=== PATIENT | female | born 1940 | race Caucasian/White ===

== ENCOUNTER 2017-01-25 19:40 | Observation (INO) | payer MEDICARE ==
--- NOTE | 2017-01-25 21:22 | ER Document Report ---
ED General - General Chief Complaint: Flank Pain Stated Complaint: RIGHT FLANK PAIN Time Seen by Provider: 01/25/17 20:36 Notes: Patient is a 76-year-old female that comes emergency department with chief complaint feeling weak, of pains in her lower back on both sides, intermittent painful urination since yesterday, and daughter state they measured her temperature at 101.3 before arrival. Daughters state she has been intermittently confused this afternoon and evening. Patient did not take any medications for fever, not family febrile after arrival to the emergency department. PMH COPD, hypothyroidism, hypertension, arthritis. She has had a kidney stone in the past. She lives at home. TRAVEL OUTSIDE OF THE [place] IN LAST 30 DAYS: No - Related Data Allergies/Adverse Reactions: Beef Containing Products Allergy (Verified 10/20/14 17:15) cephalexin monohydrate [From Keflex] Allergy (Verified 10/20/14 17:15) latex [Latex] Allergy (Verified 10/20/14 17:15) Penicillins Allergy (Verified 10/20/14 17:15) Xpvgcjj-Zcm-Tse Reductase Inhibitor Adverse Reaction (Intermediate, Verified 01/27 17:15) Unknown reaction Past Medical History - General Information source: Patient - Social History Smoking Status: Former Smoker Frequency of alcohol use: None Drug Abuse: None Lives with: Family Family History: Reviewed & Not Pertinent - Past Medical History Cardiac Medical History: Reports: Hx Congestive Heart Failure, Hx Heart Attack, Hx Hypercholesterolemia, Hx Hypertension Pulmonary Medical History: Reports: Hx Asthma, Hx Bronchitis, Hx COPD, Hx Pneumonia Denies: Hx Tuberculosis Neurological Medical History: Denies: Hx Seizures Renal/ Medical History: Denies: Hx End Stage Renal Disease, Hx Kidney Stones, Hx Peritoneal Dialysis GI Medical History: Reports: Hx Ulcer. Denies: Hx Cirrhosis, Hx Gastroesophageal Reflux Disease Musculoskeltal Medical History: Reports Hx Arthritis, Denies Hx Multiple Sclerosis Psychiatric Medical History: Denies: Hx Bipolar Disorder, Hx Depression, Hx Schizophrenia Past Surgical History: Reports: Hx Cardiac Catheterization - x2, Hx Hysterectomy - total - Immunizations Hx Diphtheria, Pertussis, Tetanus Vaccination: Yes Hx Pneumococcal Vaccination: 09/15/03 Review of Systems - Review of Systems Constitutional: See HPI EENT: No symptoms reported Cardiovascular: No symptoms reported Respiratory: No symptoms reported Gastrointestinal: See HPI Genitourinary: See HPI Female Genitourinary: No symptoms reported Musculoskeletal: No symptoms reported Skin: No symptoms reported Hematologic/Lymphatic: No symptoms reported Neurological/Psychological: See HPI Physical Exam - Vital signs Vitals: Temp Pulse Resp BP Pulse Ox 98.5 F 92 16 150/82 H 93 01/25/17 19:52 01/25/17 19:52 01/25/17 19:52 01/25/17 19:52 01/25/17 19:52 Interpretation: Normal - General General appearance: Appears well In distress: None - Patient does not appear to be in distress - HEENT Head: Normocephalic, Atraumatic Eyes: Normal Conjunctiva: Normal Extraocular movements intact: Yes Eyelashes: Normal Pupils: PERRL Sinus: Normal Nasal: Normal Mouth/Lips: Normal Mucous membranes: Normal Pharynx: Normal Neck: Normal - Respiratory Respiratory status: No respiratory distress Chest status: Nontender Breath sounds: Normal. No: Decreased air movement, Wheezing Chest palpation: Normal - Cardiovascular Rhythm: Regular Heart sounds: Normal auscultation Murmur: No - Abdominal Inspection: Normal Distension: No distension Bowel sounds: Normal Tenderness: Nontender Organomegaly: No organomegaly - Back Back: Normal, Tender - Mild generalized tenderness in the paralumbar musculature areas bilaterally, no midline tenderness noted, no overt CVA tenderness noted, no saddle anesthesia, patient was all extremities without difficulty. No: CVA tenderness - Extremities General upper extremity: Normal inspection, Nontender, Normal color, Normal ROM , Normal temperature General lower extremity: Normal inspection, Nontender, Normal color, Normal ROM , Normal temperature, Normal weight bearing. No: Jacek's sign - Neurological Neuro grossly intact: Yes Cognition: Normal Orientation: AAOx4 [place] Coma Scale Eye Opening: Spontaneous [place] Coma Scale Verbal: Oriented [place] Coma Scale Motor: Obeys Commands [place] Coma Scale Total: 15 Speech: Normal Motor strength normal: LUE, RUE, LLE, RLE Sensory: Normal - Psychological Associated symptoms: Normal affect, Normal mood - Skin Skin Temperature: Warm Skin Moisture: Dry Skin Color: Normal Course - Re-evaluation Re-evalutation: Patient is nontoxic-appearing, conversational, oriented, has normal neurological exam. No CVA tenderness on exam, patient denies that she was having pain worse on one side and states it was generally in her lower back. Patient denies any nausea or vomiting, clinical picture is not consistent with kidney stone. Urine obtained, shows white blood cells, nitrates, 3+ bacteria, culture place, starting Levaquin although labs are still pending. Patient has cephalosporin allergy. CBC shows leukocytosis with elevation of neutrophils but no bandemia, chemistry shows acute renal insufficiency with creatinine of 2.84, lower GFR than previous, previous creatinine 1.5-1.7. Potassium low at 2.7, could be secondary to Lasix use with no potassium supplement, magnesium checked and normal. Discussed with Dr. Vazquez, recommends admission to the hospital. Dr. Vazquez evaluated patient at bedside, recommends ultrasound to rule out any obstruction because of history of kidney stones along with urinary tract infection, reported fever, and renal insufficiency. Ultrasound is unremarkable. Patient still complaining of feeling poorly, antibiotics have been given, potassium infusing, vital signs still stable. Discussed with Dr. Hickey for admission to the hospital. - Vital Signs Vital signs: Temp Pulse Resp BP Pulse Ox 98.5 F 92 16 150/82 H 93 01/26/17 03:02 01/25/17 19:52 01/25/17 19:52 01/25/17 19:52 01/25/17 19:52 - Laboratory Result Diagrams: 01/25/17 22:30 01/25/17 22:30 Laboratory results interpreted by me: 01/25/17 01/25/17 01/25/17 20:36 22:30 22:30 WBC 12.8 H Hgb 11.2 L Hct 34.1 L RDW 16.3 H Seg Neutrophils % 85.0 H Lymphocytes % 8.0 L Absolute Neutrophils 10.9 H Sodium 136.0 L Potassium 2.7 L* BUN 32 H Creatinine 2.84 H Est GFR ( Amer) 20 L Est GFR (Non-Af Amer) 16 L Glucose 113 H Direct Bilirubin 0.5 H Albumin 3.4 L Urine Protein 100 H Urine Blood MODERATE H Urine Nitrite POSITIVE H Urine Urobilinogen 2.0 H Ur Leukocyte Esterase MODERATE H Discharge - Discharge Clinical Impression: Renal insufficiency, Hypokalemia Fever Qualifiers: Fever type: unspecified Qualified Code(s): R50.9 - Fever, unspecified Urinary tract infection Qualifiers: Urinary tract infection type: site unspecified Hematuria presence: without hematuria Qualified Code(s): N39.0 - Urinary tract infection, site not specified Condition: Stable Disposition: ADMITTED OBSERVATION Admitting Provider: Hospitalist Unit Admitted: Telemetry Referrals: DAVID GRAHAM [Primary Care Provider] - Follow up as needed
[2017-01-25 22:15] LABS: APPEARANCE,URINE SLIGHTLY-CLOUDY; BILIRUBIN,URINE NEGATIVE (NEGATIVE); GLUCOSE, URINE NEGATIVE (NEGATIVE); KETONES,URINE NEGATIVE (NEGATIVE); LEUKOCYTE ESTERASE,URINE MODERATE (NEGATIVE); NITRITE,URINE POSITIVE (NEGATIVE); PROTEIN,URINE 100 mg/dL (NEGATIVE)
[2017-01-25] MEDS ORDERED: LEVOFLOXACIN 750 MG/D5W RTU 150 ML IV ONE (22:38)
[2017-01-25 23:06] LABS: ABSOLUTE BASOPHILS # (AUTO) 0.1 10^3/uL (0.0-0.2); ABSOLUTE MONOCYTES (AUTO) 0.8 10^3/uL (0.1-1.4); ABSOLUTE NEUT (AUTO) 10.9 10^3/uL (1.7-8.2); BASOPHILS % (AUTO) 0.5 % (0-2); EOSINOPHILS % (AUTO) 0.2 % (0-6); HEMATOCRIT 34.1 % (36.0-47.0); HEMOGLOBIN 11.2 g/dL (12.0-15.5); HGB HCT DIFFERENCE -0.5; MEAN CORPUSCULAR HEMOGLOBIN 27.4 pg (27.0-33.4); MEAN CORPUSCULAR HGB CONC 32.9 g/dL (32.0-36.0); MEAN CORPUSCULAR VOLUME 83 fl (80-97); MONOCYTES % (AUTO) 6.3 % (3-13); RED BLOOD COUNT 4.08 10^6/uL (3.72-5.28); RED CELL DISTRIBUTION WIDTH 16.3 % (11.5-14.0); WHITE BLOOD COUNT 12.8 10^3/uL (4.0-10.5)
[2017-01-25 23:15] LABS: ALANINE AMINOTRANSFERASE 27 U/L (9-52); ALBUMIN 3.4 g/dL (3.5-5.0); ALKALINE PHOSPHATASE 108 U/L (38-126); ANION GAP 14 (5-19); ASPARTATE AMINO TRANSFERASE 20 U/L (14-36); BILIRUBIN,DIRECT 0.5 mg/dL (0.0-0.4); BILIRUBIN,TOTAL 0.9 mg/dL (0.2-1.3); BLOOD UREA NITROGEN 32 mg/dL (7-20); CALCIUM 8.8 mg/dL (8.4-10.2); CARBON DIOXIDE 22 mmol/L (22-30); CHLORIDE 100 mmol/L (98-107); CREATININE RESULT 2.84 mg/dL (0.52-1.25); GLUCOSE 113 mg/dL (75-110); TOTAL PROTEIN 6.9 g/dL (6.3-8.2)
[2017-01-25 23:17] LABS: CREATINE KINASE MB 2.49 ng/mL (<4.55)
[2017-01-25 23:18] LABS: POTASSIUM 2.7 mmol/L (3.6-5.0)
[2017-01-25 23:22] LABS: TROPONIN I 0.034 ng/mL
[2017-01-25] MEDS ORDERED: NORMAL SALINE 1000 ML 500 ML IV ONE (23:23)
[2017-01-26] MEDS ORDERED: POTASSIUM CHLORIDE 10 MEQ TABLET.SA PO ONE ×2 (00:18→06:23)
[2017-01-26] MEDS: POTASSI CL 20 MEQ/50 ML RIDER 50 ML IV SCH ×2 (00:44→05:01)
[2017-01-26] MEDS ORDERED: OXYCODONE-ACETAMINOPHEN 5-325 MG TABLET PO ONE (02:40)
[2017-01-26] MEDS ORDERED: NORMAL SALINE 1000 ML 1,000 ML IV ONE (02:59)
[2017-01-26 03:23] LABS: ABSOLUTE BASOPHILS # (AUTO) 0.1 10^3/uL (0.0-0.2); ABSOLUTE LYMPHOCYTES (AUTO) 1.2 10^3/uL (0.5-4.7); ABSOLUTE NEUT (AUTO) 10.2 10^3/uL (1.7-8.2); BASOPHILS % (AUTO) 0.6 % (0-2); EOSINOPHILS % (AUTO) 0.4 % (0-6); HEMATOCRIT 33.8 % (36.0-47.0); HGB HCT DIFFERENCE -0.8; LYMPHOCYTES % (AUTO) 9.9 % (13-45); MEAN CORPUSCULAR HEMOGLOBIN 27.3 pg (27.0-33.4); MEAN CORPUSCULAR HGB CONC 32.4 g/dL (32.0-36.0); MEAN CORPUSCULAR VOLUME 84 fl (80-97); MONOCYTES % (AUTO) 7.9 % (3-13); RED BLOOD COUNT 4.01 10^6/uL (3.72-5.28); RED CELL DISTRIBUTION WIDTH 16.4 % (11.5-14.0); SEGMENTED NEUTROPHILS % (AUTO) 81.2 % (42-78); WHITE BLOOD COUNT 12.6 10^3/uL (4.0-10.5)
[2017-01-26 03:37] LABS: ANION GAP 11 (5-19); BLOOD UREA NITROGEN 33 mg/dL (7-20); CALCIUM 8.7 mg/dL (8.4-10.2); CARBON DIOXIDE 22 mmol/L (22-30); CHLORIDE 104 mmol/L (98-107); CREATININE RESULT 2.68 mg/dL (0.52-1.25); GLUCOSE 133 mg/dL (75-110); POTASSIUM 3.3 mmol/L (3.6-5.0)
[2017-01-26] MEDS ORDERED: MAG HYDROX/AL HYDROX/SIMETH SUSP 30 ML UDCUP PO PRN (04:08)
[2017-01-26] MEDS ORDERED: ONDANSETRON HCL INJ/PF 4 MG/2 ML SDV IV PRN (04:08)
[2017-01-26] MEDS ORDERED: ACETAMINOPHEN 325 MG TABLET PO PRN (04:08)
[2017-01-26] MEDS: HEPARIN SOD (PORCINE) 5,000 UNIT/ML 1 ML SYRINGE SUBCUT SCH ×3 (05:37→20:46)
[2017-01-26] MEDS ORDERED: ALBUTEROL SULFATE HFA (90 MCG/PUFF) 8 GM MDI (1 MDI/ER DISP) IH PRN (08:05)
[2017-01-26] MEDS ORDERED: DIAZEPAM 5 MG TABLET PO PRN (08:05)
[2017-01-26] MEDS ORDERED: ALBUTEROL SULFATE HFA (90 MCG/PUFF) 200 PUFF/8.5 GM MDI IH PRN (08:16)
[2017-01-26] MEDS: NORMAL SALINE 1000 ML 1,000 ML IV SCH ×2 (09:06→18:42)
[2017-01-26] MEDS: DULOXETINE HCL 30 MG CAPSULE.DR PO SCH (09:45)
[2017-01-26] MEDS: OXYCODONE-ACETAMINOPHEN 5-325 MG TABLET PO PRN ×2 (09:46→20:47)
[2017-01-26] MEDS: DOCUSATE SODIUM 100 MG CAPSULE PO SCH ×2 (09:47→17:27)
[2017-01-26] MEDS: TOPIRAMATE 100 MG TABLET PO SCH ×2 (09:47→20:44)
[2017-01-26] MEDS: ISOSORBIDE MONONITRATE 60 MG TAB.ER.24H PO SCH (09:47)
[2017-01-26] MEDS: FLUTICASONE NASAL SPRAY 50 MCG/SPRY 120 SPRAY/16 GM NASL SCH ×2 (09:47→20:44)
[2017-01-26] MEDS: BUDESONIDE/FORMOTEROL 80-4.5 MCG 60 PUFF/6.9 GM MDI IH SCH ×2 (09:48→17:27)
[2017-01-26] MEDS: ASPIRIN 325 MG TABLET PO SCH (09:48)
[2017-01-26] MEDS: MONTELUKAST SODIUM 10 MG TABLET PO SCH (09:49)
[2017-01-26] MEDS: LEVOTHYROXINE SODIUM 0.088 MG TABLET PO SCH (09:49)
[2017-01-26] MEDS ORDERED: TOPIRAMATE 100 MG TABLET PO SCH (10:00)
[2017-01-26] MEDS ORDERED: (PENDING PHARMACY ID) (Methadone Hcl [Methadone Hcl] 5 MG) PO SCH (10:00)
--- NOTE | 2017-01-26 11:41 | EKG REPORT ---
SEVERITY:- ABNORMAL ECG - SINUS RHYTHM WITH FREQUENT APCs NONSPECIFIC INTRAVENTRICULAR CONDUCTION DELAY BORDERLINE INFERIOR Q WAVES MINIMAL ST DEPRESSION, ANTEROLATERAL LEADS : Confirmed by: Nicho Bacon 26-Jan-2017 11:40:52
--- NOTE | 2017-01-26 13:15 | PDOC PROGRESS REPORT ---
Subjective Progress Note for:: 01/26/17 Subjective:: Patient is seen on morning rounds. She is resting in bed. She denies any shortness of breath, cough or dyspnea. She denies any chest pain or dizziness. She denies any nausea, vomiting or diarrhea. Her flank pain is now resolved. She denies any fevers or chills. Rest of review of systems are negative. Physical Exam Vital Signs: Temp Pulse Resp BP Pulse Ox 98.1 F 67 17 123/47 L 97 01/26/17 11:24 01/26/17 11:24 01/26/17 11:24 01/26/17 11:24 01/26/17 11:24 Intake & Output 01/25/17 01/26/17 01/27/17 06:59 06:59 06:59 Weight 106.8 kg General appearance: PRESENT: no acute distress, well-developed, well-nourished Head exam: PRESENT: atraumatic, normocephalic Eye exam: PRESENT: conjunctiva pink, EOMI, PERRLA. ABSENT: scleral icterus Ear exam: PRESENT: normal external ear exam Mouth exam: PRESENT: moist, tongue midline Neck exam: ABSENT: carotid bruit, JVD, lymphadenopathy, thyromegaly Respiratory exam: PRESENT: clear to auscultation toni. ABSENT: rales, rhonchi, wheezes Cardiovascular exam: PRESENT: RRR. ABSENT: diastolic murmur, rubs, systolic murmur Pulses: PRESENT: normal dorsalis pedis pul Vascular exam: PRESENT: normal capillary refill GI/Abdominal exam: PRESENT: normal bowel sounds, soft. ABSENT: distended, guarding, mass, organolmegaly, rebound, tenderness Rectal exam: PRESENT: deferred Extremities exam: PRESENT: full ROM. ABSENT: calf tenderness, clubbing, pedal edema Neurological exam: PRESENT: alert, awake, oriented to person, oriented to place , oriented to time, oriented to situation, CN II-XII grossly intact. ABSENT: motor sensory deficit Psychiatric exam: PRESENT: appropriate affect, normal mood. ABSENT: homicidal ideation, suicidal ideation Skin exam: PRESENT: dry, intact, warm. ABSENT: cyanosis, rash Results Impressions: Chest X-Ray 01/25/17 20:43 IMPRESSION: NO ACUTE RADIOGRAPHIC FINDING IN THE CHEST. Renal Ultrasound 01/26/17 00:39 IMPRESSION: No hydronephrosis. No renal calcifications identified by ultrasound. Assessment & Plan - Diagnosis (1) Altered mental status Qualifiers: Altered mental status type: disorientation Qualified Code(s): R41.0 - Disorientation, unspecified Is this a current diagnosis for this admission?: YesPlan: Now resolved, secondary to fever and UTI. (2) Urinary tract infection Qualifiers: Urinary tract infection type: site unspecified Hematuria presence: without hematuria Qualified Code(s): N39.0 - Urinary tract infection, site not specified Is this a current diagnosis for this admission?: YesPlan: Continue broad spectrum antibiotics cultures pending (3) Fever Qualifiers: Fever type: unspecified Qualified Code(s): R50.9 - Fever, unspecified Is this a current diagnosis for this admission?: YesPlan: Resolved with antibiotic use (4) Hypokalemia Is this a current diagnosis for this admission?: YesPlan: Repleted will continue to monitor (5) Renal insufficiency Is this a current diagnosis for this admission?: YesPlan: Secondary to intravascular volume depletion from infection. Will gently hydrate and monitor - Time Time Spent with patient: 25-34 minutes Critical Time spent with patient: 15-24 minutes Medications reviewed and adjusted accordingly: Yes Anticipated discharge: Home Within: within 24 hours
[2017-01-26] MEDS: METHADONE HCL 10 MG TABLET PO SCH ×2 (14:23→20:45)
[2017-01-27] MEDS: OXYCODONE-ACETAMINOPHEN 5-325 MG TABLET PO PRN (00:45)
[2017-01-27 05:41] LABS: ANION GAP 12 (5-19); BLOOD UREA NITROGEN 29 mg/dL (7-20); CALCIUM 8.3 mg/dL (8.4-10.2); CARBON DIOXIDE 17 mmol/L (22-30); CHLORIDE 109 mmol/L (98-107); CREATININE RESULT 2.41 mg/dL (0.52-1.25); GLUCOSE 80 mg/dL (75-110); MAGNESIUM 1.9 mg/dL (1.6-2.3); POTASSIUM 3.3 mmol/L (3.6-5.0); SODIUM 137.9 mmol/L (137-145)
[2017-01-27] MEDS: HEPARIN SOD (PORCINE) 5,000 UNIT/ML 1 ML SYRINGE SUBCUT SCH (05:48)
[2017-01-27] MEDS: METHADONE HCL 10 MG TABLET PO SCH (05:49)
--- NOTE | 2017-01-27 07:18 | PDOC H&P ---
History of Present Illness Admission Date/PCP: 01/26/17 04:08 DAVID GRAHAM Patient complains of: Right-sided flank pain History of Present Illness: LOCO MARCUS is a 76 year old female admitted to the emergency room after 24 hours of feeling weak and right-sided flank pain with fever of 101.3. She denies chest pain nausea vomiting or diaphoresis. She admits a remote history of nephrolithiasis. In the emergency room she's found to have leukocytosis, hypokalemia and renal ultrasound negative for hydronephrosis she is referred to the hospitalist for admission Past Medical History Cardiac Medical History: Reports: Congestive Heart Failure, Myocardial Infarction, Hyperlipidema, Hypertension Pulmonary Medical History: Reports: Asthma, Bronchitis, Chronic Obstructive Pulmonary Disease (COPD), Pneumonia Denies: Tuberculosis Neurological Medical History: Denies: Seizures Renal/ Medical History: Denies: End Stage Renal Disease GI Medical History: Denies: Cirrhosis, Gastroesophageal Reflux Disease Musculoskeltal Medical History: Reports: Arthritis Psychiatric Medical History: Denies: Bipolar Disorder, Depression Hematology: Reports: Anemia, Bleeding Tendencies - daily asprin Past Surgical History Past Surgical History: Reports: Cardiac Catheterization - x2, Hysterectomy Social History Lives with: Family Smoking Status: Former Smoker Number of Years Smokin Frequency of Alcohol Use: None Hx Recreational Drug Use: No Hx Prescription Drug Abuse: No - Advance Directive Resuscitation Status: Full Code Family History Family History: Reviewed & Not Pertinent, Hypertension Parental Family History Reviewed: Yes Children Family History Reviewed: Yes Sibling(s) Family History Reviewed.: Yes Medication/Allergy Home Medications: Aspirin [Aspirin 325 mg Tablet] 325 mg PO DAILY 08/09/13 Duloxetine HCl [Cymbalta 30 mg Capsule.dr] 60 mg PO DAILY 08/09/13 Levothyroxine Sodium [Synthroid 0.088 mg Tablet] 0.088 mg PO DAILY 08/09/13 Topiramate [Topamax 100 mg Tablet] 100 mg PO BID 08/09/13 Albuterol Sulfate [Ventolin Hfa] 2 puff IH Q4 PRN 10/20/14 Budesonide/Formoterol Fumarate [Symbicort HFA 80-4.5 mcg Inhaler 6.9 gm] 1 puff IH BID 10/20/14 Fluticasone Propionate [Flonase Nasal [place] 50 Mcg/[place] 16 gm] 2 spray NAREB DAILY 10/20/14 Furosemide [Lasix 20 mg Tablet] 20 mg PO QAM 10/20/14 Methadone HCl 5 mg PO TID 10/20/14 Montelukast Sodium 10 mg PO DAILY 10/20/14 Allergies/Adverse Reactions: cephalexin monohydrate [From Keflex] Allergy (Unknown, Verified 01/26/17 04:59) Beef Containing Products Allergy (Verified 01/26/17 04:59) latex [Latex] Allergy (Verified 01/26/17 04:59) Penicillins Allergy (Verified 01/26/17 04:59) Gvcyoig-Rre-Hrj Reductase Inhibitor Adverse Reaction (Intermediate, Verified 04:59) Unknown reaction Review of Systems Constitutional: ABSENT: chills, fever(s), headache(s), weight gain, weight loss Eyes: ABSENT: visual disturbances Ears: ABSENT: hearing changes Cardiovascular: ABSENT: chest pain, dyspnea on exertion, edema, orthropnea, palpitations Respiratory: ABSENT: cough, hemoptysis Gastrointestinal: ABSENT: abdominal pain, constipation, diarrhea, hematemesis, hematochezia, nausea, vomiting Genitourinary: ABSENT: dysuria, hematuria Musculoskeletal: ABSENT: joint swelling Integumentary: ABSENT: rash, wounds Neurological: ABSENT: abnormal gait, abnormal speech, confusion, dizziness, focal weakness, syncope Psychiatric: ABSENT: anxiety, depression, homidical ideation, suicidal ideation Endocrine: ABSENT: cold intolerance, heat intolerance, polydipsia, polyuria Hematologic/Lymphatic: ABSENT: easy bleeding, easy bruising Physical Exam Vital Signs: Temp Pulse Resp BP Pulse Ox 98.0 F 63 16 120/53 L 97 01/26/17 23:55 01/27/17 02:00 01/26/17 23:55 01/26/17 23:55 01/26/17 23:55 Intake & Output 01/25/17 01/26/17 01/27/17 11:59 11:59 11:59 Intake Total 1470 Balance 1470 Weight 106.8 kg 110.8 kg General appearance: PRESENT: no acute distress, cooperative, well-developed, well-nourished Head exam: PRESENT: atraumatic, normocephalic Eye exam: PRESENT: conjunctiva pink, EOMI, PERRLA. ABSENT: scleral icterus Ear exam: PRESENT: normal external ear exam Mouth exam: PRESENT: moist, tongue midline Neck exam: ABSENT: carotid bruit, JVD, lymphadenopathy, thyromegaly Respiratory exam: PRESENT: clear to auscultation toni. ABSENT: rales, rhonchi, wheezes Cardiovascular exam: PRESENT: RRR. ABSENT: diastolic murmur, rubs, systolic murmur Pulses: PRESENT: normal dorsalis pedis pul Vascular exam: PRESENT: normal capillary refill GI/Abdominal exam: PRESENT: normal bowel sounds, soft. ABSENT: distended, guarding, mass, organolmegaly, rebound, tenderness Rectal exam: PRESENT: deferred Gentrourinary exam: PRESENT: other - Right-sided flank pain to percussion Extremities exam: PRESENT: full ROM. ABSENT: calf tenderness, clubbing, pedal edema Neurological exam: PRESENT: alert, awake, oriented to person, oriented to place , oriented to time, oriented to situation, CN II-XII grossly intact. ABSENT: motor sensory deficit Psychiatric exam: PRESENT: appropriate affect, normal mood. ABSENT: homicidal ideation, suicidal ideation Skin exam: PRESENT: dry, intact, warm. ABSENT: cyanosis, rash Results Laboratory Results: 01/27/17 04:09 01/27/17 04:09 Sodium 137.9 Potassium 3.3 L Chloride 109 H Carbon Dioxide 17 L Anion Gap 12 BUN 29 H Creatinine 2.41 H Est GFR ( Amer) 24 L Est GFR (Non-Af Amer) 19 L Glucose 80 Calcium 8.3 L Magnesium 1.9 Impressions: Chest X-Ray 01/25/17 20:43 IMPRESSION: NO ACUTE RADIOGRAPHIC FINDING IN THE CHEST. Renal Ultrasound 01/26/17 00:39 IMPRESSION: No hydronephrosis. No renal calcifications identified by ultrasound. Assessment & Plan - Diagnosis (1) Pyelonephritis Is this a current diagnosis for this admission?: YesPlan: IV fluid challenge, empiric antibiotics blood and urine culture follow-up labs (2) Acute on chronic renal failure Is this a current diagnosis for this admission?: YesPlan: IV fluid challenge. Avoiding nephrotoxic meds and doses reevaluate chemistry (3) Hypokalemia Is this a current diagnosis for this admission?: YesPlan: Evaluate magnesium repletion of potassium and reevaluation
[2017-01-27] MEDS ORDERED: POTASSIUM CHLORIDE 10 MEQ TABLET.SA PO ONE (09:15)
[2017-01-27] MEDS: LEVOTHYROXINE SODIUM 0.088 MG TABLET PO SCH (09:54)
[2017-01-27] MEDS: ISOSORBIDE MONONITRATE 60 MG TAB.ER.24H PO SCH (09:55)
[2017-01-27] MEDS: TOPIRAMATE 100 MG TABLET PO SCH (09:55)
[2017-01-27] MEDS: MONTELUKAST SODIUM 10 MG TABLET PO SCH (09:55)
[2017-01-27] MEDS: DOCUSATE SODIUM 100 MG CAPSULE PO SCH (09:55)
[2017-01-27] MEDS: BUDESONIDE/FORMOTEROL 80-4.5 MCG 60 PUFF/6.9 GM MDI IH SCH (09:56)
[2017-01-27] MEDS: FLUTICASONE NASAL SPRAY 50 MCG/SPRY 120 SPRAY/16 GM NASL SCH (09:56)
[2017-01-27] MEDS: ASPIRIN 325 MG TABLET PO SCH (09:56)
[2017-01-27] MEDS: DULOXETINE HCL 30 MG CAPSULE.DR PO SCH (09:56)
[2017-01-27] MEDS ORDERED: LEVOFLOXACIN 500 MG TABLET PO ONE (10:00)
--- NOTE | 2017-01-27 10:27 | Physician Advisory Note ---
Physician Advisor ProgressNote .: [facility] I have reviewed the medical record for this patient. Physician Advisor Statement: Possible documentation opportunities if attending agrees: 1. "UTI w/ suspected Acute Rt-sided pyelonephritis" [H&P states Rt flank pain , dx pyelo] - "with possible sepsis on arrival [F, AMS, HR, WBC], ruled out" 2. "Acute Kidney Injury/ARF on chronic kidney dz stage 3-4, baseline Cr 1.5-1.7 " [baseline GFR high 20s-low 30s] 3. "Medical necessity" - see below in bold under "Status". 4. "chronic ___ CHF" - diastolic? [2014 ECHO = EF >65%, no valvular dz, LA borderline dilated, no mention of diastolic fn] 5. "Acute metabolic acidosis, suspect due to " 6. "mild acute hyponatremia, suspect due to " As always, if concerned about any unstable VS or abnormal labs, please comment on them - what bad things they might indicate, why they concern you - & note what doing about them. Please also document each day the potential clinical problems you are concerned could occur if pt not kept in hospital for tx at this time. (These points are bertrand - if present in each note, attending's status decision should be sufficiently supported.) Discussion: 76yo female w/ chronic co-morbidities including HTN, HLD, OH, "CHF", COPD, asthma, hypothyroidism, GI ulcer, prior Cr 1.5-1.7 baseline - presented 5/13 PM to ED w/Rt flank pain, weakness, low back pain bilat, intermittent dysuria, fever of 101.3 shortly prior to arrival, intermittent confusion that PM (+) HR 92, RR16, BP 150/82, WBC 12.8, Hgb 11.2, U/A (+), Na 136, K 2.7, bicarb 22, BUN 32, Cr 2.84, glc 113 (no DM). ED gave Levaquin, 500ml IVF, KCl. Attending ordered NS x2L at 150, I/OLs, falls, wts, q4h VS, O2 2L, Levaquin, KCl , f/u labs. After 1MN of care, pt still w/leukocytosis almost unchanged, continued MALENA. After 2MN of care, pt still w/MALENA significantly beyond baseline @2.41, has developed new acute metabolic acidosis, still hypokalemic. Status: A pt w/nonspecific/symptom dx.s of UTI, AMS, fever, "renal insufficiency" [a term which means nothing to reviewers] is only appropriate for Outpt Obs status to start. However, this [employer] pt, w/evidence of acute pyelo that can continue to worsen her MALENA if not responsive to abx tx, with MALENA/ARF that has not resolved even after 2 nights of tx, with underlying chronic CHF that can be exacerbated acutely by tx for the MALENA - this pt, with more specific, accurate documentation of dx.s such as above & here, shows need for continued tx & monitoring in inpatient hospital setting that is medically reasonable & necessary to protect pt's health, safety, & medical condition. Appropriate for Inpt status with more explicit documentation of severity of pt's condition as above. Thanks for your help with documentation accuracy/specificity improvement! Idania Horan MD [facility], [facility] Physician Advisor, Fellow of [facility]
[2017-01-27 12:26] VITALS: BP 106/45
--- NOTE | 2017-01-27 15:10 | PDOC DISCHARGE SUMMARY ---
General - Admit/Disc Date/PCP Admission Date/Primary Care Provider: 01/26/17 04:08 DAVID GRAHAM Discharge Date: 01/27/17 - Discharge Diagnosis (1) Altered mental status Is this a current diagnosis for this admission?: YesSummary: Resolved secondary to UTI. (2) Urinary tract infection Is this a current diagnosis for this admission?: YesSummary: Continue Levaquin 500 mg daily for next 7 days (3) Fever Is this a current diagnosis for this admission?: YesSummary: Resolved (4) Hypokalemia Is this a current diagnosis for this admission?: YesSummary: Repleted. Will add potassium 20 mg once daily with her Lasix that she takes. (5) Renal insufficiency Is this a current diagnosis for this admission?: YesSummary: Creatinine resolved to baseline with IV hydration - Additional Information Resuscitation Status: Full Code Discharge Diet: Regular Discharge Activity: Activity As Tolerated, Balance Activity w/Rest Home Medications: Aspirin [Aspirin 325 mg Tablet] 325 mg PO DAILY 08/09/13 Duloxetine HCl [Cymbalta 30 mg Capsule.dr] 60 mg PO DAILY 08/09/13 Levothyroxine Sodium [Synthroid 0.088 mg Tablet] 0.088 mg PO DAILY 08/09/13 Topiramate [Topamax 100 mg Tablet] 100 mg PO BID 08/09/13 Albuterol Sulfate [Ventolin Hfa] 2 puff IH Q4 PRN 10/20/14 Budesonide/Formoterol Fumarate [Symbicort HFA 80-4.5 mcg Inhaler 6.9 gm] 1 puff IH BID 10/20/14 Fluticasone Propionate [Flonase Nasal [place] 50 Mcg/[place] 16 gm] 2 spray NAREB DAILY 10/20/14 Furosemide [Lasix 20 mg Tablet] 20 mg PO QAM 10/20/14 Methadone HCl 5 mg PO TID 10/20/14 Montelukast Sodium 10 mg PO DAILY 10/20/14 Acetaminophen [Tylenol 325 mg Tablet] 325 mg PO Q4HP PRN tablet 01/27/17 Levofloxacin [Levaquin 500 mg Tablet] 500 mg PO DAILY #7 tablet 01/27/17 Potassium Chloride 20 meq PO DAILY #30 tab.er.prt 01/27/17 Walker [Folding Walker] 1 each MC ASDIR PRN #1 each 01/27/17 History of Present Illness Patient complains of: Altered mental status and fever History of Present Illness: LOCO MARCUS is a 76 year old female admitted to the emergency room after 24 hours of feeling weak and right-sided flank pain with fever of 101.3. She denies chest pain nausea vomiting or diaphoresis. She admits a remote history of nephrolithiasis. In the emergency room she's found to have leukocytosis, hypokalemia and renal ultrasound negative for hydronephrosis she is referred to the hospitalist for admission Hospital Course Hospital Course: LOCO MARCUS is a 76 year old female admitted to the emergency room after 24 hours of feeling weak and right-sided flank pain with fever of 101.3. She denies chest pain nausea vomiting or diaphoresis. She admits a remote history of nephrolithiasis. In the emergency room she's found to have leukocytosis, hypokalemia and renal ultrasound negative for hydronephrosis she is referred to the hospitalist for admission. She was admitted to telemetry. She was started on IV broad-spectrum antibiotics after blood cultures 2 were obtained and urine culture sent. She is given IV hydration for acute kidney injury, secondary to volume depletion from infection. Following day she improvement of her BUN/creatinine to baseline. Her fevers have resolved. Her confusion has resolved as well. Was seen for a physical therapy for complaints of weakness. They feel she can do outpatient therapy. She was given a prescription for Rollator with seat. She is on a 3 discharged home today with her daughter. Physical Exam Vital Signs: Temp Pulse Resp BP Pulse Ox 98.2 F 68 17 106/45 L 97 01/27/17 13:43 01/27/17 13:43 01/27/17 13:43 01/27/17 13:43 01/27/17 13:43 Intake & Output 01/26/17 01/27/17 01/28/17 06:59 06:59 06:59 Intake Total 1470 Balance 1470 Weight 106.8 kg 110.8 kg General appearance: PRESENT: no acute distress, obese, well-developed, well- nourished Head exam: PRESENT: atraumatic, normocephalic Eye exam: PRESENT: conjunctiva pink, EOMI, PERRLA. ABSENT: scleral icterus Ear exam: PRESENT: normal external ear exam Mouth exam: PRESENT: moist, tongue midline Neck exam: ABSENT: carotid bruit, JVD, lymphadenopathy, thyromegaly Respiratory exam: PRESENT: clear to auscultation toni. ABSENT: rales, rhonchi, wheezes Cardiovascular exam: PRESENT: RRR. ABSENT: diastolic murmur, rubs, systolic murmur Pulses: PRESENT: normal dorsalis pedis pul Vascular exam: PRESENT: normal capillary refill GI/Abdominal exam: PRESENT: normal bowel sounds, soft. ABSENT: distended, guarding, mass, organolmegaly, rebound, tenderness Rectal exam: PRESENT: deferred Extremities exam: PRESENT: full ROM. ABSENT: calf tenderness, clubbing, pedal edema Neurological exam: PRESENT: alert, awake, oriented to person, oriented to place , oriented to time, oriented to situation, CN II-XII grossly intact. ABSENT: motor sensory deficit Psychiatric exam: PRESENT: appropriate affect, normal mood. ABSENT: homicidal ideation, suicidal ideation Skin exam: PRESENT: dry, intact, warm. ABSENT: cyanosis, rash Results Laboratory Results: 01/27/17 04:09 01/27/17 04:09 Sodium 137.9 Potassium 3.3 L Chloride 109 H Carbon Dioxide 17 L Anion Gap 12 BUN 29 H Creatinine 2.41 H Est GFR ( Amer) 24 L Est GFR (Non-Af Amer) 19 L Glucose 80 Calcium 8.3 L Magnesium 1.9 Impressions: Chest X-Ray 01/25/17 20:43 IMPRESSION: NO ACUTE RADIOGRAPHIC FINDING IN THE CHEST. Renal Ultrasound 01/26/17 00:39 IMPRESSION: No hydronephrosis. No renal calcifications identified by ultrasound. Qualifiers PATEINT BEING DISCHARGED WITH ANY OF THE FOLLOWING DIAGNOSIS?: No Plan Discharge Plan: Home with daughters Time Spent: Less than 30 Minutes
[2017-01-27] MEDS ORDERED: LEVOFLOXACIN 750 MG/D5W RTU 750 MG/150 ML RTUPB IV SCH (22:00)
[2017-01-28] MEDS ORDERED: LEVOFLOXACIN 250 MG TABLET PO SCH (10:00)
== END 2017-01-27 14:30 | disposition home or self-care (01) ==
LOC: ER 19:40 → UNDOADMOB 01-26 03:17 → EH 01-26 03:17 → 4N 01-26 04:30 → EH 01-26 04:30
PROVIDERS: ADMIT Internal Medicine; ATTEND Internal Medicine
DX: N39.0 Urinary tract infection, site not specified (principal); R41.0 Disorientation, unspecified; R50.9 Fever, unspecified; E87.6 Hypokalemia; N17.9 Acute kidney failure, unspecified; I13.0 Hypertensive heart and chronic kidney disease with heart failure and stage 1 through stage 4 chronic kidney disease, or unspecified chronic kidney disease; N18.9 Chronic kidney disease, unspecified; I50.9 Heart failure, unspecified; R53.1 Weakness; J44.9 Chronic obstructive pulmonary disease, unspecified; I25.2 Old myocardial infarction; Z79.899 Other long term (current) drug therapy; Z79.82 Long term (current) use of aspirin; Z79.51 Long term (current) use of inhaled steroids; Z87.442 Personal history of urinary calculi; Z90.710 Acquired absence of both cervix and uterus; Z87.891 Personal history of nicotine dependence; Z88.1 Allergy status to other antibiotic agents
CPT/HCPCS: 93005; 36415 ×3; 87040 ×2; 87086; 82553; 82550; 83735 ×2; 85025 ×2; 87088; 80048 ×2; 80053; 81001; 84484; 87186; 71010; 76770; 93010; 97163; G0378 ×2; A9270 ×22; J1644 ×2; J3490; J3480; J7030; J1956; G8978; G8979; 96365; 96366; 96367; 99285

== ENCOUNTER → 2017-05-20 | Outpatient (CLI) | payer MEDICARE ==
[2017-05-20 14:48] LABS: ABSOLUTE BASOPHILS # (AUTO) 0.1 10^3/uL (0.0-0.2); ABSOLUTE EOSINOPHILS # (AUTO) 0.4 10^3/uL (0.0-0.6); ABSOLUTE LYMPHOCYTES (AUTO) 1.5 10^3/uL (0.5-4.7); ABSOLUTE MONOCYTES (AUTO) 0.4 10^3/uL (0.1-1.4); ABSOLUTE NEUT (AUTO) 5.3 10^3/uL (1.7-8.2); BASOPHILS % (AUTO) 1.3 % (0-2); EOSINOPHILS % (AUTO) 5.1 % (0-6); HEMATOCRIT 36.9 % (36.0-47.0); HEMOGLOBIN 11.9 g/dL (12.0-15.5); HGB HCT DIFFERENCE -1.2; MEAN CORPUSCULAR HEMOGLOBIN 27.8 pg (27.0-33.4); MEAN CORPUSCULAR HGB CONC 32.2 g/dL (32.0-36.0); MEAN CORPUSCULAR VOLUME 87 fl (80-97); MONOCYTES % (AUTO) 5.2 % (3-13); RED BLOOD COUNT 4.26 10^6/uL (3.72-5.28); RED CELL DISTRIBUTION WIDTH 16.7 % (11.5-14.0); SEGMENTED NEUTROPHILS % (AUTO) 69.4 % (42-78); WHITE BLOOD COUNT 7.7 10^3/uL (4.0-10.5)
[2017-05-20 14:51] LABS: APPEARANCE,URINE CLEAR; BILIRUBIN,URINE NEGATIVE (NEGATIVE); GLUCOSE, URINE NEGATIVE (NEGATIVE); KETONES,URINE NEGATIVE (NEGATIVE); LEUKOCYTE ESTERASE,URINE TRACE (NEGATIVE); NITRITE,URINE NEGATIVE (NEGATIVE); PROTEIN,URINE NEGATIVE (NEGATIVE); URINE SPECIFIC GRAVITY 1.008; UROBILINOGEN,URINE NEGATIVE mg/dL (<2.0)
[2017-05-20 15:08] LABS: ALBUMIN 4.1 g/dL (3.5-5.0); ANION GAP 17 (5-19); BLOOD UREA NITROGEN 14 mg/dL (7-20); CALCIUM 9.8 mg/dL (8.4-10.2); CARBON DIOXIDE 15 mmol/L (22-30); CHLORIDE 110 mmol/L (98-107); CREATININE RESULT 1.82 mg/dL (0.52-1.25); GLUCOSE 109 mg/dL (75-110); PHOSPHORUS 3.8 mg/dL (2.5-4.5); POTASSIUM 4.2 mmol/L (3.6-5.0); SODIUM 142.2 mmol/L (137-145)
[2017-05-22 07:57] LABS: VITAMIN D 25-HYDROXY 13.6 ng/mL (30.0-100.0)
[2017-05-22 11:40] LABS: CREATININE URINE 45.8 mg/dL (Not Estab.); MICROALBUMIN URINE 17.2 ug/mL (Not Estab.)
== END ==
LOC: OD 13:00
PROVIDERS: ATTEND Internal Medicine Nephrology
DX: N17.9 Acute kidney failure, unspecified (principal); N18.3 Chronic kidney disease, stage 3 (moderate); N11.9 Chronic tubulo-interstitial nephritis, unspecified; N39.0 Urinary tract infection, site not specified
CPT/HCPCS: 36415; 80048; 81001; 82040; 82043; 82306; 82570; 83970; 84100; 85025; 87086; 87088; 87186

== ENCOUNTER → 2017-07-31 | Outpatient (CLI) | payer MEDICARE ==
--- NOTE | 2017-08-01 09:36 | EKG REPORT ---
SEVERITY:- ABNORMAL ECG - SINUS RHYTHM ATRIAL PREMATURE COMPLEX PROBABLE INFERIOR INFARCT, OLD CONSIDER POSTERIOR WALL INVOLVEMENT : Confirmed by: Nicho Bacon 01-Aug-2017 09:34:38
== END ==
LOC: OD 14:15
PROVIDERS: ATTEND Student in an Organized Health Care Education/Training Program
DX: Z79.891 Long term (current) use of opiate analgesic (principal)
CPT/HCPCS: 93005; 36415; 93010; G0480; 80358

== ENCOUNTER → 2017-08-18 | Outpatient (CLI) | payer MEDICARE ==
[2017-08-18 13:57] LABS: ABSOLUTE BASOPHILS # (AUTO) 0.1 10^3/uL (0.0-0.2); ABSOLUTE EOSINOPHILS # (AUTO) 0.3 10^3/uL (0.0-0.6); ABSOLUTE LYMPHOCYTES (AUTO) 2.1 10^3/uL (0.5-4.7); ABSOLUTE MONOCYTES (AUTO) 0.5 10^3/uL (0.1-1.4); ABSOLUTE NEUT (AUTO) 6.9 10^3/uL (1.7-8.2); BASOPHILS % (AUTO) 0.9 % (0-2); EOSINOPHILS % (AUTO) 2.6 % (0-6); HEMATOCRIT 35.2 % (36.0-47.0); HEMOGLOBIN 11.7 g/dL (12.0-15.5); HGB HCT DIFFERENCE -0.1; LYMPHOCYTES % (AUTO) 21.2 % (13-45); MEAN CORPUSCULAR HEMOGLOBIN 27.1 pg (27.0-33.4); MEAN CORPUSCULAR HGB CONC 33.1 g/dL (32.0-36.0); MEAN CORPUSCULAR VOLUME 82 fl (80-97); MONOCYTES % (AUTO) 5.3 % (3-13); RED CELL DISTRIBUTION WIDTH 16.5 % (11.5-14.0); WHITE BLOOD COUNT 9.8 10^3/uL (4.0-10.5)
[2017-08-18 14:15] LABS: ANION GAP 14 (5-19); BLOOD UREA NITROGEN 25 mg/dL (7-20); CARBON DIOXIDE 23 mmol/L (22-30); CHLORIDE 104 mmol/L (98-107); CREATININE RESULT 1.81 mg/dL (0.52-1.25); GLUCOSE 103 mg/dL (75-110); POTASSIUM 4.5 mmol/L (3.6-5.0); SODIUM 141.3 mmol/L (137-145)
[2017-08-19 09:40] LABS: MICROALBUMIN URINE 52.2 ug/mL (Not Estab.)
== END ==
LOC: OD 12:37
PROVIDERS: ATTEND Internal Medicine Nephrology
DX: N18.4 Chronic kidney disease, stage 4 (severe) (principal); R80.9 Proteinuria, unspecified; E55.9 Vitamin D deficiency, unspecified
CPT/HCPCS: 36415; 80048; 82043; 82306; 82570; 85025

== ENCOUNTER → 2017-12-17 | Outpatient (CLI) | payer MEDICARE ==
[2017-12-17 14:49] LABS: ABSOLUTE BASOPHILS # (AUTO) 0.1 10^3/uL (0.0-0.2); ABSOLUTE EOSINOPHILS # (AUTO) 1.1 10^3/uL (0.0-0.6); ABSOLUTE LYMPHOCYTES (AUTO) 1.9 10^3/uL (0.5-4.7); ABSOLUTE MONOCYTES (AUTO) 0.5 10^3/uL (0.1-1.4); ABSOLUTE NEUT (AUTO) 4.6 10^3/uL (1.7-8.2); BASOPHILS % (AUTO) 1.2 % (0-2); EOSINOPHILS % (AUTO) 13.7 % (0-6); HEMATOCRIT 35.6 % (36.0-47.0); HEMOGLOBIN 11.2 g/dL (12.0-15.5); LYMPHOCYTES % (AUTO) 22.8 % (13-45); MEAN CORPUSCULAR HEMOGLOBIN 25.9 pg (27.0-33.4); MEAN CORPUSCULAR HGB CONC 31.6 g/dL (32.0-36.0); MEAN CORPUSCULAR VOLUME 82 fl (80-97); MONOCYTES % (AUTO) 6.5 % (3-13); PLATELET COUNT 285 10^3/uL (150-450); RED BLOOD COUNT 4.34 10^6/uL (3.72-5.28); RED CELL DISTRIBUTION WIDTH 17.2 % (11.5-14.0); SEGMENTED NEUTROPHILS % (AUTO) 55.8 % (42-78); TOTAL CELLS COUNTED % (AUTO) 100 %; WHITE BLOOD COUNT 8.2 10^3/uL (4.0-10.5)
[2017-12-17 15:07] LABS: ANION GAP 13 (5-19); BLOOD UREA NITROGEN 26 mg/dL (7-20); CARBON DIOXIDE 22 mmol/L (22-30); CHLORIDE 107 mmol/L (98-107); GLUCOSE 77 mg/dL (75-110); POTASSIUM 3.6 mmol/L (3.6-5.0); SODIUM 141.9 mmol/L (137-145)
[2017-12-18 11:40] LABS: CREATININE URINE 54.9 mg/dL (Not Estab.); MICROALBUMIN URINE 4.8 ug/mL (Not Estab.)
== END ==
LOC: OD 13:59
PROVIDERS: ATTEND Internal Medicine Nephrology
DX: N18.4 Chronic kidney disease, stage 4 (severe) (principal); R80.9 Proteinuria, unspecified; D63.1 Anemia in chronic kidney disease; E55.9 Vitamin D deficiency, unspecified
CPT/HCPCS: 36415; 80048; 82043; 82306; 82570; 85025

== ENCOUNTER → 2018-02-19 | Outpatient (CLI) | payer MEDICARE ==
--- NOTE | 2018-02-19 14:59 | RADIOLOGY REPORT (SQ) ---
EXAM DESCRIPTION: ANKLE LEFT COMPLETE COMPLETED DATE/TIME: 02/19/2018 2:46 pm REASON FOR STUDY: PAIN IN LEFT ANKLE AND JOINTS OF LEFT FOOT M25.572 PAIN IN LEFT ANKLE AND JOINTS OF LEFT FOOT COMPARISON: None. NUMBER OF VIEWS: Three views. TECHNIQUE: AP, lateral, and oblique radiographic images acquired of the left ankle. LIMITATIONS: None. FINDINGS: MINERALIZATION: Normal. BONES: No acute fracture or dislocation. No worrisome bone lesions. JOINTS: No effusions. SOFT TISSUES: No soft tissue swelling. No foreign body. OTHER: No other significant finding. IMPRESSION: NEGATIVE STUDY OF THE LEFT ANKLE. NO RADIOGRAPHIC EVIDENCE OF ACUTE INJURY. TECHNICAL DOCUMENTATION: JOB ID: [id number] [employer]- All Rights Reserved Reading location - IP/workstation name: [email or web address]
== END ==
LOC: OD 14:31
PROVIDERS: ATTEND Physician Assistant
DX: M25.572 Pain in left ankle and joints of left foot (principal)

== ENCOUNTER → 2018-04-03 | Outpatient (CLI) | payer MEDICARE ==
--- NOTE | 2018-04-03 22:12 | EKG REPORT ---
SEVERITY:- ABNORMAL ECG - SINUS RHYTHM PROBABLE INFERIOR INFARCT, OLD CONSIDER POSTERIOR WALL INVOLVEMENT BORDERLINE PROLONGED QT INTERVAL : Confirmed by: Nicho Bacon 03-Apr-2018 22:11:16
== END ==
LOC: OD 13:33
PROVIDERS: ATTEND Physician Assistant Medical
DX: Z79.891 Long term (current) use of opiate analgesic (principal)
CPT/HCPCS: 93005; 36415; 93010; G0480; 80358

== ENCOUNTER → 2018-04-20 | Outpatient (CLI) | payer MEDICARE ==
[2018-04-20 17:45] LABS: ABSOLUTE BASOPHILS # (AUTO) 0.1 10^3/uL (0.0-0.2); ABSOLUTE EOSINOPHILS # (AUTO) 0.7 10^3/uL (0.0-0.6); ABSOLUTE LYMPHOCYTES (AUTO) 1.7 10^3/uL (0.5-4.7); ABSOLUTE MONOCYTES (AUTO) 0.4 10^3/uL (0.1-1.4); BASOPHILS % (AUTO) 1.4 % (0-2); EOSINOPHILS % (AUTO) 11.5 % (0-6); HEMATOCRIT 36.1 % (36.0-47.0); HEMOGLOBIN 11.7 g/dL (12.0-15.5); MEAN CORPUSCULAR HEMOGLOBIN 26.8 pg (27.0-33.4); MEAN CORPUSCULAR HGB CONC 32.5 g/dL (32.0-36.0); MEAN CORPUSCULAR VOLUME 83 fl (80-97); MONOCYTES % (AUTO) 6.7 % (3-13); PLATELET COUNT 268 10^3/uL (150-450); RED BLOOD COUNT 4.37 10^6/uL (3.72-5.28); RED CELL DISTRIBUTION WIDTH 17.2 % (11.5-14.0); SEGMENTED NEUTROPHILS % (AUTO) 51.4 % (42-78); TOTAL CELLS COUNTED % (AUTO) 100 %; WHITE BLOOD COUNT 5.8 10^3/uL (4.0-10.5)
[2018-04-20 18:11] LABS: ANION GAP 16 (5-19); BLOOD UREA NITROGEN 21 mg/dL (7-20); CALCIUM 9.1 mg/dL (8.4-10.2); CARBON DIOXIDE 21 mmol/L (22-30); CHLORIDE 108 mmol/L (98-107); GLUCOSE 101 mg/dL (75-110); PHOSPHORUS 3.9 mg/dL (2.5-4.5); POTASSIUM 3.9 mmol/L (3.6-5.0); SODIUM 144.5 mmol/L (137-145)
== END ==
LOC: OD 16:44
PROVIDERS: ATTEND Internal Medicine Nephrology
DX: N18.4 Chronic kidney disease, stage 4 (severe) (principal); E55.9 Vitamin D deficiency, unspecified; D63.1 Anemia in chronic kidney disease
CPT/HCPCS: 36415; 80048; 82040; 82306; 83970; 84100; 85025

== ENCOUNTER → 2018-07-02 | Outpatient (CLI) | payer MEDICARE ==
[2018-07-02 15:04] LABS: ANION GAP 16 (5-19); BLOOD UREA NITROGEN 23 mg/dL (7-20); CALCIUM 9.6 mg/dL (8.4-10.2); CARBON DIOXIDE 19 mmol/L (22-30); CHLORIDE 105 mmol/L (98-107); GLUCOSE 139 mg/dL (75-110); POTASSIUM 3.8 mmol/L (3.6-5.0); SODIUM 139.5 mmol/L (137-145)
== END ==
LOC: OD 13:42
PROVIDERS: ATTEND Internal Medicine Nephrology
DX: N18.4 Chronic kidney disease, stage 4 (severe) (principal); R60.0 Localized edema
CPT/HCPCS: 36415; 80048

== ENCOUNTER → 2019-01-05 | Outpatient (CLI) | payer MEDICARE ==
[2019-01-05 11:44] LABS: ABSOLUTE BASOPHILS # (AUTO) 0.1 10^3/uL (0.0-0.2); ABSOLUTE EOSINOPHILS # (AUTO) 0.3 10^3/uL (0.0-0.6); ABSOLUTE LYMPHOCYTES (AUTO) 1.9 10^3/uL (0.5-4.7); ABSOLUTE MONOCYTES (AUTO) 0.5 10^3/uL (0.1-1.4); ABSOLUTE NEUT (AUTO) 5.7 10^3/uL (1.7-8.2); EOSINOPHILS % (AUTO) 3.7 % (0-6); HEMATOCRIT 39.3 % (36.0-47.0); HEMOGLOBIN 12.8 g/dL (12.0-15.5); LYMPHOCYTES % (AUTO) 22.4 % (13-45); MEAN CORPUSCULAR HEMOGLOBIN 26.9 pg (27.0-33.4); MEAN CORPUSCULAR HGB CONC 32.6 g/dL (32.0-36.0); MEAN CORPUSCULAR VOLUME 83 fl (80-97); MONOCYTES % (AUTO) 5.8 % (3-13); PLATELET COUNT 298 10^3/uL (150-450); RED BLOOD COUNT 4.76 10^6/uL (3.72-5.28); RED CELL DISTRIBUTION WIDTH 16.7 % (11.5-14.0); SEGMENTED NEUTROPHILS % (AUTO) 67.1 % (42-78); TOTAL CELLS COUNTED % (AUTO) 100 %; WHITE BLOOD COUNT 8.4 10^3/uL (4.0-10.5)
[2019-01-05 12:13] LABS: ANION GAP 12 (5-19); BLOOD UREA NITROGEN 31 mg/dL (7-20); CALCIUM 9.5 mg/dL (8.4-10.2); CARBON DIOXIDE 22 mmol/L (22-30); CHLORIDE 108 mmol/L (98-107); GLUCOSE 105 mg/dL (75-110); PHOSPHORUS 4.1 mg/dL (2.5-4.5); POTASSIUM 4.1 mmol/L (3.6-5.0); SODIUM 141.6 mmol/L (137-145)
== END ==
LOC: OD 10:32
PROVIDERS: ATTEND Internal Medicine Nephrology
DX: N18.4 Chronic kidney disease, stage 4 (severe) (principal); N18.9 Chronic kidney disease, unspecified; N25.81 Secondary hyperparathyroidism of renal origin; E55.9 Vitamin D deficiency, unspecified
CPT/HCPCS: 36415; 80048; 82040; 82306; 84100; 85025

== ENCOUNTER → 2019-02-03 | Outpatient (CLI) | payer MEDICARE ==
--- NOTE | 2019-02-03 23:40 | EKG REPORT ---
SEVERITY:- BORDERLINE ECG - SINUS RHYTHM ATRIAL PREMATURE COMPLEX BORDERLINE T ABNORMALITIES, ANT-LAT LEADS : Confirmed by: Nicho Bacon 03-Feb-2019 23:39:34
== END ==
LOC: OD 13:43
PROVIDERS: ATTEND Physician Assistant
DX: Z79.891 Long term (current) use of opiate analgesic (principal)
CPT/HCPCS: 93005; 93010

== ENCOUNTER → 2019-05-10 | Outpatient (CLI) | payer MEDICARE ==
[2019-05-10 13:04] LABS: APPEARANCE,URINE SLIGHTLY-CLOUDY; BILIRUBIN,URINE NEGATIVE (NEGATIVE); COLOR,URINE YELLOW; GLUCOSE, URINE NEGATIVE (NEGATIVE); KETONES,URINE NEGATIVE (NEGATIVE); LEUKOCYTE ESTERASE,URINE MODERATE (NEGATIVE); NITRITE,URINE NEGATIVE (NEGATIVE); PROTEIN,URINE NEGATIVE (NEGATIVE); URINE SPECIFIC GRAVITY 1.012; UROBILINOGEN,URINE NEGATIVE mg/dL (<2.0)
[2019-05-10 13:19] LABS: ANION GAP 10 (5-19); BLOOD UREA NITROGEN 25 mg/dL (7-20); CALCIUM 9.5 mg/dL (8.4-10.2); CARBON DIOXIDE 26 mmol/L (22-30); CHLORIDE 104 mmol/L (98-107); GLUCOSE 104 mg/dL (75-110); POTASSIUM 4.4 mmol/L (3.6-5.0)
[2019-05-11 13:37] LABS: CREATININE URINE 92.1 mg/dL (Not Estab.); MICROALBUMIN URINE 37.7 ug/mL (Not Estab.)
== END ==
LOC: OD 11:22
PROVIDERS: ATTEND Internal Medicine Nephrology
DX: N39.0 Urinary tract infection, site not specified (principal); I12.9 Hypertensive chronic kidney disease with stage 1 through stage 4 chronic kidney disease, or unspecified chronic kidney disease; N18.4 Chronic kidney disease, stage 4 (severe); N25.81 Secondary hyperparathyroidism of renal origin
CPT/HCPCS: 36415; 80048; 81001; 82043; 82570; 87086; 87088; 87186

== ENCOUNTER → 2019-07-13 | Outpatient (CLI) | payer MEDICARE ==
[2019-07-13 12:22] LABS: ABSOLUTE BASOPHILS # (AUTO) 0.1 10^3/uL (0.0-0.2); ABSOLUTE EOSINOPHILS # (AUTO) 0.3 10^3/uL (0.0-0.6); ABSOLUTE LYMPHOCYTES (AUTO) 1.5 10^3/uL (0.5-4.7); ABSOLUTE MONOCYTES (AUTO) 0.7 10^3/uL (0.1-1.4); ABSOLUTE NEUT (AUTO) 7.8 10^3/uL (1.7-8.2); BASOPHILS % (AUTO) 0.9 % (0-2); EOSINOPHILS % (AUTO) 3.2 % (0-6); HEMATOCRIT 36.5 % (36.0-47.0); HEMOGLOBIN 11.6 g/dL (12.0-15.5); LYMPHOCYTES % (AUTO) 14.4 % (13-45); MEAN CORPUSCULAR HEMOGLOBIN 25.6 pg (27.0-33.4); MEAN CORPUSCULAR HGB CONC 31.8 g/dL (32.0-36.0); MEAN CORPUSCULAR VOLUME 81 fl (80-97); MONOCYTES % (AUTO) 6.9 % (3-13); PLATELET COUNT 251 10^3/uL (150-450); RED BLOOD COUNT 4.52 10^6/uL (3.72-5.28); RED CELL DISTRIBUTION WIDTH 16.4 % (11.5-14.0); SEGMENTED NEUTROPHILS % (AUTO) 74.6 % (42-78); TOTAL CELLS COUNTED % (AUTO) 100 %; WHITE BLOOD COUNT 10.4 10^3/uL (4.0-10.5)
[2019-07-13 12:44] LABS: ALBUMIN 3.8 g/dL (3.5-5.0); ALKALINE PHOSPHATASE 82 U/L (38-126); ANION GAP 11 (5-19); ASPARTATE AMINO TRANSFERASE 19 U/L (14-36); BILIRUBIN,DIRECT 0.2 mg/dL (0.0-0.4); BILIRUBIN,TOTAL 0.4 mg/dL (0.2-1.3); BLOOD UREA NITROGEN 25 mg/dL (7-20); C-REACTIVE PROTEIN 21.4 mg/L (<10.0); CALCIUM 8.9 mg/dL (8.4-10.2); CARBON DIOXIDE 24 mmol/L (22-30); CHLORIDE 106 mmol/L (98-107); GLUCOSE 105 mg/dL (75-110); POTASSIUM 4.2 mmol/L (3.6-5.0); TOTAL PROTEIN 7.4 g/dL (6.3-8.2)
[2019-07-13 13:02] LABS: ERYTHROCYTE SEDIMENTATION RATE 68 mm/hr (0-30)
--- NOTE | 2019-07-13 13:11 | RADIOLOGY REPORT (SQ) ---
EXAM DESCRIPTION: FOOT RIGHT COMPLETE COMPLETED DATE/TIME: 07/13/2019 11:15 am REASON FOR STUDY: (L97.512)NON-PRS CHRONIC ULCER OTH PRT RIGHT FOOT W FAT LAYER EXPOSED L97.512 NON -PRS CHRONIC ULCER OTH PRT RIGHT FOOT W FAT LAYER COMPARISON: None. NUMBER OF VIEWS: Three views. TECHNIQUE: AP, lateral and oblique radiographic images acquired of the right foot. LIMITATIONS: None. FINDINGS: MINERALIZATION: Normal. BONES: Chronic deformity of the great toe that overlaps the 2nd toe. No bone destruction is seen to suggest osteomyelitis. JOINTS: Subluxation of the 2nd metatarsal phalangeal joint. SOFT TISSUES: No soft tissue swelling. No foreign body. OTHER: No other significant finding. IMPRESSION: Chronic changes with no evidence of osteomyelitis. TECHNICAL DOCUMENTATION: JOB ID: [id number] [employer]- All Rights Reserved Reading location - IP/workstation name: [email or web address]
--- NOTE | 2019-07-14 13:01 | XCELERA REPORT ---
[address] [address] Lower Extremity Arterial Evaluation Name: LOCO MARCUS Age: 79 yrs Gender: Female : 1940 Patient Status: Outpatient Patient Location: Study Date: 07/13/2019 11:24 AM Procedure: A color flow and duplex scan of the lower extremity arteries was performed bilaterally with velocity and waveform anaylsis. Ankle brachial indicies performed. 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 Biphasic with normal velocity in the Posterior and Anterior tibial arteries. Ankle Brachial index 0.94. Left Side Arterial Evaluation Normal velocity and triphasic waveforms noted from the Common Femoral artery to the Posterior tibial artery . Biphasic with normal velocity in the Anterior tibial arteries. Ankle Brachial index 0.94. Interpretation Summary Mild hemodynamically significant lesions in the bilateral lower extremities, on duplex imaging, at rest. Duplex evaluation shows very slight compromise at the Infrageniculate level. This may not have much clinical consequence. RIYA's are in normal range, suggesting no significant obstructive arterial disease. : BASSAM FRANK > Iván Shipley
== END ==
LOC: SP 10:47
PROVIDERS: ATTEND Nurse Practitioner Family
DX: L97.512 Non-pressure chronic ulcer of other part of right foot with fat layer exposed (principal); S93.331D Other subluxation of right foot, subsequent encounter; X58.XXXD Exposure to other specified factors, subsequent encounter
CPT/HCPCS: 36415; 80053; 85025; 85652; 86140; 93922; 93925

== ENCOUNTER → 2019-08-26 | Outpatient (CLI) | payer MEDICARE ==
[2019-08-26 14:18] LABS: ABSOLUTE BASOPHILS # (AUTO) 0.1 10^3/uL (0.0-0.2); ABSOLUTE EOSINOPHILS # (AUTO) 0.4 10^3/uL (0.0-0.6); ABSOLUTE LYMPHOCYTES (AUTO) 1.9 10^3/uL (0.5-4.7); ABSOLUTE MONOCYTES (AUTO) 0.5 10^3/uL (0.1-1.4); ABSOLUTE NEUT (AUTO) 5.5 10^3/uL (1.7-8.2); BASOPHILS % (AUTO) 1.1 % (0-2); HEMATOCRIT 36.6 % (36.0-47.0); LYMPHOCYTES % (AUTO) 22.2 % (13-45); MEAN CORPUSCULAR HEMOGLOBIN 26.6 pg (27.0-33.4); MEAN CORPUSCULAR HGB CONC 32.9 g/dL (32.0-36.0); MEAN CORPUSCULAR VOLUME 81 fl (80-97); MONOCYTES % (AUTO) 6.1 % (3-13); PLATELET COUNT 257 10^3/uL (150-450); RED BLOOD COUNT 4.52 10^6/uL (3.72-5.28); RED CELL DISTRIBUTION WIDTH 16.8 % (11.5-14.0); SEGMENTED NEUTROPHILS % (AUTO) 65.6 % (42-78); TOTAL CELLS COUNTED % (AUTO) 100 %; WHITE BLOOD COUNT 8.4 10^3/uL (4.0-10.5)
[2019-08-26 14:33] LABS: APPEARANCE,URINE CLOUDY; BILIRUBIN,URINE NEGATIVE (NEGATIVE); COLOR,URINE YELLOW; GLUCOSE, URINE NEGATIVE (NEGATIVE); KETONES,URINE NEGATIVE (NEGATIVE); LEUKOCYTE ESTERASE,URINE LARGE (NEGATIVE); NITRITE,URINE POSITIVE (NEGATIVE); PROTEIN,URINE 100 mg/dL (NEGATIVE); URINE SPECIFIC GRAVITY 1.014; UROBILINOGEN,URINE NEGATIVE mg/dL (<2.0)
[2019-08-26 14:38] LABS: ALBUMIN 3.8 g/dL (3.5-5.0); ANION GAP 13 (5-19); BLOOD UREA NITROGEN 23 mg/dL (7-20); CALCIUM 9.5 mg/dL (8.4-10.2); CARBON DIOXIDE 24 mmol/L (22-30); CHLORIDE 103 mmol/L (98-107); GLUCOSE 133 mg/dL (75-110); PHOSPHORUS 4.1 mg/dL (2.5-4.5); POTASSIUM 4.1 mmol/L (3.6-5.0)
[2019-08-27 12:36] LABS: CREATININE URINE 105.9 mg/dL (Not Estab.); MICROALBUMIN URINE 179.8 ug/mL (Not Estab.)
== END ==
LOC: OD 13:43
PROVIDERS: ATTEND Internal Medicine Nephrology
DX: N39.0 Urinary tract infection, site not specified (principal); N18.4 Chronic kidney disease, stage 4 (severe); I12.9 Hypertensive chronic kidney disease with stage 1 through stage 4 chronic kidney disease, or unspecified chronic kidney disease; N25.81 Secondary hyperparathyroidism of renal origin
CPT/HCPCS: 36415; 80069; 81001; 82043; 82306; 82570; 83970; 85025; 87086; 87088; 87186

== ENCOUNTER → 2019-10-05 | Outpatient (CLI) | payer MEDICARE ==
--- NOTE | 2019-10-05 14:14 | RADIOLOGY REPORT (SQ) ---
EXAM DESCRIPTION: CT CHEST WITHOUT COMPLETED DATE/TIME: 10/05/2019 10:17 am REASON FOR STUDY: J45.909 UNSPECIFIED ASTHMA, UNCOMPLICATED J45.909 UNSPECIFIED ASTHMA, UNCOMPLICAT ED R06.09 OTHER FORMS OF DYSPNEA COMPARISON: 10/20/2014. TECHNIQUE: CT scan performed of the chest without intravenous contrast. Images reviewed with lung, soft tissue and bone windows. Reconstructed coronal and sagittal MPR images reviewed. All images st ored on PACS. All CT scanners at this facility use dose modulation, iterative reconstruction, and/or weight based d osing when appropriate to reduce radiation dose to as low as reasonably achievable (ALARA). [facility]: Dose Right [facility]: CareDose [facility]: Dose Right [facility]: Teradose 4D [facility]: [place] [employer] RADIATION DOSE: CT Rad equipment meets quality standard of care and radiation dose reduction techniq ues were employed. CTDIvol: 12.0 mGy. DLP: 478 mGy-cm. mGy. LIMITATIONS: No technical limitations. FINDINGS: LUNGS AND PLEURA: Mild chronic scarring particularly in the lung apices. No masses, infil trates, or pneumothorax. No pleural effusions or pleural calcifications. HILAR AND MEDIASTINAL STRUCTURES: No identified masses or abnormal nodes. No obvious aneurysm. HEART AND VASCULAR STRUCTURES: No aneurysm. No pericardial effusion. UPPER ABDOMEN: No significant findings. Limited exam. THYROID AND OTHER SOFT TISSUES: No masses. No adenopathy. BONES: No significant finding. HARDWARE: None in the chest. OTHER: No other significant findings. IMPRESSION: MILD CHRONIC SCARRING. NO ACUTE FINDING ON NON-CONTRASTED CHEST CT. TECHNICAL DOCUMENTATION: JOB ID: [id number] Quality ID # [id number]: Final reports with documentation of one or more dose reduction techniques (e.g., Au tomated exposure control, adjustment of the mA and/or kV according to patient size, use of iterative reconstruction technique) 2010 [employer]- All Rights Reserved Reading location - IP/workstation name: [email or web address]
== END ==
LOC: RAD 09:51
PROVIDERS: ATTEND Internal Medicine Critical Care Medicine
DX: J45.909 Unspecified asthma, uncomplicated (principal); R06.09 Other forms of dyspnea; Z87.891 Personal history of nicotine dependence
CPT/HCPCS: 71250

== ENCOUNTER → 2019-10-15 | Outpatient (CLI) | payer MEDICARE ==
--- NOTE | 2019-10-18 16:19 | Pulmonary Function Test ---
Pulmonary Function Test Date of Procedure:: 10/15/19 INDICATION:: Dyspnea Referring Provider: Dr. Allred Bee Worker: Karina Martinez, BLUE LINE TRIMMER, BOLT MAN - Report Spirometry: Spirometry: pre-FVC: 3.50 L 125% pre-FEV:1 2.08 L 108% pre-FEV1/FVC %: 59 predicted: 80 [id number]%: 0.80 L 55% Lung Volume: Total lung capacity: 6.39 L 117% Vital capacity: 3.57 L 128% Inspiratory capacity: 2.09 L FRC N2: 4.30 L 116% ERV: 0.48 L RV: 2.82 L 122% RV/TLC %:: 44 predicted 43 Diffusion Capactity: DLCO: 16.1 68% DLCO/VA: 3.29 96% Impression: Moderate obstructive ventilatory defect. No restrictive ventilatory defect. Mild hyperinflation and air trapping. Mild decrease in diffusion capacity.
== END ==
LOC: RT 13:20
PROVIDERS: ATTEND Internal Medicine Critical Care Medicine
DX: J45.909 Unspecified asthma, uncomplicated (principal); R06.09 Other forms of dyspnea; Z87.891 Personal history of nicotine dependence; K21.9 Gastro-esophageal reflux disease without esophagitis
CPT/HCPCS: 94010; 94727; 94729

== ENCOUNTER → 2019-12-14 | Outpatient (CLI) | payer MEDICARE ==
[2019-12-14 13:54] LABS: APPEARANCE,URINE CLEAR; BILIRUBIN,URINE NEGATIVE (NEGATIVE); COLOR,URINE STRAW; GLUCOSE, URINE NEGATIVE (NEGATIVE); KETONES,URINE NEGATIVE (NEGATIVE); PROTEIN,URINE NEGATIVE (NEGATIVE); URINE SPECIFIC GRAVITY 1.006; UROBILINOGEN,URINE NEGATIVE mg/dL (<2.0)
[2019-12-14 14:10] LABS: ANION GAP 12 (5-19); BLOOD UREA NITROGEN 30 mg/dL (7-20); CALCIUM 9.1 mg/dL (8.4-10.2); CARBON DIOXIDE 21 mmol/L (22-30); CHLORIDE 104 mmol/L (98-107); GLUCOSE 102 mg/dL (75-110); POTASSIUM 3.8 mmol/L (3.6-5.0)
[2019-12-15 07:37] LABS: CREATININE URINE 45.5 mg/dL (Not Estab.)
[2019-12-15 07:56] LABS: MICROALBUMIN URINE <3.0 ug/mL (Not Estab.)
== END ==
LOC: OD 13:15
PROVIDERS: ATTEND Internal Medicine Nephrology
DX: I12.9 Hypertensive chronic kidney disease with stage 1 through stage 4 chronic kidney disease, or unspecified chronic kidney disease (principal); N18.4 Chronic kidney disease, stage 4 (severe); N25.81 Secondary hyperparathyroidism of renal origin; N39.0 Urinary tract infection, site not specified
CPT/HCPCS: 36415; 80048; 81001; 82043; 82570; 83970

== ENCOUNTER 2020-05-04 13:38 | Emergency (ER) | payer MEDICARE ==
[2020-05-04] MEDS ORDERED: RINGERS SOLUTION,LACTATED 1,000 ML IV ONE (15:06)
[2020-05-04] MEDS ORDERED: MORPHINE SULFATE 10 MG/ML INJ IV ONE ×3 (15:08→20:07)
--- NOTE | 2020-05-04 15:12 | ER Document Report ---
ED Medical Screen (RME) - General Chief Complaint: Abdominal Pain Stated Complaint: ABDOMINAL PAIN Time Seen by Provider: 05/04/20 15:00 Primary Care Provider: HAZEL RAE MD [Primary Care Provider] - Follow up as needed Mode of Arrival: Wheelchair Information source: Patient Notes: HPI;-year-old female past medical history significant for stage IV kidney fail ure, hypertension, hyperlipidemia, pancreatitis presents emergency room via EMS with worsening sharp abdominal pain that started this morning around 1030 states it radiates to her back. Complains of nausea but no vomiting. States she hurts all over. She was given a total of 8 mg of Zofran and 100 mcg of fentanyl by EMS prior to arrival. Needs to complain of pain. PE: Alert and oriented x3. Moderate distress noted. Lungs: Clear to auscultation without rales, rhonchi, wheezes. Heart: Regular rate rhythm without murmurs, rubs, gallops. No CVA tenderness noted bilaterally. Unable to do full abdominal exam in triage. I have greeted and performed a rapid initial assessment of this patient. A comprehensive ED assessment and evaluation of the patient, analysis of test results and completion of the medical decision making process will be conducted by additional ED providers. I have specifically instructed the patient or family members with the patient to immediately return to any nursing staff should anything change in the patient's condition or with their chief complaint. TRAVEL OUTSIDE OF THE [place] IN LAST 30 DAYS: No - Related Data Allergies/Adverse Reactions: cephalexin monohydrate [From Keflex] Allergy (Unknown, Verified 01/26/17 04:59) Beef Containing Products Allergy (Verified 01/26/17 04:59) latex [Latex] Allergy (Verified 01/26/17 04:59) Penicillins Allergy (Verified 01/26/17 04:59) Rkohhix-Iit-Dks Reductase Inhibitor Adverse Reaction (Intermediate, Verified 01/26/17 04:59) Unknown reaction Past Medical History - Past Medical History Cardiac Medical History: Reports: Hx Congestive Heart Failure, Hx Heart Attack, Hx Hypercholesterolemia, Hx Hypertension Pulmonary Medical History: Reports: Hx Asthma, Hx Bronchitis, Hx COPD, Hx Pneumonia Denies: Hx Tuberculosis Neurological Medical History: Denies: Hx Seizures, Hx Parkinson's Disease Renal/ Medical History: Denies: Hx End Stage Renal Disease, Hx Kidney Stones, Hx Peritoneal Dialysis GI Medical History: Reports: Hx Ulcer. Denies: Hx Cirrhosis, Hx Gastroesophageal Reflux Disease Musculoskeltal Medical History: Reports Hx Arthritis, Denies Hx Multiple Sclerosis Psychiatric Medical History: Denies: Hx Bipolar Disorder, Hx Depression, Hx Schizophrenia Past Surgical History: Reports: Hx Cardiac Catheterization - x2, Hx Hysterectomy - Immunizations Hx Diphtheria, Pertussis, Tetanus Vaccination: Yes Physical Exam - Vital signs Vitals: Temp Pulse Resp BP Pulse Ox 97.6 F 78 20 150/71 H 95 05/04/20 13:47 05/04/20 13:47 05/04/20 13:47 05/04/20 13:47 05/04/20 13:47 Course - Vital Signs Vital signs: Temp Pulse Resp BP Pulse Ox 97.6 F 78 20 150/71 H 95 05/04/20 13:47 05/04/20 13:47 05/04/20 13:47 05/04/20 13:47 05/04/20 13:47 Doctor's Discharge - Discharge Referrals: HAZEL RAE MD [Primary Care Provider] - Follow up as needed
[2020-05-04 15:47] LABS: ABSOLUTE BASOPHILS # (AUTO) 0.1 10^3/uL (0.0-0.2); ABSOLUTE EOSINOPHILS # (AUTO) 0.2 10^3/uL (0.0-0.6); ABSOLUTE LYMPHOCYTES (AUTO) 0.8 10^3/uL (0.5-4.7); ABSOLUTE MONOCYTES (AUTO) 0.4 10^3/uL (0.1-1.4); ABSOLUTE NEUT (AUTO) 7.2 10^3/uL (1.7-8.2); BASOPHILS % (AUTO) 1.1 % (0-2); EOSINOPHILS % (AUTO) 2.6 % (0-6); HEMATOCRIT 36.3 % (36.0-47.0); HEMOGLOBIN 11.7 g/dL (12.0-15.5); LYMPHOCYTES % (AUTO) 9.5 % (13-45); MEAN CORPUSCULAR HEMOGLOBIN 26.9 pg (27.0-33.4); MEAN CORPUSCULAR HGB CONC 32.2 g/dL (32.0-36.0); MEAN CORPUSCULAR VOLUME 84 fl (80-97); MONOCYTES % (AUTO) 4.3 % (3-13); PLATELET COUNT 276 10^3/uL (150-450); RED BLOOD COUNT 4.35 10^6/uL (3.72-5.28); RED CELL DISTRIBUTION WIDTH 16.1 % (11.5-14.0); SEGMENTED NEUTROPHILS % (AUTO) 82.5 % (42-78); TOTAL CELLS COUNTED % (AUTO) 100 %; WHITE BLOOD COUNT 8.7 10^3/uL (4.0-10.5)
[2020-05-04 16:17] LABS: ALBUMIN 3.9 g/dL (3.5-5.0); ALKALINE PHOSPHATASE 225 U/L (38-126); AMYLASE 52 U/L (30-110); ANION GAP 9 (5-19); ASPARTATE AMINO TRANSFERASE 330 U/L (14-36); BILIRUBIN,DIRECT 0.8 mg/dL (0.0-0.4); BILIRUBIN,TOTAL 1.1 mg/dL (0.2-1.3); BLOOD UREA NITROGEN 23 mg/dL (7-20); CALCIUM 9.2 mg/dL (8.4-10.2); CARBON DIOXIDE 25 mmol/L (22-30); CHLORIDE 104 mmol/L (98-107); GLUCOSE 196 mg/dL (75-110); POTASSIUM 4.5 mmol/L (3.6-5.0); TOTAL PROTEIN 7.8 g/dL (6.3-8.2)
--- NOTE | 2020-05-04 18:30 | RADIOLOGY REPORT (SQ) ---
EXAM DESCRIPTION: U/S ABDOMEN COMPLETE W/DOPPLER IMAGES COMPLETED DATE/TIME: 05/04/2020 5:05 pm REASON FOR STUDY: abdominal pain COMPARISON: CT chest, 10/05/2019. CT abdomen and pelvis, 06/27/2015. TECHNIQUE: Dynamic and static grayscale images acquired of the abdomen and recorded on PACS. Additio nal selected color Doppler and spectral images recorded. Note: Study does not meet criteria for complete doppler/duplex scan LIMITATIONS: Limited evaluation due to patient body habitus and bowel gas. FINDINGS: PANCREAS: The head and body of the pancreas have normal contour and appearance. No pancre atic ductal dilation. Tail of the pancreas is poorly visualized due to overlying bowel gas. LIVER: The liver has normal size and contour. There is diffuse increased echogenicity throughout. N o focal hepatic mass. LIVER VASCULATURE: Normal directional flow of the main portal vein and hepatic veins. GALLBLADDER: Surgically absent. ULTRASOUND-DETECTED SPRAGUE'S SIGN: Negative. INTRAHEPATIC DUCTS AND COMMON DUCT: There is mild intrahepatic biliary ductal dilation and dilation o f the extrahepatic biliary ducts measuring up to 16 mm diameter. No definite choledocholithiasis. INFERIOR VENA CAVA: Normal flow. AORTA: No aneurysm. RIGHT KIDNEY: Normal size. Normal echogenicity. No solid or suspicious masses. No hydronephros is. No calcifications. LEFT KIDNEY: Poorly visualized. There may be left renal cortical atrophy. No solid or suspicious m asses. No definite hydronephrosis. No calcifications. SPLEEN: Poor acoustic window. PERITONEAL AND PLEURAL SPACES: No ascites or effusions. OTHER: No other significant finding. IMPRESSION: 1. Limited evaluation due to patient body habitus and bowel gas. In particular, the left kidney and spleen are poorly evaluated. 2. There is intrahepatic and extrahepatic biliary ductal dilation. When compared with previous CT of the abdomen and pelvis this may be new and may represent biliary obstruction. No definite choledoch olithiasis. Clinical correlation and correlation with patient laboratory values is recommended. Con annealer further evaluation with contrast-enhanced CT or MRCP as clinically indicated. 3. Moderate hepatic steatosis. 4. Status post cholecystectomy. TECHNICAL DOCUMENTATION: JOB ID: [id number] 2010 [employer]- All Rights Reserved Reading location - IP/workstation name: [email or web address]
[2020-05-04] MEDS ORDERED: ONDANSETRON HCL INJ/PF 4 MG/2 ML SDV IV ONE (20:07)
--- NOTE | 2020-05-04 20:07 | ER Document Report ---
ED General - General Mode of Arrival: Wheelchair TRAVEL OUTSIDE OF THE [place] IN LAST 30 DAYS: No <MEÑO CARTER - Last Filed: 05/05/20 00:04> <KELLI PITT - Last Filed: 05/05/20 22:46> <LUEMILY Donna - Last Filed: 05/06/20 08:04> - General Chief Complaint: Abdominal Pain Stated Complaint: ABDOMINAL PAIN Time Seen by Provider: 05/04/20 15:00 Primary Care Provider: HAZEL RAE MD [Primary Care Provider] - Follow up as needed - [facility] Notes: Patient is an 80-year-old female who presents to the emergency department for evaluation of abdominal pain. She states she was in bed. She had already had breakfast, blueberry Cheerios. Approximately 930 this morning, 45 minutes after eating breakfast, she had a sudden onset of sharp epigastric pain with radiation around into her back. She states it felt almost like indigestion at first, but then became more sharp and stabbing. It feels similar to when she had gallbladder issues and pancreatitis in the past. She has severe nausea but no emesis. She had normal bowel movements. Normal urination. Patient had acute cholecystitis with gallstone pancreatitis several years ago, is status post cholecystectomy. (MEÑO CARTER) - Related Data Allergies/Adverse Reactions: cephalexin monohydrate [From Keflex] Allergy (Unknown, Verified 01/26/17 04:59) Beef Containing Products Allergy (Verified 01/26/17 04:59) latex [Latex] Allergy (Verified 01/26/17 04:59) Penicillins Allergy (Verified 01/26/17 04:59) Dwpajsu-Evj-Ntg Reductase Inhibitor Adverse Reaction (Intermediate, Verified 01/26/17 04:59) Unknown reaction Past Medical History - General Information source: Patient - Social History Smoking Status: Former Smoker Family History: Reviewed & Not Pertinent, Hypertension Patient has homicidal ideation: No - Past Medical History Cardiac Medical History: Reports: Hx Congestive Heart Failure, Hx Coronary Artery Disease, Hx Heart Attack, Hx Hypercholesterolemia, Hx Hypertension Pulmonary Medical History: Reports: Hx Asthma, Hx Bronchitis, Hx COPD, Hx Pneumonia Denies: Hx Tuberculosis Neurological Medical History: Denies: Hx Seizures, Hx Parkinson's Disease Renal/ Medical History: Denies: Hx End Stage Renal Disease, Hx Kidney Stones, Hx Peritoneal Dialysis GI Medical History: Reports: Hx Ulcer. Denies: Hx Cirrhosis, Hx Gastroesophageal Reflux Disease Musculoskeletal Medical History: Reports Hx Arthritis, Denies Hx Multiple Sclerosis Psychiatric Medical History: Denies: Hx Bipolar Disorder, Hx Depression, Hx Schizophrenia Past Surgical History: Reports: Hx Cardiac Catheterization - x2, Hx Hysterectomy - Immunizations Hx Diphtheria, Pertussis, Tetanus Vaccination: Yes Hx Pneumococcal Vaccination: 09/15/03 <MEÑO CARTER - Last Filed: 05/05/20 00:04> Review of Systems - Review of Systems Constitutional: No symptoms reported EENT: No symptoms reported Cardiovascular: No symptoms reported Respiratory: No symptoms reported Gastrointestinal: See HPI Genitourinary: No symptoms reported Musculoskeletal: No symptoms reported Skin: No symptoms reported Neurological/Psychological: No symptoms reported <MEÑO CARTER - Last Filed: 05/05/20 00:04> Physical Exam <MEÑO CARTER - Last Filed: 05/05/20 00:04> - Vital signs Vitals: Temp Pulse Resp BP Pulse Ox 97.6 F 78 20 150/71 H 95 05/04/20 13:47 05/04/20 13:47 05/04/20 13:47 05/04/20 13:47 05/04/20 13:47 - Notes Notes: Vital signs reviewed, please refer to chart. Head is normocephalic, atraumatic. Pupils equal round, reactive to light. Neck is supple without meningismus. Heart is regular rate and rhythm. Lungs are clear to auscultation bilaterally. Abdomen is soft, moderate epigastric tenderness with some voluntary guarding, no rebound, normoactive bowel sounds throughout. Extremities without cyanosis, clubbing. Posterior calves are nontender. Peripheral pulses are equal. Skin is warm and dry. Patient is awake, alert, neurological exam is nonfocal. (MEÑO CARTER) Course - Laboratory Result Diagrams: 05/04/20 15:21 05/04/20 15:21 - Diagnostic Test Radiology reviewed: Reports reviewed <MEÑO CARTER - Last Filed: 05/05/20 00:04> - Laboratory Result Diagrams: 05/05/20 11:00 05/05/20 11:00 <KELLI PITT - Last Filed: 05/05/20 22:46> - Laboratory Result Diagrams: 05/05/20 11:00 05/05/20 11:00 - Transfer of Care Care transferred to following provider: case signed out to Dr. Pitt <EMILY LU - Last Filed: 05/06/20 08:04> - Re-evaluation Re-evalutation: 05/04/20 20:05 Patient presents to the emergency department for evaluation. She laboratory investigations and imaging as ordered through triage. Still awaiting urinalysis. LFTs and alk phos are all elevated. Patient is status post cholecystectomy. She is intrahepatic and extrahepatic biliary ductal dilation on ultrasound, concerning for choledocholithiasis/retained stone. I spoke with Dr. Vega, our on-call surgeon. He recommends transfer, as we do not have gastroenterology available for possible ERCP. I will give patient more pain medicine, she is kept n.p.o. Discussed transfer with patient and daughter, we will continue to monitor. 05/04/20 22:00 At 2142, I spoke with Dr. Grimes, on-call pulp house supervisor for [facility]. He agrees that patient needs evaluated for biliary obstruction, agrees with transfer. He states patient should be accepted to the medicine service, with arrangement for a GI consult and ERCP. He asked that patient be monitored for fever or sudden blood pressure drop. Patient was notified of this plan. She is amenable. Awaiting phone call from internal medicine for accepting physician. 05/05/20 00:04 I still had not heard from anyone advised in regards to this patient. I spoke with Vianney at the transfer center, who was able to look up this patient's chart. It turns out that the patient has now in fact been accepted by Dr. Grimes, awaiting a bed. Patient is currently stable. (MEÑO CARTER) 05/05/20 20:55 Patient has been accepted at [facility] by Dr. Coyne, hospitalist. 05/05/20 22:47 Transfer Evaluation Prior to Transport. Patient is being transferred to [facility], evaluation at the time of transfer, patient is hemodynamically stable. Transport team successfully moved the patient onto the stretcher without incident. Patient stable for transport. (KELLI PITT) - Vital Signs Vital signs: Temp Pulse Resp BP Pulse Ox 98.4 F 62 18 108/49 L 95 05/05/20 21:01 05/05/20 08:20 05/05/20 22:31 05/05/20 22:31 05/05/20 22:31 - Laboratory Laboratory results interpreted by me: 05/04/20 05/04/20 05/04/20 15:21 15:21 22:01 Hgb 11.7 L Hct MCH 26.9 L RDW 16.1 H Lymph % (Auto) 9.5 L Seg Neutrophils % 82.5 H Chloride BUN 23 H Creatinine 1.72 H Est GFR ( Amer) 34 L Est GFR (MDRD) Non-Af 28 L Glucose 196 H Total Bilirubin Direct Bilirubin 0.8 H AST 330 H ALT 324 H Alkaline Phosphatase 225 H Lipase Urine Protein 100 H Urine Blood SMALL H Urine Urobilinogen 4.0 H Ur Leukocyte Esterase MODERATE H 05/05/20 05/05/20 11:00 11:00 Hgb 10.9 L Hct 33.7 L MCH RDW 16.4 H Lymph % (Auto) 11.5 L Seg Neutrophils % Chloride 108 H BUN 21 H Creatinine 1.61 H Est GFR ( Amer) 37 L Est GFR (MDRD) Non-Af 31 L Glucose 121 H Total Bilirubin 3.0 H Direct Bilirubin 2.3 H AST 584 H ALT 597 H Alkaline Phosphatase 203 H Lipase 361.8 H Urine Protein Urine Blood Urine Urobilinogen Ur Leukocyte Esterase - Diagnostic Test Radiology results interpreted by me: 05/04/20 20:06 Abdomen Ultrasound 05/04/20 17:21 IMPRESSION: 1. Limited evaluation due to patient body habitus and bowel gas. In particular, the left kidney and spleen are poorly evaluated. 2. There is intrahepatic and extrahepatic biliary ductal dilation. When compared with previous CT of the abdomen and pelvis this may be new and may represent biliary obstruction. No definite choledocholithiasis. Clinical correlation and correlation with patient laboratory values is recommended. Consider further evaluation with contrast-enhanced CT or MRCP as clinically indicated. 3. Moderate hepatic steatosis. 4. Status post cholecystectomy. (MEÑO CARTER) Discharge - Discharge Admitting Provider: Dr. Grimes <MEÑO CARTER - Last Filed: 05/05/20 00:04> <KELLI PITT - Last Filed: 05/05/20 22:46> <EMILY LU - Last Filed: 05/06/20 08:04> - Discharge Clinical Impression: Biliary obstruction, Elevated liver function tests, UTI (urinary tract infection), COPD (chronic obstructive pulmonary disease) Condition: Stable Disposition: OTHER Referrals: HAZEL RAE MD [Primary Care Provider] - Follow up as needed
[2020-05-04 22:23] LABS: APPEARANCE,URINE SLIGHTLY-CLOUDY; BILIRUBIN,URINE NEGATIVE (NEGATIVE); COLOR,URINE AMBER; GLUCOSE, URINE NEGATIVE (NEGATIVE); KETONES,URINE NEGATIVE (NEGATIVE); LEUKOCYTE ESTERASE,URINE MODERATE (NEGATIVE); NITRITE,URINE NEGATIVE (NEGATIVE); PROTEIN,URINE 100 mg/dL (NEGATIVE)
[2020-05-05] MEDS ORDERED: MORPHINE SULFATE 10 MG/ML INJ IV ONE ×3 (00:12→01:15)
[2020-05-05] MEDS ORDERED: DULOXETINE HCL 30 MG CAPSULE.DR PO ONE (00:16)
[2020-05-05] MEDS ORDERED: ALBUTEROL SULFATE HFA (90 MCG/PUFF) 8 GM MDI (1 MDI/ER DISP) IH PRN (00:22)
[2020-05-05] MEDS: MORPHINE SULFATE 10 MG/ML INJ IV PRN ×5 (03:31→18:30)
[2020-05-05] MEDS ORDERED: LEVOTHYROXINE SODIUM 0.088 MG TABLET PO SCH (06:00)
--- NOTE | 2020-05-05 09:04 | RADIOLOGY REPORT (SQ) ---
EXAM DESCRIPTION: CHEST SINGLE VIEW IMAGES COMPLETED DATE/TIME: 05/05/2020 8:52 am REASON FOR STUDY: copd COMPARISON: 10/21/2014 EXAM PARAMETERS: NUMBER OF VIEWS: One view. TECHNIQUE: Single frontal radiographic view of the chest acquired. RADIATION DOSE: NA LIMITATIONS: None. FINDINGS: LUNGS AND PLEURA: Mild hyperinflation. Linear lingular opacities. No additional dense co nsolidation. No pleural effusion or pneumothorax. Mild biapical scarring. Opacities, masses or pne umothorax. No pleural effusion. MEDIASTINUM AND HILAR STRUCTURES: No masses. Contour normal. HEART AND VASCULAR STRUCTURES: Normal heart size. Aortic atherosclerosis. BONES: No acute findings. HARDWARE: None in the chest. OTHER: No other significant finding. IMPRESSION: Minimal linear lingular opacities likely atelectasis or scarring. No other evidence of acute intrathoracic process. TECHNICAL DOCUMENTATION: JOB ID: [id number] 2010 [employer]- All Rights Reserved Reading location - IP/workstation name: [email or web address]
[2020-05-05] MEDS ORDERED: FUROSEMIDE 40 MG TABLET PO SCH (10:00)
[2020-05-05] MEDS ORDERED: POTASSIUM CHLORIDE 10 MEQ TABLET.ER PO SCH (10:00)
[2020-05-05] MEDS ORDERED: TOPIRAMATE 100 MG TABLET PO SCH (10:00)
[2020-05-05] MEDS ORDERED: TOLTERODINE TARTRATE 1 MG TABLET PO SCH (10:00)
[2020-05-05] MEDS ORDERED: LOSARTAN POTASSIUM 25 MG TABLET PO SCH (10:00)
--- NOTE | 2020-05-05 10:11 | EKG REPORT ---
SEVERITY:- BORDERLINE ECG - SINUS RHYTHM BORDERLINE T ABNORMALITIES, ANT-LAT LEADS : Confirmed by: Nicho Bacon 05-May-2020 10:10:11
[2020-05-05] MEDS ORDERED: DEXTROSE 5%-1/2 NORMAL SALINE 500 ML IV ONE (10:35)
[2020-05-05 11:24] LABS: ABSOLUTE BASOPHILS # (AUTO) 0.1 10^3/uL (0.0-0.2); ABSOLUTE EOSINOPHILS # (AUTO) 0.2 10^3/uL (0.0-0.6); ABSOLUTE MONOCYTES (AUTO) 0.8 10^3/uL (0.1-1.4); ABSOLUTE NEUT (AUTO) 6.6 10^3/uL (1.7-8.2); BASOPHILS % (AUTO) 0.8 % (0-2); EOSINOPHILS % (AUTO) 2.1 % (0-6); HEMATOCRIT 33.7 % (36.0-47.0); HEMOGLOBIN 10.9 g/dL (12.0-15.5); LYMPHOCYTES % (AUTO) 11.5 % (13-45); MEAN CORPUSCULAR HGB CONC 32.3 g/dL (32.0-36.0); MEAN CORPUSCULAR VOLUME 84 fl (80-97); PLATELET COUNT 245 10^3/uL (150-450); RED BLOOD COUNT 4.03 10^6/uL (3.72-5.28); RED CELL DISTRIBUTION WIDTH 16.4 % (11.5-14.0); SEGMENTED NEUTROPHILS % (AUTO) 76.6 % (42-78); TOTAL CELLS COUNTED % (AUTO) 100 %; WHITE BLOOD COUNT 8.7 10^3/uL (4.0-10.5)
[2020-05-05 11:44] LABS: ALBUMIN 3.5 g/dL (3.5-5.0); ALKALINE PHOSPHATASE 203 U/L (38-126); ANION GAP 7 (5-19); ASPARTATE AMINO TRANSFERASE 584 U/L (14-36); BILIRUBIN,DIRECT 2.3 mg/dL (0.0-0.4); BLOOD UREA NITROGEN 21 mg/dL (7-20); CALCIUM 9.1 mg/dL (8.4-10.2); CARBON DIOXIDE 24 mmol/L (22-30); CHLORIDE 108 mmol/L (98-107); GLUCOSE 121 mg/dL (75-110); POTASSIUM 4.2 mmol/L (3.6-5.0)
[2020-05-05] MEDS ORDERED: NORMAL SALINE 250 ML IV PRN (14:51)
[2020-05-05] MEDS ORDERED: ONDANSETRON HCL INJ/PF 4 MG/2 ML SDV IV ONE (16:04)
--- NOTE | 2020-05-05 18:43 | ER Document Report ---
Entered by CHRISTOPHER GONZALEZ SCRIBE 05/05/20 0830 Acting as scribe for:EMILY LU MD Doctor's Note Notes: 05/05/20 08:28 This 80 year old female patient presents to the emergency department with RUQ abdominal pain. She had a CT scan which did not show any stones or explanation for her abdominal pain. Abdominal exam is negative for rebounding but positive for guarding, RUQ ttp. s/p cholycystectomy. Still NPO. Will start fluids. 05/05/20 08:[address] Santiago does ERCPs on friday. Spoke to Dr. Santiago who agrees to do ERCP today, says to admit to hospitalist. Patient informed she can have this done here and not have to be transferred. She now refused to have it done here, demanding transfer, stating "Dr. Santiago is incompetent." 05/05/20 18:39 Patient still pending transfer to [facility] to receive her environment [facility] in [facility] all his close to receiving. Over time today patient's condition has and her laboratory values are showing increase in liver function tests patient also has noted block have discussed with [facility] and spoke to the GI specialist who did patient's is a candidate for them to excepting received this patient in transfer and they are waiting at this we are waiting at this time for the house was to call back to receive a report so that patient can be officially accepted by the service. Patient is hemodynamically stable and getting pain medications every 2 hours. Other interesting note is patient has a troponin of 0.34 and indeterminate number and a repeat study has been done. Patient is EKG does not show any acute process of note today patient did cooperate his medication. With an MR she had more pain than she could tolerate here for and she requested study to be aborted. I personally performed the services described in the documentation, reviewed and edited the documentation which was dictated to the scribe in my presence, and it accurately records my words and actions.
[2020-05-05] MEDS ORDERED: DOXYCYCLINE HYCLATE INJ 100 MG VIAL IV ONE (19:03)
[2020-05-05] MEDS ORDERED: RINGERS SOLUTION,LACTATED 1,000 ML IV ONE (19:11)
[2020-05-05] MEDS ORDERED: LORAZEPAM INJ 2 MG/1 ML VIAL IV ONE (19:12)
[2020-05-05] MEDS ORDERED: MONTELUKAST SODIUM 10 MG TABLET PO SCH (22:00)
[2020-05-05 22:40] VITALS: BP 108/49
== END 2020-05-05 22:25 | disposition other institution (70) ==
LOC: ER 13:38
DX: K83.1 Obstruction of bile duct (principal); R79.89 Other specified abnormal findings of blood chemistry; N39.0 Urinary tract infection, site not specified; J44.9 Chronic obstructive pulmonary disease, unspecified; R10.9 Unspecified abdominal pain; R10.13 Epigastric pain; M54.9 Dorsalgia, unspecified; R11.0 Nausea; Z88.8 Allergy status to other drugs, medicaments and biological substances; Z88.0 Allergy status to penicillin; Z87.891 Personal history of nicotine dependence; I50.9 Heart failure, unspecified; I25.10 Atherosclerotic heart disease of native coronary artery without angina pectoris; I25.2 Old myocardial infarction; I11.0 Hypertensive heart disease with heart failure
CPT/HCPCS: 93005; 96376; 99285; 96361; 96375; 96365; 96366; 36415; 82150; 83605; 83690; 85025; 80053; 81001; 84484; 71045; 76700; 93976; 93010; J3490; A9270 ×7; J2270 ×2; J2060; J2405 ×2; J7070; J7050; J7120 ×2

== ENCOUNTER → 2020-05-29 | Outpatient (CLI) | payer MEDICARE ==
[2020-05-29 12:45] LABS: APPEARANCE,URINE SLIGHTLY-CLOUDY; BILIRUBIN,URINE NEGATIVE (NEGATIVE); COLOR,URINE YELLOW; GLUCOSE, URINE NEGATIVE (NEGATIVE); KETONES,URINE NEGATIVE (NEGATIVE); LEUKOCYTE ESTERASE,URINE MODERATE (NEGATIVE); NITRITE,URINE NEGATIVE (NEGATIVE); PROTEIN,URINE NEGATIVE (NEGATIVE); URINE SPECIFIC GRAVITY 1.009; UROBILINOGEN,URINE NEGATIVE mg/dL (<2.0)
[2020-05-29 12:48] LABS: ABSOLUTE BASOPHILS # (AUTO) 0.1 10^3/uL (0.0-0.2); ABSOLUTE EOSINOPHILS # (AUTO) 0.5 10^3/uL (0.0-0.6); ABSOLUTE MONOCYTES (AUTO) 0.5 10^3/uL (0.1-1.4); ABSOLUTE NEUT (AUTO) 5.3 10^3/uL (1.7-8.2); HEMOGLOBIN 11.3 g/dL (12.0-15.5); LYMPHOCYTES % (AUTO) 23.5 % (13-45); MEAN CORPUSCULAR HEMOGLOBIN 26.9 pg (27.0-33.4); MEAN CORPUSCULAR HGB CONC 32.4 g/dL (32.0-36.0); MEAN CORPUSCULAR VOLUME 83 fl (80-97); MONOCYTES % (AUTO) 6.5 % (3-13); PLATELET COUNT 263 10^3/uL (150-450); RED BLOOD COUNT 4.21 10^6/uL (3.72-5.28); RED CELL DISTRIBUTION WIDTH 16.3 % (11.5-14.0); TOTAL CELLS COUNTED % (AUTO) 100 %; WHITE BLOOD COUNT 8.5 10^3/uL (4.0-10.5)
[2020-05-29 13:01] LABS: ALBUMIN 3.7 g/dL (3.5-5.0); ANION GAP 10 (5-19); BLOOD UREA NITROGEN 30 mg/dL (7-20); CARBON DIOXIDE 21 mmol/L (22-30); CHLORIDE 107 mmol/L (98-107); GLUCOSE 110 mg/dL (75-110); PHOSPHORUS 4.1 mg/dL (2.5-4.5); POTASSIUM 4.3 mmol/L (3.6-5.0)
[2020-05-30 11:38] LABS: CREATININE URINE 58.9 mg/dL (Not Estab.); MICROALBUMIN URINE 14.4 ug/mL (Not Estab.)
== END ==
LOC: OD 12:01
PROVIDERS: ATTEND Internal Medicine Nephrology
DX: I12.9 Hypertensive chronic kidney disease with stage 1 through stage 4 chronic kidney disease, or unspecified chronic kidney disease (principal); N18.4 Chronic kidney disease, stage 4 (severe); N39.0 Urinary tract infection, site not specified
CPT/HCPCS: 36415; 80069; 81001; 82043; 82306; 82570; 83970; 85025

== ENCOUNTER 2020-09-11 20:53 | Inpatient (IN) | payer MEDICARE ==
--- NOTE | 2020-09-11 21:43 | ER Document Report ---
ED General - General Chief Complaint: Fever Stated Complaint: SEPSIS Time Seen by Provider: 09/11/20 21:25 Primary Care Provider: HAZEL RAE MD [Primary Care Provider] - Follow up as needed Mode of Arrival: Medic Information source: Patient Notes: Patient presents to the ER for evaluation of coarse cough with chest congestion, shortness of breath, fever, body aches, chills times several days. The daughter reportedly called 911 today to have her mother transported to the ER for further evaluation. She does have COPD. She does have a history of pneumonia. She has had no known COVID-19 exposures. She states she has not been outside of the house recently. She denies nausea or vomiting. She denies diarrhea. She denies abdominal pain. She denies dysuria. Nursing notes reviewed and past medical, social, and family histories reviewed and validated. TRAVEL OUTSIDE OF THE [place] IN LAST 30 DAYS: No - Related Data Allergies/Adverse Reactions: cephalexin monohydrate [From Keflex] Allergy (Unknown, Verified 01/26/17 04:59) Beef Containing Products Allergy (Verified 01/26/17 04:59) latex [Latex] Allergy (Verified 01/26/17 04:59) Penicillins Allergy (Verified 01/26/17 04:59) Rpnhwrs-Vic-Jgp Reductase Inhibitor Adverse Reaction (Intermediate, Verified 01/26/17 04:59) Unknown reaction Home Medications: see bag on counter will document later Past Medical History - General Information source: Patient - Social History Smoking Status: Former Smoker Chew tobacco use (# tins/day): No Frequency of alcohol use: None Drug Abuse: None Lives with: Family Family History: Hypertension Patient has suicidal ideation: No Patient has homicidal ideation: No - Past Medical History Cardiac Medical History: Reports: Hx Congestive Heart Failure, Hx Coronary Artery Disease, Hx Heart Attack, Hx Hypercholesterolemia, Hx Hypertension Pulmonary Medical History: Reports: Hx Asthma, Hx Bronchitis, Hx COPD, Hx Pneumonia Denies: Hx Tuberculosis EENT Medical History: Reports: None Neurological Medical History: Reports: None. Denies: Hx Seizures, Hx Parkinson's Disease Endocrine Medical History: Reports: None Renal/ Medical History: Reports: None. Denies: Hx End Stage Renal Disease, Hx Kidney Stones, Hx Peritoneal Dialysis Malignancy Medical History: Reports: None GI Medical History: Reports: Hx Ulcer. Denies: Hx Cirrhosis, Hx Gastroesophageal Reflux Disease Musculoskeletal Medical History: Reports Hx Arthritis, Denies Hx Multiple Sclerosis Skin Medical History: Reports None Psychiatric Medical History: Denies: Hx Bipolar Disorder, Hx Depression, Hx Schizophrenia Traumatic Medical History: Reports: None Infectious Medical History: Reports: None Past Surgical History: Reports: Hx Cardiac Catheterization - x2, Hx Hysterectomy, Hx Tonsillectomy - Immunizations Immunizations up to date: Yes Hx Diphtheria, Pertussis, Tetanus Vaccination: Yes Hx Pneumococcal Vaccination: 09/15/03 Review of Systems - Review of Systems Notes: Constitutional: Positive for fever. HENT: Negative for sore throat. Eyes: Negative for visual changes. Cardiovascular: Negative for chest pain. Respiratory: Positive for coarse cough. Positive for shortness of breath. Gastrointestinal: Negative for abdominal pain, vomiting or diarrhea. Genitourinary: Negative for dysuria. Musculoskeletal: Negative for back pain. Skin: Negative for rash. Neurological: Negative for headaches, weakness or numbness. 10 point ROS negative except as marked above and in HPI. Physical Exam - Vital signs Vitals: Resp Pulse Ox 20 96 09/11/20 21:09 09/11/20 21:09 - Notes Notes: CONSTITUTIONAL: Patient is morbidly obese. She is in no acute distress. SKIN: Warm, dry, and intact without rash EYES: Extraocular movements are grossly intact, clear conjunctiva HENT: Normocephalic, atraumatic, moist mucus membranes NECK: No obvious swelling, normal range of motion PULMONARY: Normal chest rise and fall. Breath sounds are coarse bilaterally. No respiratory distress or stridor. CARDIOVASCULAR: Regular rate. No murmurs, rubs, gallops. Distal extremities are warm and well perfused. ABDOMINAL: Soft, nontender NEUROLOGIC: Normal speech, moves all extremities. MUSCULOSKELETAL: No gross deformities, atraumatic PSYCHIATRIC: Normal mood and affect Course - Re-evaluation Re-evalutation: 09/11/20 22:34 Pt has a lactic of 2.3 but has a hx of CHF and stage 4 renal failure. She is a poor candidate for aggressive fluid resuscitation. - Vital Signs Vital signs: Temp Pulse Resp BP Pulse Ox 103.3 F H 95 22 H 115/77 92 09/12/20 00:34 09/11/20 22:35 09/12/20 02:01 09/12/20 02:01 09/12/20 02:01 - Laboratory Results Result Diagrams: 09/11/20 21:27 09/11/20 21:27 Laboratory Results Interpreted: 09/11/20 09/11/20 09/11/20 21:27 21:27 21:27 Hgb 11.2 L Hct 34.1 L MCH 26.6 L RDW 17.4 H Seg Neuts % (Manual) 91 H Lymphocytes % (Manual) 4 L Abs Lymphs (Manual) 0.3 L Carbonic Acid ABG pCO2 ABG HCO3 ABG Total CO2 Sodium 134.4 L Creatinine 1.87 H Est GFR ( Amer) 31 L Est GFR (MDRD) Non-Af 26 L Glucose 164 H Lactic Acid 2.3 H C-Reactive Protein 40.3 H NT-Pro-B Natriuret Pep Albumin 3.3 L Urine Protein Urine Glucose (UA) Urine Blood Ur Leukocyte Esterase 09/11/20 09/11/20 09/12/20 21:27 22:29 04:05 Hgb Hct MCH RDW Seg Neuts % (Manual) Lymphocytes % (Manual) Abs Lymphs (Manual) Carbonic Acid 0.95 L ABG pCO2 31.6 L ABG HCO3 19.8 L ABG Total CO2 20.7 L Sodium Creatinine Est GFR ( Amer) Est GFR (MDRD) Non-Af Glucose Lactic Acid C-Reactive Protein NT-Pro-B Natriuret Pep 765 H Albumin Urine Protein 30 H Urine Glucose (UA) 50 H Urine Blood SMALL H Ur Leukocyte Esterase LARGE H Critical Laboratory Results Reviewed: Yes Attending or Supervising Physician who Reviewed Labs: MARIO RUSSELL - Radiology Results Critical Radiology Results Reviewed: No Critical Results - Consults Hospitalist consult Time consulted: 05:15 Reason for consultation: 09/12/20 05:24 This case was discussed with Dr. Brenner who agrees to evaluate the patient in the emergency room for admission. Discharge - Discharge Clinical Impression: Acute UTI, COPD exacerbation Fever Qualifiers: Fever type: unspecified Qualified Code(s): R50.9 - Fever, unspecified Condition: Stable Disposition: ADMITTED INPATIENT Admitting Provider: Elidia (Hospitalist) Unit Admitted: Medical Floor
[2020-09-11] MEDS ORDERED: NORMAL SALINE 500 ML IV ONE (22:05)
[2020-09-11 22:25] LABS: HEMATOCRIT 34.1 % (36.0-47.0); HEMOGLOBIN 11.2 g/dL (12.0-15.5); MEAN CORPUSCULAR HEMOGLOBIN 26.6 pg (27.0-33.4); MEAN CORPUSCULAR HGB CONC 32.7 g/dL (32.0-36.0); MEAN CORPUSCULAR VOLUME 81 fl (80-97); PLATELET COUNT 207 10^3/uL (150-450); RED CELL DISTRIBUTION WIDTH 17.4 % (11.5-14.0); WHITE BLOOD COUNT 8.4 10^3/uL (4.0-10.5)
--- NOTE | 2020-09-11 22:32 | RADIOLOGY REPORT (SQ) ---
AP Portable chest: 09/11/2020 9:30 PM [employer]ENE[employer] MEASURER History: 80-year old patient with cough. Comparison: Chest radiograph performed 01/25/2017 Findings: The cardiomediastinal silhouette is normal in size. No pneumothorax is seen. There is some minimal atelectasis seen at the left lung base.. No discrete pleural effusion is apparent. Atherosclerotic calcifications are seen at the aortic arch. Impression: No acute airspace opacities are seen.
[2020-09-11 22:35] LABS: ALBUMIN 3.3 g/dL (3.5-5.0); ALKALINE PHOSPHATASE 77 U/L (38-126); ANION GAP 8 (5-19); ASPARTATE AMINO TRANSFERASE 17 U/L (14-36); BILIRUBIN,DIRECT 0.1 mg/dL (0.0-0.4); BILIRUBIN,TOTAL 0.5 mg/dL (0.2-1.3); BLOOD UREA NITROGEN 18 mg/dL (7-20); C-REACTIVE PROTEIN 40.3 mg/L (<10.0); CALCIUM 8.7 mg/dL (8.4-10.2); CARBON DIOXIDE 22 mmol/L (22-30); CHLORIDE 104 mmol/L (98-107); GLUCOSE 164 mg/dL (75-110); POTASSIUM 3.8 mmol/L (3.6-5.0); TOTAL PROTEIN 6.8 g/dL (6.3-8.2)
[2020-09-11 22:46] LABS: ABSOLUTE LYMPHOCYTES# (MANUAL) 0.3 10^3/uL (0.5-4.7); ABSOLUTE MONOCYTES # (MANUAL) 0.3 10^3/uL (0.1-1.4); ANISOCYTOSIS 1+; BASOPHILS % (MANUAL) 0 % (0-2); EOSINOPHILS % (MANUAL) 1 % (0-6); LYMPHOCYTES % (MANUAL) 4 % (13-45); MONOCYTES % (MANUAL) 4 % (3-13); PLATELET COMMENT ADEQUATE; SEGMENTED NEUTROPHILS % (MAN) 91 % (42-78); TOTAL CELLS COUNTED 100
[2020-09-11 23:04] LABS: APPEARANCE,URINE CLOUDY; BILIRUBIN,URINE NEGATIVE (NEGATIVE); COLOR,URINE YELLOW; GLUCOSE, URINE 50 mg/dL (NEGATIVE); KETONES,URINE NEGATIVE (NEGATIVE); LEUKOCYTE ESTERASE,URINE LARGE (NEGATIVE); NITRITE,URINE NEGATIVE (NEGATIVE); PROTEIN,URINE 30 mg/dL (NEGATIVE); URINE SPECIFIC GRAVITY 1.014; UROBILINOGEN,URINE NEGATIVE mg/dL (<2.0)
[2020-09-11 23:20] LABS: A TYPE INFLUENZA AG NEGATIVE (NEGATIVE); B INFLUENZA AG NEGATIVE (NEGATIVE)
[2020-09-12] MEDS ORDERED: IBUPROFEN 600 MG TABLET PO ONE (00:39)
--- NOTE | 2020-09-12 01:09 | RADIOLOGY REPORT (SQ) ---
CT chest without contrast on 09/12/2020 at 12:13 AM CLINICAL INDICATION: Shortness of breath TECHNIQUE: Multiple axial images are obtained throughout the chest without the administration of contrast. This exam was performed according to our departmental dose-optimization program, which includes automated exposure control, adjustment of the mA and/or kV according to patient size and/or use of iterative reconstruction technique. Total DLP is 700.82 mGy*cm. COMPARISON: 10/05/2019 FINDINGS: There is minimal biapical scarring. There is linear atelectasis and/or scarring in the left lower lobe. The lungs are otherwise clear. Coronary artery calcifications and other vascular calcifications are noted. Limited visualized upper abdomen is unremarkable. There is no pleural or pericardial effusion. There is no thoracic adenopathy. Degenerative changes are noted in the spine. No acute bony abnormality is noted. IMPRESSION: No acute abnormality.
[2020-09-12 02:02] LABS: TROPONIN I 0.012 ng/mL
[2020-09-12] MEDS ORDERED: LEVOFLOXACIN 750 MG/D5W RTU 750 MG/150 ML RTUPB IV ONE (03:36)
[2020-09-12 04:52] LABS: ARTERIAL BLOOD BASE EXCESS -3.9 mmol/L; ARTERIAL BLOOD H2CO3 0.95 mmol/L (1.05-1.35); ARTERIAL BLOOD HCO3 19.8 mmol/L (20-24); ARTERIAL BLOOD O2 SATURATION 96.4 % (94-98); ARTERIAL BLOOD PCO2 31.6 mmHg (35-45); ARTERIAL BLOOD PH 7.41 (7.35-7.45); ARTERIAL BLOOD PO2 82.4 mmHg (80-100); ARTERIAL BLOOD TOTAL CO2 20.7 mmol/L (21-25)
[2020-09-12 04:56] LABS: ARTERIAL BLOOD FIO2 21%
[2020-09-12] MEDS ORDERED: ONDANSETRON HCL INJ/PF 4 MG/2 ML SDV IV PRN (05:28)
[2020-09-12] MEDS ORDERED: MAG HYDROX/AL HYDROX/SIMETH SUSP 30 ML UDCUP PO PRN (05:28)
[2020-09-12] MEDS ORDERED: PROMETHAZINE HCL 25 MG TABLET PO PRN (05:28)
[2020-09-12] MEDS ORDERED: GUAIFENESIN SYRP 200 MG/10 ML UDC PO ONE (05:33)
[2020-09-12] MEDS: HEPARIN SOD (PORCINE) 5,000 UNIT/ML 1 ML VIAL SUBCUT SCH ×3 (05:57→22:52)
--- NOTE | 2020-09-12 06:30 | PDOC H&P ---
History of Present Illness Admission Date/PCP: 09/12/20 05:28 HAZEL RAE MD History of Present Illness: LOCO MARCUS is a 80 year old female past medical history of nonoxygen depend ent COPD, CKD, asthma, peripheral neuropathy, CAD status post PCI to stent placement, chronic cough, presenting to ED complaining of fever, chills, chest ingestion, body aches, worsening productive cough, and generalized weakness. Patient is stating that she has history of nonoxygen dependent COPD and asthma and she has chronic cough but recently her cough has become productive with oatmeal colored phlegm, and coughing to the point that she is having sore back and abdomen, patient is also having subjective fever however denies any chest pain, nausea, vomiting, diarrhea, constipation or any urinary symptoms. She denies any recent travel, any exposure to anybody with COVID-19 infection or si milar symptoms, or any recent hospitalization. In ED she was noted to be tachypneic, hypoxic, febrile, with UA positive for large leukocyte esterase, however chest x-ray, chest CT read as normal. Rapid influenza negative RSV and COVID-19 pending at the time of dictation. Past Medical History Cardiac Medical History: Reports: Congestive Heart Failure, Coronary Artery Disease, Myocardial Infarction, Hyperlipidema, Hypertension Pulmonary Medical History: Reports: Asthma, Bronchitis, Chronic Obstructive Pulmonary Disease (COPD), Pneumonia Denies: Tuberculosis EENT Medical History: Reports: None Neurological Medical History: Reports: None Denies: Seizures Endocrine Medical History: Reports: None Renal/ Medical History: Reports: None Denies: End Stage Renal Disease Malignancy Medical History: Reports: None GI Medical History: Denies: Cirrhosis, Gastroesophageal Reflux Disease Musculoskeltal Medical History: Reports: Arthritis Skin Medical History: Reports: None Psychiatric Medical History: Denies: Bipolar Disorder, Depression Traumatic Medical History: Reports: None Hematology: Reports: Anemia, Bleeding Tendencies - daily asprin Infectious Medical History: Reports: None Past Surgical History Past Surgical History: Reports: Cardiac Catheterization - x2, Hysterectomy, Ton sillectomy Social History Lives with: Family Smoking Status: Former Smoker Frequency of Alcohol Use: None Hx Recreational Drug Use: No Hx Prescription Drug Abuse: No Family History Family History: Hypertension Parental Family History Reviewed: Yes Children Family History Reviewed: Yes Sibling(s) Family History Reviewed.: Yes Medication/Allergy Home Medications: Aspirin [Aspirin 325 mg Tablet] 325 mg PO DAILY 08/09/13 Duloxetine HCl [Cymbalta 30 mg Capsule.dr] 60 mg PO DAILY 08/09/13 Levothyroxine Sodium [Synthroid 0.088 mg Tablet] 0.088 mg PO DAILY 08/09/13 Topiramate [Topamax 100 mg Tablet] 100 mg PO BID 08/09/13 Albuterol Sulfate [Ventolin Hfa] 2 puff IH Q4 PRN 10/20/14 Budesonide/Formoterol Fumarate [Symbicort HFA 80-4.5 mcg Inhaler 6.9 gm] 1 puff IH BID 10/20/14 Fluticasone Propionate [Flonase Nasal [place] 50 Mcg/[place] 16 gm] 2 spray NAREB DAILY 10/20/14 Furosemide [Lasix 20 mg Tablet] 20 mg PO QAM 10/20/14 Methadone HCl 5 mg PO TID 10/20/14 Montelukast Sodium 10 mg PO DAILY 10/20/14 Acetaminophen [Tylenol 325 mg Tablet] 325 mg PO Q4HP PRN tablet 01/27/17 Levofloxacin [Levaquin 500 mg Tablet] 500 mg PO DAILY #7 tablet 01/27/17 Potassium Chloride 20 meq PO DAILY #30 tab.er.prt 01/27/17 Walker [Folding Walker] 1 each MC ASDIR PRN #1 each 01/27/17 Allergies/Adverse Reactions: cephalexin monohydrate [From Keflex] Allergy (Unknown, Verified 01/26/17 04:59) Beef Containing Products Allergy (Verified 01/26/17 04:59) latex [Latex] Allergy (Verified 01/26/17 04:59) Penicillins Allergy (Verified 01/26/17 04:59) [id number] Reductase Inhibitor Adverse Reaction (Intermediate, Verified 01/26/17 04:59) Unknown reaction Review of Systems Review of Systems: as per hpi Physical Exam Vital Signs: Temp Pulse Resp BP Pulse Ox 103.3 F H 95 22 H 115/77 92 09/12/20 00:34 09/11/20 22:35 09/12/20 02:01 09/12/20 02:01 09/12/20 02:01 Intake & Output 09/10/20 09/11/20 09/12/20 06:59 06:59 06:59 Intake Total 650 Balance 650 Weight 99.79 kg General appearance: PRESENT: mild distress, obese, other - Appears very uncomfortable and weak Head exam: PRESENT: atraumatic, normocephalic Neck exam: ABSENT: carotid bruit, JVD, lymphadenopathy, thyromegaly Respiratory exam: PRESENT: clear to auscultation toni, tachypnea. ABSENT: rales, rhonchi, wheezes Cardiovascular exam: PRESENT: RRR. ABSENT: diastolic murmur, rubs, systolic murmur GI/Abdominal exam: PRESENT: normal bowel sounds, soft. ABSENT: distended, guarding, mass, organolmegaly, rebound, tenderness Extremities exam: PRESENT: full ROM. ABSENT: calf tenderness, clubbing, pedal edema Neurological exam: PRESENT: alert, awake, oriented to person, oriented to place, oriented to time, oriented to situation, CN II-XII grossly intact. ABSENT: motor sensory deficit Results Laboratory Results: 09/11/20 21:27 09/11/20 21:27 09/11/20 09/11/20 09/11/20 21:27 21:27 21:27 WBC 8.4 RBC 4.20 Hgb 11.2 L Hct 34.1 L MCV 81 MCH 26.6 L MCHC 32.7 RDW 17.4 H Plt Count 207 Seg Neutrophils % Not Reportable Carbonic Acid HCO3/H2CO3 Ratio ABG pH ABG pCO2 ABG pO2 ABG HCO3 ABG O2 Saturation ABG Base Excess FiO2 Sodium 134.4 L Potassium 3.8 Chloride 104 Carbon Dioxide 22 Anion Gap 8 BUN 18 Creatinine 1.87 H Est GFR ( Amer) 31 L Glucose 164 H Lactic Acid 2.3 H Calcium 8.7 Ferritin 30.10 Total Bilirubin 0.5 AST 17 Alkaline Phosphatase 77 C-Reactive Protein 40.3 H Total Protein 6.8 Albumin 3.3 L Urine Color Urine Appearance Urine pH Ur Specific [place] Urine Protein Urine Glucose (UA) Urine Ketones Urine Blood Urine Nitrite Ur Leukocyte Esterase Urine WBC (Auto) Urine RBC (Auto) 09/11/20 09/12/20 22:29 04:05 WBC RBC Hgb Hct MCV MCH MCHC RDW Plt Count Seg Neutrophils % Carbonic Acid 0.95 L HCO3/H2CO3 Ratio 20:1 ABG pH 7.41 ABG pCO2 31.6 L ABG pO2 82.4 ABG HCO3 19.8 L ABG O2 Saturation 96.4 ABG Base Excess -3.9 FiO2 21% Sodium Potassium Chloride Carbon Dioxide Anion Gap BUN Creatinine Est GFR ( Amer) Glucose Lactic Acid Calcium Ferritin Total Bilirubin AST Alkaline Phosphatase C-Reactive Protein Total Protein Albumin Urine Color YELLOW Urine Appearance CLOUDY Urine pH 5.0 Ur Specific [place] 1.014 Urine Protein 30 H Urine Glucose (UA) 50 H Urine Ketones NEGATIVE Urine Blood SMALL H Urine Nitrite NEGATIVE Ur Leukocyte Esterase LARGE H Urine WBC (Auto) >182 Urine RBC (Auto) 1 09/11/20 21:27 Troponin I 0.012 NT-Pro-B Natriuret Pep 765 H Impressions: Chest CT 09/11/20 23:45 IMPRESSION: No acute abnormality. Assessment and Plan - Diagnosis (1) Acute respiratory failure with hypoxia Is this a current diagnosis for this admission?: Yes Plan: Likely due to acute COPD and asthma exacerbation complicated by acute bronchitis. CT chest and chest x-ray negative for any acute abnormalities. Not a candidate for CTA as patient has history of CKD. Denies any recent travel, hospitalization or any exposure to COVID-19. Admit to floor, broad-spectrum empiric IV antibiotics, steroids, LAMA, LABA, ICS, DuoNebs, as needed BiPAP, supplemental oxygen, flutter valve, incentive spirometry. Blood culture and sputum culture. (2) Bronchitis Is this a current diagnosis for this admission?: Yes Plan: Plan as per #1. (3) Morbid obesity Is this a current diagnosis for this admission?: Yes Plan: BMI 34.7. Diet and lifestyle modification recommended. Will obtain TSH. (4) Peripheral neuropathy Is this a current diagnosis for this admission?: Yes Plan: Denies any history of diabetes, any history of CVA or chemotherapy however has h istory of severe bilateral upper and lower extremity neuropathy. Resume home meds. (5) CKD (chronic kidney disease) Qualifiers: Chronic kidney disease stage: stage 3 (moderate) Is this a current diagnosis for this admission?: Yes Plan: Nonoliguric. Electrolytes WNL. Cautious fluid resuscitation guided by volume status. Monitor volume status and electrolytes. Avoid nephrotoxic meds. (6) COPD (chronic obstructive pulmonary disease) Qualifiers: COPD type: chronic bronchitis Chronic bronchitis type: mucopurulent Qualified Code(s): J41.1 - Mucopurulent chronic bronchitis Is this a current diagnosis for this admission?: Yes Plan: Plan as per #1. (7) UTI (urinary tract infection) Qualifiers: Urinary tract infection type: acute cystitis Is this a current diagnosis for this admission?: Yes Plan: Likely due to gram-negative rods including E. coli. Broad-spectrum empiric IV antibiotics. Urine culture. Follow-up culture. Switch to p.o. antibiotics once appropriate. - Time Time Spent with patient: 35 or more minutes Anticipated Discharge Disposition: Home with Home Health Anticipated Discharge Timeframe: within 48 hours
[2020-09-12] MEDS: ACETAMINOPHEN 325 MG TABLET PO PRN (08:33)
--- NOTE | 2020-09-12 09:03 | EKG REPORT ---
SEVERITY:- OTHERWISE NORMAL ECG - SINUS RHYTHM ATRIAL PREMATURE COMPLEX : Confirmed by: Sven Buck MD 12-Sep-2020 09:02:37
[2020-09-12] MEDS: FAMOTIDINE 20 MG TABLET PO SCH ×2 (11:56→22:52)
[2020-09-12] MEDS: GUAIFENESIN 600 MG TABLET.SA PO SCH ×2 (11:56→22:52)
[2020-09-12] MEDS: DOCUSATE SODIUM 100 MG/10 ML UDC PO SCH (11:57)
[2020-09-12 12:12] LABS: ANION GAP 8 (5-19); BLOOD UREA NITROGEN 22 mg/dL (7-20); CALCIUM 8.3 mg/dL (8.4-10.2); CARBON DIOXIDE 20 mmol/L (22-30); CHLORIDE 105 mmol/L (98-107); GLUCOSE 133 mg/dL (75-110); POTASSIUM 3.9 mmol/L (3.6-5.0)
[2020-09-12] MEDS: FLUTICASONE/UMECLIDIN/VILANTER 100-62.5-25 MCG/DOSE IH SCH (14:39)
[2020-09-12] MEDS: GUAIFENESIN SYRP 200 MG/10 ML UDC PO SCH ×2 (14:39→22:55)
[2020-09-12] MEDS: IPRATROPIUM/ALBUTEROL 0.5-2.5 MG/3 ML AMPUL NEB PRN (17:02)
[2020-09-12] MEDS ORDERED: ALBUTEROL SULFATE HFA (90 MCG/PUFF) 8 GM MDI (1 MDI/ER DISP) IH PRN (17:36)
[2020-09-12] MEDS: DULOXETINE HCL 30 MG CAPSULE.DR PO SCH (17:58)
[2020-09-12] MEDS: MONTELUKAST SODIUM 10 MG TABLET PO SCH (17:58)
[2020-09-12] MEDS: CETIRIZINE 10 MG TABLET PO SCH (17:58)
[2020-09-12] MEDS: CHOLECALCIFEROL (D3) 1,000 UNIT (25 MCG) TABLET PO SCH (17:58)
[2020-09-12] MEDS: ASPIRIN 325 MG TABLET, ENT COATED PO SCH (17:58)
[2020-09-12] MEDS ORDERED: TOLTERODINE TARTRATE 4 MG PO SCH (18:00)
[2020-09-12] MEDS ORDERED: METHADONE HCL 5 MG PO SCH (18:00)
--- NOTE | 2020-09-12 19:29 | RADIOLOGY REPORT (SQ) ---
EXAM DESCRIPTION: CHEST SINGLE VIEW IMAGES COMPLETED DATE/TIME: 09/12/2020 6:31 pm REASON FOR STUDY: dyspnea, cough COMPARISON: 09/11/2020 EXAM PARAMETERS: NUMBER OF VIEWS: One view. TECHNIQUE: Single frontal radiographic view of the chest acquired. RADIATION DOSE: NA LIMITATIONS: None. FINDINGS: LUNGS AND PLEURA: Stable pulmonary exam demonstrating left mid lung atelectasis versus sca r. No focal consolidation, large pleural effusion, or pneumothorax demonstrated. MEDIASTINUM AND HILAR STRUCTURES: No masses. Contour normal. HEART AND VASCULAR STRUCTURES: Heart normal in size. Normal vasculature. BONES: No acute findings. HARDWARE: None in the chest. OTHER: No other significant finding. IMPRESSION: No evidence of acute cardiopulmonary abnormality. TECHNICAL DOCUMENTATION: JOB ID: [id number] 2010 [employer]- All Rights Reserved Reading location - IP/workstation name: [email or web address]
--- NOTE | 2020-09-12 19:53 | Progress Note ---
Provider Note Provider Note: LOCO MARCUS is a 80 year old female past medical history of nonoxygen dependent COPD, CKD, asthma, peripheral neuropathy, CAD status post PCI to stent placement, chronic cough who was admitted early this morning by the cathode washer for Acute respiratory failure with hypoxia, bronchitis with underlying COPD, and UTI. Overnight events, vital signs, laboratory evaluation, imaging, H&P, and orders reviewed. Agree with plan of care as established by the previous provider. Patient was briefly seen on evening rounds with her daughter present. She is found resting in bed, comfortably, on supplemental oxygen via nasal cannula. She reports pleuritic chest back pain with deep inspiration and cough. Otherwise, she states that she is feeling slightly improved. The patient's home medications have been reconciled and resumed with the exception of her losartan, furosemide, potassium, and doxycycline. The patient's daughter is highly anxious regarding a possible pneumonia; states that she has had rapidly developing pneumonia in the past and requests chest x- ray. Repeat chest x-ray this evening is unremarkable. However, her blood cultures are growing gram-positive cocci in 1 bottle each set. She does have a history of Klebsiella urinary tract infections but no prior history of bacteremia or MRSA. We will continue IV Levaquin for now as she has multiple antibiotic allergies. She may require infectious disease consultation pending results. Repeat blood cultures in the morning. We will also provide as needed Tylenol, IV Toradol, and oxycodone for breakthrough pain.
[2020-09-12] MEDS: KETOROLAC TROMETHAMINE INJ/PF 30 MG/1 ML SDV IV PRN (19:59)
[2020-09-12] MEDS: LEVOFLOXACIN 500 MG/D5W RTU 500 MG/100 ML RTUPB IV SCH (22:51)
[2020-09-12] MEDS: TOPIRAMATE 100 MG TABLET PO SCH (22:52)
[2020-09-12] MEDS: METHADONE HCL 10 MG TABLET PO SCH (23:03)
[2020-09-13 05:17] LABS: HEMATOCRIT 33.9 % (36.0-47.0); HEMOGLOBIN 11.2 g/dL (12.0-15.5); MEAN CORPUSCULAR HEMOGLOBIN 26.6 pg (27.0-33.4); MEAN CORPUSCULAR HGB CONC 33.1 g/dL (32.0-36.0); MEAN CORPUSCULAR VOLUME 80 fl (80-97); PLATELET COUNT 131 10^3/uL (150-450); RED BLOOD COUNT 4.22 10^6/uL (3.72-5.28); RED CELL DISTRIBUTION WIDTH 17.4 % (11.5-14.0); WHITE BLOOD COUNT 8.8 10^3/uL (4.0-10.5)
[2020-09-13 05:39] LABS: ANION GAP 10 (5-19); BLOOD UREA NITROGEN 25 mg/dL (7-20); CALCIUM 8.3 mg/dL (8.4-10.2); CARBON DIOXIDE 20 mmol/L (22-30); CHLORIDE 103 mmol/L (98-107); GLUCOSE 103 mg/dL (75-110); POTASSIUM 3.8 mmol/L (3.6-5.0)
[2020-09-13] MEDS: GUAIFENESIN SYRP 200 MG/10 ML UDC PO SCH ×3 (06:17→21:48)
[2020-09-13] MEDS: HEPARIN SOD (PORCINE) 5,000 UNIT/ML 1 ML VIAL SUBCUT SCH ×3 (06:17→21:48)
[2020-09-13] MEDS: METHADONE HCL 10 MG TABLET PO SCH ×4 (06:22→23:14)
[2020-09-13] MEDS: LEVOTHYROXINE SODIUM 0.088 MG TABLET PO SCH (06:22)
[2020-09-13] MEDS ORDERED: NORMAL SALINE 1000 ML 1,000 ML IV ONE (09:03)
[2020-09-13] MEDS: DOCUSATE SODIUM 100 MG/10 ML UDC PO SCH (09:57)
[2020-09-13] MEDS: FAMOTIDINE 20 MG TABLET PO SCH ×2 (09:57→21:48)
[2020-09-13] MEDS: OXYBUTYNIN CHLORIDE 5 MG TABLET PO SCH ×2 (09:57→17:40)
[2020-09-13] MEDS: GUAIFENESIN 600 MG TABLET.SA PO SCH ×2 (09:57→21:48)
[2020-09-13] MEDS: FLUTICASONE/UMECLIDIN/VILANTER 100-62.5-25 MCG/DOSE IH SCH (09:59)
[2020-09-13] MEDS: OXYCODONE HCL IR 5 MG TABLET PO PRN (10:00)
[2020-09-13] MEDS: IPRATROPIUM/ALBUTEROL 0.5-2.5 MG/3 ML AMPUL NEB PRN ×2 (10:54→21:15)
[2020-09-13] MEDS: KETOROLAC TROMETHAMINE INJ/PF 30 MG/1 ML SDV IV PRN ×2 (14:16→21:47)
[2020-09-13] MEDS: NORMAL SALINE 1000 ML 1,000 ML IV PRN (15:41)
[2020-09-13] MEDS: TOPIRAMATE 100 MG TABLET PO SCH (17:39)
[2020-09-13] MEDS: ASPIRIN 325 MG TABLET, ENT COATED PO SCH (17:39)
[2020-09-13] MEDS: CHOLECALCIFEROL (D3) 1,000 UNIT (25 MCG) TABLET PO SCH (17:40)
[2020-09-13] MEDS: DULOXETINE HCL 30 MG CAPSULE.DR PO SCH (17:40)
[2020-09-13] MEDS: MONTELUKAST SODIUM 10 MG TABLET PO SCH (17:41)
[2020-09-13] MEDS: CETIRIZINE 10 MG TABLET PO SCH (17:41)
--- NOTE | 2020-09-13 18:50 | PDOC PROGRESS REPORT ---
Subjective Date:: 09/13/20 Subjective:: LOCO MARCUS is a 80 year old female past medical history of nonoxygen dependent COPD, CKD, asthma, peripheral neuropathy, CAD status post PCI to stent placement, chronic cough who was admitted 09/12/20 with Acute respiratory failure with hypoxia, bronchitis with underlying COPD, and UTI. Patient and daughter were seen on evening rounds. Patient was found sitting up in bed, comfortably, on room air while eating her dinner. She reports that she is feeling much better today. She does continue to have back pain; somewhat improved with Tylenol, Toradol, and breakthrough Percocet. She states that her cough has decreased significantly. No longer having sputum production. She does state that her dyspnea while at rest has resolved, although, does continue to feel slightly short of breath when ambulating to the restroom. Overall feeling much better. She denies fever, chills, chest pain, palpitations, orthopnea, abdominal pain, nausea, vomiting, diarrhea, and dysuria. T-max 103.3/24 hours. She has no other questions or concerns this time. No concerns per nursing. Reason For Visit: ACUTE RESPIRATORY FAILURE,POSITIVE BLOOD CULTURES Physical Exam Vital Signs: Temp Pulse Resp BP Pulse Ox 98.2 F 74 17 114/52 L 93 09/13/20 15:34 09/13/20 15:34 09/13/20 15:34 09/13/20 15:34 09/13/20 15:34 Intake & Output 09/12/20 09/13/20 09/14/20 06:59 06:59 06:59 Intake Total 620 152 9346 Output Total 0 Balance 619 745 4868 Weight 99.79 kg 99.7 kg General appearance: PRESENT: no acute distress, cooperative, obese, well- developed, well-nourished Head exam: PRESENT: atraumatic, normocephalic Eye exam: PRESENT: conjunctiva pink, EOMI, PERRLA. ABSENT: scleral icterus Mouth exam: PRESENT: moist, tongue midline Respiratory exam: PRESENT: clear to auscultation toni, symmetrical, unlabored, other - Room air. ABSENT: rales, rhonchi, wheezes Cardiovascular exam: PRESENT: RRR. ABSENT: diastolic murmur, rubs, systolic murmur Pulses: PRESENT: normal dorsalis pedis pul Vascular exam: PRESENT: normal capillary refill GI/Abdominal exam: PRESENT: normal bowel sounds, soft. ABSENT: distended, guarding, mass, organolmegaly, rebound, tenderness Rectal exam: PRESENT: deferred Extremities exam: PRESENT: full ROM. ABSENT: calf tenderness, clubbing, pedal edema Neurological exam: PRESENT: alert, awake, oriented to person, oriented to place, oriented to time, oriented to situation, CN II-XII grossly intact. ABSENT: motor sensory deficit Psychiatric exam: PRESENT: appropriate affect, normal mood. ABSENT: homicidal i deation, suicidal ideation Skin exam: PRESENT: dry, intact, warm. ABSENT: cyanosis, rash Results Laboratory Results: 09/13/20 04:29 09/13/20 04:29 09/13/20 09/13/20 04:29 04:29 WBC 8.8 RBC 4.22 Hgb 11.2 L Hct 33.9 L MCV 80 MCH 26.6 L MCHC 33.1 RDW 17.4 H Plt Count 131 L Sodium 133.1 L Potassium 3.8 Chloride 103 Carbon Dioxide 20 L Anion Gap 10 BUN 25 H Creatinine 2.13 H Est GFR ( Amer) 27 L Glucose 103 Calcium 8.3 L Magnesium 1.7 09/11/20 23:33 Blood Blood Culture (PCR) - Final 09/11/20 21:27 Troponin I 0.012 NT-Pro-B Natriuret Pep 765 H Impressions: Chest CT 09/11/20 23:45 IMPRESSION: No acute abnormality. Chest X-Ray 09/12/20 00:00 IMPRESSION: No evidence of acute cardiopulmonary abnormality. Assessment and Plan - Diagnosis (1) Acute respiratory failure with hypoxia Is this a current diagnosis for this admission?: Yes Plan: Improved; now maintaining oxygen saturations while on room air at rest. Decrea sed dyspnea and cough today. Likely due to acute COPD and asthma exacerbation complicated by acute b ronchitis. CT chest and chest x-ray negative for any acute abnormalities. Not a candidate for CTA as patient has history of CKD. Denies any recent travel, hospitalization or any exposure to COVID-19. Cultures show gram-positive cocci (1 bottle each set) Sputum cultures not yet obtained. Admit to floor Continue supplemental oxygen as needed to maintain oxygen saturations greater than 89%. Continue IV Levaquin. Have resumed home dose Trelegy. IV steroids have been discontinued. Continues to do well. Consider oral prednisone if she develops adventitious lung sounds or worsening dyspnea/hypox ia. Continue scheduled and as needed nebulizer treatments. Encourage pulmonary toilet with flutter valve, incentive spirometry. Blood culture and sputum culture. (2) Bronchitis Is this a current diagnosis for this admission?: Yes Plan: Plan as per #1. (3) UTI (urinary tract infection) Qualifiers: Urinary tract infection type: acute cystitis Is this a current diagnosis for this admission?: Yes Plan: Urinalysis suggest UTI. Urine culture growing gram-negative rods. Continue IV Levaquin; antibiotics are somewhat limited due to her multiple allergies. Switch to p.o. antibiotics once appropriate. (4) COPD exacerbation Is this a current diagnosis for this admission?: Yes Plan: Plan as per #1. (5) CKD (chronic kidney disease) Qualifiers: Chronic kidney disease stage: stage 3 (moderate) Is this a current diagnosis for this admission?: Yes Plan: At baseline renal function. Nonoliguric. Electrolytes WNL. Cautious fluid resuscitation guided by volume status. Monitor volume status and electrolytes. Avoid nephrotoxic meds. (6) Peripheral neuropathy Is this a current diagnosis for this admission?: Yes Plan: Denies any history of diabetes, any history of CVA or chemotherapy however has h istory of severe bilateral upper and lower extremity neuropathy. Continue home meds. (7) Morbid obesity Is this a current diagnosis for this admission?: Yes Plan: BMI 34.7. Diet and lifestyle modification recommended. Will obtain TSH. (8) Bacteremia Is this a current diagnosis for this admission?: Yes Plan: Blood cultures (1 bottle each set) growing gram-positive cocci. Repeat cultures pending. Sputum cultures not yet obtained. Urine culture with gram-negative rods. No clear source for bacteremia; perhaps contaminant versus pulmonary in origin as patient presented with bronchitis and possible developing pneumonia. Continue on IV Levaquin. - Time Time Spent with patient: 35 or more minutes Medications reviewed and adjusted accordingly: Yes Anticipated Discharge Disposition: Home with Home Health Anticipated Discharge Timeframe: TBD
[2020-09-13] MEDS: LEVOFLOXACIN 500 MG/D5W RTU 500 MG/100 ML RTUPB IV SCH (21:48)
[2020-09-14 05:26] LABS: HEMATOCRIT 32.3 % (36.0-47.0); HEMOGLOBIN 10.5 g/dL (12.0-15.5); MEAN CORPUSCULAR HEMOGLOBIN 25.8 pg (27.0-33.4); MEAN CORPUSCULAR HGB CONC 32.4 g/dL (32.0-36.0); MEAN CORPUSCULAR VOLUME 80 fl (80-97); PLATELET COUNT 124 10^3/uL (150-450); RED BLOOD COUNT 4.06 10^6/uL (3.72-5.28); RED CELL DISTRIBUTION WIDTH 17.4 % (11.5-14.0); WHITE BLOOD COUNT 6.2 10^3/uL (4.0-10.5)
[2020-09-14 05:46] LABS: ANION GAP 8 (5-19); BLOOD UREA NITROGEN 25 mg/dL (7-20); CALCIUM 7.9 mg/dL (8.4-10.2); CARBON DIOXIDE 21 mmol/L (22-30); CHLORIDE 103 mmol/L (98-107); GLUCOSE 82 mg/dL (75-110); POTASSIUM 3.7 mmol/L (3.6-5.0)
[2020-09-14] MEDS: METHADONE HCL 10 MG TABLET PO SCH ×3 (05:56→17:34)
[2020-09-14] MEDS: LEVOTHYROXINE SODIUM 0.088 MG TABLET PO SCH (05:57)
[2020-09-14] MEDS: GUAIFENESIN SYRP 200 MG/10 ML UDC PO SCH ×3 (06:01→22:00)
[2020-09-14] MEDS: HEPARIN SOD (PORCINE) 5,000 UNIT/ML 1 ML VIAL SUBCUT SCH ×2 (06:01→13:37)
[2020-09-14] MEDS ORDERED: VANCOMYCIN HCL 0 MG in DEXTROSE 5%-WATER 250 ML IV NR (08:45)
[2020-09-14] MEDS: OXYCODONE HCL IR 5 MG TABLET PO PRN (09:49)
[2020-09-14] MEDS: OXYBUTYNIN CHLORIDE 5 MG TABLET PO SCH ×2 (09:50→17:35)
[2020-09-14] MEDS: DOCUSATE SODIUM 100 MG CAPSULE PO SCH (09:50)
[2020-09-14] MEDS: GUAIFENESIN 600 MG TABLET.SA PO SCH (09:50)
[2020-09-14] MEDS: NORMAL SALINE 1000 ML 1,000 ML IV PRN (09:51)
[2020-09-14] MEDS: FLUTICASONE/UMECLIDIN/VILANTER 100-62.5-25 MCG/DOSE IH SCH (09:56)
[2020-09-14] MEDS ORDERED: VANCOMYCIN HCL 1,500 MG in DEXTROSE 5%-WATER 250 ML IV SCH (11:00)
[2020-09-14] MEDS: KETOROLAC TROMETHAMINE INJ/PF 30 MG/1 ML SDV IV PRN (14:04)
--- NOTE | 2020-09-14 17:21 | PDOC PROGRESS REPORT ---
Subjective Date:: 09/14/20 Subjective:: LOCO MARCUS is a 80 year old female past medical history of nonoxygen dependent COPD, CKD, asthma, peripheral neuropathy, CAD status post PCI to stent placement, chronic cough who was admitted 09/12/20 with Acute respiratory failure with hypoxia, bronchitis with underlying COPD, and UTI. Patient was seen on morning rounds with daughter present. Patient was found sitting up in bed, comfortably, on room air while eating her lunch. She reports that she is feeling much better today. She does continue to have back pain; somewhat improved with Tylenol, Toradol, and breakthrough Percocet. She states that her cough has resolved. Continues to feel slightly short of breath when ambulating to the restroom. She denies fever, chills, chest pain, palpitations, orthopnea, abdominal pain, nausea, vomiting, diarrhea, and dysuria. T-max 99.1/24hrs, 103.3/48 hours. She has no other questions or concerns this time. No concerns per nursing. Reason For Visit: ACUTE RESPIRATORY FAILURE,POSITIVE BLOOD CULTURES Physical Exam Vital Signs: Temp Pulse Resp BP Pulse Ox 98.4 F 68 18 100/54 L 97 09/14/20 15:33 09/14/20 15:33 09/14/20 15:33 09/14/20 15:33 09/14/20 15:33 Intake & Output 09/13/20 09/14/20 09/15/20 06:59 06:59 06:59 Intake Total 840 3370 676 Output Total 0 Balance 840 3370 676 Weight 99.7 kg 99.9 kg General appearance: PRESENT: no acute distress, cooperative, well-developed, well-nourished Head exam: PRESENT: atraumatic, normocephalic Eye exam: PRESENT: conjunctiva pink, EOMI, PERRLA. ABSENT: scleral icterus Mouth exam: PRESENT: moist, tongue midline Respiratory exam: PRESENT: chest wall tenderness - pleuritic chest pain w/ movement and inspiration, clear to auscultation toni, symmetrical, unlabored, other - room air. ABSENT: rales, rhonchi, wheezes Cardiovascular exam: PRESENT: RRR. ABSENT: diastolic murmur, rubs, systolic murmur Vascular exam: PRESENT: normal capillary refill Extremities exam: PRESENT: full ROM. ABSENT: calf tenderness, clubbing, pedal edema Musculoskeletal exam: PRESENT: ambulatory Neurological exam: PRESENT: alert, awake, oriented to person, oriented to place, oriented to time, oriented to situation, CN II-XII grossly intact. ABSENT: motor sensory deficit Psychiatric exam: PRESENT: appropriate affect, normal mood. ABSENT: homicidal ideation, suicidal ideation Skin exam: PRESENT: dry, intact, warm. ABSENT: cyanosis, rash Results Laboratory Results: 09/14/20 04:23 09/14/20 04:23 09/14/20 09/14/20 04:23 04:23 WBC 6.2 RBC 4.06 Hgb 10.5 L Hct 32.3 L MCV 80 MCH 25.8 L MCHC 32.4 RDW 17.4 H Plt Count 124 L Sodium 132.1 L Potassium 3.7 Chloride 103 Carbon Dioxide 21 L Anion Gap 8 BUN 25 H Creatinine 2.07 H Est GFR ( Amer) 28 L Glucose 82 Calcium 7.9 L 09/11/20 21:27 Blood Blood Culture - Final Staphylococcus Haemolyticus 09/11/20 23:33 Blood Blood Culture (PCR) - Final 09/11/20 23:33 Blood Blood Culture - Final Staphylococcus Haemolyticus 09/13/20 05:21 Blood Blood Culture (PCR) - Final 09/11/20 22:29 Clean Catch Midstream Urine Culture - Final Klebsiella Pneumoniae 09/11/20 21:27 Troponin I 0.012 NT-Pro-B Natriuret Pep 765 H Impressions: Chest CT 09/11/20 23:45 IMPRESSION: No acute abnormality. Chest X-Ray 09/12/20 00:00 IMPRESSION: No evidence of acute cardiopulmonary abnormality. Assessment and Plan - Diagnosis (1) Bacteremia Is this a current diagnosis for this admission?: Yes Plan: Blood cultures (1 bottle each set) grew staph hemolyticus with multiple resistances. Repeat cultures (1 bottle) growing gram-positive cocci Sputum cultures pending. Throat culture pending. Urine culture with Klebsiella. No clear source for bacteremia; perhaps contaminant versus pulmonary in origin as patient presented with bronchitis and possible developing pneumonia. Have transition to oral Levaquin to complete treatment course for UTI. The staph hemolyticus, however, is resistant to Levaquin. Due to the patient's history of anaphylactic reaction to cephalosporins and hives with penicillins, she is placed on IV vancomycin. Discussed with discharge planning; presuming her blood cultures remain clear through the weekend, patient will be eligible for PICC line placement and discharged to home on IV antibiotics Friday to complete her course. 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 Would prefer once daily dosing, therefore have asked discharge planning to bishop out daptomycin. If this is cost prohibitive, she certainly would be capable of 3 times daily dosing with vancomycin. (2) Acute respiratory failure with hypoxia Is this a current diagnosis for this admission?: Yes Plan: Resolved. Now maintaining oxygen saturations while on room air. Likely due to acute COPD and asthma exacerbation complicated by acute bronchitis. CT chest and chest x-ray negative for any acute abnormalities. Not a candidate for CTA as patient has history of CKD. Denies any recent travel, hospitalization or any exposure to COVID-19. Blood Cultures show staph hemolyticus Sputum cultures pending. Admit to floor Continue supplemental oxygen as needed to maintain oxygen saturations greater than 89%. Continue Levaquin; transition to renally dosed oral. Continue home dose Trelegy. IV steroids have been discontinued. Continues to do well. Consider oral prednisone if she develops adventitious lung sounds or worsening dyspnea/hypoxia. Continue as needed nebulizer treatments. Encourage pulmonary toilet with flutter valve, incentive spirometry. (3) Bronchitis Is this a current diagnosis for this admission?: Yes Plan: Plan as per #1. (4) UTI (urinary tract infection) Qualifiers: Urinary tract infection type: acute cystitis Is this a current diagnosis for this admission?: Yes Plan: Urinalysis suggest UTI. Urine culture grew Klebsiella. Continue renally dosed Levaquin (5) COPD exacerbation Is this a current diagnosis for this admission?: Yes Plan: Improved. Plan as per #1. (6) CKD (chronic kidney disease) Qualifiers: Chronic kidney disease stage: stage 3 (moderate) Is this a current diagnosis for this admission?: Yes Plan: At baseline renal function. Nonoliguric. Electrolytes WNL. Cautious fluid resuscitation guided by volume status. Monitor volume status and electrolytes. Avoid nephrotoxic meds. Renally dose where appropriate. (7) Peripheral neuropathy Is this a current diagnosis for this admission?: Yes Plan: Denies any history of diabetes, any history of CVA or chemotherapy however has history of severe bilateral upper and lower extremity neuropathy. Continue home meds. (8) Morbid obesity Is this a current diagnosis for this admission?: Yes Plan: BMI 34.7. Diet and lifestyle modification recommended. - Time Time Spent with patient: 35 or more minutes Medications reviewed and adjusted accordingly: Yes Anticipated Discharge Disposition: Home with Home Health Anticipated Discharge Timeframe: 09/18/19
[2020-09-14] MEDS: MONTELUKAST SODIUM 10 MG TABLET PO SCH (17:34)
[2020-09-14] MEDS: CHOLECALCIFEROL (D3) 1,000 UNIT (25 MCG) TABLET PO SCH (17:34)
[2020-09-14] MEDS: DULOXETINE HCL 30 MG CAPSULE.DR PO SCH (17:34)
[2020-09-14] MEDS: ASPIRIN 325 MG TABLET, ENT COATED PO SCH (17:34)
[2020-09-14] MEDS: CETIRIZINE 10 MG TABLET PO SCH (17:35)
[2020-09-14] MEDS: TOPIRAMATE 100 MG TABLET PO SCH (17:35)
[2020-09-14] MEDS: ALBUTEROL SULFATE HFA (90 MCG/PUFF) 8 GM MDI IH PRN (17:39)
[2020-09-14] MEDS ORDERED: LEVOFLOXACIN 500 MG/D5W RTU 500 MG/100 ML RTUPB IV SCH (22:00)
[2020-09-15] MEDS: GUAIFENESIN SYRP 200 MG/10 ML UDC PO SCH ×4 (00:16→21:11)
[2020-09-15] MEDS: HEPARIN SOD (PORCINE) 5,000 UNIT/ML 1 ML VIAL SUBCUT SCH ×4 (00:16→21:07)
[2020-09-15] MEDS: GUAIFENESIN 600 MG TABLET.SA PO SCH ×3 (00:18→21:11)
[2020-09-15] MEDS: OXYCODONE HCL IR 5 MG TABLET PO PRN ×2 (00:18→21:17)
[2020-09-15] MEDS: METHADONE HCL 10 MG TABLET PO SCH ×5 (00:19→23:20)
[2020-09-15] MEDS: FAMOTIDINE 20 MG TABLET PO SCH ×2 (00:20→21:11)
[2020-09-15] MEDS: ALBUTEROL SULFATE HFA (90 MCG/PUFF) 8 GM MDI IH PRN (00:40)
[2020-09-15 05:25] LABS: HEMATOCRIT 29.7 % (36.0-47.0); HEMOGLOBIN 9.7 g/dL (12.0-15.5); MEAN CORPUSCULAR HEMOGLOBIN 25.7 pg (27.0-33.4); MEAN CORPUSCULAR HGB CONC 32.7 g/dL (32.0-36.0); MEAN CORPUSCULAR VOLUME 79 fl (80-97); PLATELET COUNT 117 10^3/uL (150-450); RED BLOOD COUNT 3.78 10^6/uL (3.72-5.28); RED CELL DISTRIBUTION WIDTH 17.5 % (11.5-14.0); WHITE BLOOD COUNT 7.4 10^3/uL (4.0-10.5)
[2020-09-15 05:44] LABS: ANION GAP 8 (5-19); BLOOD UREA NITROGEN 23 mg/dL (7-20); CALCIUM 8.5 mg/dL (8.4-10.2); CARBON DIOXIDE 22 mmol/L (22-30); CHLORIDE 103 mmol/L (98-107); GLUCOSE 91 mg/dL (75-110); POTASSIUM 3.7 mmol/L (3.6-5.0)
[2020-09-15] MEDS: LEVOTHYROXINE SODIUM 0.088 MG TABLET PO SCH (06:12)
[2020-09-15] MEDS: DOCUSATE SODIUM 100 MG CAPSULE PO SCH (09:14)
[2020-09-15] MEDS: OXYBUTYNIN CHLORIDE 5 MG TABLET PO SCH ×2 (09:15→17:57)
[2020-09-15] MEDS: FLUTICASONE/UMECLIDIN/VILANTER 100-62.5-25 MCG/DOSE IH SCH (09:16)
[2020-09-15] MEDS: VANCOMYCIN HCL 1,000 MG in DEXTROSE 5%-WATER 250 ML IV SCH (11:13)
[2020-09-15] MEDS: NORMAL SALINE 1000 ML 1,000 ML IV PRN (11:18)
--- NOTE | 2020-09-15 17:13 | PDOC PROGRESS REPORT ---
Subjective Date:: 09/15/20 Subjective:: LOCO MARCUS is a 80 year old female past medical history of nonoxygen dependent COPD, CKD, asthma, peripheral neuropathy, CAD status post PCI to stent placement, chronic cough who was admitted 09/12/20 with Acute respiratory failure with hypoxia, bronchitis with underlying COPD, and UTI. Patient was seen on morning rounds. Patient was found sitting to th recliner, comfortably, on room air. She reports that she is feeling much better today. Continued back pain; worsens with deep breath, movements, and cough. States that pain starts in mid thoracic region and wraps around, bilaterally, to anterior chest beneath her breasts. She denies fever, chills, palpitations, orthopnea, abdominal pain, nausea, vomiting, diarrhea, and dysuria. Afebrie >48 hrs She has no other questions or concerns this time. No concerns per nursing. Reason For Visit: ACUTE RESPIRATORY FAILURE,POSITIVE BLOOD CULTURES Physical Exam Vital Signs: Temp Pulse Resp BP Pulse Ox 98.5 F 65 18 124/54 L 96 09/15/20 15:31 09/15/20 15:31 09/15/20 15:31 09/15/20 15:31 09/15/20 15:31 Intake & Output 09/14/20 09/15/20 09/16/20 06:59 06:59 06:59 Intake Total 3370 1912 750 Balance 3370 1912 750 Weight 99.9 kg 99.9 kg General appearance: PRESENT: no acute distress, cooperative, obese, well- developed, well-nourished Head exam: PRESENT: atraumatic, normocephalic Eye exam: PRESENT: conjunctiva pink, EOMI, PERRLA. ABSENT: scleral icterus Mouth exam: PRESENT: moist, tongue midline Neck exam: ABSENT: carotid bruit, JVD, lymphadenopathy, thyromegaly Respiratory exam: PRESENT: chest wall tenderness, clear to auscultation toni, symmetrical, unlabored, other - room air. ABSENT: rales, rhonchi, wheezes Cardiovascular exam: PRESENT: RRR. ABSENT: diastolic murmur, rubs, systolic murmur Pulses: PRESENT: normal dorsalis pedis pul Vascular exam: PRESENT: normal capillary refill Extremities exam: PRESENT: full ROM. ABSENT: calf tenderness, clubbing, pedal edema Musculoskeletal exam: PRESENT: ambulatory Neurological exam: PRESENT: alert, awake, oriented to person, oriented to place, oriented to time, oriented to situation, CN II-XII grossly intact. ABSENT: motor sensory deficit Psychiatric exam: PRESENT: appropriate affect, normal mood. ABSENT: homicidal ideation, suicidal ideation Skin exam: PRESENT: dry, intact, warm. ABSENT: cyanosis, rash Results Laboratory Results: 09/15/20 04:22 09/15/20 04:22 09/15/20 09/15/20 04:22 04:22 WBC 7.4 RBC 3.78 Hgb 9.7 L Hct 29.7 L MCV 79 L MCH 25.7 L MCHC 32.7 RDW 17.5 H Plt Count 117 L Sodium 132.9 L Potassium 3.7 Chloride 103 Carbon Dioxide 22 Anion Gap 8 BUN 23 H Creatinine 1.87 H Est GFR ( Amer) 31 L Glucose 91 Calcium 8.5 09/14/20 09:56 Throat Throat Culture - Final Yeast, Not Kim Albicans Normal Sue 09/13/20 19:20 Sputum Gram Stain - Final 09/13/20 19:20 Sputum Sputum Culture - Final Yeast, Not Kim Albicans Normal Sue 09/13/20 04:29 Blood Blood Culture (PCR) - Final 09/13/20 05:21 Blood Blood Culture (PCR) - Final 09/11/20 21:27 Troponin I 0.012 NT-Pro-B Natriuret Pep 765 H Impressions: Chest CT 09/11/20 23:45 IMPRESSION: No acute abnormality. Chest X-Ray 09/12/20 00:00 IMPRESSION: No evidence of acute cardiopulmonary abnormality. Assessment and Plan - Diagnosis (1) Bacteremia Is this a current diagnosis for this admission?: Yes Plan: Blood cultures (1 bottle each set) grew staph hemolyticus with multiple resistances. Repeat cultures (1 bottle) growing gram-positive cocci Sputum cultures pending. Throat culture pending. Urine culture with Klebsiella. No clear source for bacteremia; perhaps contaminant versus pulmonary in origin as patient presented with bronchitis and possible developing pneumonia. MRI Thoracic spine due to pain and unidentified bacterial source. Have transition to oral Levaquin to complete treatment course for UTI. The staph hemolyticus, however, is resistant to Levaquin. Due to the patient's history of anaphylactic reaction to cephalosporins and hives with penicillins, she is placed on IV vancomycin. Discussed with discharge planning; presuming her blood cultures remain clear through the weekend, patient will be eligible for PICC line placement and discharged to home on IV antibiotics Friday to complete her course. 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 Would prefer once daily dosing, therefore have asked discharge planning to bishop out daptomycin. If this is cost prohibitive, she certainly would be capable of 3 times daily dosing with vancomycin. (2) Acute respiratory failure with hypoxia Is this a current diagnosis for this admission?: Yes Plan: Resolved. Now maintaining oxygen saturations while on room air. Likely due to acute COPD and asthma exacerbation complicated by acute bronchitis. CT chest and chest x-ray negative for any acute abnormalities. Not a candidate for CTA as patient has history of CKD. Denies any recent travel, hospitalization or any exposure to COVID-19. Blood Cultures show staph hemolyticus Sputum cultures show kim Admit to floor Continue supplemental oxygen as needed to maintain oxygen saturations greater than 89%. Continue Levaquin; transitioned to renally dosed oral. Continue home dose Trelegy. IV steroids have been discontinued. Continues to do well. Consider oral prednisone if she develops adventitious lung sounds or worsening dyspnea/hypoxia. Continue as needed nebulizer treatments. Encourage pulmonary toilet with flutter valve, incentive spirometry. (3) UTI (urinary tract infection) Qualifiers: Urinary tract infection type: acute cystitis Is this a current diagnosis for this admission?: Yes Plan: Urinalysis suggest UTI. Urine culture grew Klebsiella. Continue renally dosed Levaquin (4) Bronchitis Is this a current diagnosis for this admission?: Yes Plan: Resolved. As above. (5) COPD exacerbation Is this a current diagnosis for this admission?: Yes Plan: Resolved. As above. (6) CKD (chronic kidney disease) Qualifiers: Chronic kidney disease stage: stage 3 (moderate) Is this a current diagnosis for this admission?: Yes Plan: At baseline renal function. Nonoliguric. Electrolytes WNL. Monitor volume status and electrolytes. Avoid nephrotoxic meds. Renally dose where appropriate. (7) Peripheral neuropathy Is this a current diagnosis for this admission?: Yes Plan: Denies any history of diabetes, any history of CVA or chemotherapy however has history of severe bilateral upper and lower extremity neuropathy. Continue home meds. (8) Morbid obesity Is this a current diagnosis for this admission?: Yes Plan: BMI 34.7. Diet and lifestyle modification recommended. - Time Time Spent with patient: 25-34 minutes Medications reviewed and adjusted accordingly: Yes Anticipated Discharge Disposition: Home with Home Health Anticipated Discharge Timeframe: TBD
[2020-09-15] MEDS: DULOXETINE HCL 30 MG CAPSULE.DR PO SCH (17:57)
[2020-09-15] MEDS: CHOLECALCIFEROL (D3) 1,000 UNIT (25 MCG) TABLET PO SCH (17:58)
[2020-09-15] MEDS: TOPIRAMATE 100 MG TABLET PO SCH (17:58)
[2020-09-15] MEDS: ASPIRIN 325 MG TABLET, ENT COATED PO SCH (17:58)
[2020-09-15] MEDS: MONTELUKAST SODIUM 10 MG TABLET PO SCH (17:58)
[2020-09-15] MEDS: CETIRIZINE 10 MG TABLET PO SCH (17:59)
[2020-09-15] MEDS: LEVOFLOXACIN 750 MG TABLET PO SCH (21:12)
--- NOTE | 2020-09-15 22:22 | CDI QUERY ---
CDI Query CDI Review: Documentation in the Medical Record indicates this patient has: Height: 5 ft 7 in Weight: 99.9 kg (219.78 lbs) Calculated BMI: 34.4 kg/m2 The following is also documented in the Medical Record: Morbid obesity Is this a current diagnosis for this admission?: Yes Plan: BMI 34.7. Diet and lifestyle modification recommended. Will obtain TSH. Based on your medical judgement, can you further clarify in the Progress Notes the diagnosis associated with these findings: Overweight Obesity Morbid Obesity Other condition (please specify) None of the above / Not applicable Please note: Obesity is defined as: Class 1: BMI of 30 to < 35 Class 2: BMI of 35 to < 40 Class 3: BMI of > 40 (this is also defined as Morbid Obesity) Overweight: BMI 25 to < 30 Normal weight: BMI 18.5 to < 25 The condition of Morbid Obesity is a significant contributing factor to the health and recovery of a patient. Thank you for your consideration. TIFFANIE Haile RN Clinical Inventory Manager Physician Advisor
--- NOTE | 2020-09-15 22:41 | CDI QUERY ---
CDI Query CDI Review: We are seeking further clarification of documentation to reflect the severity of illness of your patient. Per H&P: Acute respiratory failure with hypoxia Is this a current diagnosis for this admission?: Yes Plan: Likely due to acute COPD and asthma exacerbation complicated by acute bronchiti s. CT chest and chest x-ray negative for any acute abnormalities. Not a candidate for CTA as patient has history of CKD. Denies any recent travel, hospitalization or any exposure to COVID-19. Admit to floor, broad-spectrum empiric IV antibiotics, steroids, LAMA, LABA, ICS, DuoNebs, as needed BiPAP, supplemental oxygen, flutter valve, incentive spirometry. Blood culture and sputum culture. Based on your medical judgment, can you further clarify the severity of this patients asthma in the Progress Notes and carry through the Discharge Summary: Mild intermittent Mild persistent Moderate persistent Severe persistent Unable to determine Other Thank you for your consideration. TIFFANIE Haile RN Clinical Traffic Technician Physician Advisor
[2020-09-16] MEDS: KETOROLAC TROMETHAMINE INJ/PF 30 MG/1 ML SDV IV PRN (02:43)
[2020-09-16] MEDS: HEPARIN SOD (PORCINE) 5,000 UNIT/ML 1 ML VIAL SUBCUT SCH ×3 (05:23→22:33)
[2020-09-16] MEDS: GUAIFENESIN SYRP 200 MG/10 ML UDC PO SCH ×3 (05:23→22:33)
[2020-09-16] MEDS: METHADONE HCL 10 MG TABLET PO SCH ×4 (05:36→23:23)
[2020-09-16] MEDS: LEVOTHYROXINE SODIUM 0.088 MG TABLET PO SCH (05:37)
[2020-09-16 06:10] LABS: HEMOGLOBIN 9.8 g/dL (12.0-15.5); MEAN CORPUSCULAR HEMOGLOBIN 26.4 pg (27.0-33.4); MEAN CORPUSCULAR HGB CONC 33.7 g/dL (32.0-36.0); MEAN CORPUSCULAR VOLUME 78 fl (80-97); PLATELET COUNT 127 10^3/uL (150-450); RED BLOOD COUNT 3.71 10^6/uL (3.72-5.28); RED CELL DISTRIBUTION WIDTH 17.3 % (11.5-14.0); WHITE BLOOD COUNT 8.1 10^3/uL (4.0-10.5)
[2020-09-16 06:30] LABS: ANION GAP 11 (5-19); BLOOD UREA NITROGEN 21 mg/dL (7-20); CALCIUM 8.6 mg/dL (8.4-10.2); CARBON DIOXIDE 19 mmol/L (22-30); CHLORIDE 104 mmol/L (98-107); GLUCOSE 77 mg/dL (75-110); POTASSIUM 3.9 mmol/L (3.6-5.0)
[2020-09-16] MEDS: GUAIFENESIN 600 MG TABLET.SA PO SCH ×2 (09:57→22:33)
[2020-09-16] MEDS: DOCUSATE SODIUM 100 MG CAPSULE PO SCH (09:57)
[2020-09-16] MEDS: OXYBUTYNIN CHLORIDE 5 MG TABLET PO SCH ×2 (09:58→18:09)
[2020-09-16] MEDS: FLUTICASONE/UMECLIDIN/VILANTER 100-62.5-25 MCG/DOSE IH SCH (09:59)
[2020-09-16] MEDS: VANCOMYCIN HCL 1,000 MG in DEXTROSE 5%-WATER 250 ML IV SCH (11:13)
[2020-09-16] MEDS ORDERED: HYDROMORPHONE HCL 2 MG TABLET PO PRN (14:48)
--- NOTE | 2020-09-16 15:14 | PDOC PROGRESS REPORT ---
Subjective Date:: 09/16/20 Subjective:: LOCO MARCUS is a 80 year old female past medical history of nonoxygen dependent COPD, CKD, asthma, peripheral neuropathy, CAD status post PCI to stent placement, chronic cough who was admitted 09/12/20 with Acute respiratory failure with hypoxia, bronchitis with underlying COPD, and UTI. Patient was seen on morning rounds. Patient was found resting in bed, comfortably, on room air. She reports that she is feeling well today; though very tired. Continued back pain; worsens with deep breath, movements, and cough. Does not feel her medication regimen is effective; though has not used all that is available to her. She denies fever, chills, palpitations, orthopnea, abdominal pain, nausea, vomiting, diarrhea, and dysuria. Afebrie >72 hrs She has no other questions or concerns this time. No concerns per nursing. Reason For Visit: ACUTE RESPIRATORY FAILURE,POSITIVE BLOOD CULTURES Physical Exam Vital Signs: Temp Pulse Resp BP Pulse Ox 97.9 F 57 L 18 113/41 L 99 09/16/20 08:15 09/16/20 08:15 09/16/20 08:15 09/16/20 08:15 09/16/20 08:15 Intake & Output 09/15/20 09/16/20 09/17/20 06:59 06:59 06:59 Intake Total 1911 2194 250 Balance 19114 250 Weight 99.9 kg 99.9 kg General appearance: PRESENT: no acute distress, cooperative, obese, well- developed, well-nourished Head exam: PRESENT: atraumatic, normocephalic Eye exam: PRESENT: conjunctiva pink, EOMI, PERRLA. ABSENT: scleral icterus Mouth exam: PRESENT: moist, tongue midline Respiratory exam: PRESENT: clear to auscultation toni, symmetrical, unlabored, other - room air. ABSENT: rales, rhonchi, wheezes Cardiovascular exam: PRESENT: RRR. ABSENT: diastolic murmur, rubs, systolic murmur Vascular exam: PRESENT: normal capillary refill Extremities exam: PRESENT: full ROM. ABSENT: calf tenderness, clubbing, pedal edema Neurological exam: PRESENT: alert, awake, oriented to person, oriented to place, oriented to time, oriented to situation, CN II-XII grossly intact. ABSENT: motor sensory deficit Psychiatric exam: PRESENT: appropriate affect, normal mood. ABSENT: homicidal ideation, suicidal ideation Skin exam: PRESENT: dry, intact, warm. ABSENT: cyanosis, rash Results Laboratory Results: 09/16/20 05:10 09/16/20 05:10 09/16/20 09/16/20 05:10 05:10 WBC 8.1 RBC 3.71 L Hgb 9.8 L Hct 29.0 L MCV 78 L MCH 26.4 L MCHC 33.7 RDW 17.3 H Plt Count 127 L Sodium 133.7 L Potassium 3.9 Chloride 104 Carbon Dioxide 19 L Anion Gap 11 BUN 21 H Creatinine 1.96 H Est GFR ( Amer) 30 L Glucose 77 Calcium 8.6 09/15/20 09:14 Blood Blood Culture (PCR) - Final 09/13/20 05:21 Blood Blood Culture (PCR) - Final 09/13/20 04:29 Blood Blood Culture (PCR) - Final 09/14/20 09:56 Throat Throat Culture - Final Yeast, Not Kim Albicans Normal Seu 09/13/20 19:20 Sputum Gram Stain - Final 09/13/20 19:20 Sputum Sputum Culture - Final Yeast, Not Kim Albicans Normal Sue 09/11/20 21:27 Troponin I 0.012 NT-Pro-B Natriuret Pep 765 H Impressions: Chest CT 09/11/20 23:45 IMPRESSION: No acute abnormality. Chest X-Ray 09/12/20 00:00 IMPRESSION: No evidence of acute cardiopulmonary abnormality. Assessment and Plan - Diagnosis (1) Bacteremia Is this a current diagnosis for this admission?: Yes Plan: Blood cultures (1 bottle each set) grew staph hemolyticus with multiple resistances. Repeat cultures (09/13/20; 1 bottle each set) growing gram-positive cocci Repeat cultures (09/15/20; 1 bottle) growing gram-positive cocci Sputum cultures grew kim Throat culture grew kim. Urine culture with Klebsiella. No clear source for bacteremia; perhaps contaminant versus pulmonary in origin as patient presented with bronchitis and possible developing pneumonia. MRI Thoracic spine due to pain and unidentified bacterial source. Echo pending Have transition to oral Levaquin to complete treatment course for UTI. The staph hemolyticus, however, is resistant to Levaquin. Due to the patient's history of anaphylactic reaction to cephalosporins and hives with penicillins, she is placed on IV vancomycin. Will consult ID related to persistent bacteremia. (2) Acute respiratory failure with hypoxia Is this a current diagnosis for this admission?: Yes Plan: Resolved. Now maintaining oxygen saturations while on room air. Likely due to acute COPD and asthma exacerbation complicated by acute bronchitis. CT chest and chest x-ray negative for any acute abnormalities. Not a candidate for CTA as patient has history of CKD. Denies any recent travel, hospitalization or any exposure to COVID-19. Blood Cultures show staph hemolyticus Sputum cultures show kim Admit to floor Continue supplemental oxygen as needed to maintain oxygen saturations greater than 89%. Continue Levaquin; transitioned to renally dosed oral. Continue home dose Trelegy. IV steroids have been discontinued. Continues to do well. Consider oral prednisone if she develops adventitious lung sounds or worsening dyspnea/hypoxia. Continue as needed nebulizer treatments. Encourage pulmonary toilet with flutter valve, incentive spirometry. (3) UTI (urinary tract infection) Qualifiers: Urinary tract infection type: acute cystitis Is this a current diagnosis for this admission?: Yes Plan: Urinalysis suggest UTI. Urine culture grew Klebsiella. Continue renally dosed Levaquin; one dose remaining (EOT 09/17/19). (4) Bronchitis Is this a current diagnosis for this admission?: Yes Plan: Resolved. As above. (5) COPD exacerbation Is this a current diagnosis for this admission?: Yes Plan: Resolved. As above. (6) CKD (chronic kidney disease) Qualifiers: Chronic kidney disease stage: stage 3 (moderate) Is this a current diagnosis for this admission?: Yes Plan: At baseline renal function. Nonoliguric. Electrolytes WNL. Monitor volume status and electrolytes. Avoid nephrotoxic meds. Renally dose where appropriate. (7) Peripheral neuropathy Is this a current diagnosis for this admission?: Yes Plan: Denies any history of diabetes, any history of CVA or chemotherapy however has history of severe bilateral upper and lower extremity neuropathy. Continue home meds. (8) Morbid obesity Is this a current diagnosis for this admission?: Yes Plan: BMI 34.7. Diet and lifestyle modification recommended. - Time Time Spent with patient: 35 or more minutes Medications reviewed and adjusted accordingly: Yes Anticipated Discharge Disposition: Home with Home Health Anticipated Discharge Timeframe: TBD
--- NOTE | 2020-09-16 17:08 | RADIOLOGY REPORT (SQ) ---
EXAM DESCRIPTION: MRI THORACIC SPINE WITHOUT IMAGES COMPLETED DATE/TIME: 09/16/2020 4:50 pm REASON FOR STUDY: diffuse chest wall pain w/ bacteremia N39.0 URINARY TRACT INFECTION, SITE NOT SPE CIFIED R78.81 BACTEREMIA COMPARISON: None. TECHNIQUE: Sagittal and Axial imaging includes T1, T2, STIR and gradient echo sequences. LIMITATIONS: Limited by motion and positioning difficulties. FINDINGS: LOCALIZER: No worrisome findings. ALIGNMENT: Normal. VERTEBRAE: Intact. BONE MARROW: Generally normal marrow signal. There does appear to be some endplate edema inferiorly at approximately T7. No associated fracture. Disc here at the T7-T8 level looks unremarkable allowi ng for mild degenerative changes. HARDWARE: None in the spine. CORD: Normal in size and signal intensity. SOFT TISSUES: Limited assessment due to motion. No paraspinal mass or fluid collections are grossly suggested. THORACIC DISCS T1-T12: Variable signal and height loss without large bulges or hernias. Small bulges and hernias scattered throughout, most conspicuous at T12-L1. No high-grade central stenosis detect ed. LOWER CERVICAL: Poorly assessed. Spondylosis. UPPER LUMBAR: Poorly assessed. Spondylosis and L3-4 disc disease with probable prominent Schmorl's n ode in the L3 inferior endplate. OTHER: No other significant finding. IMPRESSION: 1. Thoracic spondylosis without suggestion of osteomyelitis or discitis. No evidence of high-grade c entral stenosis. 2. Spondylosis is also suggested in the lumbar spine, incompletely assessed. TECHNICAL DOCUMENTATION: JOB ID: [id number] 2010 [employer]- All Rights Reserved Reading location - IP/workstation name: [email or web address]
[2020-09-16] MEDS: DULOXETINE HCL 30 MG CAPSULE.DR PO SCH (18:04)
[2020-09-16] MEDS: MONTELUKAST SODIUM 10 MG TABLET PO SCH (18:04)
[2020-09-16] MEDS: CETIRIZINE 10 MG TABLET PO SCH (18:04)
[2020-09-16] MEDS: CHOLECALCIFEROL (D3) 1,000 UNIT (25 MCG) TABLET PO SCH (18:04)
[2020-09-16] MEDS: ASPIRIN 325 MG TABLET, ENT COATED PO SCH (18:04)
[2020-09-16] MEDS: TOPIRAMATE 100 MG TABLET PO SCH (18:05)
[2020-09-16] MEDS: FAMOTIDINE 20 MG TABLET PO SCH (22:33)
[2020-09-17] MEDS: HEPARIN SOD (PORCINE) 5,000 UNIT/ML 1 ML VIAL SUBCUT SCH ×3 (05:08→21:05)
[2020-09-17] MEDS: METHADONE HCL 10 MG TABLET PO SCH ×3 (05:10→18:25)
[2020-09-17] MEDS: LEVOTHYROXINE SODIUM 0.088 MG TABLET PO SCH (05:10)
[2020-09-17] MEDS: GUAIFENESIN SYRP 200 MG/10 ML UDC PO SCH ×3 (05:11→21:18)
[2020-09-17] MEDS: DOCUSATE SODIUM 100 MG CAPSULE PO SCH (11:57)
[2020-09-17] MEDS: GUAIFENESIN 600 MG TABLET.SA PO SCH ×2 (11:57→21:11)
[2020-09-17] MEDS: VANCOMYCIN HCL 1,000 MG in DEXTROSE 5%-WATER 250 ML IV SCH (11:59)
[2020-09-17] MEDS: OXYBUTYNIN CHLORIDE 5 MG TABLET PO SCH ×2 (16:58→16:59)
[2020-09-17] MEDS: FLUTICASONE/UMECLIDIN/VILANTER 100-62.5-25 MCG/DOSE IH SCH (16:59)
[2020-09-17] MEDS: CHOLECALCIFEROL (D3) 1,000 UNIT (25 MCG) TABLET PO SCH (18:24)
[2020-09-17] MEDS: DULOXETINE HCL 30 MG CAPSULE.DR PO SCH (18:24)
[2020-09-17] MEDS: MONTELUKAST SODIUM 10 MG TABLET PO SCH (18:24)
[2020-09-17] MEDS: ASPIRIN 325 MG TABLET, ENT COATED PO SCH (18:24)
[2020-09-17] MEDS: CETIRIZINE 10 MG TABLET PO SCH (18:24)
[2020-09-17] MEDS: TOPIRAMATE 100 MG TABLET PO SCH (18:29)
--- NOTE | 2020-09-17 19:18 | PDOC PROGRESS REPORT ---
Subjective Date:: 09/17/20 Subjective:: LOCO MARCUS is a 80 year old female past medical history of nonoxygen dependent COPD, CKD, asthma, peripheral neuropathy, CAD status post PCI to stent placement, chronic cough who was admitted 09/12/20 with Acute respiratory failure with hypoxia, bronchitis with underlying COPD, and UTI. Patient was seen on morning rounds. Patient was found sitting up to the recliner, comfortably, on room air. She reports that she is feeling well today. Continued back pain; worsens with deep breath, movements, and cough. She denies fever, chills, palpitations, orthopnea, abdominal pain, nausea, vomiting, diarrhea, and dysuria. Afebrie >72 hrs She has no other questions or concerns this time. No concerns per nursing. Reason For Visit: ACUTE RESPIRATORY FAILURE,POSITIVE BLOOD CULTURES Physical Exam Vital Signs: Temp Pulse Resp BP Pulse Ox 98.1 F 61 18 133/47 H 92 09/17/20 17:56 09/17/20 17:56 09/17/20 17:56 09/17/20 17:56 09/17/20 17:56 Intake & Output 09/16/20 09/17/20 09/18/20 06:59 06:59 06:59 Intake Total 2194 1750 748 Balance 2194 1750 748 Weight 99.9 kg 100 kg General appearance: PRESENT: no acute distress, cooperative, obese, well- developed, well-nourished Head exam: PRESENT: atraumatic, normocephalic Eye exam: PRESENT: conjunctiva pink, EOMI, PERRLA. ABSENT: scleral icterus Mouth exam: PRESENT: moist, tongue midline Respiratory exam: PRESENT: clear to auscultation toni, symmetrical, unlabored, other - room air. ABSENT: rales, rhonchi, wheezes Cardiovascular exam: PRESENT: RRR, +S1, +S2. ABSENT: diastolic murmur, rubs, systolic murmur Vascular exam: PRESENT: normal capillary refill Extremities exam: PRESENT: full ROM. ABSENT: calf tenderness, clubbing, pedal edema Musculoskeletal exam: PRESENT: ambulatory Neurological exam: PRESENT: alert, awake, oriented to person, oriented to place, oriented to time, oriented to situation, CN II-XII grossly intact. ABSENT: motor sensory deficit Psychiatric exam: PRESENT: appropriate affect, normal mood. ABSENT: homicidal ideation, suicidal ideation Skin exam: PRESENT: dry, intact, warm. ABSENT: cyanosis, rash Results Laboratory Results: 09/16/20 05:10 09/17/20 10:55 09/17/20 10:55 Creatinine 1.91 H Est GFR ( Amer) 31 L 09/15/20 09:14 Blood Blood Culture (PCR) - Final 09/11/20 21:27 Blood Blood Culture - Final Staphylococcus Simulans 09/11/20 23:33 Blood Blood Culture (PCR) - Final 09/11/20 23:33 Blood Blood Culture - Final Staphylococcus Simulans 09/13/20 05:21 Blood Blood Culture (PCR) - Final 09/13/20 05:21 Blood Blood Culture - Final Staphylococcus Simulans 09/13/20 04:29 Blood Blood Culture (PCR) - Final 09/13/20 04:29 Blood Blood Culture - Final Staphylococcus Simulans 09/11/20 21:27 Troponin I 0.012 NT-Pro-B Natriuret Pep 765 H Impressions: Chest CT 09/11/20 23:45 IMPRESSION: No acute abnormality. Chest X-Ray 09/12/20 00:00 IMPRESSION: No evidence of acute cardiopulmonary abnormality. Thoracic Spine MRI 09/16/20 00:00 IMPRESSION: 1. Thoracic spondylosis without suggestion of osteomyelitis or discitis. No mireille dence of high-grade central stenosis. 2. Spondylosis is also suggested in the lumbar spine, incompletely assessed. Assessment and Plan - Diagnosis (1) Bacteremia Is this a current diagnosis for this admission?: Yes Plan: Received call from [employer]; corrections have been made to blood cultures as follows: Blood cultures (09/11/20; 1 bottle each set) grew staph simulans Repeat cultures (09/13/20; 1 bottle each set) w/ staph simulans Repeat cultures (09/15/20; 1 bottle) growing gram-positive cocci Sputum cultures grew kim Throat culture grew kim. Urine culture with Klebsiella. No clear source for bacteremia; patient denies prosthetic devices, stents, pace maker, etc. MRI Thoracic spine is unremarkable except for spondylosis and degnerative changes. No suggestion of osteomyelitis or discitis. Due to the patient's history of anaphylactic reaction to cephalosporins and hives with penicillins, she is placed on IV vancomycin. Have consulted ID related to persistent bacteremia. (2) Acute respiratory failure with hypoxia Is this a current diagnosis for this admission?: Yes Plan: Resolved. Now maintaining oxygen saturations while on room air. Likely due to acute COPD and asthma exacerbation complicated by acute bronchitis. CT chest and chest x-ray negative for any acute abnormalities. Not a candidate for CTA as patient has history of CKD. Denies any recent travel, hospitalization or any exposure to COVID-19. Blood Cultures show staph hemolyticus Sputum cultures show kim Admit to floor Continue supplemental oxygen as needed to maintain oxygen saturations greater than 89%. Continue Levaquin; transitioned to renally dosed oral. Continue home dose Trelegy. IV steroids have been discontinued. Continues to do well. Consider oral prednisone if she develops adventitious lung sounds or worsening dyspnea/hypoxia. Continue as needed nebulizer treatments. Encourage pulmonary toilet with flutter valve, incentive spirometry. (3) UTI (urinary tract infection) Qualifiers: Urinary tract infection type: acute cystitis Is this a current diagnosis for this admission?: Yes Plan: Urinalysis suggest UTI. Urine culture grew Klebsiella. Continue renally dosed Levaquin; one dose remaining (EOT 09/17/19). (4) Bronchitis Is this a current diagnosis for this admission?: Yes Plan: Resolved. As above. (5) COPD exacerbation Is this a current diagnosis for this admission?: Yes Plan: Resolved. As above. (6) CKD (chronic kidney disease) Qualifiers: Chronic kidney disease stage: stage 3 (moderate) Is this a current diagnosis for this admission?: Yes Plan: At baseline renal function. Nonoliguric. Electrolytes WNL. Monitor volume status and electrolytes. Avoid nephrotoxic meds. Renally dose where appropriate. (7) Peripheral neuropathy Is this a current diagnosis for this admission?: Yes Plan: Denies any history of diabetes, any history of CVA or chemotherapy however has history of severe bilateral upper and lower extremity neuropathy. Continue home meds. (8) Morbid obesity Is this a current diagnosis for this admission?: Yes Plan: BMI 34.7. Diet and lifestyle modification recommended. - Time Time Spent with patient: 25-34 minutes Medications reviewed and adjusted accordingly: Yes Anticipated Discharge Disposition: Home with Home Health Anticipated Discharge Timeframe: TBD
[2020-09-17] MEDS: LEVOFLOXACIN 750 MG TABLET PO SCH (21:11)
[2020-09-17] MEDS: FAMOTIDINE 20 MG TABLET PO SCH (21:11)
[2020-09-18] MEDS: METHADONE HCL 10 MG TABLET PO SCH ×5 (00:46→23:44)
[2020-09-18] MEDS: HEPARIN SOD (PORCINE) 5,000 UNIT/ML 1 ML VIAL SUBCUT SCH ×3 (06:16→22:34)
[2020-09-18] MEDS: GUAIFENESIN SYRP 200 MG/10 ML UDC PO SCH ×3 (06:16→22:37)
[2020-09-18] MEDS: LEVOTHYROXINE SODIUM 0.088 MG TABLET PO SCH (06:17)
[2020-09-18] MEDS: OXYBUTYNIN CHLORIDE 5 MG TABLET PO SCH ×2 (10:39→18:53)
[2020-09-18] MEDS: DOCUSATE SODIUM 100 MG CAPSULE PO SCH (10:39)
[2020-09-18] MEDS: FLUTICASONE/UMECLIDIN/VILANTER 100-62.5-25 MCG/DOSE IH SCH (10:42)
--- NOTE | 2020-09-18 12:01 | ST Inp Modified Barium Swallow ---
Medical Diagnosis - Medical Diagnoses Medical Diagnosis Description & ICD-10 Code(s): Chronic cough, Respiratory failure - ICD-10 Tx Diagnosis Coding (1) Chronic cough ICD-10 Code(s): R05 - COUGH ST In[place] [facility] [place] General Date: 09/18/20 Date of Onset: 07/16/20 - Subjective Current Nutritional Means: NPO Current PO Diet: N/A (NPO) Current Symptoms: Coughing, other - c/o globus sensation Pain: 0/5 - Objective Assessment: Upright - Food Trials Food Trials Used: Thin liquids, [place] thick liquids, Pureed, Regular The Patient: Was Able to Self Feed - Assessment Labial Function: Within Normal Limits Lingual Function: Within Normal Limits Mandibular Function: Within Normal Limits - Pharyngeal Stage Initiation of Pharyngeal Stage: Normal Pahryngeal Stage Comments: The pt had typical function given her age. She was observed as having deep, flash penetration of sequential sips of thin liquid via cup and straw along with single sips of nectar liquid. This penetration was completed ejected. No aspiration observed. - Esophageal Stage Cricophageal Function: Impaired Esophageal Stasis/Dysmotility: Yes - very mild Esophageal Stage Comments: Per RA the pt was observed as having a tight UES that will likely require dialation via GI. - Impression/Summary Laryngeal Penetration: Yes, Flash, Deep, during swallow Tracheal Aspiration: no Productive Cough: No Patient Presents With: Normal swallow at eval Risk of Aspiration: Mild - 2/2 tight UES Risk of Nutritional Compromise: Mild - Recommendations Solid Diet Recommendations: Regular Liquid Diet Recommendations: Thin Regular Diet: Yes Strict Aspitarion Precautions: Yes Dysphagia Therapy with [employer] COURTESY CLERK: No Recommended Techniques: Fully Upright During Meal, Med Crushed in Applesauce, Dry Swallow After Bite, Small Bites and Sips, Alternate Bites/Sips - Pt may require halved or crushed meds in puree if reports of difficulty fully clearing. Supervision: Independent - Time Total Time: 30 Total Timed Minutes: 30
[2020-09-18] MEDS: VANCOMYCIN HCL 1,000 MG in DEXTROSE 5%-WATER 250 ML IV SCH (12:51)
[2020-09-18] MEDS: GUAIFENESIN 600 MG TABLET.SA PO SCH ×2 (13:04→22:37)
--- NOTE | 2020-09-18 13:53 | XCELERA REPORT ---
[address] [address] Transthoracic Echocardiogram Report Name: LOCO MARCUS Age: 80 yrs Gender: Female : 1940 Patient Status: Inpatient Patient Location: [address] [place], [place] [address] Study Date: 09/18/2020 10:16 AM History: Bacteremia Height: 67 in Weight: 220 lb BSA: 2.1 m2 Procedure: A complete two-dimensional transthoracic echocardiogram was performed (2D, M-mode, spectral and color flow Doppler). The study was technically difficult with many images being suboptimal in quality. Reason For Study: bacteremia Previous Evaluation: A previous study was performed on 10/21/2014 LVEF was normal. History: 10/21/2014. Ordering Physician: STANFORD ROLAND Performed By: Veronika Trinh Interpretation Summary Extremely poor visualization of cahmbers and valves. Unbale to exclude vegetation on valves given poor study quality. If clinically indicated WILL can be considered. Due to the poor quality of the echocardiogram, an assessment of left ventricular ejection fraction cannot be made. Best estimate is 50-55%. The right ventricle is normal in size and function. No by Doppler There is a trace amount of tricuspid regurgitation There is no pericardial effusion. Extremely poor visualization of cahmbers and valves. Unbale to exclude vegetation on valves given poor study quality. If clinically indicated WILL can be considered. MMode/2D Measurements & Calculations LVLd ap4: 8.3 cm SV(MOD-sp4): 37.0 ml EDV(MOD-sp4): 120.0 ml LVLs ap4: 7.3 cm ESV(MOD-sp4): 83.0 ml EF(MOD-sp4): 30.8 % Doppler Measurements & Calculations MV E max kyree: MV P1/2t max kyree: Ao V2 max: LV V1 max P.6 cm/sec 101.8 cm/sec 183.2 cm/sec 7.9 mmHg MV A max kyree: MV P1/2t: 93.2 msec Ao max PG: LV V1 max: 95.3 cm/sec MVA(P1/2t): 2.4 cm2 13.4 mmHg 140.4 cm/sec MV E/A: 0.73 MV dec slope: 319.8 cm/sec2 MV dec time: 0.33 sec MV P1/2t-pr_phl: 93.2 msec Left Ventricle The left ventricle is normal in size. Due to the poor quality of the echocardiogram, an assessment of left ventricular ejection fraction cannot be made. Best estimate is 50-55%. Doppler measurements suggest impaired left ventricular relaxation, which is associated with grade I/IV or mild diastolic dysfunction. Regional wall motion abnormalities cannot be excluded due to limited visualization. Right Ventricle The right ventricle is normal in size and function. Aortic Valve The aortic valve is not well visualized secondary to technical limitations. No by Doppler. No aortic regurgitation is present. Tricuspid Valve The tricuspid valve is not well visualized secondary to technical limitations. There is a trace amount of tricuspid regurgitation. Effusions There is no pericardial effusion. : STANFORD ROLAND Anil
[2020-09-18] MEDS: IPRATROPIUM/ALBUTEROL 0.5-2.5 MG/3 ML AMPUL NEB SCH ×2 (14:10→20:02)
--- NOTE | 2020-09-18 15:09 | RADIOLOGY REPORT (SQ) ---
EXAM DESCRIPTION: COOKIE SWALLOW IMAGES COMPLETED DATE/TIME: 09/18/2020 11:46 am REASON FOR STUDY: dysphagia N39.0 URINARY TRACT INFECTION, SITE NOT SPECIFIED R78.81 BACTEREMIA Pneumonia, coughing with oral intake COMPARISON: None. TECHNIQUE: Videofluoroscopic swallowing examination was performed in conjunction with speech patholo gy. Videofluoroscopic imaging was obtained and reviewed and these are the findings: RADIATION DOSE: 1.2 minutes of fluoroscopy was used. 2 images saved to PACS. LIMITATIONS: None FINDINGS: The patient was brought into the fluoro room and placed upright on a modified barium swall ow chair. The patient was then given multiple consistencies mixed with barium to swallow under live fluoroscopic video guidance. According to the Speech Pathologist there was laryngeal penetration wit h thin liquids. No aspiration seen. 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 Note is made of he was multiple large submandibular calci fications. IMPRESSION: LARYNGEAL PENETRATION WITHOUT ASPIRATION. PLEASE SEE SPEECH PATHOLOGIST REPORT FOR OTHER FINDINGS AND RECOMMENDATIONS. COMMENT: Quality ID [id number]: Final reports for procedures using fluoroscopy that document radiation exp osure indices, or exposure time and number of fluorographic images (if radiation exposure indices are not available) TECHNICAL DOCUMENTATION: JOB ID: [id number] 2010 [employer]- All Rights Reserved Reading location - IP/workstation name: [email or web address] [id number]
[2020-09-18] MEDS ORDERED: MAGNESIUM HYDROXIDE SUSP 30 ML UDCUP PO PRN (15:49)
[2020-09-18] MEDS ORDERED: BISACODYL 5 MG TABEC PO PRN (15:49)
--- NOTE | 2020-09-18 16:12 | PDOC PROGRESS REPORT ---
Subjective Date:: 09/18/20 Subjective:: LOCO MARCUS is a 80 year old female past medical history of nonoxygen dependent COPD, CKD, asthma, peripheral neuropathy, CAD status post PCI to stent placement, chronic cough, presenting to ED complaining of fever, chills, chest ingestion, body aches, worsening productive cough, and generalized weakness. Patient is stating that she has history of nonoxygen dependent COPD and asthma and she has chronic cough but recently her cough has become productive with oatmeal colored phlegm, and coughing to the point that she is having sore back and abdomen, patient is also having subjective fever however denies any chest pain, nausea, vomiting, diarrhea, constipation or any urinary symptoms. She denies any recent travel, any exposure to anybody with COVID-19 infection or similar symptoms, or any recent hospitalization. In ED she was noted to be tachypneic, hypoxic, febrile, with UA positive for large leukocyte esterase, however chest x-ray, chest CT read as normal. Rapid influenza negative RSV and COVID-19 pending at the time of dictation. 09/18/2020. No acute events overnight. Patient is still complaining of persistent cough and back pain, denies any fever, chills, nausea, complaining of constipation, p.o. tolerant. Patient still having persistent bacteremia, pe nding ID recommendation. Reason For Visit: ACUTE RESPIRATORY FAILURE,POSITIVE BLOOD CULTURES Physical Exam Vital Signs: Temp Pulse Resp BP Pulse Ox 98.2 F 68 16 105/54 L 95 09/18/20 11:49 09/18/20 14:11 09/18/20 14:11 09/18/20 11:49 09/18/20 14:11 Intake & Output 09/17/20 09/18/20 09/19/20 06:59 06:59 06:59 Intake Total 1750 1848 360 Balance 1750 1848 360 Weight 100 kg 100 kg General appearance: PRESENT: mild distress, morbidly obese Head exam: PRESENT: atraumatic, normocephalic Neck exam: ABSENT: carotid bruit, JVD, lymphadenopathy, thyromegaly Respiratory exam: PRESENT: decreased breath sounds, wheezes. ABSENT: rales, rhonchi Cardiovascular exam: PRESENT: RRR. ABSENT: diastolic murmur, rubs, systolic murmur GI/Abdominal exam: PRESENT: normal bowel sounds, soft. ABSENT: distended, guarding, mass, organolmegaly, rebound, tenderness Neurological exam: PRESENT: alert, awake, oriented to person, oriented to place, oriented to time, oriented to situation, CN II-XII grossly intact. ABSENT: motor sensory deficit Results Laboratory Results: 09/16/20 05:10 09/17/20 10:55 09/15/20 09:14 Blood Blood Culture (PCR) - Final 09/11/20 21:27 Blood Blood Culture - Final Staphylococcus Simulans 09/11/20 23:33 Blood Blood Culture (PCR) - Final 09/11/20 23:33 Blood Blood Culture - Final Staphylococcus Simulans 09/13/20 05:21 Blood Blood Culture (PCR) - Final 09/13/20 05:21 Blood Blood Culture - Final Staphylococcus Simulans 09/13/20 04:29 Blood Blood Culture (PCR) - Final 09/13/20 04:29 Blood Blood Culture - Final Staphylococcus Simulans 09/11/20 21:27 Troponin I 0.012 NT-Pro-B Natriuret Pep 765 H Impressions: Chest CT 09/11/20 23:45 IMPRESSION: No acute abnormality. Chest X-Ray 09/12/20 00:00 IMPRESSION: No evidence of acute cardiopulmonary abnormality. Thoracic Spine MRI 09/16/20 00:00 IMPRESSION: 1. Thoracic spondylosis without suggestion of osteomyelitis or discitis. No evidence of high-grade central stenosis. 2. Spondylosis is also suggested in the lumbar spine, incompletely assessed. Modified Barium Swallow 09/18/20 08:35 IMPRESSION: LARYNGEAL PENETRATION WITHOUT ASPIRATION. PLEASE SEE SPEECH PATHOLOGIST REPORT FOR OTHER FINDINGS AND RECOMMENDATIONS. Assessment and Plan - Diagnosis (1) Acute respiratory failure with hypoxia Is this a current diagnosis for this admission?: Yes Plan: Noted to be wheezing on physical examination. SPO2 WNL on 3 L nasal cannula. Likely due to acute COPD and asthma exacerbation complicated by acute bronchitis. CT chest and chest x-ray negative for any acute abnormalities. Not a candidate for CTA as patient has history of CKD. Denies any recent travel, hospitalization or any exposure to COVID-19. Blood Cultures show staph hemolyticus Sputum cultures show kim Continue supplemental oxygen as needed to maintain oxygen saturations greater than 89%. Continue Levaquin; transitioned to renally dosed oral. Continue home dose Trelegy. Received a full dose of IV steroids. We will start on oral prednisone. Continue as needed nebulizer treatments. Encourage pulmonary toilet with flutter valve, incentive spirometry. (2) Bronchitis Is this a current diagnosis for this admission?: Yes Plan: Resolved. As above. (3) Morbid obesity Is this a current diagnosis for this admission?: Yes Plan: BMI 34.7. Diet and lifestyle modification recommended. (4) Peripheral neuropathy Is this a current diagnosis for this admission?: Yes Plan: Denies any history of diabetes, any history of CVA or chemotherapy however has history of severe bilateral upper and lower extremity neuropathy. Continue home meds. (5) CKD (chronic kidney disease) Qualifiers: Chronic kidney disease stage: stage 3 (moderate) Is this a current diagnosis for this admission?: Yes Plan: At baseline renal function. Nonoliguric. Electrolytes WNL. Monitor volume status and electrolytes. Avoid nephrotoxic meds. Renally dose where appropriate. (6) COPD (chronic obstructive pulmonary disease) Qualifiers: COPD type: chronic bronchitis Chronic bronchitis type: mucopurulent Qualified Code(s): J41.1 - Mucopurulent chronic bronchitis Is this a current diagnosis for this admission?: Yes Plan: Plan as per #1. (7) UTI (urinary tract infection) Qualifiers: Urinary tract infection type: acute cystitis Is this a current diagnosis for this admission?: Yes Plan: Urinalysis suggest UTI. Urine culture grew Klebsiella. Continue renally dosed Levaquin; one dose remaining (EOT 09/17/19). (8) Bacteremia Is this a current diagnosis for this admission?: Yes Plan: Received call from [employer]; corrections have been made to blood cultures as follows: Blood cultures (09/11/20; 1 bottle each set) grew staph simulans Repeat cultures (09/13/20; 1 bottle each set) w/ staph simulans Repeat cultures (09/15/20; 1 bottle) growing gram-positive cocci Sputum cultures grew kim Throat culture grew kim. Urine culture with Klebsiella. No clear source for bacteremia; patient denies prosthetic devices, stents, pace maker, etc. MRI Thoracic spine is unremarkable except for spondylosis and degnerative pat nges. No suggestion of osteomyelitis or discitis. Due to the patient's history of anaphylactic reaction to cephalosporins and hives with penicillins, she is placed on IV vancomycin. Have consulted ID related to persistent bacteremia. (9) COPD exacerbation Is this a current diagnosis for this admission?: Yes Plan: As per #1. (10) Constipation Qualifiers: Constipation type: drug induced constipation Qualified Code(s): K59.03 - Drug induced constipation Is this a current diagnosis for this admission?: Yes Plan: Most likely to chronic opiate intake. Bowel regimen is started. - Time Time Spent with patient: 35 or more minutes Anticipated Discharge Disposition: Home with Home Health Anticipated Discharge Timeframe: within 72 hours
[2020-09-18] MEDS: DULOXETINE HCL 30 MG CAPSULE.DR PO SCH (18:51)
[2020-09-18] MEDS: ASPIRIN 325 MG TABLET, ENT COATED PO SCH (18:51)
[2020-09-18] MEDS: CHOLECALCIFEROL (D3) 1,000 UNIT (25 MCG) TABLET PO SCH (18:52)
[2020-09-18] MEDS: TOPIRAMATE 100 MG TABLET PO SCH (18:53)
[2020-09-18] MEDS: CETIRIZINE 10 MG TABLET PO SCH (18:57)
[2020-09-18] MEDS: MONTELUKAST SODIUM 10 MG TABLET PO SCH (18:57)
[2020-09-18] MEDS: PREDNISONE 20 MG TABLET PO SCH (18:57)
--- NOTE | 2020-09-18 21:24 | Progress Note ---
Provider Note Provider Note: [facility] teleconsultation service. Patient not examined. Chart reviewed. 80-year-old female with a history of COPD, morbid obesity, CKD who was admitted 09/12 with shortness of breath felt to have a COPD exacerbation. CT chest without pneumonia and she was placed on levofloxacin, steroids and supportive care. She was also labeled as having a UTI as her urinalysis demonstrated pyuria and she grew greater than 100,000 CFU's of Klebsiella. It is unclear whether or not she was symptomatic, but regardless she received levofloxacin as demonstrated below for this as well. ID has been consulted because she has demonstrated Staphylococcus simulans in multiple blood cultures. Per review of the record it does not appear that the patient has any indwelling devices. Her antibiotic history is detailed below but she was placed on vancomycin despite this organism being oxacillin sensitive because she has anaphylactic reaction to Keflex and hives with penicillin. Levofloxacin 09/12- 09/17 Vancomycin 09/14- 103.3 on 09/12 but afebrile since. No leukocytosis. Creatinine 1.91 (baseline) , LFTs within normal limits. Blood cultures: 09/15: One bottle GPC in clusters 09/13: S.simulans - oxacillin S, levofloxacin S, vancomycin NAM 1 09/11: S.simulans - same as above She continues to complain of mid back pain that wraps around to her front per review of the record. She had an MRI performed of her thoracic spine without contrast which revealed some endplate edema at T7 but without disc findings and was read as negative for osteomyelitis or discitis. A TTE was performed but was essentially nondiagnostic given poor study quality due to morbid obesity. Assessment/Recommendations: Persistent Staphylococcus stimulans bacteremia in a patient with mid-thoracic back pain concerning for discitis and osteomyelitis despite MRI findings which were done without contrast. There does not appear to be a history of an indwelling device or foreign body. 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 Source is not clear but this organism colonizes human skin and was almost certainly introduced this way. Unlike other coagulase-negative staphylococci, S. simulans together with S. lugdunensis are more virulent and tend to cause infections that resemble those caused by S. aureus. The source is almost certainly not pulmonary and would discontinue levofloxacin if not done so already as she has completed a course for her questionable UTI. Would please ensure that repeat blood cultures have been drawn as the last positives are from 09/15. Would repeat MRI with contrast of C and T-spine. I am not concerned about her penicillin and cephalosporin allergy and vancomycin is perfectly reasonable here given heteroresistance seen in coagulase-negative staphylococci to beta lactams in vivo. Would ensure van comycin troughs 15-20.
[2020-09-18] MEDS: FAMOTIDINE 20 MG TABLET PO SCH (22:37)
[2020-09-19] MEDS: IPRATROPIUM/ALBUTEROL 0.5-2.5 MG/3 ML AMPUL NEB SCH ×4 (01:37→19:50)
[2020-09-19] MEDS: HEPARIN SOD (PORCINE) 5,000 UNIT/ML 1 ML VIAL SUBCUT SCH ×3 (06:05→21:13)
[2020-09-19] MEDS: GUAIFENESIN SYRP 200 MG/10 ML UDC PO SCH ×3 (06:06→21:20)
[2020-09-19] MEDS: LEVOTHYROXINE SODIUM 0.088 MG TABLET PO SCH (06:26)
[2020-09-19] MEDS: METHADONE HCL 10 MG TABLET PO SCH ×4 (06:26→23:43)
[2020-09-19 09:19] LABS: VANCOMYCIN,TROUGH 17.6 ug/mL (5.0-20.0)
[2020-09-19] MEDS: FLUTICASONE/UMECLIDIN/VILANTER 100-62.5-25 MCG/DOSE IH SCH (09:39)
[2020-09-19] MEDS: PREDNISONE 20 MG TABLET PO SCH (09:40)
[2020-09-19] MEDS: GUAIFENESIN 600 MG TABLET.SA PO SCH ×2 (09:40→21:19)
[2020-09-19] MEDS: OXYBUTYNIN CHLORIDE 5 MG TABLET PO SCH ×2 (09:40→18:04)
[2020-09-19] MEDS: DOCUSATE SODIUM 100 MG CAPSULE PO SCH ×2 (09:40→17:09)
[2020-09-19] MEDS ORDERED: LUBIPROSTONE 24 MCG CAPSULE PO ONE (11:08)
[2020-09-19] MEDS: VANCOMYCIN HCL 1,000 MG in DEXTROSE 5%-WATER 250 ML IV SCH (11:41)
--- NOTE | 2020-09-19 14:15 | PDOC PROGRESS REPORT ---
Subjective Date:: 09/19/20 Subjective:: LOCO MARCUS is a 80 year old female past medical history of nonoxygen dependent COPD, CKD, asthma, peripheral neuropathy, CAD status post PCI to stent placement, chronic cough, presenting to ED complaining of fever, chills, chest ingestion, body aches, worsening productive cough, and generalized weakness. Patient is stating that she has history of nonoxygen dependent COPD and asthma and she has chronic cough but recently her cough has become productive with oatmeal colored phlegm, and coughing to the point that she is having sore back and abdomen, patient is also having subjective fever however denies any chest pain, nausea, vomiting, diarrhea, constipation or any urinary symptoms. She denies any recent travel, any exposure to anybody with COVID-19 infection or similar symptoms, or any recent hospitalization. In ED she was noted to be tachypneic, hypoxic, febrile, with UA positive for large leukocyte esterase, however chest x-ray, chest CT read as normal. Rapid influenza negative RSV and COVID-19 pending at the time of dictation. 09/18/2020. No acute events overnight. Patient is still complaining of persistent cough and back pain, denies any fever, chills, nausea, complaining of constipation, p.o. tolerant. Patient still having persistent bacteremia, pe nding ID recommendation. 09/19/2020. No acute events overnight. Saw patient this morning comfortably resting in bed no apparent distress, cough is improving, still complaining of constipation, denies any fever, chills, nausea, vomiting. P.o. tolerant. Patient is pending for WILL as recommended by infectious disease specialist. Reason For Visit: ACUTE RESPIRATORY FAILURE,POSITIVE BLOOD CULTURES Physical Exam Vital Signs: Temp Pulse Resp BP Pulse Ox 97.2 F 68 20 136/53 H 99 09/19/20 11:51 09/19/20 11:51 09/19/20 11:51 09/19/20 11:51 09/19/20 11:51 Intake & Output 09/18/20 09/19/20 09/20/20 06:59 06:59 06:59 Intake Total 4918 478 576 Balance 184 478 576 Weight 100 kg 105.2 kg General appearance: PRESENT: no acute distress, obese, well-developed, well- nourished Head exam: PRESENT: atraumatic, normocephalic Respiratory exam: PRESENT: clear to auscultation toni. ABSENT: rales, rhonchi, wheezes Cardiovascular exam: PRESENT: RRR. ABSENT: diastolic murmur, rubs, systolic murmur GI/Abdominal exam: PRESENT: normal bowel sounds, soft. ABSENT: distended, guarding, mass, organolmegaly, rebound, tenderness Neurological exam: PRESENT: alert, awake, oriented to person, oriented to place, oriented to time, oriented to situation, CN II-XII grossly intact. ABSENT: motor sensory deficit Results Laboratory Results: 09/16/20 05:10 09/17/20 10:55 09/15/20 09:14 Blood Blood Culture (PCR) - Final 09/15/20 09:14 Blood Blood Culture - Final Staphylococcus Simulans 09/11/20 21:27 Troponin I 0.012 NT-Pro-B Natriuret Pep 765 H Impressions: Chest CT 09/11/20 23:45 IMPRESSION: No acute abnormality. Chest X-Ray 09/12/20 00:00 IMPRESSION: No evidence of acute cardiopulmonary abnormality. Thoracic Spine MRI 09/16/20 00:00 IMPRESSION: 1. Thoracic spondylosis without suggestion of osteomyelitis or discitis. No evidence of high-grade central stenosis. 2. Spondylosis is also suggested in the lumbar spine, incompletely assessed. Modified Barium Swallow 09/18/20 08:35 IMPRESSION: LARYNGEAL PENETRATION WITHOUT ASPIRATION. PLEASE SEE SPEECH PATHOLOGIST REPORT FOR OTHER FINDINGS AND RECOMMENDATIONS. Assessment and Plan - Diagnosis (1) Acute respiratory failure with hypoxia Is this a current diagnosis for this admission?: Yes Plan: SPO2 WNL on 3 L nasal cannula. At baseline. Likely due to acute COPD and asthma exacerbation complicated by acute bronchitis. CT chest and chest x-ray negative for any acute abnormalities. Not a candidate for CTA as patient has history of CKD. Denies any recent travel, hospitalization or any exposure to COVID-19. Blood Cultures show staph hemolyticus Sputum cultures show kim Completed a course of IV Levaquin. Completed a course of IV steroids. Day 2/4 p.o. prednisone. Continue as needed DuoNebs, LAMA, LABA, ICS, flutter valve, incentive spirometry, pulmonary toileting. (2) Bacteremia Is this a current diagnosis for this admission?: Yes Plan: Persistent Staphylococcus stimulants bacteremia. 09/15/2020: 1/2 bottles Staphylococcus stimulants. 09/13/2020: 2/2 Staphylococcus stimulants. 09/11/2020: 2/2 Staphylococcus stimulants. Sputum cultures grew kim Throat culture grew kim. Urine culture with Klebsiella. No clear source for bacteremia; patient denies prosthetic devices, stents, pace maker, etc. MRI Thoracic spine without contrast is unremarkable except for spondylosis and degnerative changes. No suggestion of osteomyelitis or discitis. 2D echo suboptimal due to body habitus. ID recommendation is get WILL to rule out endocarditis add MRI with contrast to rule out discitis. Unfortunately patient cannot receive gadolinium due to history of CKD stage III. Continue vancomycin with trough goal of 15-20. Pending WILL. Repeat blood culture. (3) Bronchitis Is this a current diagnosis for this admission?: Yes Plan: Resolved. As above. (4) Morbid obesity Is this a current diagnosis for this admission?: Yes Plan: BMI 34.7. Diet and lifestyle modification recommended. (5) Peripheral neuropathy Is this a current diagnosis for this admission?: Yes Plan: Denies any history of diabetes, any history of CVA or chemotherapy however has history of severe bilateral upper and lower extremity neuropathy. Continue home meds. (6) CKD (chronic kidney disease) Qualifiers: Chronic kidney disease stage: stage 3 (moderate) Is this a current diagnosis for this admission?: Yes Plan: At baseline renal function. Nonoliguric. Electrolytes WNL. Monitor volume status and electrolytes. Avoid nephrotoxic meds. Renally dose where appropriate. (7) COPD (chronic obstructive pulmonary disease) Qualifiers: COPD type: chronic bronchitis Chronic bronchitis type: mucopurulent Qualified Code(s): J41.1 - Mucopurulent chronic bronchitis Is this a current diagnosis for this admission?: Yes Plan: Plan as per #1. (8) UTI (urinary tract infection) Qualifiers: Urinary tract infection type: acute cystitis Is this a current diagnosis for this admission?: Yes Plan: Due to Klebsiella. Completed a course of renally dosed levofloxacin. Currently asymptomatic. (9) COPD exacerbation Is this a current diagnosis for this admission?: Yes Plan: As per #1. (10) Constipation Qualifiers: Constipation type: drug induced constipation Qualified Code(s): K59.03 - D rug induced constipation Is this a current diagnosis for this admission?: Yes Plan: Most likely to chronic opiate intake. Bowel regimen is started. - Time Time Spent with patient: 35 or more minutes Anticipated Discharge Disposition: Home with Home Health Anticipated Discharge Timeframe: within 72 hours
[2020-09-19] MEDS: TOPIRAMATE 100 MG TABLET PO SCH (17:07)
[2020-09-19] MEDS: MONTELUKAST SODIUM 10 MG TABLET PO SCH (17:07)
[2020-09-19] MEDS: CHOLECALCIFEROL (D3) 1,000 UNIT (25 MCG) TABLET PO SCH (17:07)
[2020-09-19] MEDS: CETIRIZINE 10 MG TABLET PO SCH (17:08)
[2020-09-19] MEDS: DULOXETINE HCL 30 MG CAPSULE.DR PO SCH (17:09)
[2020-09-19] MEDS: ASPIRIN 325 MG TABLET, ENT COATED PO SCH (17:09)
[2020-09-19] MEDS: ACETAMINOPHEN 325 MG TABLET PO PRN (20:01)
[2020-09-19] MEDS: FAMOTIDINE 20 MG TABLET PO SCH (21:19)
[2020-09-20] MEDS: IPRATROPIUM/ALBUTEROL 0.5-2.5 MG/3 ML AMPUL NEB SCH ×4 (02:11→20:54)
[2020-09-20] MEDS: GUAIFENESIN SYRP 200 MG/10 ML UDC PO SCH ×3 (05:07→21:27)
[2020-09-20] MEDS: HEPARIN SOD (PORCINE) 5,000 UNIT/ML 1 ML VIAL SUBCUT SCH ×3 (05:07→21:27)
[2020-09-20] MEDS: LEVOTHYROXINE SODIUM 0.088 MG TABLET PO SCH (05:07)
[2020-09-20] MEDS ORDERED: PROPOFOL INJ 200 MG/20 ML VIAL IV ONE (06:51)
[2020-09-20] MEDS ORDERED: LACTULOSE SYRUP 20 GM/30 ML UDCUP PO PRN (09:41)
[2020-09-20] MEDS ORDERED: NA PHOS,M-B/NA PHOS,DI-BA (ADULT) 133 ML ENEMA PR PRN (09:41)
[2020-09-20] MEDS: DOCUSATE SODIUM 100 MG CAPSULE PO SCH ×2 (11:12→18:45)
[2020-09-20] MEDS: GUAIFENESIN 600 MG TABLET.SA PO SCH ×2 (11:12→21:29)
[2020-09-20] MEDS: PREDNISONE 20 MG TABLET PO SCH (11:12)
--- NOTE | 2020-09-20 11:40 | XCELERA REPORT ---
Study ID: [id number] [address] [id number] Transesophageal Echocardiogram Report Name: LOCO MARCUS Age: 80 yrs Gender: Female : 1940 Patient Status: Inpatient Patient Location: [address] [place] [address] Study Date: 09/20/2020 08:28 AM Reason For Study: Persistent bacteremia Ordering Physician: SLOAN VELASQUEZ Performed By: Sharmin Garcia Interpretation Summary There is no evidence of a mass or vegetation. This does not rule out endocarditis. Left ventricular systolic function is normal. Ejection Fraction = >55%. The right ventricle is normal in size and function. No hemodynamically significant valvular aortic stenosis. There is trace tricuspid regurgitation. There is no pericardial effusion. There is no evidence of a mass or vegetation. This does not rule out endocarditis. Procedure A complete two-dimensional transesophageal echocardiogram was performed (2D, spectral and color flow Doppler). Informed consent for Transesophageal Echocardiogram, and use of a contrast agent as needed, was obtained prior to the procedure. The patient was brought to the OR Holding in a fasting state. An intravenous line was placed. A topical anesthetic agent was used for oropharangeal anesthesia. A bite block was inserted. IV conscious sedation was administered using Per anesthesia. The patient's vital signs, including blood pressure, heart rate, pulse oximetry and cardiac rhythm were monitored thoughout the procedure. The transesophageal probe was passed without difficulty. The usual views were obtained; basal, mid-esophageal, transgastric and aortic views. The patient tolerated the procedure well without evidence of orophangeal or esophageal trauma. Subsequent to all the images being obtained the probe was removed with out trauma. Left Ventricle The left ventricle is grossly normal size. There is mild concentric left ventricular hypertrophy. Left ventricular systolic function is normal. Ejection Fraction = >55%. No regional wall motion abnormalities noted. Right Ventricle The right ventricle is normal in size and function. Atria The interatrial septum is intact with no evidence for an atrial septal defect. There is no Doppler evidence for an atrial septal defect. The left atrial size is normal. No left atrial mass or thrombus visualized. Right atrial size is normal. Mitral Valve The mitral valve is normal in structure and function. There is no vegetation seen on the mitral valve. There is no mitral valve stenosis. There is mild mitral regurgitation. Tricuspid Valve The tricuspid valve is normal in structure and function. There is trace tricuspid regurgitation. Aortic Valve The aortic valve is trileaflet. The aortic valve opens well. No hemodynamically significant valvular aortic stenosis. No aortic regurgitation is present. Pulmonic Valve The pulmonic valve is not well visualized. Pericardium There is no pericardial effusion. : SLOAN VELASQUEZ Anil
[2020-09-20] MEDS: VANCOMYCIN HCL 1,000 MG in DEXTROSE 5%-WATER 250 ML IV SCH (12:26)
[2020-09-20] MEDS: FLUTICASONE/UMECLIDIN/VILANTER 100-62.5-25 MCG/DOSE IH SCH (12:27)
--- NOTE | 2020-09-20 14:10 | Progress Note ---
Provider Note Provider Note: [facility] teleconsultation service. Patient not examined. Chart reviewed. History: 80-year-old female with a history of COPD, morbid obesity, CKD who was admitted 09/12 with shortness of breath felt to have a COPD exacerbation. CT chest without pneumonia and she was placed on levofloxacin, steroids and supportive care. She was also labeled as having a UTI as her urinalysis demonstrated pyuria and she grew greater than 100,000 CFU's of Klebsiella. It is unclear whether or not she was symptomatic, but regardless she received levofloxacin as demonstrated below for this as well. ID has been consulted because she has demonstrated Staphylococcus simulans in multiple blood cultures. Per review of the record it does not appear that the patient has any indwelling devices. Her antibiotic history is detailed below but she was placed on vancomycin despite this organism being oxacillin sensitive because she has anaphylactic reaction to Keflex and hives with penicillin. Levofloxacin 09/12- 13 Vancomycin 09/14- 103.3 on 09/12 but afebrile since. No leukocytosis. Creatinine 1.91 (baseline) , LFTs within normal limits. Blood cultures: 09/15: One bottle GPC in clusters 09/13: S.simulans - oxacillin S, levofloxacin S, vancomycin NAM 1 09/11: S.simulans - same as above She continues to complain of mid back pain that wraps around to her front per review of the record. She had an MRI performed of her thoracic spine without contrast which revealed some endplate edema at T7 but without disc findings and was read as negative for osteomyelitis or discitis. A TTE was performed but was essentially nondiagnostic given poor study quality due to morbid obesity. Update 09/20: WILL neg, MRI w/ con cannot be done given GFR ~30. Blood cultures repeated 09/19 so far NGTD. She remains therapeutic on vancomycin with stable Cr. Assessment/Recommendations: Persistent Staphylococcus stimulans bacteremia in a patient with mid-thoracic back pain concerning for discitis and osteomyelitis despite MRI findings which were done without contrast. There does not appear to be a history of an ind welling device or foreign body. 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 Source is not clear but this organism colonizes human skin and was almost certainly introduced this way. Unlike other coagulase-negative staphylococci, S. simulans together with S. lugdunensis are more virulent and tend to cause infections that resemble those caused by S. aureus. The source remains unclear but there is a high probability that she seeded her spine given endplate edema seen on the noncontrasted MRI and the nature of her pain. There is inability to get a contrasted study given her CKD. I would treat her as a discitis osteomyelitis with 6 weeks of IV vancomycin with a goal trough of 10-15 and not 15-20 given lack of endovascular infection. End date 10/31/2020. Weekly CBC, CMP, vancomycin trough need to be followed. Central line needs to be removed at the end of antibiotic therapy. Would repeat MRI without contrast in a few weeks to see evolution. This can be done as an outpatient. I am not concerned about her penicillin and cephalosporin allergy as vancomycin is perfectly reasonable here given heteroresistance seen in coagulase-negative staphylococci to beta lactams in vivo.
[2020-09-20] MEDS: OXYBUTYNIN CHLORIDE 5 MG TABLET PO SCH ×2 (15:00→19:00)
[2020-09-20] MEDS: FUROSEMIDE 40 MG TABLET PO SCH (15:03)
--- NOTE | 2020-09-20 16:49 | PDOC PROGRESS REPORT ---
Subjective Date:: 09/20/20 Subjective:: LOCO MARCUS is a 80 year old female past medical history of nonoxygen dependent COPD, CKD, asthma, peripheral neuropathy, CAD status post PCI to stent placement, chronic cough, presenting to ED complaining of fever, chills, chest ingestion, body aches, worsening productive cough, and generalized weakness. Patient is stating that she has history of nonoxygen dependent COPD and asthma and she has chronic cough but recently her cough has become productive with oatmeal colored phlegm, and coughing to the point that she is having sore back and abdomen, patient is also having subjective fever however denies any chest pain, nausea, vomiting, diarrhea, constipation or any urinary symptoms. She denies any recent travel, any exposure to anybody with COVID-19 infection or similar symptoms, or any recent hospitalization. In ED she was noted to be tachypneic, hypoxic, febrile, with UA positive for large leukocyte esterase, however chest x-ray, chest CT read as normal. Rapid influenza negative RSV and COVID-19 pending at the time of dictation. 09/18/2020. No acute events overnight. Patient is still complaining of persistent cough and back pain, denies any fever, chills, nausea, complaining of constipation, p.o. tolerant. Patient still having persistent bacteremia, pe nding ID recommendation. 09/19/2020. No acute events overnight. Saw patient this morning comfortably resting in bed no apparent distress, cough is improving, still complaining of constipation, denies any fever, chills, nausea, vomiting. P.o. tolerant. Patient is pending for WILL as recommended by infectious disease specialist. 09/20/2020. No acute events overnight. Patient is status post WILL prelim report did not show any source of endocarditis, patient cough has much improved, back pain is significantly improving, has not had a bowel movement, denies any fever, chills, nausea, vomiting. Possible discharge home tomorrow if blood culture remains negative and patient is able to get a PICC line. Reason For Visit: ACUTE RESPIRATORY FAILURE,POSITIVE BLOOD CULTURES Physical Exam Vital Signs: Temp Pulse Resp BP Pulse Ox 97.6 F 63 15 108/45 L 96 09/20/20 11:31 09/20/20 14:05 09/20/20 14:05 09/20/20 11:31 09/20/20 14:05 Intake & Output 09/19/20 09/20/20 09/21/20 06:59 06:59 06:59 Intake Total 478 1182 130 Balance 478 1182 130 Weight 105.2 kg 115.7 kg 115.7 kg General appearance: PRESENT: no acute distress, obese, well-developed, well- nourished Head exam: PRESENT: atraumatic, normocephalic Respiratory exam: PRESENT: clear to auscultation toni. ABSENT: rales, rhonchi, wheezes Cardiovascular exam: PRESENT: RRR. ABSENT: diastolic murmur, rubs, systolic murmur GI/Abdominal exam: PRESENT: normal bowel sounds, soft. ABSENT: distended, guarding, mass, organolmegaly, rebound, tenderness Neurological exam: PRESENT: alert, awake, oriented to person, oriented to place, oriented to time, oriented to situation, CN II-XII grossly intact. ABSENT: motor sensory deficit Results Laboratory Results: 09/16/20 05:10 09/17/20 10:55 09/15/20 09:25 Blood Blood Culture - Final NO GROWTH IN 5 DAYS 09/15/20 09:14 Blood Blood Culture (PCR) - Final 09/15/20 09:14 Blood Blood Culture - Final Staphylococcus Simulans 09/11/20 21:27 Troponin I 0.012 NT-Pro-B Natriuret Pep 765 H Impressions: Chest CT 09/11/20 23:45 IMPRESSION: No acute abnormality. Chest X-Ray 09/12/20 00:00 IMPRESSION: No evidence of acute cardiopulmonary abnormality. Thoracic Spine MRI 09/16/20 00:00 IMPRESSION: 1. Thoracic spondylosis without suggestion of osteomyelitis or discitis. No evidence of high-grade central stenosis. 2. Spondylosis is also suggested in the lumbar spine, incompletely assessed. Modified Barium Swallow 09/18/20 08:35 IMPRESSION: LARYNGEAL PENETRATION WITHOUT ASPIRATION. PLEASE SEE SPEECH PATHOLOGIST REPORT FOR OTHER FINDINGS AND RECOMMENDATIONS. Assessment and Plan - Diagnosis (1) Acute respiratory failure with hypoxia Is this a current diagnosis for this admission?: Yes Plan: SPO2 WNL on 3 L nasal cannula. At baseline. Likely due to acute COPD and asthma exacerbation complicated by acute bronchitis. CT chest and chest x-ray negative for any acute abnormalities. Not a candidate for CTA as patient has history of CKD. Denies any recent travel, hospitalization or any exposure to COVID-19. Blood Cultures show staph hemolyticus Sputum cultures show kim Completed a course of IV Levaquin. Completed a course of IV steroids. Day 3/4 p.o. prednisone. Continue as needed DuoNebs, LAMA, LABA, ICS, flutter valve, incentive spirometry, pulmonary toileting. (2) Bacteremia Is this a current diagnosis for this admission?: Yes Plan: Persistent Staphylococcus stimulants bacteremia. 09/15/2020: 1/2 bottles Staphylococcus stimulants. 09/13/2020: 2/2 Staphylococcus stimulants. 09/11/2020: 2/2 Staphylococcus stimulants. Sputum cultures grew kim Throat culture grew kim. Urine culture with Klebsiella. No clear source for bacteremia; patient denies prosthetic devices, stents, pace maker, etc. MRI Thoracic spine without contrast is unremarkable except for spondylosis and degnerative changes. No suggestion of osteomyelitis or discitis. 2D echo suboptimal due to body habitus. ID recommendation is get WILL to rule out endocarditis add MRI with contrast to rule out discitis. Prelim WILL report negative for endocarditis. Unfortunately patient cannot receive gadolinium due to history of CKD stage III. As per ID note the fact that source remains unclear as high probability that she may have seeded her spine given endplate edema seen on noncontrasted MRI commen dation is to treat for presumptive discitis/osteomyelitis with 6 weeks of IV vancomycin with a goal trough of 10-15. End date 10/31/2020. Weekly CBC, CMP, vancomycin trough need to be followed. Repeat MRI without contrast in a few weeks to see evolution is recommended. (3) Bronchitis Is this a current diagnosis for this admission?: Yes Plan: Resolved. As above. (4) Morbid obesity Is this a current diagnosis for this admission?: Yes Plan: BMI 34.7. Diet and lifestyle modification recommended. (5) Peripheral neuropathy Is this a current diagnosis for this admission?: Yes Plan: Denies any history of diabetes, any history of CVA or chemotherapy however has history of severe bilateral upper and lower extremity neuropathy. Continue home meds. (6) CKD (chronic kidney disease) Qualifiers: Chronic kidney disease stage: stage 3 (moderate) Is this a current diagnosis for this admission?: Yes Plan: At baseline renal function. Nonoliguric. Electrolytes WNL. Monitor volume status and electrolytes. Avoid nephrotoxic meds. Renally dose where appropriate. (7) COPD (chronic obstructive pulmonary disease) Qualifiers: COPD type: chronic bronchitis Chronic bronchitis type: mucopurulent Qualified Code(s): J41.1 - Mucopurulent chronic bronchitis Is this a current diagnosis for this admission?: Yes Plan: Plan as per #1. (8) UTI (urinary tract infection) Qualifiers: Urinary tract infection type: acute cystitis Is this a current diagnosis for this admission?: Yes Plan: Due to Klebsiella. Completed a course of renally dosed levofloxacin. Currently asymptomatic. (9) COPD exacerbation Is this a current diagnosis for this admission?: Yes Plan: As per #1. (10) Constipation Qualifiers: Constipation type: drug induced constipation Qualified Code(s): K59.03 - Drug induced constipation Is this a current diagnosis for this admission?: Yes Plan: Most likely to chronic opiate intake. Bowel regimen is started. - Time Time Spent with patient: 35 or more minutes Anticipated Discharge Disposition: Home with Home Health Anticipated Discharge Timeframe: within 48 hours
[2020-09-20] MEDS: CETIRIZINE 10 MG TABLET PO SCH (18:45)
[2020-09-20] MEDS: DULOXETINE HCL 30 MG CAPSULE.DR PO SCH (18:45)
[2020-09-20] MEDS: CHOLECALCIFEROL (D3) 1,000 UNIT (25 MCG) TABLET PO SCH (18:45)
[2020-09-20] MEDS: MONTELUKAST SODIUM 10 MG TABLET PO SCH (18:45)
[2020-09-20] MEDS: ASPIRIN 325 MG TABLET, ENT COATED PO SCH (18:45)
[2020-09-20] MEDS: TOPIRAMATE 100 MG TABLET PO SCH (19:00)
[2020-09-20] MEDS: FAMOTIDINE 20 MG TABLET PO SCH (21:29)
[2020-09-21] MEDS: IPRATROPIUM/ALBUTEROL 0.5-2.5 MG/3 ML AMPUL NEB SCH ×4 (02:18→20:54)
--- NOTE | 2020-09-21 02:52 | RADIOLOGY REPORT (SQ) ---
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 COMPARISON: None available TECHNIQUE: Multiple axial contiguous images were obtained through the head without intravenous contrast administered. This exam was performed according to our departmental dose-optimization program, which includes automated exposure control, adjustment of the mA and/or KV according to the patient's size and/or use of iterative reconstruction technique. FINDINGS: The ventricles and cerebral sulci demonstrate mild prominence, consistent with cerebral atrophy. There are mild periventricular hypodensities, suggestive of periventricular white matter changes. The kent-white matter differentiation is within normal limits. Both globes appear symmetric. The mastoid air cells appear clear. The visualized paranasal sinuses appear clear. The calvarium is intact. No extra-axial fluid collection is seen. No midline shift or mass effect is apparent. There are no findings to suggest acute intracranial hemorrhage. IMPRESSION: 1. No acute intracranial hemorrhage is seen. 2. Mild cerebral atrophy and periventricular white matter changes are seen.
[2020-09-21] MEDS: GUAIFENESIN SYRP 200 MG/10 ML UDC PO SCH ×3 (05:19→21:50)
[2020-09-21] MEDS: HEPARIN SOD (PORCINE) 5,000 UNIT/ML 1 ML VIAL SUBCUT SCH ×3 (05:19→21:50)
[2020-09-21] MEDS: LEVOTHYROXINE SODIUM 0.088 MG TABLET PO SCH (05:22)
[2020-09-21] MEDS: FUROSEMIDE 40 MG TABLET PO SCH (11:29)
[2020-09-21] MEDS: DOCUSATE SODIUM 100 MG CAPSULE PO SCH ×2 (11:31→17:02)
[2020-09-21] MEDS: PREDNISONE 20 MG TABLET PO SCH (11:31)
[2020-09-21] MEDS: OXYCODONE-ACETAMINOPHEN 5-325 MG TABLET PO PRN (11:31)
[2020-09-21] MEDS: OXYBUTYNIN CHLORIDE 5 MG TABLET PO SCH ×2 (11:31→17:04)
[2020-09-21] MEDS: GUAIFENESIN 600 MG TABLET.SA PO SCH ×2 (11:31→21:58)
[2020-09-21] MEDS: FLUTICASONE/UMECLIDIN/VILANTER 100-62.5-25 MCG/DOSE IH SCH (11:32)
--- NOTE | 2020-09-21 11:51 | PDOC PROGRESS REPORT ---
Subjective Date:: 09/21/20 Subjective:: LOCO MARCUS is a 80 year old female past medical history of nonoxygen dependent COPD, CKD, asthma, peripheral neuropathy, CAD status post PCI to stent placement, chronic cough, presenting to ED complaining of fever, chills, chest ingestion, body aches, worsening productive cough, and generalized weakness. Patient is stating that she has history of nonoxygen dependent COPD and asthma and she has chronic cough but recently her cough has become productive with oatmeal colored phlegm, and coughing to the point that she is having sore back and abdomen, patient is also having subjective fever however denies any chest pain, nausea, vomiting, diarrhea, constipation or any urinary symptoms. She denies any recent travel, any exposure to anybody with COVID-19 infection or similar symptoms, or any recent hospitalization. In ED she was noted to be tachypneic, hypoxic, febrile, with UA positive for large leukocyte esterase, however chest x-ray, chest CT read as normal. Rapid influenza negative RSV and COVID-19 pending at the time of dictation. 09/18/2020. No acute events overnight. Patient is still complaining of persistent cough and back pain, denies any fever, chills, nausea, complaining of constipation, p.o. tolerant. Patient still having persistent bacteremia, pe nding ID recommendation. 09/19/2020. No acute events overnight. Saw patient this morning comfortably resting in bed no apparent distress, cough is improving, still complaining of constipation, denies any fever, chills, nausea, vomiting. P.o. tolerant. Patient is pending for WILL as recommended by infectious disease specialist. 09/20/2020. No acute events overnight. Patient is status post WILL prelim report did not show any source of endocarditis, patient cough has much improved, back pain is significantly improving, has not had a bowel movement, denies any fever, chills, nausea, vomiting. Possible discharge home tomorrow if blood culture remains negative and patient is able to get a PICC line. 09/21/2020. No acute events noted. Patient has had couple of bowel movements since yesterday, denies any fever, chills, nausea, vomiting, diarrhea, constipation or any urinary symptoms. Complaining of bilateral lower extremity pain that he attributes to his neuropathy. An order was placed for PICC line placement however radiology needs nephrology clearance before placing PICC line as patient has history of CKD. Nephrology has been consulted. Once PICC line has been placed patient can be sent home on 6 weeks of IV vancomycin as per ID recommendations. Reason For Visit: ACUTE RESPIRATORY FAILURE,POSITIVE BLOOD CULTURES Physical Exam Vital Signs: Temp Pulse Resp BP Pulse Ox 97.9 F 51 L 14 123/55 L 94 09/21/20 07:18 09/21/20 08:22 09/21/20 08:22 09/21/20 07:18 09/21/20 08:22 Intake & Output 09/20/20 09/21/20 09/22/20 06:59 06:59 06:59 Intake Total 1182 800 Balance 1182 800 Weight 115.7 kg 114.7 kg General appearance: PRESENT: no acute distress, obese, well-developed, well- nourished Head exam: PRESENT: atraumatic, normocephalic Respiratory exam: PRESENT: clear to auscultation toni. ABSENT: rales, rhonchi, wheezes Cardiovascular exam: PRESENT: RRR. ABSENT: diastolic murmur, rubs, systolic murmur GI/Abdominal exam: PRESENT: normal bowel sounds, soft. ABSENT: distended, guarding, mass, organolmegaly, rebound, tenderness Neurological exam: PRESENT: alert, awake, oriented to person, oriented to place, oriented to time, oriented to situation, CN II-XII grossly intact. ABSENT: motor sensory deficit Results Laboratory Results: 09/16/20 05:10 09/17/20 10:55 09/15/20 09:25 Blood Blood Culture - Final NO GROWTH IN 5 DAYS 09/11/20 21:27 Troponin I 0.012 NT-Pro-B Natriuret Pep 765 H Impressions: Chest CT 09/11/20 23:45 IMPRESSION: No acute abnormality. Chest X-Ray 09/12/20 00:00 IMPRESSION: No evidence of acute cardiopulmonary abnormality. Thoracic Spine MRI 09/16/20 00:00 IMPRESSION: 1. Thoracic spondylosis without suggestion of osteomyelitis or discitis. No evidence of high-grade central stenosis. 2. Spondylosis is also suggested in the lumbar spine, incompletely assessed. Modified Barium Swallow 09/18/20 08:35 IMPRESSION: LARYNGEAL PENETRATION WITHOUT ASPIRATION. PLEASE SEE SPEECH PATHOLOGIST REPORT FOR OTHER FINDINGS AND RECOMMENDATIONS. Head CT 09/20/20 00:00 IMPRESSION: 1. No acute intracranial hemorrhage is seen. 2. Mild cerebral atrophy and periventricular white matter changes are seen. Assessment and Plan - Diagnosis (1) Acute respiratory failure with hypoxia Is this a current diagnosis for this admission?: Yes Plan: SPO2 WNL on RA Likely due to acute COPD and asthma exacerbation complicated by acute bronchit is. CT chest and chest x-ray negative for any acute abnormalities. Not a candidate for CTA as patient has history of CKD. Denies any recent travel, hospitalization or any exposure to COVID-19. Blood Cultures show staph hemolyticus Sputum cultures show kim Completed a course of IV Levaquin. Completed a course of IV steroids. Day 4/4 p.o. prednisone. Continue as needed DuoNebs, LAMA, LABA, ICS, flutter valve, incentive spirometry, pulmonary toileting. (2) Bacteremia Is this a current diagnosis for this admission?: Yes Plan: Persistent Staphylococcus stimulants bacteremia. 09/15/2020: 1/2 bottles Staphylococcus stimulants. 09/13/2020: 2/2 Staphylococcus stimulants. 09/11/2020: 2/2 Staphylococcus stimulants. Sputum cultures grew kim Throat culture grew kim. Urine culture with Klebsiella. No clear source for bacteremia; patient denies prosthetic devices, stents, pace maker, etc. MRI Thoracic spine without contrast is unremarkable except for spondylosis and degnerative changes. No suggestion of osteomyelitis or discitis. 2D echo suboptimal due to body habitus. ID recommendation is get WILL to rule out endocarditis add MRI with contrast to rule out discitis. Prelim WILL report negative for endocarditis. Unfortunately patient cannot receive gadolinium due to history of CKD stage III. As per ID note the fact that source remains unclear as high probability that she may have seeded her spine given endplate edema seen on noncontrasted MRI commendation is to treat for presumptive discitis/osteomyelitis with 6 weeks of IV vancomycin with a goal trough of 10-15. End date 10/31/2020. Weekly CBC, CMP, vancomycin trough need to be followed. Repeat MRI without contrast in a few weeks to see evolution is recommended. (3) Bronchitis Is this a current diagnosis for this admission?: Yes Plan: Resolved. As above. (4) Morbid obesity Is this a current diagnosis for this admission?: Yes Plan: BMI 34.7. Diet and lifestyle modification recommended. (5) Peripheral neuropathy Is this a current diagnosis for this admission?: Yes Plan: Denies any history of diabetes, any history of CVA or chemotherapy however has history of severe bilateral upper and lower extremity neuropathy. Continue home meds. (6) CKD (chronic kidney disease) Qualifiers: Chronic kidney disease stage: stage 3 (moderate) Is this a current diagnosis for this admission?: Yes Plan: At baseline renal function. Nonoliguric. Electrolytes WNL. Monitor volume status and electrolytes. Avoid nephrotoxic meds. Renally dose where appropriate. (7) COPD (chronic obstructive pulmonary disease) Qualifiers: COPD type: chronic bronchitis Chronic bronchitis type: mucopurulent Qualified Code(s): J41.1 - Mucopurulent chronic bronchitis Is this a current diagnosis for this admission?: Yes Plan: Plan as per #1. (8) UTI (urinary tract infection) Qualifiers: Urinary tract infection type: acute cystitis Is this a current diagnosis for this admission?: Yes Plan: Due to Klebsiella. Completed a course of renally dosed levofloxacin. Currently asymptomatic. (9) COPD exacerbation Is this a current diagnosis for this admission?: Yes Plan: As per #1. (10) Constipation Qualifiers: Constipation type: drug induced constipation Qualified Code(s): K59.03 - Drug induced constipation Is this a current diagnosis for this admission?: Yes Plan: Most likely to chronic opiate intake. Had couple of bowel movements since yesterday. Continue current bowel regimen. - Time Time Spent with patient: 25-34 minutes Anticipated Discharge Disposition: Home with Home Health Anticipated Discharge Timeframe: within 24 hours
[2020-09-21] MEDS ORDERED: VANCOMYCIN HCL 1,000 MG in DEXTROSE 5%-WATER 250 ML IV SCH (12:00)
[2020-09-21] MEDS: VANCOMYCIN HCL 750 MG in DEXTROSE 5%-WATER 250 ML IV SCH (12:44)
[2020-09-21] MEDS: TOPIRAMATE 100 MG TABLET PO SCH (17:03)
[2020-09-21] MEDS: CETIRIZINE 10 MG TABLET PO SCH (17:03)
[2020-09-21] MEDS: ASPIRIN 325 MG TABLET, ENT COATED PO SCH (17:03)
[2020-09-21] MEDS: DULOXETINE HCL 30 MG CAPSULE.DR PO SCH (17:03)
[2020-09-21] MEDS: CHOLECALCIFEROL (D3) 1,000 UNIT (25 MCG) TABLET PO SCH (17:03)
[2020-09-21] MEDS: MONTELUKAST SODIUM 10 MG TABLET PO SCH (17:03)
--- NOTE | 2020-09-21 21:18 | PDOC CONSULTATION ---
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 Her working diagnosis was acute respiratory rupesh lure secondary to COPD exacerbation, superimposed with acute bronchitis and UTI secondary to Klebsiella. She was treated appropriately for these conditions. She was also found to have persistent bacteremia secondary to Staphylococcus stimulans found on blood cultures on 09/03/2020, 09/13/2020 and 09/15/2020. Patient has completed a course of IV Levaquin. Source of the bacteremia was still unknown at this time. TTE and WILL were negative for endocarditis. MRI of thoracic spine without contrast was unremarkable. Infectious disease was consulted and the recommendation was to treat the patient for presumptive discitis/osteomyelitis with 6 weeks of IV vancomycin. Thus the patient was initially lannced to have a PICC line inserted but interventional radiologist would like a nephrology clearance for this due to the patient having history of CKD. Thus I was called to see this patient. Patient has chronic kidney disease stage IV with baseline creatinine ranging anywhere between 1.8-2.16 and EGFR ranging from 22-26. During this hospitalization the patient's kidney function has remained stable with creatinine ranging anywhere between 1.8-2.13, most recently on 09/17/2020 with a creatinine of 1.91. Patient has indicated to me that when the time comes that her kidney function declined she would consent and agree with renal replacement therapy in the future. Currently the patient is still feeling weak very poor appetite as confirmed by her daughter at bedside. Still has a slight cough. Otherwise patient and daughter states that she has significantly improved from admission. Past Medical History Cardiac Medical History: Reports: Coronary Artery Disease, Hyperlipidemia, Hypertension-primary, Myocardial Infarction, Peripheral Vascular Disease Pulmonary Medical History: Reports: Asthma, Bronchitis, Chronic Obstructive Pulmonary Disease (COPD), Pneumonia Endocrine Medical History: Reports: Hypothyroidism Complications of Diabetes: Reports: Autonomic Neuropathy Renal/ Medical History: Reports: Chronic Kidney Disease Stage IV, Proteinuria, Secondary Hyperparathyroidism GI Medical History: Reports: Gastroesophageal Reflux Disease Musculoskeltal Medical History: Reports: Arthritis, Other - Osteoporosis Hematology Medical History: Reports Anemia of Chronic Kidney Disease Past Surgical History Past Surgical History: Reports: Cardiac Catheterization - x2, Cholecystectomy, Coronary Stent - On ICA in 2011, Hysterectomy, Tonsillectomy, Other - ERCP with stent placement due to obstructive biliary calculus; laminectomy Social History Information Source: Patient, [facility] Records Lives with: Family Smoking Status: Never Smoker Electronic Cigarette use?: No Frequency of Alcohol Use: None Hx Recreational Drug Use: No Hx Prescription Drug Abuse: No - Advance Directive Resuscitation Status: Full Code Family History Family History: CAD - Mother and father, Chronic Kidney Disease - Brother, CVA - Father, Malignancy - Father with laryngeal cancer Parental Family History Reviewed: Yes Children Family History Reviewed: Yes Sibling(s) Family History Reviewed.: Yes Medication/Allergy Home Medications: Duloxetine HCl [Cymbalta 30 mg Capsule.dr] 60 mg PO QPM 08/09/13 Levothyroxine Sodium [Synthroid 0.088 mg Tablet] 0.088 mg PO Q6AM 08/09/13 Albuterol Sulfate [Ventolin Hfa] 2 puff IH Q4HP PRN 10/20/14 Methadone HCl 5 mg PO QIDP PRN 10/20/14 Montelukast Sodium 10 mg PO QPM 10/20/14 Aspirin [Ecotrin 325 mg EC Tablet] 325 mg PO QPM 09/12/20 Cetirizine HCl [Zyrtec 10 mg Tablet] 10 mg PO QPM 09/12/20 Cholecalciferol (Vitamin D3) [Vitamin D3 1000 Unit Tablet] 2,000 unit PO QPM 09/12/20 Docusate Sodium [Colace 100 mg Capsule] 100 mg PO DAILYP PRN 09/12/20 Doxycycline Hyclate 50 mg PO Q2D 09/12/20 Fluticasone/Umeclidin/Vilanter [Trelegy 100-62.5-25 Mcg Ellipta 14 Dose/Dpi] 1 inh IH QPM 09/12/20 Furosemide [Lasix 40 mg Tablet] 40 mg PO QAM 09/12/20 Losartan Potassium [Cozaar 25 mg Tablet] 25 mg PO QPM 09/12/20 Potassium Chloride [Klor-Con 10 Meq Tablet ER] 10 meq PO QPM 09/12/20 Tolterodine Tartrate [Tolterodine Tartrate ER] 4 mg PO QPM 09/12/20 Topiramate [Topamax 100 Mg Tablet] 200 mg PO QPM 09/12/20 Allergies/Adverse Reactions: cephalexin monohydrate [From Keflex] Allergy (Severe, Verified 09/14/20 10:03) Anaphylaxis Penicillins Allergy (Intermediate, Verified 09/14/20 10:03) Generalized rash Beef Containing Products Allergy (Verified 01/26/17 04:59) latex [Latex] Allergy (Verified 01/26/17 04:59) Pgeqifm-Qkv-Qbe Reductase Inhibitor Adverse Reaction (Intermediate, Verified 01/26/17 04:59) Unknown reaction Review of Systems All systems: reviewed and no additional remarkable complaints except as stated Review of Systems: Constitutional: ABSENT: chills, fever(s), headache(s), weight gain, weight loss: Admits poor appetite and weakness Eyes: ABSENT: visual disturbances Ears: ABSENT: hearing changes Cardiovascular: ABSENT: chest pain, dyspnea on exertion, edema, orthropnea, palpitations Respiratory: ABSENT: dyspnea, hemoptysis; states cough Gastrointestinal: ABSENT: abdominal pain, constipation, diarrhea, hematemesis, hematochezia, nausea, vomiting Genitourinary: ABSENT: dysuria, hematuria Musculoskeletal: ABSENT: joint swelling Integumentary: ABSENT: rash, wounds Neurological: ABSENT: abnormal gait, abnormal speech, confusion, dizziness, focal weakness, numbness, syncope Psychiatric: ABSENT: anxiety, depression Endocrine: ABSENT: cold intolerance, heat intolerance, polydipsia, polyuria Hematologic/Lymphatic: ABSENT: easy bleeding, easy bruising, lymphadenopathy Physical Exam Vital Signs: Temp Pulse Resp BP Pulse Ox 98.3 F 58 L 16 127/53 H 93 09/21/20 11:44 09/21/20 13:47 09/21/20 13:47 09/21/20 11:44 09/21/20 13:47 Intake & Output 09/20/20 09/21/20 09/22/20 06:59 06:59 06:59 Intake Total 1182 800 712 Balance 1182 800 712 Weight 115.7 kg 114.7 kg Exam: General appearance: No acute distress, cooperative, well-developed, well- nourished Head exam: PRESENT: atraumatic, normocephalic Eye exam: PRESENT: Conjunctiva slightly pale, EOMI, PERRLA. ABSENT: conjunctival injection, scleral icterus Mouth exam: PRESENT: moist, neck supple, tongue midline Neck exam: PRESENT: full ROM. ABSENT: carotid bruit, JVD, lymphadenopathy, thyromegaly Respiratory exam: PRESENT: Diminished to auscultation bilaterally. ABSENT: rales, rhonchi, stridor, wheezes Cardiovascular exam: PRESENT: RRR, +S1, +S2. ABSENT: systolic murmur Pulses: PRESENT: normal radial pulses, normal dorsalis pedis pulses GI/Abdominal exam: PRESENT: normal bowel sounds, soft. ABSENT: guarding, mass, tenderness Rectal exam: Deferred Extremities exam: PRESENT: full ROM. ABSENT: calf tenderness, pedal edema Musculoskeletal: PRESENT: full ROM. ABSENT: deformity Neurological exam: PRESENT: alert, Awake, Oriented to person, Oriented to place, Oriented to time, reflexes normal, CN II-XII grossly intact. ABSENT: motor sensory deficit Psychiatric exam: PRESENT: appropriate affect, normal mood. ABSENT: homicidal ideation, suicidal ideation Skin exam: PRESENT: intact, dry, warm. ABSENT: rash Results Laboratory Results: 09/16/20 05:10 09/17/20 10:55 09/11/20 21:27 Troponin I 0.012 NT-Pro-B Natriuret Pep 765 H Impressions: Chest CT 09/11/20 23:45 IMPRESSION: No acute abnormality. Chest X-Ray 09/12/20 00:00 IMPRESSION: No evidence of acute cardiopulmonary abnormality. Thoracic Spine MRI 09/16/20 00:00 IMPRESSION: 1. Thoracic spondylosis without suggestion of osteomyelitis or discitis. No evidence of high-grade central stenosis. 2. Spondylosis is also suggested in the lumbar spine, incompletely assessed. Modified Barium Swallow 09/18/20 08:35 IMPRESSION: LARYNGEAL PENETRATION WITHOUT ASPIRATION. PLEASE SEE SPEECH PATHOLOGIST REPORT FOR OTHER FINDINGS AND RECOMMENDATIONS. Head CT 09/20/20 00:00 IMPRESSION: 1. No acute intracranial hemorrhage is seen. 2. Mild cerebral atrophy and periventricular white matter changes are seen. Assessment & Plan - Diagnosis (1) Chronic kidney disease, stage IV (severe) Is this a current diagnosis for this admission?: Yes Plan: Due to hypertensive nephrosclerosis and chronic interstitial nephritis. Currently at baseline kidney function. Regarding the placement of PICC line on this patient for IV antibiotics, due to the possibility of near future renal replacement therapy which the patient indicated she would do, it is always important to preserve her arm vasculature for future vascular access including the creation of AV fistula. Per guidelines for venous access in patients with chronic kidney disease from the [place] [employer] diagnostic and interventional nephrology and [place] [employer] of ne phrology, placement of PICC line and use of subclavian veins for central venous access should not be used and needs to be avoided. The internal jugular veins are the preferred location for central venous access. I will leave a copy of this guidelines in the chart. Based on this I do not recommend any PICC line placement. I would suggest an internal jugular central venous access for chronic IV antibiotics. I discussed these recommendations with Dr. Brenner and Dr. Lewis. (2) Bacteremia Is this a current diagnosis for this admission?: Yes Plan: Exact etiology is unclear at this point. Patient has persistent Staphylococcus I Hall set of blood culture on 09/19/2020 were still negative after 48 hours. Infectious disease recommended very treatment for discitis/osteomyelitis with 6 weeks of IV vancomycin. (3) COPD exacerbation Is this a current diagnosis for this admission?: Yes Plan: Improved. (4) Metabolic acidosis Is this a current diagnosis for this admission?: Yes Plan: Mild. Start sodium bicarbonate 650 mg twice a day (5) Hyponatremia Is this a current diagnosis for this admission?: Yes Plan: Mild. Monitor for now. (6) Anemia in chronic kidney disease (CKD) Is this a current diagnosis for this admission?: Yes (7) UTI (urinary tract infection) Qualifiers: Urinary tract infection type: acute cystitis Is this a current diagnosis for this admission?: Yes Plan: Due to Klebsiella treated with a course of Levaquin. - Notes Notes: Thank you very much for this consultation.
[2020-09-21] MEDS: SODIUM BICARBONATE 650 MG TABLET PO SCH (21:58)
[2020-09-21] MEDS: FAMOTIDINE 20 MG TABLET PO SCH (21:58)
[2020-09-22] MEDS: IPRATROPIUM/ALBUTEROL 0.5-2.5 MG/3 ML AMPUL NEB SCH ×4 (02:13→21:32)
[2020-09-22] MEDS: HEPARIN SOD (PORCINE) 5,000 UNIT/ML 1 ML VIAL SUBCUT SCH ×3 (05:35→21:42)
[2020-09-22] MEDS: LEVOTHYROXINE SODIUM 0.088 MG TABLET PO SCH (05:36)
[2020-09-22] MEDS: GUAIFENESIN SYRP 200 MG/10 ML UDC PO SCH ×3 (05:36→21:42)
[2020-09-22] MEDS: OXYCODONE-ACETAMINOPHEN 5-325 MG TABLET PO PRN ×2 (05:37→10:06)
[2020-09-22] MEDS: OXYBUTYNIN CHLORIDE 5 MG TABLET PO SCH ×2 (10:06→17:06)
[2020-09-22] MEDS: GUAIFENESIN 600 MG TABLET.SA PO SCH ×2 (10:06→21:48)
[2020-09-22] MEDS: SODIUM BICARBONATE 650 MG TABLET PO SCH ×2 (10:06→21:48)
[2020-09-22] MEDS: FUROSEMIDE 40 MG TABLET PO SCH (10:06)
[2020-09-22] MEDS: FLUTICASONE/UMECLIDIN/VILANTER 100-62.5-25 MCG/DOSE IH SCH (10:06)
[2020-09-22] MEDS: DOCUSATE SODIUM 100 MG CAPSULE PO SCH ×2 (10:06→17:03)
--- NOTE | 2020-09-22 10:33 | PDOC CONSULTATION ---
Consultation Consult Date: 09/22/20 Attending physician:: SLOAN VELASQUEZ Provider Consulted: COLLEEN VARGAS Consult reason:: vascular access History of Present Illness Admission Date/PCP: 09/13/20 10:14 HAZEL RAE MD History of Present Illness: LOCO MARCUS is a 80 year old female This is an 80-year-old female with multiple comorbidities obesity bronchitis COPD has been in the hospital for about 10 days now with back pain MRI scan revealed a thoracic discitis and the patient will need IV antibiotics per the hospitalist. Patient will need long-term IV antibiotics approximately 6 weeks. Patient was scheduled for a PICC line however because nephrology feels that the patient will need dialysis the requested no IV access in her arms. Therefore surgical consultation has been made by the hospitalist for Lopez catheter placement. Past Medical History Cardiac Medical History: Reports: Congestive Heart Failure, Coronary Artery Disease, Myocardial Infarction, Hyperlipidema, Hypertension, Peripheral Vascular Disease Pulmonary Medical History: Reports: Asthma, Bronchitis, Chronic Obstructive Pu lmonary Disease (COPD), Pneumonia Denies: Tuberculosis EENT Medical History: Reports: None Neurological Medical History: Reports: None Denies: Seizures Endocrine Medical History: Reports: None, Hypothyroidism Renal/ Medical History: Reports: None, Other Denies: End Stage Renal Disease Malignancy Medical History: Reports: None GI Medical History: Reports: Gastroesophageal Reflux Disease Denies: Cirrhosis Musculoskeltal Medical History: Reports: Arthritis, Other - Osteoporosis Skin Medical History: Reports: None Psychiatric Medical History: Denies: Bipolar Disorder, Depression Traumatic Medical History: Reports: None Hematology: Reports: Anemia, Bleeding Tendencies - daily asprin Infectious Medical History: Reports: None Past Surgical History Past Surgical History: Reports: Cardiac Catheterization - x2, Cholecystectomy, Coronary Stent - On ICA in 2010, Hysterectomy, Tonsillectomy, Other - ERCP with stent placement due to obstructive biliary calculus; laminectomy Social History Lives with: Family Smoking Status: Never Smoker Electronic Cigarette use?: No Frequency of Alcohol Use: None Hx Recreational Drug Use: No Hx Prescription Drug Abuse: No - Advance Directive Resuscitation Status: Full Code Family History Family History: Hypertension Parental Family History Reviewed: No Children Family History Reviewed: NA Sibling(s) Family History Reviewed.: NA Medication/Allergy Home Medications: Duloxetine HCl [Cymbalta 30 mg Capsule.] 60 mg PO QPM 08/09/13 Levothyroxine Sodium [Synthroid 0.088 mg Tablet] 0.088 mg PO Q6AM 08/09/13 Albuterol Sulfate [Ventolin Hfa] 2 puff IH Q4HP PRN 10/20/14 Methadone HCl 5 mg PO QIDP PRN 10/20/14 Montelukast Sodium 10 mg PO QPM 10/20/14 Aspirin [Ecotrin 325 mg EC Tablet] 325 mg PO QPM 09/12/20 Cetirizine HCl [Zyrtec 10 mg Tablet] 10 mg PO QPM 09/12/20 Cholecalciferol (Vitamin D3) [Vitamin D3 1000 Unit Tablet] 2,000 unit PO QPM 1 11/13/19 Docusate Sodium [Colace 100 mg Capsule] 100 mg PO DAILYP PRN 09/12/20 Doxycycline Hyclate 50 mg PO Q2D 09/12/20 Fluticasone/Umeclidin/Vilanter [Trelegy 100-62.5-25 Mcg Ellipta 14 Dose/Dpi] 1 inh IH QPM 09/12/20 Furosemide [Lasix 40 mg Tablet] 40 mg PO QAM 09/12/20 Losartan Potassium [Cozaar 25 mg Tablet] 25 mg PO QPM 09/12/20 Potassium Chloride [Klor-Con 10 Meq Tablet ER] 10 meq PO QPM 09/12/20 Tolterodine Tartrate [Tolterodine Tartrate ER] 4 mg PO QPM 09/12/20 Topiramate [Topamax 100 Mg Tablet] 200 mg PO QPM 09/12/20 Allergies/Adverse Reactions: cephalexin monohydrate [From Keflex] Allergy (Severe, Verified 09/14/20 10:03) Anaphylaxis Penicillins Allergy (Intermediate, Verified 09/14/20 10:03) Generalized rash Beef Containing Products Allergy (Verified 01/26/17 04:59) latex [Latex] Allergy (Verified 01/26/17 04:59) Uausupw-Vom-Mug Reductase Inhibitor Adverse Reaction (Intermediate, Verified 01/26/17 04:59) Unknown reaction Review of Systems Constitutional: PRESENT: as per HPI Eyes: ABSENT: as per HPI, visual disturbances, other Ears: ABSENT: as per HPI, hearing changes, other Nose, Mouth, and Throat: ABSENT: as per HPI, headache(s), mouth pain, sore throat, vertigo, other Breasts: ABSENT: as per HPI, other Cardiovascular: PRESENT: as per HPI Respiratory: PRESENT: cough Gastrointestinal: PRESENT: bloating Genitourinary: ABSENT: as per HPI, difficulty urinating, dysuria, hematuria, nocturia, other Musculoskeletal: PRESENT: muscle weakness Integumentary: ABSENT: as per HPI, diaphoresis, erythema, lesions, pruritus, rash, wounds, other Neurological: ABSENT: as per HPI, abnormal gait, abnormal movements, abnormal speech, confusion, convulsions, dizziness, focal weakness, frequent falls, lack of coordination, memory loss, numbness, paresthesias, restless legs, syncope, tingling, tremor(s), vertigo, weakness, other Psychiatric: ABSENT: as per HPI, anxiety, depression, hallucinations, homidical ideation, suicidal ideation, other Endocrine: ABSENT: as per HPI, cold intolerance, flushing, heat intolerance, menstrual abnormalities, polydipsia, polyphagia, polyuria, other Hematologic/Lymphatic: ABSENT: as per HPI, easy bleeding, easy bruising, lymphadenopathy, other Allergic/Immunologic: ABSENT: as per HPI, seasonal rhinorrhea, other Physical Exam Vital Signs: Temp Pulse Resp BP Pulse Ox 98.1 F 59 L 18 116/49 L 94 09/22/20 08:58 09/22/20 08:50 09/22/20 08:50 09/22/20 07:44 09/22/20 08:50 Intake & Output 09/21/20 09/22/20 09/23/20 06:59 06:59 06:59 Intake Total 800 1198 Balance 800 1198 Weight 114.7 kg 61.6 kg General appearance: PRESENT: morbidly obese Head exam: PRESENT: normocephalic Eye exam: PRESENT: EOMI Ear exam: PRESENT: normal external ear exam Mouth exam: PRESENT: moist Teeth exam: PRESENT: poor dentation Neck exam: PRESENT: full ROM Respiratory exam: PRESENT: rhonchi Cardiovascular exam: PRESENT: RRR Pulses: PRESENT: normal radial pulses Breast: PRESENT: [place] GI/Abdominal exam: PRESENT: soft Rectal exam: PRESENT: deferred Extremities exam: PRESENT: full ROM Neurological exam: PRESENT: alert, awake, oriented to person, oriented to place Psychiatric exam: PRESENT: appropriate affect Skin exam: PRESENT: dry Results Laboratory Results: 09/16/20 05:10 09/17/20 10:55 09/11/20 21:27 Troponin I 0.012 NT-Pro-B Natriuret Pep 765 H Impressions: Chest CT 09/11/20 23:45 IMPRESSION: No acute abnormality. Chest X-Ray 09/12/20 00:00 IMPRESSION: No evidence of acute cardiopulmonary abnormality. Thoracic Spine MRI 09/16/20 00:00 IMPRESSION: 1. Thoracic spondylosis without suggestion of osteomyelitis or discitis. No evidence of high-grade central stenosis. 2. Spondylosis is also suggested in the lumbar spine, incompletely assessed. Modified Barium Swallow 09/18/20 08:35 IMPRESSION: LARYNGEAL PENETRATION WITHOUT ASPIRATION. PLEASE SEE SPEECH PATHOLOGIST REPORT FOR OTHER FINDINGS AND RECOMMENDATIONS. Head CT 09/20/20 00:00 IMPRESSION: 1. No acute intracranial hemorrhage is seen. 2. Mild cerebral atrophy and periventricular white matter changes are seen. Assessment & Plan - Plan Summary Plan Summary: Is an 80-year-old female with thoracic discitis will need IV antibiotics. Plan is for a Lopez catheter placement because of impending renal failure and need for vascular access in her arms, therefore PICC line cannot be placed. I explained the risks and benefits to the patient going bleeding infection pneumothorax failure of the catheter breakage of the catheter Need for additional surgery including chest tube placement she understands these risks and benefits and agrees to proceed. Patient will get a preoperative repeat Covid test and is scheduled for September 25.
[2020-09-22] MEDS: VANCOMYCIN HCL 750 MG in DEXTROSE 5%-WATER 250 ML IV SCH (13:04)
--- NOTE | 2020-09-22 13:48 | PDOC PROGRESS REPORT ---
Subjective Date:: 09/22/20 Subjective:: LOCO MARCUS is a 80 year old female past medical history of nonoxygen dependent COPD, CKD, asthma, peripheral neuropathy, CAD status post PCI to stent placement, chronic cough, presenting to ED complaining of fever, chills, chest ingestion, body aches, worsening productive cough, and generalized weakness. Patient is stating that she has history of nonoxygen dependent COPD and asthma and she has chronic cough but recently her cough has become productive with oatmeal colored phlegm, and coughing to the point that she is having sore back and abdomen, patient is also having subjective fever however denies any chest pain, nausea, vomiting, diarrhea, constipation or any urinary symptoms. She denies any recent travel, any exposure to anybody with COVID-19 infection or similar symptoms, or any recent hospitalization. In ED she was noted to be tachypneic, hypoxic, febrile, with UA positive for large leukocyte esterase, however chest x-ray, chest CT read as normal. Rapid influenza negative RSV and COVID-19 pending at the time of dictation. 09/18/2020. No acute events overnight. Patient is still complaining of persistent cough and back pain, denies any fever, chills, nausea, complaining of constipation, p.o. tolerant. Patient still having persistent bacteremia, pe nding ID recommendation. 09/19/2020. No acute events overnight. Saw patient this morning comfortably resting in bed no apparent distress, cough is improving, still complaining of constipation, denies any fever, chills, nausea, vomiting. P.o. tolerant. Patient is pending for WILL as recommended by infectious disease specialist. 09/20/2020. No acute events overnight. Patient is status post WILL prelim report did not show any source of endocarditis, patient cough has much improved, back pain is significantly improving, has not had a bowel movement, denies any fever, chills, nausea, vomiting. Possible discharge home tomorrow if blood culture remains negative and patient is able to get a PICC line. 09/21/2020. No acute events noted. Patient has had couple of bowel movements since yesterday, denies any fever, chills, nausea, vomiting, diarrhea, constipation or any urinary symptoms. Complaining of bilateral lower extremity pain that he attributes to his neuropathy. An order was placed for PICC line placement however radiology needs nephrology clearance before placing PICC line as patient has history of CKD. Nephrology has been consulted. Once PICC line has been placed patient can be sent home on 6 weeks of IV vancomycin as per ID recommendations. 09/22/2020. No acute events overnight, resting in bed no apparent distress, denies any fever, chills, nausea, vomiting, diarrhea. Had one bowel movement yesterday. Patient pending Lopez placement but unfortunately cannot be done until Friday. I have consulted Dr. Perales who has agreed to place it on Friday. Reason For Visit: ACUTE RESPIRATORY FAILURE,POSITIVE BLOOD CULTURES Physical Exam Vital Signs: Temp Pulse Resp BP Pulse Ox 98.1 F 59 L 18 116/49 L 94 09/22/20 08:58 09/22/20 08:50 09/22/20 08:50 09/22/20 07:44 09/22/20 08:50 Intake & Output 09/21/20 09/22/20 09/23/20 06:59 06:59 06:59 Intake Total 800 1198 Balance 800 1198 Weight 114.7 kg 61.6 kg General appearance: PRESENT: no acute distress, obese, well-developed, well- nourished Head exam: PRESENT: atraumatic, normocephalic Respiratory exam: PRESENT: clear to auscultation toni. ABSENT: rales, rhonchi, wheezes GI/Abdominal exam: PRESENT: normal bowel sounds, soft. ABSENT: distended, guarding, mass, organolmegaly, rebound, tenderness Neurological exam: PRESENT: alert, awake, oriented to person, oriented to place, oriented to time, oriented to situation, CN II-XII grossly intact. ABSENT: daniela r sensory deficit Results Laboratory Results: 09/16/20 05:10 09/17/20 10:55 09/11/20 21:27 Troponin I 0.012 NT-Pro-B Natriuret Pep 765 H Impressions: Chest CT 09/11/20 23:45 IMPRESSION: No acute abnormality. Chest X-Ray 09/12/20 00:00 IMPRESSION: No evidence of acute cardiopulmonary abnormality. Thoracic Spine MRI 09/16/20 00:00 IMPRESSION: 1. Thoracic spondylosis without suggestion of osteomyelitis or discitis. No evidence of high-grade central stenosis. 2. Spondylosis is also suggested in the lumbar spine, incompletely assessed. Modified Barium Swallow 09/18/20 08:35 IMPRESSION: LARYNGEAL PENETRATION WITHOUT ASPIRATION. PLEASE SEE SPEECH PATHOLOGIST REPORT FOR OTHER FINDINGS AND RECOMMENDATIONS. Head CT 09/20/20 00:00 IMPRESSION: 1. No acute intracranial hemorrhage is seen. 2. Mild cerebral atrophy and periventricular white matter changes are seen. Assessment and Plan - Diagnosis (1) Bacteremia Is this a current diagnosis for this admission?: Yes Plan: Pending Lopez placement. Repeat blood cultures negative x24 hours. 09/15/2020: 1/2 bottles Staphylococcus stimulants. 09/13/2020: 2/2 Staphylococcus stimulants. 09/11/2020: 2/2 Staphylococcus stimulants. Sputum cultures grew kim Throat culture grew kim. Urine culture with Klebsiella. No clear source for bacteremia; patient denies prosthetic devices, stents, pace maker, etc. MRI Thoracic spine without contrast is unremarkable except for spondylosis and degnerative changes. No suggestion of osteomyelitis or discitis. 2D echo suboptimal due to body habitus. ID recommendation is get WILL to rule out endocarditis add MRI with contrast to rule out discitis. Prelim WILL report negative for endocarditis. Unfortunately patient cannot receive gadolinium due to history of CKD stage III. As per ID note the fact that source remains unclear as high probability that she may have seeded her spine given endplate edema seen on noncontrasted MRI commendation is to treat for presumptive discitis/osteomyelitis with 6 weeks of IV vancomycin with a goal trough of 10-15. End date 10/31/2020. Weekly CBC, C MP, vancomycin trough need to be followed. Repeat MRI without contrast in a few weeks to see evolution is recommended. (2) Acute respiratory failure with hypoxia Is this a current diagnosis for this admission?: Yes Plan: Resolved. SPO2 WNL on RA Likely due to acute COPD and asthma exacerbation complicated by acute bronchitis. CT chest and chest x-ray negative for any acute abnormalities. Not a candidate for CTA as patient has history of CKD. Denies any recent travel, hospitalization or any exposure to COVID-19. Blood Cultures show staph hemolyticus Sputum cultures show kim Completed a course of IV Levaquin. Completed a course of IV steroids. Day 4/4 p.o. prednisone. Continue as needed DuoNebs, LAMA, LABA, ICS, flutter valve, incentive spirometry, pulmonary toileting. (3) Bronchitis Is this a current diagnosis for this admission?: Yes Plan: Resolved. As above. (4) Morbid obesity Is this a current diagnosis for this admission?: Yes Plan: BMI 34.7. Diet and lifestyle modification recommended. (5) Peripheral neuropathy Is this a current diagnosis for this admission?: Yes Plan: Denies any history of diabetes, any history of CVA or chemotherapy however has history of severe bilateral upper and lower extremity neuropathy. Continue home meds. (6) CKD (chronic kidney disease) Qualifiers: Chronic kidney disease stage: stage 3 (moderate) Is this a current diagnosis for this admission?: Yes Plan: At baseline renal function. Nonoliguric. Electrolytes WNL. Monitor volume status and electrolytes. Avoid nephrotoxic meds. Renally dose where appropriate. (7) COPD (chronic obstructive pulmonary disease) Qualifiers: COPD type: chronic bronchitis Chronic bronchitis type: mucopurulent Qualified Code(s): J41.1 - Mucopurulent chronic bronchitis Is this a current diagnosis for this admission?: Yes Plan: Plan as per #1. (8) UTI (urinary tract infection) Qualifiers: Urinary tract infection type: acute cystitis Is this a current diagnosis for this admission?: Yes Plan: Due to Klebsiella. Completed a course of renally dosed levofloxacin. Currently asymptomatic. (9) COPD exacerbation Is this a current diagnosis for this admission?: Yes Plan: As per #1. (10) Constipation Qualifiers: Constipation type: drug induced constipation Qualified Code(s): K59.03 - Drug induced constipation Is this a current diagnosis for this admission?: Yes Plan: Resolved. History of constipation likely due to chronic opioid intake. Continue current bowel regimen. - Time Time Spent with patient: 25-34 minutes Anticipated Discharge Disposition: Home with Home Health Anticipated Discharge Timeframe: within 72 hours
[2020-09-22] MEDS: CHOLECALCIFEROL (D3) 1,000 UNIT (25 MCG) TABLET PO SCH (17:04)
[2020-09-22] MEDS: DULOXETINE HCL 30 MG CAPSULE.DR PO SCH (17:05)
[2020-09-22] MEDS: MONTELUKAST SODIUM 10 MG TABLET PO SCH (17:06)
[2020-09-22] MEDS: ASPIRIN 325 MG TABLET, ENT COATED PO SCH (17:06)
[2020-09-22] MEDS: CETIRIZINE 10 MG TABLET PO SCH (17:06)
[2020-09-22] MEDS: TOPIRAMATE 100 MG TABLET PO SCH (17:07)
[2020-09-22] MEDS: FAMOTIDINE 20 MG TABLET PO SCH (21:48)
[2020-09-23] MEDS: OXYCODONE-ACETAMINOPHEN 5-325 MG TABLET PO PRN ×2 (00:40→14:17)
[2020-09-23] MEDS: IPRATROPIUM/ALBUTEROL 0.5-2.5 MG/3 ML AMPUL NEB SCH ×4 (02:20→21:21)
[2020-09-23 05:06] LABS: HEMATOCRIT 32.6 % (36.0-47.0); HEMOGLOBIN 10.5 g/dL (12.0-15.5); MEAN CORPUSCULAR HEMOGLOBIN 25.1 pg (27.0-33.4); MEAN CORPUSCULAR HGB CONC 32.2 g/dL (32.0-36.0); MEAN CORPUSCULAR VOLUME 78 fl (80-97); PLATELET COUNT 347 10^3/uL (150-450); WHITE BLOOD COUNT 11.8 10^3/uL (4.0-10.5)
[2020-09-23] MEDS: HEPARIN SOD (PORCINE) 5,000 UNIT/ML 1 ML VIAL SUBCUT SCH ×3 (05:14→21:38)
[2020-09-23] MEDS: GUAIFENESIN SYRP 200 MG/10 ML UDC PO SCH (05:15)
[2020-09-23] MEDS: LEVOTHYROXINE SODIUM 0.088 MG TABLET PO SCH (05:15)
[2020-09-23 05:29] LABS: ANION GAP 9 (5-19); BLOOD UREA NITROGEN 21 mg/dL (7-20); CALCIUM 8.1 mg/dL (8.4-10.2); CARBON DIOXIDE 24 mmol/L (22-30); CHLORIDE 104 mmol/L (98-107); GLUCOSE 103 mg/dL (75-110); POTASSIUM 3.6 mmol/L (3.6-5.0)
[2020-09-23] MEDS: DOCUSATE SODIUM 100 MG CAPSULE PO SCH ×2 (10:33→17:45)
[2020-09-23] MEDS: FUROSEMIDE 40 MG TABLET PO SCH ×2 (10:33→17:46)
[2020-09-23] MEDS: SODIUM BICARBONATE 650 MG TABLET PO SCH ×2 (10:33→21:38)
[2020-09-23] MEDS: GUAIFENESIN 600 MG TABLET.SA PO SCH ×2 (10:33→21:38)
[2020-09-23] MEDS: LEVOFLOXACIN 500 MG TABLET PO SCH (10:33)
[2020-09-23] MEDS: FLUTICASONE/UMECLIDIN/VILANTER 100-62.5-25 MCG/DOSE IH SCH (10:34)
[2020-09-23] MEDS: OXYBUTYNIN CHLORIDE 5 MG TABLET PO SCH ×2 (10:34→17:47)
--- NOTE | 2020-09-23 12:40 | PDOC PROGRESS REPORT ---
Subjective Date:: 09/23/20 Subjective:: LOCO MARCUS is a 80 year old female past medical history of nonoxygen dependent COPD, CKD, asthma, peripheral neuropathy, CAD status post PCI to stent placement, chronic cough, presenting to ED complaining of fever, chills, chest ingestion, body aches, worsening productive cough, and generalized weakness. Patient is stating that she has history of nonoxygen dependent COPD and asthma and she has chronic cough but recently her cough has become productive with oatmeal colored phlegm, and coughing to the point that she is having sore back and abdomen, patient is also having subjective fever however denies any chest pain, nausea, vomiting, diarrhea, constipation or any urinary symptoms. She denies any recent travel, any exposure to anybody with COVID-19 infection or similar symptoms, or any recent hospitalization. In ED she was noted to be tachypneic, hypoxic, febrile, with UA positive for large leukocyte esterase, however chest x-ray, chest CT read as normal. Rapid influenza negative RSV and COVID-19 pending at the time of dictation. 09/18/2020. No acute events overnight. Patient is still complaining of persistent cough and back pain, denies any fever, chills, nausea, complaining of constipation, p.o. tolerant. Patient still having persistent bacteremia, pe nding ID recommendation. 09/19/2020. No acute events overnight. Saw patient this morning comfortably resting in bed no apparent distress, cough is improving, still complaining of constipation, denies any fever, chills, nausea, vomiting. P.o. tolerant. Patient is pending for WILL as recommended by infectious disease specialist. 09/20/2020. No acute events overnight. Patient is status post WILL prelim report did not show any source of endocarditis, patient cough has much improved, back pain is significantly improving, has not had a bowel movement, denies any fever, chills, nausea, vomiting. Possible discharge home tomorrow if blood culture remains negative and patient is able to get a PICC line. 09/21/2020. No acute events noted. Patient has had couple of bowel movements since yesterday, denies any fever, chills, nausea, vomiting, diarrhea, constipation or any urinary symptoms. Complaining of bilateral lower extremity pain that he attributes to his neuropathy. An order was placed for PICC line placement however radiology needs nephrology clearance before placing PICC line as patient has history of CKD. Nephrology has been consulted. Once PICC line has been placed patient can be sent home on 6 weeks of IV vancomycin as per ID recommendations. 09/22/2020. No acute events overnight, resting in bed no apparent distress, denies any fever, chills, nausea, vomiting, diarrhea. Had one bowel movement yesterday. Patient pending Lopez placement but unfortunately cannot be done until Friday. I have consulted Dr. Perales who has agreed to place it on Friday. 09/23/2020. No acute events overnight. Comfortably resting in bed, in no apparent distress, denies any fever, chills, nausea, vomiting, diarrhea, constipation or any urinary symptoms. Noted to have mild crackles on right lower line of the patient developing mild leukocytosis. Pending exact placement on Friday. Reason For Visit: ACUTE RESPIRATORY FAILURE,POSITIVE BLOOD CULTURES Physical Exam Vital Signs: Temp Pulse Resp BP Pulse Ox 98.3 F 66 14 124/63 94 09/23/20 07:48 09/23/20 08:38 09/23/20 08:38 09/23/20 07:48 09/23/20 08:38 Intake & Output 09/22/20 09/23/20 09/24/20 06:59 06:59 06:59 Intake Total 1198 1010 Balance 1198 1010 Weight 61.6 kg 111.6 kg General appearance: PRESENT: no acute distress, well-developed, well-nourished Head exam: PRESENT: atraumatic, normocephalic Respiratory exam: PRESENT: clear to auscultation toni, crackles - Right lung base. ABSENT: rales, rhonchi, wheezes GI/Abdominal exam: PRESENT: normal bowel sounds, soft. ABSENT: distended, g uarding, mass, organolmegaly, rebound, tenderness Neurological exam: PRESENT: alert, awake, oriented to person, oriented to place, oriented to time, oriented to situation, CN II-XII grossly intact. ABSENT: motor sensory deficit Skin exam: PRESENT: dry, intact, warm. ABSENT: cyanosis, rash Results Laboratory Results: 09/23/20 04:27 09/23/20 04:27 09/23/20 09/23/20 04:27 04:27 WBC 11.8 H RBC 4.20 Hgb 10.5 L Hct 32.6 L MCV 78 L MCH 25.1 L MCHC 32.2 RDW 18.0 H Plt Count 347 Sodium 136.5 L Potassium 3.6 Chloride 104 Carbon Dioxide 24 Anion Gap 9 BUN 21 H Creatinine 1.86 H Est GFR ( Amer) 31 L Glucose 103 Calcium 8.1 L 09/11/20 21:27 Troponin I 0.012 NT-Pro-B Natriuret Pep 765 H Impressions: Chest CT 09/11/20 23:45 IMPRESSION: No acute abnormality. Chest X-Ray 09/12/20 00:00 IMPRESSION: No evidence of acute cardiopulmonary abnormality. Thoracic Spine MRI 09/16/20 00:00 IMPRESSION: 1. Thoracic spondylosis without suggestion of osteomyelitis or discitis. No evidence of high-grade central stenosis. 2. Spondylosis is also suggested in the lumbar spine, incompletely assessed. Modified Barium Swallow 09/18/20 08:35 IMPRESSION: LARYNGEAL PENETRATION WITHOUT ASPIRATION. PLEASE SEE SPEECH PATHOLOGIST REPORT FOR OTHER FINDINGS AND RECOMMENDATIONS. Head CT 09/20/20 00:00 IMPRESSION: 1. No acute intracranial hemorrhage is seen. 2. Mild cerebral atrophy and periventricular white matter changes are seen. Assessment and Plan - Diagnosis (1) Bacteremia Is this a current diagnosis for this admission?: Yes Plan: Pending Lopez placement. Repeat blood cultures negative x24 hours. 09/15/2020: 1/2 bottles Staphylococcus stimulants. 09/13/2020: 2/2 Staphylococcus stimulants. 09/11/2020: 2/2 Staphylococcus stimulants. Sputum cultures grew kim Throat culture grew kim. Urine culture with Klebsiella. No clear source for bacteremia; patient denies prosthetic devices, stents, pace maker, etc. MRI Thoracic spine without contrast is unremarkable except for spondylosis and degnerative changes. No suggestion of osteomyelitis or discitis. 2D echo suboptimal due to body habitus. ID recommendation is get WILL to rule out endocarditis add MRI with contrast to rule out discitis. Prelim WILL report negative for endocarditis. Unfortunately patient cannot receive gadolinium due to history of CKD stage III. As per ID note the fact that source remains unclear as high probability that she may have seeded her spine given endplate edema seen on noncontrasted MRI commendation is to treat for presumptive discitis/osteomyelitis with 6 weeks of IV vancomycin with a goal trough of 10-15. End date 10/31/2020. Weekly CBC, CMP, vancomycin trough need to be followed. Repeat MRI without contrast in a few weeks to see evolution is recommended. (2) Acute respiratory failure with hypoxia Is this a current diagnosis for this admission?: Yes Plan: Resolved. SPO2 WNL on RA Likely due to acute COPD and asthma exacerbation complicated by acute bronchitis. CT chest and chest x-ray negative for any acute abnormalities. Not a candidate for CTA as patient has history of CKD. Denies any recent travel, hospitalization or any exposure to COVID-19. Blood Cultures show staph hemolyticus Sputum cultures show kim Completed a course of IV Levaquin. Completed a course of IV steroids. Day 4/4 p.o. prednisone. Continue as needed DuoNebs, LAMA, LABA, ICS, flutter valve, incentive spirometry, pulmonary toileting. (3) Bronchitis Is this a current diagnosis for this admission?: Yes Plan: Resolved. As above. (4) Morbid obesity Is this a current diagnosis for this admission?: Yes Plan: BMI 34.7. Diet and lifestyle modification recommended. (5) Peripheral neuropathy Is this a current diagnosis for this admission?: Yes Plan: Denies any history of diabetes, any history of CVA or chemotherapy however has history of severe bilateral upper and lower extremity neuropathy. Continue home meds. (6) CKD (chronic kidney disease) Qualifiers: Chronic kidney disease stage: stage 3 (moderate) Is this a current diagnosis for this admission?: Yes Plan: At baseline renal function. Nonoliguric. Electrolytes WNL. Monitor volume status and electrolytes. Avoid nephrotoxic meds. Renally dose where appropriate. (7) COPD (chronic obstructive pulmonary disease) Qualifiers: COPD type: chronic bronchitis Chronic bronchitis type: mucopurulent Qu alified Code(s): J41.1 - Mucopurulent chronic bronchitis Is this a current diagnosis for this admission?: Yes Plan: Plan as per #1. (8) UTI (urinary tract infection) Qualifiers: Urinary tract infection type: acute cystitis Is this a current diagnosis for this admission?: Yes Plan: Due to Klebsiella. Completed a course of renally dosed levofloxacin. Currently asymptomatic. (9) COPD exacerbation Is this a current diagnosis for this admission?: Yes Plan: As per #1. (10) Constipation Qualifiers: Constipation type: drug induced constipation Qualified Code(s): K59.03 - Drug induced constipation Is this a current diagnosis for this admission?: Yes Plan: Resolved. History of constipation likely due to chronic opioid intake. Continue current bowel regimen. - Time Time Spent with patient: 35 or more minutes Anticipated Discharge Disposition: Home with Home Health Anticipated Discharge Timeframe: within 72 hours
[2020-09-23] MEDS: VANCOMYCIN HCL 750 MG in DEXTROSE 5%-WATER 250 ML IV SCH (14:17)
[2020-09-23] MEDS: CHOLECALCIFEROL (D3) 1,000 UNIT (25 MCG) TABLET PO SCH (17:45)
[2020-09-23] MEDS: DULOXETINE HCL 30 MG CAPSULE.DR PO SCH (17:45)
[2020-09-23] MEDS: CETIRIZINE 10 MG TABLET PO SCH (17:46)
[2020-09-23] MEDS: ASPIRIN 325 MG TABLET, ENT COATED PO SCH (17:46)
[2020-09-23] MEDS: MONTELUKAST SODIUM 10 MG TABLET PO SCH (17:46)
[2020-09-23] MEDS: TOPIRAMATE 100 MG TABLET PO SCH (17:47)
[2020-09-23] MEDS: FAMOTIDINE 20 MG TABLET PO SCH (21:38)
[2020-09-24] MEDS: IPRATROPIUM/ALBUTEROL 0.5-2.5 MG/3 ML AMPUL NEB SCH ×4 (02:15→19:32)
[2020-09-24] MEDS: OXYCODONE-ACETAMINOPHEN 5-325 MG TABLET PO PRN ×3 (05:33→23:37)
[2020-09-24] MEDS: LEVOTHYROXINE SODIUM 0.088 MG TABLET PO SCH (05:33)
[2020-09-24] MEDS: HEPARIN SOD (PORCINE) 5,000 UNIT/ML 1 ML VIAL SUBCUT SCH (05:33)
[2020-09-24 05:41] LABS: HEMATOCRIT 32.8 % (36.0-47.0); HEMOGLOBIN 10.7 g/dL (12.0-15.5); MEAN CORPUSCULAR HEMOGLOBIN 25.4 pg (27.0-33.4); MEAN CORPUSCULAR HGB CONC 32.5 g/dL (32.0-36.0); MEAN CORPUSCULAR VOLUME 78 fl (80-97); PLATELET COUNT 334 10^3/uL (150-450); RED CELL DISTRIBUTION WIDTH 18.1 % (11.5-14.0); WHITE BLOOD COUNT 12.7 10^3/uL (4.0-10.5)
[2020-09-24 06:02] LABS: ANION GAP 9 (5-19); BLOOD UREA NITROGEN 19 mg/dL (7-20); CALCIUM 8.2 mg/dL (8.4-10.2); CARBON DIOXIDE 24 mmol/L (22-30); CHLORIDE 102 mmol/L (98-107); GLUCOSE 116 mg/dL (75-110); POTASSIUM 3.4 mmol/L (3.6-5.0)
[2020-09-24 06:13] LABS: ABSOLUTE LYMPHOCYTES# (MANUAL) 2.5 10^3/uL (0.5-4.7); ABSOLUTE MONOCYTES # (MANUAL) 1.1 10^3/uL (0.1-1.4); ANISOCYTOSIS 1+; BASOPHILS % (MANUAL) 0 % (0-2); EOSINOPHILS % (MANUAL) 4 % (0-6); LYMPHOCYTES % (MANUAL) 20 % (13-45); MONOCYTES % (MANUAL) 9 % (3-13); PLATELET COMMENT ADEQUATE; SEGMENTED NEUTROPHILS % (MAN) 67 % (42-78); TOTAL CELLS COUNTED 100
[2020-09-24 06:14] LABS: HYPOCHROMASIA SLIGHT
[2020-09-24 06:15] LABS: OVALOCYTES 1+; POLYCHROMASIA SLIGHT
[2020-09-24 06:16] LABS: TEAR DROP CELLS SLIGHT
[2020-09-24] MEDS: SODIUM BICARBONATE 650 MG TABLET PO SCH ×2 (10:38→21:19)
[2020-09-24] MEDS: DOCUSATE SODIUM 100 MG CAPSULE PO SCH ×2 (10:38→18:14)
[2020-09-24] MEDS: GUAIFENESIN 600 MG TABLET.SA PO SCH ×2 (10:38→21:19)
[2020-09-24] MEDS: LEVOFLOXACIN 500 MG TABLET PO SCH (10:38)
[2020-09-24] MEDS: FUROSEMIDE 40 MG TABLET PO SCH (10:38)
[2020-09-24] MEDS: OXYBUTYNIN CHLORIDE 5 MG TABLET PO SCH ×2 (10:39→18:15)
[2020-09-24] MEDS: FLUTICASONE/UMECLIDIN/VILANTER 100-62.5-25 MCG/DOSE IH SCH (10:39)
--- NOTE | 2020-09-24 12:45 | PDOC PROGRESS REPORT ---
Subjective Date:: 09/24/20 Subjective:: LOCO MARCUS is a 80 year old female past medical history of nonoxygen dependent COPD, CKD, asthma, peripheral neuropathy, CAD status post PCI to stent placement, chronic cough, presenting to ED complaining of fever, chills, chest ingestion, body aches, worsening productive cough, and generalized weakness. Patient is stating that she has history of nonoxygen dependent COPD and asthma and she has chronic cough but recently her cough has become productive with oatmeal colored phlegm, and coughing to the point that she is having sore back and abdomen, patient is also having subjective fever however denies any chest pain, nausea, vomiting, diarrhea, constipation or any urinary symptoms. She denies any recent travel, any exposure to anybody with COVID-19 infection or similar symptoms, or any recent hospitalization. In ED she was noted to be tachypneic, hypoxic, febrile, with UA positive for large leukocyte esterase, however chest x-ray, chest CT read as normal. Rapid influenza negative RSV and COVID-19 pending at the time of dictation. 09/18/2020. No acute events overnight. Patient is still complaining of persistent cough and back pain, denies any fever, chills, nausea, complaining of constipation, p.o. tolerant. Patient still having persistent bacteremia, pe nding ID recommendation. 09/19/2020. No acute events overnight. Saw patient this morning comfortably resting in bed no apparent distress, cough is improving, still complaining of constipation, denies any fever, chills, nausea, vomiting. P.o. tolerant. Patient is pending for WILL as recommended by infectious disease specialist. 09/20/2020. No acute events overnight. Patient is status post WILL prelim report did not show any source of endocarditis, patient cough has much improved, back pain is significantly improving, has not had a bowel movement, denies any fever, chills, nausea, vomiting. Possible discharge home tomorrow if blood culture remains negative and patient is able to get a PICC line. 09/21/2020. No acute events noted. Patient has had couple of bowel movements since yesterday, denies any fever, chills, nausea, vomiting, diarrhea, constipation or any urinary symptoms. Complaining of bilateral lower extremity pain that he attributes to his neuropathy. An order was placed for PICC line placement however radiology needs nephrology clearance before placing PICC line as patient has history of CKD. Nephrology has been consulted. Once PICC line has been placed patient can be sent home on 6 weeks of IV vancomycin as per ID recommendations. 09/22/2020. No acute events overnight, resting in bed no apparent distress, denies any fever, chills, nausea, vomiting, diarrhea. Had one bowel movement yesterday. Patient pending Lopez placement but unfortunately cannot be done until Friday. I have consulted Dr. Perales who has agreed to place it on Friday. 09/23/2020. No acute events overnight. Comfortably resting in bed, in no apparent distress, denies any fever, chills, nausea, vomiting, diarrhea, constipation or any urinary symptoms. Noted to have mild crackles on right lower line of the patient developing mild leukocytosis. Pending exact placement on Friday. 09/24/2020. No acute events overnight. Comfortably resting in bed no apparent distress, accompanied by her daughter. Denies any fever, chills, nausea, vomiting. Reason For Visit: ACUTE RESPIRATORY FAILURE,POSITIVE BLOOD CULTURES Physical Exam Vital Signs: Temp Pulse Resp BP Pulse Ox 98.3 F 86 16 119/56 L 92 09/24/20 08:35 09/24/20 08:40 09/24/20 08:40 09/24/20 08:33 09/24/20 08:40 Intake & Output 09/23/20 09/24/20 09/25/20 06:59 06:59 06:59 Intake Total 1010 1591 Balance 1010 1591 Weight 111.6 kg 111.8 kg General appearance: PRESENT: morbidly obese Head exam: PRESENT: atraumatic, normocephalic Respiratory exam: PRESENT: clear to auscultation toni. ABSENT: rales, rhonchi, wheezes Cardiovascular exam: PRESENT: RRR. ABSENT: diastolic murmur, rubs, systolic murmur GI/Abdominal exam: PRESENT: normal bowel sounds, soft. ABSENT: distended, guarding, mass, organolmegaly, rebound, tenderness Neurological exam: PRESENT: alert, awake, oriented to person, oriented to place, oriented to time, oriented to situation, CN II-XII grossly intact. ABSENT: motor sensory deficit Results Laboratory Results: 09/24/20 04:21 09/24/20 09/24/20 04:21 04:24 WBC 12.7 H RBC 4.20 Hgb 10.7 L Hct 32.8 L MCV 78 L MCH 25.4 L MCHC 32.5 RDW 18.1 H Plt Count 334 Seg Neutrophils % Not Reportable Sodium 135.3 L Potassium 3.4 L Chloride 102 Carbon Dioxide 24 Anion Gap 9 BUN 19 Creatinine 2.08 H Est GFR ( Amer) 28 L Glucose 116 H Calcium 8.2 L 09/19/20 08:30 Blood Blood Culture - Final NO GROWTH IN 5 DAYS 09/19/20 08:17 Blood Blood Culture - Final NO GROWTH IN 5 DAYS 09/11/20 21:27 Troponin I 0.012 NT-Pro-B Natriuret Pep 765 H Impressions: Chest CT 09/11/20 23:45 IMPRESSION: No acute abnormality. Chest X-Ray 09/12/20 00:00 IMPRESSION: No evidence of acute cardiopulmonary abnormality. Thoracic Spine MRI 09/16/20 00:00 IMPRESSION: 1. Thoracic spondylosis without suggestion of osteomyelitis or discitis. No evidence of high-grade central stenosis. 2. Spondylosis is also suggested in the lumbar spine, incompletely assessed. Modified Barium Swallow 09/18/20 08:35 IMPRESSION: LARYNGEAL PENETRATION WITHOUT ASPIRATION. PLEASE SEE SPEECH PATHOLOGIST REPORT FOR OTHER FINDINGS AND RECOMMENDATIONS. Head CT 09/20/20 00:00 IMPRESSION: 1. No acute intracranial hemorrhage is seen. 2. Mild cerebral atrophy and periventricular white matter changes are seen. Assessment and Plan - Diagnosis (1) Bacteremia Is this a current diagnosis for this admission?: Yes Plan: Pending Lopez placement. Repeat blood cultures negative x24 hours. 09/15/2020: 1/2 bottles Staphylococcus stimulants. 09/13/2020: 2/2 Staphylococcus stimulants. 09/11/2020: 2/2 Staphylococcus stimulants. Sputum cultures grew kim Throat culture grew kim. Urine culture with Klebsiella. No clear source for bacteremia; patient denies prosthetic devices, stents, pace maker, etc. MRI Thoracic spine without contrast is unremarkable except for spondylosis and degnerative changes. No suggestion of osteomyelitis or discitis. 2D echo suboptimal due to body habitus. ID recommendation is get WILL to rule out endocarditis add MRI with contrast to rule out discitis. Prelim WILL report negative for endocarditis. Unfortunately patient cannot receive gadolinium due to history of CKD stage III. As per ID note the fact that source remains unclear as high probability that she may have seeded her spine given endplate edema seen on noncontrasted MRI commendation is to treat for presumptive discitis/osteomyelitis with 6 weeks of IV vancomycin with a goal trough of 10-15. End date 10/31/2020. Weekly CBC, CMP, vancomycin trough need to be followed. Repeat MRI without contrast in a few weeks to see evolution is recommended. (2) Acute respiratory failure with hypoxia Is this a current diagnosis for this admission?: Yes Plan: Resolved. SPO2 WNL on RA Likely due to acute COPD and asthma exacerbation complicated by acute bronchitis. CT chest and chest x-ray negative for any acute abnormalities. Not a candidate for CTA as patient has history of CKD. Denies any recent travel, hospitalization or any exposure to COVID-19. Blood Cultures show staph hemolyticus Sputum cultures show kim Completed a course of IV Levaquin. Completed a course of IV steroids. Day 4/4 p.o. prednisone. Continue as needed DuoNebs, LAMA, LABA, ICS, flutter valve, incentive spirometry, pulmonary toileting. (3) Bronchitis Is this a current diagnosis for this admission?: Yes Plan: Resolved. As above. (4) Morbid obesity Is this a current diagnosis for this admission?: Yes Plan: BMI 34.7. Diet and lifestyle modification recommended. (5) Peripheral neuropathy Is this a current diagnosis for this admission?: Yes Plan: Denies any history of diabetes, any history of CVA or chemotherapy however has history of severe bilateral upper and lower extremity neuropathy. Continue home meds. (6) CKD (chronic kidney disease) Qualifiers: Chronic kidney disease stage: stage 3 (moderate) Is this a current diagnosis for this admission?: Yes Plan: At baseline renal function. Nonoliguric. Electrolytes WNL. Monitor volume status and electrolytes. Avoid nephrotoxic meds. Renally dose where appropriate. (7) COPD (chronic obstructive pulmonary disease) Qualifiers: COPD type: chronic bronchitis Chronic bronchitis type: mucopurulent Qualified Code(s): J41.1 - Mucopurulent chronic bronchitis Is this a current diagnosis for this admission?: Yes Plan: Plan as per #1. (8) UTI (urinary tract infection) Qualifiers: Urinary tract infection type: acute cystitis Is this a current diagnosis for this admission?: Yes Plan: Due to Klebsiella. Completed a course of renally dosed levofloxacin. Currently asymptomatic. (9) COPD exacerbation Is this a current diagnosis for this admission?: Yes Plan: As per #1. (10) Constipation Qualifiers: Constipation type: drug induced constipation Qualified Code(s): K59.03 - Drug induced constipation Is this a current diagnosis for this admission?: Yes Plan: Resolved. History of constipation likely due to chronic opioid intake. Continue current bowel regimen. - Time Time Spent with patient: 35 or more minutes Anticipated Discharge Disposition: Home with Home Health Anticipated Discharge Timeframe: within 24 hours
[2020-09-24 13:09] LABS: VANCOMYCIN,TROUGH 18.4 ug/mL (5.0-20.0)
[2020-09-24] MEDS: VANCOMYCIN HCL 750 MG in DEXTROSE 5%-WATER 250 ML IV SCH (14:02)
[2020-09-24] MEDS: CHOLECALCIFEROL (D3) 1,000 UNIT (25 MCG) TABLET PO SCH (18:14)
[2020-09-24] MEDS: ASPIRIN 325 MG TABLET, ENT COATED PO SCH (18:14)
[2020-09-24] MEDS: DULOXETINE HCL 30 MG CAPSULE.DR PO SCH (18:14)
[2020-09-24] MEDS: TOPIRAMATE 100 MG TABLET PO SCH (18:15)
[2020-09-24] MEDS: CETIRIZINE 10 MG TABLET PO SCH (18:15)
[2020-09-24] MEDS: MONTELUKAST SODIUM 10 MG TABLET PO SCH (18:15)
[2020-09-24] MEDS: FAMOTIDINE 20 MG TABLET PO SCH (21:19)
[2020-09-25] MEDS: IPRATROPIUM/ALBUTEROL 0.5-2.5 MG/3 ML AMPUL NEB SCH ×3 (02:23→19:25)
[2020-09-25] MEDS: LEVOTHYROXINE SODIUM 0.088 MG TABLET PO SCH (05:01)
[2020-09-25 05:09] LABS: HEMATOCRIT 34.1 % (36.0-47.0); HEMOGLOBIN 11.1 g/dL (12.0-15.5); MEAN CORPUSCULAR HEMOGLOBIN 25.6 pg (27.0-33.4); MEAN CORPUSCULAR HGB CONC 32.6 g/dL (32.0-36.0); MEAN CORPUSCULAR VOLUME 79 fl (80-97); PLATELET COUNT 317 10^3/uL (150-450); RED BLOOD COUNT 4.34 10^6/uL (3.72-5.28); RED CELL DISTRIBUTION WIDTH 18.3 % (11.5-14.0); WHITE BLOOD COUNT 10.2 10^3/uL (4.0-10.5)
[2020-09-25 05:31] LABS: ANION GAP 11 (5-19); BLOOD UREA NITROGEN 20 mg/dL (7-20); CALCIUM 8.6 mg/dL (8.4-10.2); CARBON DIOXIDE 20 mmol/L (22-30); CHLORIDE 102 mmol/L (98-107); GLUCOSE 125 mg/dL (75-110); POTASSIUM 3.5 mmol/L (3.6-5.0)
[2020-09-25] MEDS ORDERED: VANCOMYCIN HCL 1,250 MG in DEXTROSE 5%-WATER 250 ML IV SCH (10:00)
[2020-09-25] MEDS: LEVOFLOXACIN 500 MG TABLET PO SCH (10:03)
[2020-09-25] MEDS: FUROSEMIDE 40 MG TABLET PO SCH (10:03)
[2020-09-25] MEDS: GUAIFENESIN 600 MG TABLET.SA PO SCH (10:03)
[2020-09-25] MEDS: OXYBUTYNIN CHLORIDE 5 MG TABLET PO SCH (10:03)
[2020-09-25] MEDS: SODIUM BICARBONATE 650 MG TABLET PO SCH (10:03)
[2020-09-25] MEDS: DOCUSATE SODIUM 100 MG CAPSULE PO SCH (10:04)
[2020-09-25] MEDS: FLUTICASONE/UMECLIDIN/VILANTER 100-62.5-25 MCG/DOSE IH SCH (10:05)
[2020-09-25 10:20] LABS: ALKALINE PHOSPHATASE 86 U/L (38-126); ASPARTATE AMINO TRANSFERASE 20 U/L (14-36); BILIRUBIN,DIRECT 0.4 mg/dL (0.0-0.4); BILIRUBIN,TOTAL 0.5 mg/dL (0.2-1.3); TOTAL PROTEIN 6.6 g/dL (6.3-8.2)
[2020-09-25] MEDS ORDERED: ONDANSETRON HCL INJ/PF 4 MG/2 ML SDV IV PRN (11:00)
[2020-09-25] MEDS ORDERED: MIDAZOLAM 2 MG/2 ML INJ ONE (11:59)
[2020-09-25] MEDS ORDERED: FENTANYL CITRATE INJ/PF 100 MCG/2 ML AMPUL ONE ×2 (11:59→14:13)
[2020-09-25] MEDS ORDERED: ONDANSETRON HCL INJ/PF 4 MG/2 ML SDV ONE (11:59)
[2020-09-25] MEDS ORDERED: PROPOFOL INJ 200 MG/20 ML VIAL IV ONE ×2 (12:00→13:29)
[2020-09-25] MEDS ORDERED: LIDOCAINE 1%/EPINEPHRINE INJ 20 ML VIAL ONE (12:04)
[2020-09-25] MEDS ORDERED: HEPARIN SODIUM,PORCINE/NS/PF 0 UNIT/0 ML RTUINJ IV ONE (12:04)
[2020-09-25] MEDS ORDERED: HEPARIN SOD (PORCINE) 1,000 UNIT/ML 1 ML VIAL ONE (12:11)
--- NOTE | 2020-09-25 12:17 | RADIOLOGY REPORT (SQ) ---
EXAM DESCRIPTION: U/S ABDOMEN LTD W/DOPPLER IMAGES COMPLETED DATE/TIME: 09/25/2020 10:42 am REASON FOR STUDY: RUQ Abd pain N39.0 URINARY TRACT INFECTION, SITE NOT SPECIFIED R78.81 BACTEREMIA COMPARISON: 05/04/2020 TECHNIQUE: Dynamic and static grayscale images acquired of the abdomen and recorded on PACS. Additio nal selected color Doppler and spectral images recorded. LIMITATIONS: None. FINDINGS: PANCREAS: No masses. Visualized pancreatic duct normal caliber. LIVER: Increased echogenicity. No masses. LIVER VASCULATURE: Normal directional flow of the main portal vein and hepatic veins. GALLBLADDER: Surgically absent. ULTRASOUND-DETECTED SPRAGUE'S SIGN: Not applicable. INTRAHEPATIC DUCTS AND COMMON DUCT: CBD and intrahepatic ducts normal caliber. No filling defects. AORTA: No aneurysm. RIGHT KIDNEY: Normal size, 9.1 cm. Cortical thinning. Increased echogenicity. No solid or suspicio us masses. No hydronephrosis. No calcifications. PERITONEAL AND RIGHT PLEURAL SPACE: No ascites or effusions. OTHER: No other significant findings. IMPRESSION: Hepatic steatosis. Atrophic changes in the right kidney. TECHNICAL DOCUMENTATION: JOB ID: [id number] [employer]- All Rights Reserved Reading location - IP/workstation name: [email or web address]
[2020-09-25] MEDS ORDERED: PHENYLEPHRINE HCL INJ/PF 10 MG/1 ML SDV ONE (12:30)
[2020-09-25] MEDS ORDERED: DIPHENHYDRAMINE HCL 50 MG/ML VIAL IV PRN (12:50)
[2020-09-25] MEDS ORDERED: FENTANYL CITRATE INJ/PF 100 MCG/2 ML AMPUL IV PRN ×3 (12:50)
[2020-09-25] MEDS ORDERED: PROMETHAZINE HCL INJ 25 MG/1 ML VIAL IV PRN ×2 (12:50)
--- NOTE | 2020-09-25 13:57 | Operative Report ---
Nonrecallable Operative Report DATE OF SURGERY: 09/25/20 PREOPERATIVE DIAGNOSIS: Thoracic osteomyelitis POSTOPERATIVE DIAGNOSIS: Same OPERATION: Lopez catheter placement SURGEON: COLLEEN VARGAS ANESTHESIA: Moderate Sedation TISSUE REMOVED OR ALTERED: None COMPLICATIONS: None ESTIMATED BLOOD LOSS: 25 cc INTRAOPERATIVE FINDINGS: See note PROCEDURE: Patient was brought to the operating awake alert stable condition placed in the upper table supine position i given IV sedation. The right neck and chest were prepped and draped in usual sterile fashion. After appropriate timeout and site verification the procedure commenced. Initially we attempted a right jugular access however after multiple attempts using ultrasound and without ultrasound we were unable to access the right internal jugular vein. However I was able to access the external jugular vein with a 16-gauge needle and through that needle we placed a wire which was easily passed into the superior vena cava we then used the dilator introducer came with the dual-lumen Lopez catheter. I placed the dilator introducer into the external jugular vein which traversed into the superior vena cava. The wire was removed the catheter was then tunneled from the right anterior chest wall after anesthetizing the skin and making a small incision over the lateral anterior chest. Once the catheter was tunneled underneath the skin to the external jugular vein stick site we passed into the tear-away introducer which was torn away. However after multiple attempts it was obvious that the catheter had a kink in it and would not flow or withdrew well. For this reason this site was abandoned and the catheter was removed. We then turned attention to the right subclavian vein. Able to access the right subclavian vein with a 16-gauge needle and through that we placed the tear-away introducer. That was confirmed in good position on fluoroscopy. A point was picked on the right anterior chest wall where we tunneled the single-lumen Lopez catheter from the right anterior chest wall to the subclavian stick site we passed the catheter into the tear- away introducer which was torn away. The tip of the catheter was lying just above the right atrium and fluid and flowed and withdrew easily. We then fixed the catheter to the skin with 3-0 nylon we closed the internal jugular skin incision with four oh Caprosyn and Steri-Strips were applied to complete the procedure. A sterile dressing was applied over the Lopez catheter. The patient was then returned to recovery in stable condition chest x-ray is pending.
[2020-09-25] MEDS ORDERED: OXYCODONE-ACETAMINOPHEN 5-325 MG TABLET ONE (14:13)
--- NOTE | 2020-09-25 14:28 | RADIOLOGY REPORT (SQ) ---
EXAM DESCRIPTION: CHEST SINGLE VIEW IMAGES COMPLETED DATE/TIME: 09/25/2020 2:14 pm REASON FOR STUDY: POST SURGICAL PLACMENT OF GRUBBS CATHETER COMPARISON: 09/12/2020 EXAM PARAMETERS: NUMBER OF VIEWS: One view. TECHNIQUE: Single frontal radiographic view of the chest acquired. RADIATION DOSE: NA LIMITATIONS: None. FINDINGS: LUNGS AND PLEURA: Slight linear parenchymal opacities at the lung bases may be on the bas is of atelectasis or early infiltrates. Very small pleural effusions may be present. No pneumothora x. MEDIASTINUM AND HILAR STRUCTURES: No masses. Contour normal. HEART AND VASCULAR STRUCTURES: Heart normal in size. Normal vasculature. BONES: No acute findings. HARDWARE: Interval placement of right central venous catheter with the tip in the region of the SVC. OTHER: No other significant finding. IMPRESSION: 1. Interval placement of right central venous catheter with the tip in the region of the SVC since the prior study dated 09/12/2020. No evidence of pneumothorax. 2. Bibasilar linear opacities may represent atelectasis or early infiltrates. Very small pleural ef fusions suggested. TECHNICAL DOCUMENTATION: JOB ID: [id number] 2010 [employer]- All Rights Reserved Reading location - IP/workstation name: [email or web address]
--- NOTE | 2020-09-25 16:01 | PDOC DISCHARGE SUMMARY ---
Impression - Admit/DC Date/PCP Admission Date/Primary Care Provider: 09/13/20 10:14 HAZEL RAE MD Discharge Date: 09/25/20 - Discharge Diagnosis (1) Bacteremia Is this a current diagnosis for this admission?: Yes (2) Acute respiratory failure with hypoxia Is this a current diagnosis for this admission?: Yes (3) Bronchitis Is this a current diagnosis for this admission?: Yes (4) Morbid obesity Is this a current diagnosis for this admission?: Yes (5) Peripheral neuropathy Is this a current diagnosis for this admission?: Yes (6) CKD (chronic kidney disease) Is this a current diagnosis for this admission?: Yes (7) COPD (chronic obstructive pulmonary disease) Is this a current diagnosis for this admission?: Yes (8) UTI (urinary tract infection) Is this a current diagnosis for this admission?: Yes (9) COPD exacerbation Is this a current diagnosis for this admission?: Yes (10) Constipation Is this a current diagnosis for this admission?: Yes - Additional Information Resuscitation Status: Full Code Discharge Diet: As Tolerated, Cardiac Discharge Activity: Activity As Tolerated Referrals: MAURICE MARTINEZ PA-C [PHYSICIAN RADIAL DRILL OPERATOR FOR PLASTIC] - 09/28/20 1:15 pm EVA PIERSON MD [COMMUNITY BASED STAFF] - 11/09/20 3:20 pm Prescriptions: Levofloxacin [Levaquin 750 mg Tablet] 750 mg PO Q48H PRN 4 Days #2 tab PRN Reason: Home Medications: Duloxetine HCl [Cymbalta 30 mg Capsule.dr] 60 mg PO QPM 08/09/13 Levothyroxine Sodium [Synthroid 0.088 mg Tablet] 0.088 mg PO Q6AM 08/09/13 Albuterol Sulfate [Ventolin Hfa] 2 puff IH Q4HP PRN 10/20/14 Methadone HCl 5 mg PO QIDP PRN 10/20/14 Montelukast Sodium 10 mg PO QPM 10/20/14 Aspirin [Ecotrin 325 mg EC Tablet] 325 mg PO QPM 09/12/20 Cetirizine HCl [Zyrtec 10 mg Tablet] 10 mg PO QPM 09/12/20 Cholecalciferol (Vitamin D3) [Vitamin D3 1000 Unit Tablet] 2,000 unit PO QPM 09/12/20 Docusate Sodium [Colace 100 mg Capsule] 100 mg PO DAILYP PRN 12/29/20 Doxycycline Hyclate 50 mg PO Q2D 09/12/20 Fluticasone/Umeclidin/Vilanter [Trelegy 100-62.5-25 Mcg Ellipta 14 Dose/Dpi] 1 inh IH QPM 09/12/20 Furosemide [Lasix 40 mg Tablet] 40 mg PO QAM 09/12/20 Losartan Potassium [Cozaar 25 mg Tablet] 25 mg PO QPM 09/12/20 Potassium Chloride [Klor-Con 10 Meq Tablet ER] 10 meq PO QPM 09/12/20 Tolterodine Tartrate [Tolterodine Tartrate ER] 4 mg PO QPM 09/12/20 Topiramate [Topamax 100 mg Tablet] 200 mg PO QPM 09/12/20 Levofloxacin [Levaquin 750 mg Tablet] 750 mg PO Q48H PRN 4 Days #2 tab 09/25/20 History of Present Illiness History of Present Illness: LOCO MARCUS is a 80 year old female past medical history of nonoxygen dependent COPD, CKD, asthma, peripheral neuropathy, CAD status post PCI to stent placement, chronic cough, presenting to ED complaining of fever, chills, chest ingestion, body aches, worsening productive cough, and generalized weakness. Patient is stating that she has history of nonoxygen dependent COPD and asthma and she has chronic cough but recently her cough has become productive with oatmeal colored phlegm, and coughing to the point that she is having sore back and abdomen, patient is also having subjective fever however denies any chest pain, nausea, vomiting, diarrhea, constipation or any urinary symptoms. She denies any recent travel, any exposure to anybody with COVID-19 infection or similar symptoms, or any recent hospitalization. In ED she was noted to be tachypneic, hypoxic, febrile, with UA positive for large leukocyte esterase, however chest x-ray, chest CT read as normal. Rapid influenza negative RSV and COVID-19 pending at the time of dictation. Hospital Course Hospital Course: (1) Bacteremia Pending Lopez placement. Repeat blood cultures negative x24 hours. 09/15/2020: 1/2 bottles Staphylococcus stimulants. 09/13/2020: 2/2 Staphylococcus stimulants. 09/11/2020: 2/2 Staphylococcus stimulants. Sputum cultures grew kim Throat culture grew kim. Urine culture with Klebsiella. No clear source for bacteremia; patient denies prosthetic devices, stents, pace maker, etc. MRI Thoracic spine without contrast is unremarkable except for spondylosis and degnerative changes. No suggestion of osteomyelitis or discitis. 2D echo suboptimal due to body habitus. ID recommendation is get WILL to rule out endocarditis add MRI with contrast to rule out discitis. Prelim WILL report negative for endocarditis. Unfortunately patient cannot receive gadolinium due to history of CKD stage III. As per ID note the fact that source remains unclear as high probability that she may have seeded her spine given endplate edema seen on noncontrasted MRI comm endation is to treat for presumptive discitis/osteomyelitis with 6 weeks of IV vancomycin with a goal trough of 10-15. End date 10/31/2020. Weekly CBC, CMP, vancomycin trough need to be followed. Repeat MRI without contrast in a few weeks to see evolution is recommended. (2) Acute respiratory failure with hypoxia Resolved. SPO2 WNL on RA Likely due to acute COPD and asthma exacerbation complicated by acute bronchitis. CT chest and chest x-ray negative for any acute abnormalities. Not a candidate for CTA as patient has history of CKD. Denies any recent travel, hospitalization or any exposure to COVID-19. Blood Cultures show staph hemolyticus Sputum cultures show kim Completed a course of IV Levaquin. Completed a course of IV steroids. Day 4/4 p.o. prednisone. Continue as needed DuoNebs, LAMA, LABA, ICS, flutter valve, incentive spirometry, pulmonary toileting. (3) Bronchitis Resolved. As above. (4) Morbid obesity BMI 34.7. Diet and lifestyle modification recommended. (5) Peripheral neuropathy Denies any history of diabetes, any history of CVA or chemotherapy however has history of severe bilateral upper and lower extremity neuropathy. Continue home meds. (6) CKD (chronic kidney disease) At baseline renal function. Nonoliguric. Electrolytes WNL. Monitor volume status and electrolytes. Avoid nephrotoxic meds. Renally dose where appropriate. (7) COPD (chronic obstructive pulmonary disease) Plan as per #1. (8) UTI (urinary tract infection) Due to Klebsiella. Completed a course of renally dosed levofloxacin. Currently asymptomatic. (9) COPD exacerbation As per #1. (10) Constipation Resolved. History of constipation likely due to chronic opioid intake. Continue current bowel regimen. Physical Exam Vital Signs: Temp Pulse Resp BP Pulse Ox 98.9 F 87 21 H 123/58 L 91 L 09/25/20 15:49 09/25/20 15:49 09/25/20 15:49 09/25/20 15:49 09/25/20 15:49 Intake & Output 09/24/20 09/25/20 09/26/20 06:59 06:59 06:59 Intake Total 1591 1172 250 Balance 1591 1172 250 Weight 111.8 kg 111.1 kg 111.1 kg General appearance: PRESENT: no acute distress, morbidly obese, well-developed, well-nourished Head exam: PRESENT: atraumatic, normocephalic Respiratory exam: PRESENT: clear to auscultation toni. ABSENT: rales, rhonchi, wheezes Cardiovascular exam: PRESENT: RRR. ABSENT: diastolic murmur, rubs, systolic murmur GI/Abdominal exam: PRESENT: normal bowel sounds, soft. ABSENT: distended, guarding, mass, organolmegaly, rebound, tenderness Neurological exam: PRESENT: alert, awake, oriented to person, oriented to place, oriented to time, oriented to situation, CN II-XII grossly intact. ABSENT: motor sensory deficit Results Laboratory Results: WBC 10.2 10^3/uL (4.0-10.5) 09/25/20 04:34 RBC 4.34 10^6/uL (3.72-5.28) 09/25/20 04:34 Hgb 11.1 g/dL (12.0-15.5) L 09/25/20 04:34 Hct 34.1 % (36.0-47.0) L 09/25/20 04:34 MCV 79 fl (80-97) L 09/25/20 04:34 MCH 25.6 pg (27.0-33.4) L 09/25/20 04:34 MCHC 32.6 g/dL (32.0-36.0) 09/25/20 04:34 RDW 18.3 % (11.5-14.0) H 09/25/20 04:34 Plt Count 317 10^3/uL (150-450) 09/25/20 04:34 Lymph % (Auto) Not Reportable 09/24/20 04:21 [place] % (Auto) Not Reportable 09/24/20 04:21 Eos % (Auto) Not Reportable 09/24/20 04:21 Baso % (Auto) Not Reportable 09/24/20 04:21 Absolute Neuts (auto) Not Reportable 09/24/20 04:21 Absolute Lymphs (auto) Not Reportable 09/24/20 04:21 Absolute Monos (auto) Not Reportable 09/24/20 04:21 Absolute Eos (auto) Not Reportable 09/24/20 04:21 Absolute Basos (auto) Not Reportable 09/24/20 04:21 Total Counted 100 09/24/20 04:21 Seg Neutrophils % Not Reportable 09/24/20 04:21 Seg Neuts % (Manual) 67 % (42-78) 09/24/20 04:21 Lymphocytes % (Manual) 20 % (13-45) 09/24/20 04:21 Monocytes % (Manual) 9 % (3-13) 09/24/20 04:21 Eosinophils % (Manual) 4 % (0-6) 09/24/20 04:21 Basophils % (Manual) 0 % (0-2) 09/24/20 04:21 Abs Neuts (Manual) 8.5 10^3/uL (1.7-8.2) H 09/24/20 04:21 Abs Lymphs (Manual) 2.5 10^3/uL (0.5-4.7) 09/24/20 04:21 Abs Monocytes (Manual) 1.1 10^3/uL (0.1-1.4) 09/24/20 04:21 Absolute Eos (Manual) 0.5 10^3/uL (0.0-0.6) 09/24/20 04:21 Abs Basophils (Manual) 0.0 10^3/uL (0.0-0.2) 09/24/20 04:21 Platelet Comment ADEQUATE 09/24/20 04:21 Polychromasia SLIGHT 09/24/20 04:21 Hypochromasia SLIGHT 09/24/20 04:21 Anisocytosis 1+ 09/24/20 04:21 Microcytosis SLIGHT 09/24/20 04:21 Tear Drop Cells SLIGHT 09/24/20 04:21 Ovalocytes 1+ 09/24/20 04:21 Carbonic Acid 0.95 mmol/L (1.05-1.35) L 09/12/20 04:05 HCO3/H2CO3 Ratio 20:1 09/12/20 04:05 ABG pH 7.41 (7.35-7.45) 09/12/20 04:05 ABG pCO2 31.6 mmHg (35-45) L 09/12/20 04:05 ABG pO2 82.4 mmHg (80-100) 09/12/20 04:05 ABG HCO3 19.8 mmol/L (20-24) L 09/12/20 04:05 ABG Total CO2 20.7 mmol/L (21-25) L 09/12/20 04:05 ABG O2 Saturation 96.4 % (94-98) 09/12/20 04:05 ABG Base Excess -3.9 mmol/L 09/12/20 04:05 FiO2 21% 09/12/20 04:05 Sodium 133.4 mmol/L (137-145) L 09/25/20 04:34 Potassium 3.5 mmol/L (3.6-5.0) L 09/25/20 04:34 Chloride 102 mmol/L (98-107) 09/25/20 04:34 Carbon Dioxide 20 mmol/L (22-30) L 09/25/20 04:34 Anion Gap 11 (5-19) 09/25/20 04:34 BUN 20 mg/dL (7-20) 09/25/20 04:34 Creatinine 2.26 mg/dL (0.52-1.25) H 09/25/20 04:34 Est GFR ( Amer) 25 (>60) L 09/25/20 04:34 Est GFR (MDRD) Non-Af 21 (>60) L 09/25/20 04:34 Glucose 125 mg/dL (75-110) H 09/25/20 04:34 Lactic Acid 2.5 mmol/L (0.7-2.1) H 09/12/20 11:22 Calcium 8.6 mg/dL (8.4-10.2) 09/25/20 04:34 Magnesium 1.7 mg/dL (1.6-2.3) 09/13/20 04:29 Ferritin 30.10 ng/mL (11.1-264.0) 09/11/20 21:27 Total Bilirubin 0.5 mg/dL (0.2-1.3) 09/25/20 04:34 Direct Bilirubin 0.4 mg/dL (0.0-0.4) 09/25/20 04:34 Neonat Total Bilirubin Not Reportable 09/25/20 04:34 Neonat Direct Bilirubin Not Reportable 09/25/20 04:34 Neonat Indirect Bili Not Reportable 09/25/20 04:34 AST 20 U/L (14-36) 09/25/20 04:34 ALT 17 U/L (<35) 09/25/20 04:34 Alkaline Phosphatase 86 U/L (38-126) 09/25/20 04:34 Troponin I 0.012 ng/mL 09/11/20 21: C-Reactive Protein 40.3 mg/L (<10.0) H 09/11/20 21:27 NT-Pro-B Natriuret Pep 765 pg/mL (<450) H 09/11/20 21:27 Total Protein 6.6 g/dL (6.3-8.2) 09/25/20 04:34 Albumin 3.0 g/dL (3.5-5.0) L 09/25/20 04:34 Urine Color YELLOW 09/11/20 22: Urine Appearance CLOUDY 09/11/20 22: Urine pH 5.0 (5.0-9.0) 09/11/20 22: Ur Specific [place] 1.014 09/11/20 22:29 Urine Protein 30 mg/dL (NEGATIVE) H 09/11/20 22: Urine Glucose (UA) 50 mg/dL (NEGATIVE) H 09/11/20 22:29 Urine Ketones NEGATIVE mg/dL (NEGATIVE) 09/11/20 22: Urine Blood SMALL (NEGATIVE) H 09/11/20 22: Urine Nitrite NEGATIVE (NEGATIVE) 09/11/20 22: Urine Bilirubin NEGATIVE (NEGATIVE) 09/11/20 22: Urine Urobilinogen NEGATIVE mg/dL (<2.0) 09/11/20 22:29 Ur Leukocyte Esterase LARGE (NEGATIVE) H 09/11/20 22:29 Urine WBC (Auto) >182 /HPF 09/11/20 22:29 Urine RBC (Auto) 1 /HPF 09/11/20 22:29 Urine Bacteria (Auto) 2+ /HPF 09/11/20 22:29 Squamous Epi Cells Auto 1 /HPF 09/11/20 22:29 Urine Mucus (Auto) RARE /LPF 09/11/20 22:29 Urine Ascorbic Acid NEGATIVE (NEGATIVE) 09/11/20 22:29 Time Trough Drawn 1209 09/24/20 12:09 Vancomycin Trough 18.4 ug/mL (5.0-20.0) 09/24/20 12:09 COVID-19 Source Cancelled 09/11/20 22:30 COVID-19 (PORFIRIO) Cancelled 09/11/20 22:30 Influenza A (Rapid) NEGATIVE (NEGATIVE) 09/11/20 22:30 Influenza A (RT-PCR) NEGATIVE (NEGATIVE) 09/22/20 10:15 Influenza B (Rapid) NEGATIVE (NEGATIVE) 09/11/20 22:30 Influenza B (RT-PCR) NEGATIVE (NEGATIVE) 09/22/20 10:15 RSV (RT-PCR) NEGATIVE (NEGATIVE) 09/22/20 10:15 SARS-CoV-2 Rap RNA(RT-PCR) NEGATIVE (NEGATIVE) 09/22/20 10:15 09/11/20 21:27 Troponin I 0.012 NT-Pro-B Natriuret Pep 765 H Impressions: Chest CT 09/11/20 23:45 IMPRESSION: No acute abnormality. Chest X-Ray 09/12/20 00:00 IMPRESSION: No evidence of acute cardiopulmonary abnormality. Thoracic Spine MRI 09/16/20 00:00 IMPRESSION: 1. Thoracic spondylosis without suggestion of osteomyelitis or discitis. No evidence of high-grade central stenosis. 2. Spondylosis is also suggested in the lumbar spine, incompletely assessed. Modified Barium Swallow 09/18/20 08:35 IMPRESSION: LARYNGEAL PENETRATION WITHOUT ASPIRATION. PLEASE SEE SPEECH PATHOLOGIST REPORT FOR OTHER FINDINGS AND RECOMMENDATIONS. Head CT 09/20/20 00:00 IMPRESSION: 1. No acute intracranial hemorrhage is seen. 2. Mild cerebral atrophy and periventricular white matter changes are seen. Chest X-Ray 09/25/20 00:00 IMPRESSION: 1. Interval placement of right central venous catheter with the tip in the region of the SVC since the prior study dated 09/12/2020. No evidence of pneumothorax. 2. Bibasilar linear opacities may represent atelectasis or early infiltrates. Very small pleural effusions suggested. Abdomen Ultrasound 09/25/20 09:17 IMPRESSION: Hepatic steatosis. Atrophic changes in the right kidney. Stroke Is this a Stroke Patient?: No Acute Heart Failure Is this a Heart Failure Patient?: No
[2020-09-25 18:50] VITALS: BP 136/57
--- NOTE | 2020-09-26 10:14 | RADIOLOGY REPORT (SQ) ---
EXAM DESCRIPTION: FLUORO/CV PLACEMENT IMAGES COMPLETED DATE/TIME: 09/25/2020 2:22 pm REASON FOR STUDY: RIGHT SIDE GRUBBS CATHETER PLCMT ASSISTED WITH FLUORO IN OR N39.0 URINARY TRACT INFECTION, SITE NOT SPECIFIED R78.81 BACTEREMIA COMPARISON: None. FLUOROSCOPY TIME: 8.1 minutes 2 images saved to PACS. TECHNIQUE: Intra-operative images acquired during surgical procedure to evaluate progress. NUMBER OF IMAGES: 2 LIMITATIONS: None. FINDINGS: 2 intraoperative fluoroscopic spot images were obtained for surgical guidance. Images are submitted for administrative purposes only. Please refer to the operative report for full details r egarding the Procedure. IMPRESSION: IMAGE(S) OBTAINED DURING PROCEDURE. COMMENT: Quality ID [id number]: Final reports for procedures using fluoroscopy that document radiation exp osure indices, or exposure time and number of fluorographic images (if radiation exposure indices are not available) Please consult full operative report of the attending physician for description of the procedure. TECHNICAL DOCUMENTATION: JOB ID: [id number] 2010 [employer]- All Rights Reserved Reading location - IP/workstation name: [email or web address]
== END 2020-09-25 17:18 | disposition home health service (06) | DRG 189 ==
LOC: ER 20:53 → EH 09-12 05:28 → INTOOBSV 09-12 05:28 → 5TH 09-12 10:45 → 4N 09-12 15:47 → OBSVTOIN 09-13 10:14
PROVIDERS: ADMIT Internal Medicine; ATTEND Internal Medicine
PROC: 02HV33Z Insertion of Infusion Device into Superior Vena Cava, Percutaneous Approach (ICD-10-PCS; principal; 2020-09-25 12:30)
DX: J96.01 Acute respiratory failure with hypoxia (principal); R78.81 Bacteremia; J44.1 Chronic obstructive pulmonary disease with (acute) exacerbation; I13.0 Hypertensive heart and chronic kidney disease with heart failure and stage 1 through stage 4 chronic kidney disease, or unspecified chronic kidney disease; E87.2 Acidosis; E87.1 Hypo-osmolality and hyponatremia; N30.00 Acute cystitis without hematuria; D63.1 Anemia in chronic kidney disease; G90.9 Disorder of the autonomic nervous system, unspecified; I50.9 Heart failure, unspecified; J40 Bronchitis, not specified as acute or chronic; E66.01 Morbid (severe) obesity due to excess calories; I25.10 Atherosclerotic heart disease of native coronary artery without angina pectoris; B96.1 Klebsiella pneumoniae [K. pneumoniae] as the cause of diseases classified elsewhere; N18.30 Chronic kidney disease, stage 3 unspecified; K59.03 Drug induced constipation; T40.2X5A Adverse effect of other opioids, initial encounter; E78.5 Hyperlipidemia, unspecified; E03.9 Hypothyroidism, unspecified; K21.9 Gastro-esophageal reflux disease without esophagitis; M19.90 Unspecified osteoarthritis, unspecified site; M81.0 Age-related osteoporosis without current pathological fracture; M46.44 Discitis, unspecified, thoracic region; Z68.34 Body mass index [BMI] 34.0-34.9, adult; Z79.82 Long term (current) use of aspirin; Z79.899 Other long term (current) drug therapy; Z95.5 Presence of coronary angioplasty implant and graft; Z11.59 Encounter for screening for other viral diseases; I25.2 Old myocardial infarction; Z88.1 Allergy status to other antibiotic agents; Z87.891 Personal history of nicotine dependence; Z91.040 Latex allergy status; Z88.0 Allergy status to penicillin; Z88.8 Allergy status to other drugs, medicaments and biological substances; Z91.018 Allergy to other foods; Z82.49 Family history of ischemic heart disease and other diseases of the circulatory system; Z84.1 Family history of disorders of kidney and ureter
CPT/HCPCS: 00532; 01922; 36415; 70450; 71045; 71250; 72146; 74230; 76705; 77001; 80048; 80053; 80076; 80202; 81001; 82565; 82728; 82803; 83605; 83735; 83880; 84484; 85025; 85027; 86140; 87040; 87070; 87077; 87086; 87088; 87150; 87186; 87205; 87635; 87804; 93005; 93010; 93306; 93312; 93325; 93976; 94667; 94668; 94799; 96361; 96365; 99285; 0241U; C1751; C9803; G0378; J1644; J1885; J1956; J2250; J2370; J2405; J2704; J3010; J3370; J3490; J7030; J7040; J7060; J7512; Q9967

== ENCOUNTER 2020-10-04 21:22 | Emergency (ER) | payer MEDICARE ==
--- OUTSIDE RECORDS SUMMARY | 2020-10-04 22:29 | XMS REPORT ---
:1940 Author Organization [facility] [address] [place] [address] Care Team Providers Name Role Phone PCP, PER PATIENT Primary Care Physician Unavailable JATIN Attending Clinician Unavailable MARILYN CARRASCO Attending Clinician Unavailable MYNOR BUSTAMANTE Attending Clinician Unavailable ANA WEBB Attending Clinician Unavailable MYNOR BUSTAMANTE Attending Clinician Unavailable Rogerio Attending Clinician Unavailable PROVIDER, ORDERING Attending Clinician Unavailable Rogerio Attending Clinician Unavailable MARILYN CARRASCO Admitting Clinician Unavailable MYNOR BUSTAMANTE Admitting Clinician Unavailable MYNOR BUSTAMANTE Admitting Clinician Unavailable Allergies, Adverse Reactions, Alerts Allergy Name Allergy Status Severity Reaction(s) Onset Inactive Treat ing Comments Type Date Date Clinician Beef Propensity Active Low Nausea And 2020-0 Containing to adverse Vomiting 8-22 Products reactions 00:00: 00 Cephalexin Propensity Active High Anaphylaxis 2020-0 to adverse 8-22 reactions 00:00: 00 Penicillins Propensity Active Low Rash 2020-0 to adverse 8-22 reactions 00:00: 00 Medications Ordered Filled Start Stop Current Ordering Indication Dosage Frequency Signature Comments Components Medication Medication Date Date Medication? Clinician (SIG) Name Name promethazin 2019-09 Yes 25mg 25 mg, e 2-08 Intramuscu (PHENERGAN) 15:59: lar, Once injection 54 as needed, 25 mg nausea, vomiting, Starting Fri08/22/20 at 1559, For 1 dose, PACU (only)
(PACU LEVEL ll) Administer promethazi ne if no relief from ondansetro n after 15 min OR if ondansetro n has been given within the previous 8 hours. Discontinu e 6 hours post-op.&n bsp;IV ADMINISTRA TION: DO NOT GIVE UNDILUTED. Dilute with 10mL NS and flush with 10mL NS after admin. Use large patent vein. FOR IM ADMINISTRA TION: give DEEP IM.
Rou lin ondansetron 2019-09 Yes 4mg 4 mg, (ZOFRAN) 2-08 Intravenou injection 4 15:59: s, Once as mg 54 needed, nausea, vomiting, Starting 08/22/20 at 1559, For 1 dose, PACU (only)
(PACU LEVEL I & II) & nbsp;Do NOT exceed maximum dose of 8 mg in 6 hours. Discontinu e 4 hours post-op.<b r>Routine meperidine 2019-09 Yes 12.5mg 12.5 mg, (DEMEROL) 08 Intravenou injection 15:59: s, Every 12.5 mg 54 10 min PRN, shivering, Starting 08/22/20 at 1559, For 2 doses, PACU (only)
(PACU LEVEL I) &n bsp;Until a maximum dose of 25mg is reached or shivering is relieved. Discontinu e 4 hours post-op.<b r>Routine oxyCODONE 2019-09- Yes 5mg 5 mg, (ROXICODONE 10-23 Oral, ) immediate 15:59: 23:59 Every 30 release 54 :00 min PRN, tablet 5 mg other, pain scale >/=4, Starting 08/22/20 at 1559, For 2 doses, PACU (only)
(PACU LEVEL II) If acetaminop hen given within the last 4 hrs, may administer oxycodone for pain scale GREATER than or EQUAL to 4. May repeat dose in 30 min if pain unrelieved or pain scale remains GREATER than or EQUAL to 4. Discontinu e 6 hours post-op.<b r>Routine oxyCODONE-a 2019-09- Yes 1{tbl} 1 tablet, cetaminophe 10-23 Oral, n 15:59: 23:59 Every 30 (PERCOCET) 54 :00 min PRN, 5-325 mg other, tablet 1 pain scale tablet >/= 4, Starting 08/22/20 at 1559, For 2 doses, PACU (only)
(PACU LEVEL II) If acetaminop hen NOT given within last 4 hours, may administer for pain GREATER than or EQUAL to 4. May repeat dose in 30 min if pain unrelieved or pain scale remains GREATER than or EQUAL to 4. Discontinu e 6 hours post-op.&n bsp;ADULT MAX: NOT TO EXCEED 4GM ACETAMINOP HEN IN 24HRS
R outine HYDROmorpho 2019-09- Yes .2mg 0.2 mg, ne (PF) 10-23 Intravenou (DILAUDID) 15:59: 23:59 s, Every 5 injection 54 :00 min PRN, 0.2 mg other, Pain scale score >4, Starting Fri08/22/20 at 1559, For 10 doses, PACU (only)
(PACU LEVEL I) &n bsp;Up to a total dose of 2 mg MAX. ONLY administer HYDROmorph one if pain level remains >4 after MAX dose of fentanyl is reached or if allergic to fentanyl.& nbsp;&nbsp ;Call Anesthesio logist if pain not controlled or patient is allergic to HYDROmorph one. Conc entration = 1 mg/mL<br&g t;Routine acetaminoph 2019-09 Yes 975mg 975 mg, en 10-23 Oral, Once (TYLENOL) 15:59: as needed, tablet 975 53 other, For mg ALL pain levels, Starting Fri08/22/20 at 1559, For 1 dose, PACU (only)
Use as 1st choice.&nb sp; ( PACU LEVEL II). May administer acetaminop hen if NOT given within the last 4 hrs. Discontinu e 6 hours post-op.&n bsp;ADULT MAX: NOT TO EXCEED 4GM ACETAMINOP HEN IN 24HRS
R outine fentaNYL 2019-09- Yes 25ug 25 mcg, (PF) 10-23 Intravenou (SUBLIMAZE) 15:59: 23:59 s, Every 5 injection 53 :00 min PRN, 25 mcg other, pain scale score > 4, Starting Fri08/22/20 at 1559, For 4 doses, PACU (only)
(PACU LEVEL 1) &n bsp;Up to a total dose 100 mcg MAX. Call anesthesio logist if pain not controlled . Concentrat ion = 50 mcg/mL.
Routine lactated 2020- Yes 20mL/h 20 mL/hr, Ringers 2-08 Intravenou infusion 14:00: s, 00 Continuous , Starting 08/22/20 at 1400, Pre-op (day of surgery)<b r>Initiate peripheral IV &n bsp;LR 1000 ml at KVO rate with 18 gauge IV on all patients having general, MAC, regional, or spinal anesthesia , except for the following: 1) Patients diagnosed with renal failure receive NS 500 ml with micro-drip tubing.&nb sp;2) Patients undergoing intracrani al procedures , cardiac surgery, or structural heart procedures (ie, TAVR, Mitraclip) receive NS 1000 ml. 3 ) Patients under 12 years of age are evaluated by anesthesia on an individual basis.&nbs p;4) Patients for cataract surgery procedures receive 20 gauge saline lock with extension tubing.
Routine perflutren 2020- No .3mL 0.3 mL, lipid 05-08 Intravenou microsphere 07:45: 07:45 s, Once, s 00 :00 Mon (DEFINITY) 05/08/20 at injection 0900, For 0.3 mL 1 dose
Ro utine methadone 2020- No 5mg 5 mg, (DOLOPHINE) 05-07 09-06 Oral, 4 tablet 5 mg 21:00: 20:59 times a 00 :00 day, First dose on 05/07/20 at 2100, For 14 days
Ro utine docusate No 100mg 100 mg, sodium 05-07 Oral, (COLACE) 18:53: Daily PRN, capsule 100 03 constipati mg on, Starting 05/07/20 at 1853
Ro utine montelukast No maintenance 10mg 10 mg, (SINGULAIR) 05-06 therapy for Oral, tablet 10 21:00: asthma Nightly, mg 00 First dose on 05/06/20 at 2100
Ro utine bisacodyL 2020-0 2020- No 10mg 10 mg, (DULCOLAX) 05-06 08- Oral, EC tablet 21:00: 22:23 Once, Sat 10 mg 00 :00 05/06/20 at 2100, For 1 dose
Do Not Crush/Chew /Break - Swallow Whole<b r>Routine lactated 2020-0 No 20mL/h 20 mL/hr, Ringers 05-06 Intravenou infusion 13:00: s, 00 Continuous , Starting 05/06/20 at 1300
In itiate peripheral IV &n bsp;LR 1000 ml at KVO rate with 18 gauge IV on all patients having general, MAC, regional, or spinal anesthesia , except for the following: 1) Patients diagnosed with renal failure receive NS 500 ml with micro-drip tubing.&nb sp;2) Patients undergoing intracrani al procedures , cardiac surgery, or structural heart procedures (ie, TAVR, Mitraclip) receive NS 1000 ml. 3 ) Patients under 12 years of age are evaluated by anesthesia on an individual basis.&nbs p;4) Patients for cataract surgery procedures receive 20 gauge saline lock with extension tubing.
Routine topiramate 2019-0 No 100mg 100 mg, (TOPAMAX) 05-06 Oral, 2 tablet 100 09:00: times a mg 00 day (standard) , First dose on 05/06/20 at 0900
Ro utine DULoxetine 2019-0 No neuropathic 60mg 60 mg, (CYMBALTA) 05-06 pain Oral, DR capsule 09:00: Daily 60 mg 00 (standard) , First dose on 05/06/20 at 0900
Ma y be Opened and Sprinkled On soft Food (apple sauce) or in Apple Juice.
Routine lactated 2019-0 No 50mL/h 50 mL/hr, Ringers 05-06 Intravenou infusion 06:00: s, 00 Continuous , Starting 05/06/20 at 0600
Ro utine levothyroxi 2019-0 No 88ug 88 mcg, ne 05-06 Oral, (SYNTHROID) 06:00: daily, tablet 88 00 First dose mcg on 05/06/20 at 0600
Ro utine MORPhine 2019-0 2020- No 2mg [Order 1 injection 2 05-06 Start] mg 05:34: 05:33 Name: 26 :26 MORPhine injection 2 mg Signed Summary: 2 mg, Intravenou s, Every 4 hours PRN, pain,sever e (7-10), Starting 05/06/20 at 0534, For 14 days
Ro utine [Order 1 End] [Order 2 Start] Name: MORPhine 4 mg/mL injection 4 mg Signed Summary: 4 mg, Intravenou s, Every 4 hours PRN, pain,sever e (7-10), Starting 05/06/20 at 0534, For 14 days
Ro utine [Order 2 End] diphenhydrA 2019-0 No 50mg 50 mg, MINE 05-06 Oral, (BENADRYL) 04:47: Every 6 capsule 50 04 hours PRN, mg sleep, Starting 05/06/20 at 0447
Ro utine albuterol No 2{puff} 2 puff, (PROVENTIL 05-06 Inhalation HFA;VENTOLI 04:46: , Every 6 N HFA) 90 58 hours PRN, mcg/actuati wheezing, on inhaler shortness 2 puff of breath, Starting 05/06/20 at 0446
Shake Well
Ro utine potassium No 20meq Take 20 Take 20 chloride mEq by mEq by (KLOR-CON) mouth mouth 20 mEq daily. daily. packet DULoxetine No neuropathic 60mg Take 60 m g Take 60 (CYMBALTA) pain by mouth mg by 60 MG daily. mouth capsule daily. montelukast No maintenance 10mg Take 10 mg Take 10 (SINGULAIR) therapy for by mouth mg by 10 mg asthma nightly. mouth tablet nightly. furosemide No 40mg Take 40 mg Take 40 (LASIX) 40 by mouth mg by MG tablet daily. mouth daily. tolterodine No 4mg Take 4 mg Take 4 mg (DETROL LA) by mouth by mo uth 4 MG 24 hr daily. daily. capsule topiramate No 100mg Take 100 Take 1 00 (TOPAMAX) mg by mg by 100 MG mouth Two mouth Two tablet (2) times (2) times a day. a day. aspirin 325 No 325mg Take 325 Take 325 MG tablet mg by mg by mouth mouth daily. daily. levothyroxi No 88ug Take 88 Take 8 8 ne mcg by mcg by (SYNTHROID) mouth mouth 75 MCG daily. daily. tablet methadone No severe 5mg Take 5 mg Take 5 mg (DOLOPHINE) chronic by mouth by mouth 5 MG tablet pain every every requiring eight (8) eight (8) long-term hours. hours. opioid treatment albuterol No 2{puff} Inhale 2 Inhal e 2 HFA 90 puffs puffs mcg/actuati every six ever y six on inhaler (6) hours (6) h ours as needed as needed for for wheezing wheezing or or shortness shortness of breath. of breath. diphenhydrA No 50mg Take 50 mg Vicente e 50 MINE by mouth mg by (BENADRYL) every six mouth 50 mg (6) hours every six capsule as needed (6) hour s for sleep. as needed for sleep. docusate No 50 Take by Take by sodium mouth two mouth two (COLACE) 50 (2) times (2) times MG capsule a day as a day as needed for needed constipati for on. constipat ion. bisacodyL No 5mg Take 5 mg Take 5 mg (DULCOLAX) by mouth by christian th 5 mg EC daily as daily as tablet needed for needed constipati for on. constipat ion. losartan 2020- No 25mg Take 25 mg Take 2 5 (COZAAR) 25 12-08 by mouth mg by MG tablet 00:00 daily. mouth :00 daily. Problems Condition Condition Condition Status Onset Resolution Last Treatin g Comments Name Details Category Date Date Treatment Clinician Date Epigastric Epigastric 24024074 Active 2020-05-06 pain pain 05-06 05:45:10 00:00: 00 Biliary Biliary [id number] Active 2020-05-06 obstruction obstruction 05-06 05:45:10 00:00: 00 Acute Acute [id number] Active 2020-05-06 cystitis cystitis 05-06 05:44:31 without without 00:00: hematuria hematuria 00 Elevated Elevated [id number] Active 2020-05-06 troponin troponin 05-06 05:44:45 00:00: 00 Chronic Chronic [id number] Active 2020-05-06 diastolic diastolic 05-06 05:44:59 heart heart 00:00: failure failure 00 S/P schuyler S/P schuyler [id number] Active 2020-05-0605-06 05:45:31 00:00: 00 Mild Mild [id number] 2020-05-06 intermitten intermitten 05-06 05:45:43 t asthma t asthma 00:00: without without 00 complicatio complicatio n n Essential Essential [id number] 2020-05-06 hypertensio hypertensio 05-06 05:45:50 n n 00:00: 00 Acquired Acquired [id number] 2020-05-06 hypothyroid hypothyroid 05-06 05:46:19 ism ism 00:00: 00 CKD CKD [id number] 2020-05-06 (chronic (chronic 05-06 05:46:35 kidney kidney 00:00: disease) disease) 00 stage 3, stage 3, GFR 30-59 GFR 30-59 ml/min ml/min Procedures Procedure Date / Time Performed Performing Clinician Devic e XR ABDOMEN 1 VIEW 2020-08-22 16:36:57 Shannon Bustamante UPPER ENDOSCOPY 2020-08-22 15:30:04 Provider, Not In System BASIC METABOLIC PANEL 2020-08-22 13:22:00 Silvana Webb CBC 2020-08-22 13:22:00 Silvana Webb COVID-19 PCR 2020-08-22 12:58:00 Shannon Bustamante OFFICE/OUTPATIENT VISIT EST 2020-05-25 14:45:00 COMPREHENSIVE METABOLIC PANEL 2020-05-07 08:41:00 Selene Farmer ithgrace LIPASE 2020-05-07 08:41:00 Saima Farmer [place] ERCP 2020-05-06 14:45:19 Shannon Bustamante ECG 12-LEAD 2020-05-06 13:49:55 Saima Farmer ERCP 2020-05-06 13:15:46 Provider, Not In System CT ABDOMEN PELVIS WO CONTRAST 2020-05-06 09:29:28 Nick Yoo ECG 12-LEAD 2020-05-06 08:14:58 Nick Yoo COVID-19 PCR 2020-05-06 08:01:00 Katya Gamboa CBC 2020-05-06 06:10:00 Nick Yoo Rakesh TROPONIN I 2020-05-06 06:10:00 Fredo ki Vazquezkesh COMPREHENSIVE METABOLIC PANEL 2020-05-06 06:10:00 Nick Yoo Rakesh LIPASE 2020-05-06 06:10:00 Katya Gamboa OFFICE/OUTPATIENT VISIT EST 2019-06-28 15:30:00 OFFICE/OUTPATIENT VISIT EST 2018-10-01 14:45:00 OFFICE/OUTPATIENT VISIT EST 2018-02-19 10:15:00 OFFICE/OUTPATIENT VISIT EST 2017-08-11 15:00:00 OFFICE/OUTPATIENT VISIT EST 2017 13:00:00 SELF PAY ESTABLISHED OV 2017-02-03 13:30:00 OFFICE/OUTPATIENT VISIT EST 2016-08-28 16:15:00 Results Test Description Test Time Test Comments Text Results Atomic Results Result Comments XR Abdomen 1 View 2020-08-22 16:58:58 XR Abdomen 1 Vie w (08/22/2020 4:36 PM (08/22/2020 4:36 PM EST)SpecimenImpressi onsPerformed At1. No EST) evidence of biliary stent in the imaged portions of the abdomen, sug gesting distal passage.2. Nonobstructive ken wel gas pattern.3. Cholecystectomy c lips. Signed (Electronic Signature): 08/22 5:02 PM Signed By: Abdirizak Mark MD [facility] RADNarrativePerformed AtExam : Abdomen 1 view (supine) History: E valuate for foreign body, missing the bl adder stent Technique: Supine view of the abdomen Comparison: CT of the abdo men and pelvis from May 06, 2020 and ERC P images from May 06, 2020 Findings: A nonobstructive bowel gas pat tern is noted. The lung bases are clear. Ch olecystectomy clips are noted in the right upper quadrant. There is no eviden ce of common bile duct stent on the curre nt study. The bones and straight degenerat ginna changes in the thoracic and lumbar spin e. [facility] RADProcedure NoteInterface, Rad Results In - 08/22/2020 5:04 PM ESTExam : Abdomen 1 view (supine) History: Evalu ate for foreign body, missing the bl adder stent Technique: Supine view of th e abdomen Comparison: CT of the abdome n and pelvis from May 06, 2020 and ERC P images from May 06, 2020 Findings: A nonobstructive bowel gas pattern is noted. The lung bases are clear. Cholecystectomy c lips are noted in the right upper quadrant. There is no evidence of common bile duct stent on the current study. The bones and straight degenerative changes in the thoracic and lumbar spine. IMPRESSION: 1. No evidence of biliary stent in the imag ed portions of the abdomen, suggesting dist al passage. 2. Nonobstructive bowel gas pat tern. 3. Cholecystectomy clips. Maria d (Electronic Signature): 08/22/2020 5:02 P M Signed By: Abdirizak Mark, MDPerforming OrganizationAddressCity/Stat e/ZIP CodePhone NumberC RADEM R [id number] [facility] [place] [address] Upper Endoscopy 2020-08-22 15:30:04 Upper Endoscopy (1 10/23/2019 3:30 PM (08/22/2020 3:30 PM EST)SpecimenNarrativ ePerformed EST) At Pat ient Name: Patsy Hutchinson Procedure Date: 08/22/2020 3: 30 PMMRN: [id number] ate of : 1940 Admit Type: OutpatientAge: 80 Procedu ralist: Eladio ARORA Name: OED 576 Procedure: Upper GI endoscopyIndications: Biliary stent removal; Place d at ERCP 05/06/20, 10 fr 5 cm. Here for phillip stringer.Providers: Sonya bustamanteedicines: Monitored Anesthesia Care Estimated Blood Loss: Estimated bloo d loss: none.Procedure: Pre-Anesthesia Assessment: - Prior to the procedure, a History and Phy sical was performed, and patient medications, all ergies and sensitivities have been revi ewed. - Th e risks and benefits of the procedure an d the fannie tion options and risks were discussed wit h the nixon ent. All questions were answered and informed c onsent was obtained. After obtaining informed con sent, the endoscope was passed under direct vi supa. Throughout the procedure, the patien t's blood pressure, pulse, and oxygen saturation s were monitored continuously. The OED 576 w as introduced through the mouth, and advan gypsy to the second part of duodenum. The upper GI en doscopy was accomplished without difficulty. The nixon ent tolerated the procedure well. Findings: The ex amined duodenum was normal. No bile duct stent is note in the lumen. Mark l check KUB AXR to r/o proximal migratio n of the stent. Complications: N o immediate complications. Impression: - Normal examined duodenum. - No speci mens collected.Recommendation: - Discharge patient to home. WILL CHECK AXR BEFORE PACU DISCHARGE TO BE SURE TH E STENT H NOT PROXIMALLY MIGRATED. IF AXR NEGATIVE, THEN PT HAS SPONTANEOUSLY PASSED THE ISAC NT. Elec tronically Signed By Shannon Bustamante MD SHANNON BUSTAMANTE MD08/22/2020 4:00: 00 PMThis report has been signed electronically.Number of Add enda: 0 Note Initiated On: 08/22/2020 3:30 PM [facility] Endoscopy [address] [facility] [place]BERT Estevez [id number] [facility] edu NoteInterjersey, Khoi Garcia I n - 08/22/2020 4:11 PM EST Patient Name: Patsy garcia Date: 08/22/2020 3:30 PM [id number] Date of : 1940 Admit Type: Outpati ent Age: 80 Proceduralist: SHANNON BUSTAMANTE MD Instrument Name: OED 576 Procedure: Upper GI endoscop y Indications: Biliary stent removal; Place d at ERCP 05/06/20, 10 fr 5 cm. Here fo r removal. Providers: shannon bustamante Medicines: Monitored Anesthesia Care Es timated Blood Loss: Estimated blood loss: none. Procedure: Pre-Anesthesia As sessment: - Prior to the procedure, a Hi story and Physical was performed, and patient medications, allergies and s ensitivities have been reviewed. - The ri sks and benefits of the procedure an d the sedation options and risks were discu ssed with the patient. All questions were answered and informed consent was obtaine d. After obtaining informed consent, the endoscope was passed under direct visi on. Throughout the procedure, the patient's blood pressure, pulse, and oxygen saturations were monitored continuously. The OED 576 was introduced through the m outh, and advanced to the second part of duodenum. The upper GI endoscopy was a ccomplished without difficulty. The nixon ent tolerated the procedure well. Findings : The examined duodenum was normal. No bile duct stent is note in the lumen. Will chec k KUB AXR to r/o proximal migration of th e stent. Complications: No immediate complications. Impression: - Normal examine d duodenum. - No specimens collected. Rafi mmendation: - Discharge patient to home. W ILL CHECK AXR BEFORE PACU DISCHARGE TO BE SURE THE STENT HAS NOT PROXIMALLY MIGRATED. IF AXR NEGATIVE, THEN PT HAS SPONTA NEOUSLY PASSED THE STENT. Electronically Si gned By Shannon Bustamante MD SHANNON BUSTAMANTE MD 1 10/23/2019 4:00:00 PM This report has b een signed electronically. Number of Ad denda: 0 Note Initiated On: 08/22/2020 3:30 PM [facility] Endoscopy [address] [place], [place] [address]Aznjcjpdun OrganizationAddressCity/Stat e/ZIP CodePhone NumberJ[facility] RADJ[facility] R [id number] [place] [address] CBC (08/22/2020 1:22 PM EST) 2020-08-22 13:22:00 Test Item Value Reference Range Comments WBC (test code = WBC) 7.9 10*9/L 3.5 - 10.5 10*9/L RBC (test code = RBC) 4.40 10*12/L 3.90 - 5.03 10*12/L HGB (test code = HGB) 11.8 g/dL 12.0 - 15.5 g/dL HCT (test code = HCT) 36.1 % 35.0 - 44.0 % MCV (test code = MCV) 82.1 fL 82.0 - 98.0 fL MCH (test code = MCH) 26.8 pg 26.0 - 34.0 pg MCHC (test code = MCHC) 32.6 g/dL 30.0 - 36.0 g/dL RDW (test code = RDW) 16.9 % 12.0 - 15.0 % MPV (test code = MPV) 8.3 fL 7.0 - 10.0 fL Platelet (test code = Platelet) 246 10*9/L 150 - 450 10*9/L Basic Metabolic Panel (08/22/2020 1:22 PM EST)2020-08-22 13:22:00 Test Item Value Reference Range Comments Sodium (test code = Sodium) 140 mmol/L 136 - 145 mmol/L Potassium (test code = Potassium) 3.1 mmol/L 3.5 - 5.1 mmol /L Chloride (test code = Chloride) 109 mmol/L 98 - 107 mmol/L CO2 (test code = CO2) 25.0 mmol/L 20.0 - 31.0 mmol/L Anion Gap (test code = Anion Gap) 6 mmol/L 3 - 11 mmol/L BUN (test code = BUN) 24 mg/dL 9 - 23 mg/dL Creatinine (test code = Creatinine) 1.83 mg/dL 0.50 - 0.80 mg/dL BUN/Creatinine Ratio (test code = 13 BUN/Creatinine Ratio) EGFR CKD-EPI Non-, 26 mL/min/1.73m2 Female (test code = EGFR CKD-EPI Non-, Female) EGFR CKD-EPI , Female 29 mL/min/1.73m2 (test code = EGFR CKD-EPI , Female) Glucose (test code = Glucose) 108 mg/dL 70 - 179 mg/dL Calcium (test code = Calcium) 8.8 mg/dL 8.7 - 10.4 mg/dL COVID-19 PCR (08/22/2020 12:58 PM EST)2020-08-22 12:58:00 Test Item Value Reference Range Comments SARS-CoV-2 PCR (test code = SARS-CoV-2 PCR) Negative Nega tive SARS-CoV-2 RNA Resp Ql [id number] 00:00:00 Test Item Value Reference Range Comments SARS-CoV-2 RNA Resp Ql Negative [place] Covid Public Health Case ID: PORFIRIO+probe (test code = COVID_103 [id number] [id number]) CBC (INCLUDES DIFF/PLT)2020-05-25 16:04:00 Test Item Value Reference Range Comments ABSOLUTE NEUTROPHILS (test code = 08678659) 4735 cells/uL 1500 -7800 MCHC (test code = 21465417) 31.1 g/dL 32.0-36.0 BASOPHILS (test code = 87904925) 0.8 % RDW (test code = 86922030) 14.9 % 11.0-15.0 PLATELET COUNT (test code = 93854201) 309 Thousand/uL 140-400 RED BLOOD CELL COUNT (test code = 80914117) 4.09 Million/uL 3.80 -5.10 MCH (test code = 60545856) 26.7 pg 27.0-33.0 ABSOLUTE BASOPHILS (test code = 22385257) 62 cells/uL 0-200 NEUTROPHILS (test code = 46429492) 60.7 % MCV (test code = 72639195) 85.6 fL 80.0-100.0 LYMPHOCYTES (test code = 45610218) 26.8 % EOSINOPHILS (test code = 79882377) 5.9 % HEMOGLOBIN (test code = 92708996) 10.9 g/dL 11.7-15.5 WHITE BLOOD CELL COUNT (test code = 7.8 Thousand/uL 3.8-10.8 50373915) ABSOLUTE MONOCYTES (test code = 72245744) 452 cells/uL 200-95 0 MONOCYTES (test code = 60742596) 5.8 % ABSOLUTE LYMPHOCYTES (test code = 79946835) 2090 cells/uL 850- 3900 ABSOLUTE EOSINOPHILS (test code = 51400623) 460 cells/uL 15-5 00 MPV (test code = 15717404) 10.7 fL 7.5-12.5 HEMATOCRIT (test code = 57842403) 35.0 % 35.0-45.0 [id number] 16:04:002.412.412.41COMPREHENSIVE METABOLIC [id number] 16:04:00 Test Item Value Reference Range Comments AST (test code = 18209745) 12 U/L 10-35 CALCIUM (test code = 38106036) 8.8 mg/dL 8.6-10.4 PROTEIN, TOTAL (test code = 70201164) 6.7 g/dL 6.1-8.1 eGFR (test code = 23 mL/min/1.73m2 > OR = 60 67866931) POTASSIUM (test code = 53954043) 4.0 mmol/L 3.5-5.3 ALBUMIN (test code = 61891378) 3.6 g/dL 3.6-5.1 GLOBULIN (test code = 37537485) 3.1 g/dL (calc) 1.9-3.7 CARBON DIOXIDE (test code = 27788545) 25 mmol/L 20-32 BILIRUBIN, TOTAL (test code = 37373444) 0.3 mg/dL 0.2-1.2 SODIUM (test code = 60926677) 139 mmol/L 135-146 CREATININE (test code = 75751875) 2.26 mg/dL 0.60-0.88 ALBUMIN/GLOBULIN RATIO (test code = 1.2 (calc) 1.0-2.5 62196025) UREA NITROGEN (BUN) (test code = 29701943) 33 mg/dL 7-25 GLUCOSE (test code = 06424621) 107 mg/dL 65-99 ALT (test code = 14281113) 1010 U/L 6-29 CHLORIDE (test code = 35749302) 106 mmol/L 98-110 BUN/CREATININE RATIO (test code = 41426954) 15 (calc) 6-22 ALKALINE PHOSPHATASE (test code = 43554860) 89 U/L 37-1 53 eGFR NON-AFR. ANGUILLAN (test code = 20 mL/min/1.73m2 > OR = 60 36644964) [place] ERCP (05/06/2020 2:45 PM EDT)2020-05-08 13:11:52[place] ERCP (05/06/2020 2:45 PM EDT)SpecimenNarrativePerformed AtFluoroscopy was rendered by the performing physician. The procedure will be resulted in the HIM. Interpretation by a radiologist was not requested. Signed (Electronic Signature): 05/08/2020 1:12 PM Signed By: Admin [facility]Mer[facility] RADProcedure NoteInterface, Rad Results In - 05/08/2020 1:14 PM EDTFluoroscopy was rendered by the performing physician. The procedure will be resulted in the HIM. Interpretation by a radiologist was not requested. Signed (Electronic Signature): 05/08/2020 1:12 PM Signed By: Admin RexradakPerforming OrganizationAddressCity/State/ZipcodePhone [facility] [id number] [facility].[place], [place] [address]Cuzdzeqpcaahz Metabolic Panel (05/07/2020 8:41 AM EDT)2020-05-07 08:41:00 Test Item Value Reference Range Comments Sodium (test code = Sodium) 139 mmol/L 136 - 145 mmol/L Potassium (test code = Potassium) 3.9 mmol/L 3.5 - 5.1 mmol /L Chloride (test code = Chloride) 108 mmol/L 98 - 107 mmol/L Anion Gap (test code = Anion Gap) 4 mmol/L 3 - 11 mmol/L CO2 (test code = CO2) 27.0 mmol/L 20.0 - 31.0 mmol/L BUN (test code = BUN) 23 mg/dL 9 - 23 mg/dL Creatinine (test code = Creatinine) 1.71 mg/dL 0.50 - 0.80 mg/dL BUN/Creatinine Ratio (test code = 13 BUN/Creatinine Ratio) EGFR CKD-EPI Non-, 28 mL/min/1.73m2 Female (test code = EGFR CKD-EPI Non-, Female) EGFR CKD-EPI , Female 32 mL/min/1.73m2 (test code = EGFR CKD-EPI , Female) Glucose (test code = Glucose) 88 mg/dL 70 - 179 mg/dL Calcium (test code = Calcium) 8.5 mg/dL 8.7 - 10.4 mg/dL Albumin (test code = Albumin) 2.7 g/dL 3.4 - 5.0 g/dL Total Protein (test code = Total 6.2 g/dL 5.7 - 8.2 g/dL Protein) Total Bilirubin (test code = Total 0.9 mg/dL 0.3 - 1.2 mg/ dL Bilirubin) AST (test code = AST) 114 U/L <34 U/L ALT (test code = ALT) 308 U/L 10 - 49 U/L Alkaline Phosphatase (test code = 185 U/L 46 - 116 U/L Alkaline Phosphatase) Lipase Level (05/07/2020 8:41 AM EDT)2020-05-07 08:41:00 Test Item Value Reference Range Comments Lipase (test code = Lipase) 297 U/L 12 - 53 U/L ECG 12 Lead (05/06/2020 1:49 PM EDT)2020-05-06 13:49:55 Test Item Value Reference Range Comments EKG Systolic BP (test code = EKG Systolic BP) EKG Diastolic BP (test code = EKG Diastolic BP) EKG Ventricular Rate (test code = EKG Ventricular 73 BPM Rate) EKG Atrial Rate (test code = EKG Atrial Rate) 73 BPM EKG P-R Interval (test code = EKG P-R Interval) 194 ms EKG QRS Duration (test code = EKG QRS Duration) 94 ms EKG Q-T Interval (test code = EKG Q-T Interval) 428 ms EKG QTC Calculation (test code = EKG QTC 471 ms Calculation) EKG Calculated P [place] (test code = EKG Calculated 66 degrees P [place]) EKG Calculated R [place] (test code = EKG Calculated 24 degrees R [place]) EKG Calculated T [place] (test code = EKG Calculated 66 degrees T [place]) QTC Fredericia (test code = QTC Fredericia) 457 ms ERCP (05/06/2020 1:15 PM EDT)2020-05-06 13:15:46ERCP (05/06/2020 1:15 PM EDT)SpecimenNarrativePerformed At Patient Name: Patsy Hutchinson Procedure Date: 05/06/2020 1:15 PMMRN: [id number] of : 1940 Admit Type: InpatientAge: 80 Proceduralist: Renata ARORAtrumnelli Name: [id number] Procedure: ERCPIndications: Suspected bile duct stone(s); hx of ccy, with hx of pancreatitis, dilated cbd with elevated LFTS. CBD stone stone suspected.Providers: Sonya bustamanteedicines: General AnesthesiaEstimated Blood Loss: Estimated blood loss: none.Procedure: Pre-Anesthesia Assessment: - Prior to the procedure, a History and Physical was performed, and patient medications, allergies and sensitivities have been reviewed. - The risks and benefits of the procedure and the sedation options and risks were discussed with the patient. All questions were answered and informed consent was obtained. After obtaining informed consent, the scope was passed under direct vision. Throughout the procedure, the patient's blood pressure, pulse, and oxygen saturations were monitored continuously. The SPG1 803 was introduced through the mouth, and advanced to the duodenum and used toinject contrast into the bile duct. The ERCP was accomplished without difficulty. The patient tolerated the procedure well. Findings: A soil and plant scientist film of the abdomen was obtained. Surgical clips, consistent with a previous cholecystectomy, were seen in the area of the right upper quadrant of the abdomen. Theesophagus was successfully intubated under direct vision. The scope was advanced to a normal major papilla in the descending duodenum without detailed examination of the pharynx, larynx and associated structures, and upper GI tract. The upper GI tract was grossly normal. Long intraduodenal papilla. Initial cannulation of the pancreatic duct with wire, minimal injection of contrast with drainae. Wire left in pd, and then followed with wire to get cbd cannulation. A short 0.035 inch Soft Jagwire was passed into the biliary tree. The Autotome sphincterotome was passed over the guidewire and the bile duct was then deeply cannulated. pd wire removed. Contrast was injected. I personally interpreted the bile duct images. Ductal flow of contrast was adequate. Image quality was adequate. Contrast extended to the main bile duct. The lower third of the main bile duct and middle third of the main bile duct contained filling defect(s) thought to be a stone and sludge. A 7 mm biliary sphincterotomy was made with a monof ilament traction (standard) sphincterotome using pure cut current. There was no post-sphincterotomy bleeding. Dilation of major papilla with an 8-9-10 mm balloon (to a maximum balloon size of 10 mm) dilator was successful. The biliary tree was swept with a 15 mm balloon starting at the upper third of the main bile duct. Sludge was swept from the duct. Two stones were removed. No stones remained. Mild oozing of blood. One 10 Fr by 5 cm plastic biliary stent was placed into the common bile duct. Bile flowed through the stent. The stent was in good position. Complications: No immediate complications. Impression: - A filling defect consistent with a stone and sludge was seen on the cholangiogram. - Choledocholithiasis was found. Complete removal was accomplished by biliary sphincterotomy and balloon extraction. - A biliary sphincterotomy was performed. - Major papilla was successfully dilated. - The biliary tree was swept. - One plastic biliary stent was placed into the common bile duct.Recommendation: - [facility] to [facility] care. Electronically Signed By Shannon Bustamante MD SHANNON BUSTAMANTE MD05/06/2020 2:40:32 PMThis report has been signed electronically.Number of Addenda: 0 Note Initiated On: 05/06/2020 1:15 PM [facility] [address] [place], [place] [address]MNA RADProcedure NoteInterface, Rad Results In - 05/06/2020 2:41 PM EDT Patient Name: Patsy Hutchinson Procedure Date: 05/06/2020 1:15 PM Date of : 1940 Admit Type: Inpatient Age: 80 Proceduralist: SHANNON BUSTAMANTE MD Instrument Name: [id number] Procedure: ERCP Indications: Suspected bile duct stone(s); hx of ccy, with hx of pancreatitis, dilated cbd with elevated LFTS. CBD stone stone suspected. Providers: shannon bustamante Medicines: General Anesthesia Estimated Blood Loss: Estimated blood loss: none. Procedure: Pre-Anesthesia Assessment: - Prior to the procedure, a History and Physical was performed, and patient medications, allergies and sensitivities have been reviewed. - The risks and benefits of the procedure and the sedation options and risks were discussed with the patient. All questions were answered and informed consent was obtained. After obtaining informed consent, the scope was passed under direct vision. Throughout the procedure, the patient's blood pressure, pulse, and oxygen saturations were monitored continuously. The SPG1 803 was introduced through the mouth, and advanced to the duodenum and used to inject contrast into the bile duct. The ERCP was accomplished without difficulty. The patient tolerated the procedure well. Findings: A soil and plant scientist film of the abdomen was obtained. Surgical clips, consistent with a previous cholecystectomy, were seen in the area of the right upper quadrant of the abdomen. The esophagus was successfully intubated under direct vision. The scope was advanced to a normal major papilla in the descending duodenum without detailed examination of the pharynx, larynx and associated structures, and upper GI tract. The upper GI tract was grossly normal. Long intraduodenal papilla. Initial cannulation of the pancreatic duct with wire,minimal injection of contrast with drainae. Wire left in pd, and then followed with wire to get cbd cannulation. A short 0.035 inch Soft Jagwire was passed into the biliary tree. The Autotome sphincterotome was passed over the guidewire and the bile duct was then deeply cannulated. pd wire removed. Con trast was injected. I personally interpreted the bile duct images. Ductal flow of contrast was adequate. Image quality was adequate. Contrast extended to the main bile duct. The lower third of the mainbile duct and middle third of the main bile duct contained filling defect(s) thought to be a stone and sludge. A 7 mm biliary sphincterotomy was made with a monofilament traction (standard) sphincterotome using pure cut current. There was no post-sphincterotomy bleeding. Dilation of major papilla withan 8-9-10 mm balloon (to a maximum balloon size of 10 mm) dilator was successful. The biliary tree was swept with a 15 mm balloon starting at the upper third of the main bile duct. Sludge was swept from the duct. Two stones were removed. No stones remained. Mild oozing of blood. One 10 Fr by 5 cm plastic biliary stent was placed into the common bile duct. Bile flowed through the stent. The stent was in good position. Complications: No immediate complications. Impression: - A filling defect consistent with a stone and sludge was seen on the cholangiogram. - Choledocholithiasis was found. Complete removal was accomplished by biliary sphincterotomy and balloon extraction. - A biliary sphincterotomy was performed. - Majorpapilla was successfully dilated. - The biliary tree was swept. - One plastic biliary stent was placed into the common bile duct. Recommendation: - Return patient to [facility] for [facility] care. Electronically Signed By Shannon Bustamante MD SHANNON BUSTAMANTE MD 05/06/2020 2:40:32 PM This report has been signed electronically. Number of Addenda: 0 Note Initiated On: 05/06/2020 1:15 PM [facility] [address] [place], [place] [address]Ejmbegzqxa Organizat ionAddressCity/State/ZipcodePhone [facility] [id number] [facility] [place], [place] [address]XY Abdomen Pelvis Wo Contrast (05/06/2020 9:29 AM EDT)2020-05-06 09:54:22CT Abdomen Pelvis Wo Contrast (05/06/2020 9:29 AM EDT)SpecimenImpressionsPerformed At1. There is marked central intra and extrahepatic biliary ductal dilatation extending to the ampulla. No filling defe cts or masses are appreciated. There are changes of prior cholecystectomy. These findings are nonspecific and may be secondary to ampullary stricture or nonvisualized stone. Nuclear medicine hepatobiliary examination, or MRCP may be useful to evaluate for biliary tree obstruction or distal stone if clinically warranted.2. Nonobstructing 4 mm right lower pole renal calculus. No additional renal or ureteral calculi. Of note, there is high attenuation material within the left renal collecting system proximally, question blood products. Correlate with urinalysis.3. 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 No abran aneurysm. Signed (Electronic Signature): 05/06/2020 10:05 AM Signed By: Abdirizak Mark [facility] RADNarrativePerformed AtExam: CT of the Abdomen and Pelvis without Contrast History: Evaluate for gastrointestinal or biliary obstruction. Technique: Routine CT of the abdomen and pelvis without IV contrast. Oral Contrast: None. DLP: 831 mGy-cm. AEC (automated exposure control) and/or manual techniques such as size-specific kV and mAs are employed whereappropriate to reduce radiation exposure for all CT exams. Comparison: None Abdomen and Pelvis CTFindings: LOWER THORAX: The lung bases demonstrate heterogeneous, and linear opacities in the costophrenic sulci, likely subsegmental atelectasis. Sequela of aspiration or infection are not excluded.Mild bronchial wall thickening is also noted in the lung bases. Heart size is normal. No pericardialfluid. No pleural effusions. HEPATOBILIARY: The liver is diminutive in size. The capsule appears smooth. No focal liver lesions are identified. There appears to be central intra and extrahepatic biliary ductal dilatation extending to the ampulla. No mass or filling defect is appreciated. PANCREAS: The pancreas appears atrophic. No pancreatic ductal dilatation or surrounding inflammation. No mass is appreciated. No fluid collection. SPLEEN: The spleen is normal in size. Punctate calcifications t hroughout the spleen suggest prior granulomatous disease. ADRENALS: The left adrenal gland demonstrates a low-attenuation nodule measuring 16 mm in diameter, characteristic of a benign adrenal adenoma. No further adrenal imaging evaluation is necessary. The right adrenal gland is normal in appearance. KIDNEYS/URETERS: Mild renal cortical thinning is noted bilaterally. There is a 4 mm calculus in the lower pole the right kidney, nonobstructing. No ureteral calculi are noted. There appears to be high attenuation material within the left renal pelvis and proximal ureter, question blood products orinfectious debris. Correlate with urinalysis. There are a few very small cortical and exophytic low-attenuation renal lesions, incompletely characterized secondary to small size. VASCULAR: Atherosclerotic plaquing is present in the abdominal aorta. No evidence of aneurysm. There is minimal fusiform ectasia of the infrarenal portion measuring up to 2.3 cm in AP diameter. LYMPH NODES: No adenopathy. BOWEL/MESENTERY: The stomach, duodenum, small bowel, and colon appear normal in caliber without dilatation or thickening. The appendix is not definitely visualized. The cecum has a redundant pedicleand terminates over the midline of the abdomen. No mesenteric inflammatory changes or fluid collections. PELVIC ORGANS: The urinary bladder is decompressed without filling defects. The uterus is surgically absent. No pelvic free fluid. BONES/SOFT TISSUES: Bone windows demonstrate degenerative changes at the pubic symphysis. There is mild scoliotic curvature in the thoracolumbar spine with disc height loss and uncovertebral spurring. There is a large Schmorl's node in the inferior endplate of L3.[facility] RADProcedure NoteInterface, Rad Results In - 05/06/2020 10:07 AM EDTExam: CT of the Abdomen and Pelvis without Contrast History: Evaluate for gastrointestinal or biliary obstruction. Technique: Routine CT of the abdomen and pelvis without IV contrast. Oral Contrast: None. DLP: 831 mGy-cm. AEC (auto mated exposure control) and/or manual techniques such as size-specific kV and mAs are employed whereappropriate to reduce radiation exposure for all CT exams. Comparison: None Abdomen and Pelvis CT Findings: LOWER THORAX: The lung bases demonstrate heterogeneous, and linear opacities in the costophrenic sulci, likely subsegmental atelectasis. Sequela of aspiration or infection are not excluded. Mildbronchial wall thickening is also noted in the lung bases. Heart size is normal. No pericardial fluid. No pleural effusions. HEPATOBILIARY: The liver is diminutive in size. The capsule appears smooth. No focal liver lesions are identified. There appears to be central intra and extrahepatic biliary duct al dilatation extending to the ampulla. No mass or filling defect is appreciated. PANCREAS: The pancreas appears atrophic. No pancreatic ductal dilatation or surrounding inflammation. No mass is appreciated. No fluid collection. SPLEEN: The spleen is normal in size. Punctate calcifications throughout the spleen suggest prior granulomatous disease. ADRENALS: The left adrenal gland demonstrates a low-attenuation nodule measuring 16 mm in diameter, characteristic of a benign adrenal adenoma. No furtheradrenal imaging evaluation is necessary. The right adrenal gland is normal in appearance. KIDNEYS/URETERS: Mild renal cortical thinning is noted bilaterally. There is a 4 mm calculus in the lower pole the right kidney, nonobstructing. No ureteral calculi are noted. There appears to be high attenuationmaterial within the left renal pelvis and proximal ureter, question blood products or infectious debris. Correlate with urinalysis. There are a few very small cortical and exophytic low-attenuation renal lesions, incompletely characterized secondary to small size. VASCULAR: Atherosclerotic plaquing ispresent in the abdominal aorta. No evidence of aneurysm. There is minimal fusiform ectasia of the infrarenal portion measuring up to 2.3 cm in AP diameter. LYMPH NODES: No adenopathy. BOWEL/MESENTERY: The stomach, duodenum, small bowel, and colon appear normal in caliber without dilatation or thickening. The appendix is not definitely visualized. The cecum has a redundant pedicle and terminates over the midline of the abdomen. No mesenteric inflammatory changes or fluid collections. PELVIC ORGANS: The urinary bladder is decompressed without filling defects. The uterus is surgically absent. No pelvic free fluid. BONES/SOFT TISSUES: Bone windows demonstrate degenerative changes at the pubic symphysis. There is mild scoliotic curvature in the thoracolumbar spine with disc height loss and uncovertebral spurring. There is a large Schmorl's node in the inferior endplate of L3. IMPRESSION: 1. There is marked central intra and extrahepatic biliary ductal dilatation extending to the ampulla. No filling defects or masses are appreciated. There are changes of prior cholecystectomy. These findings are nonspecific and may be secondary to ampullary stricture or nonvisualized stone. Nuclear medicine hepatobiliary examination, or MRCP may be useful to evaluate for biliary tree obstruction or distal stone ifclinically warranted. 2. Nonobstructing 4 mm right lower pole renal calculus. No additional renal orureteral calculi. Of note, there is high attenuation material within the left renal collecting system proximally, question blood products. Correlate with urinalysis. 3. Atherosclerotic disease with fusiform ectasia of the infrarenal portions. No abran aneurysm. Signed (Electronic Signature): 05/06/202010:05 AM Signed By: Abdirizak Mark MDPerforming OrganizationAddressCity/State/ZipcodePhone [facility] RADJ[facility] [id number] [facility].[place], [place] [address]ZLB 12 Lead (05/06/2020 8:14 AM EDT) 2020-05-06 08:14:58 Test Item Value Reference Range Comments EKG Systolic BP (test code = EKG Systolic BP) EKG Diastolic BP (test code = EKG Diastolic BP) EKG Ventricular Rate (test code = EKG Ventricular 84 BPM Rate) EKG Atrial Rate (test code = EKG Atrial Rate) 84 BPM EKG P-R Interval (test code = EKG P-R Interval) 194 ms EKG QRS Duration (test code = EKG QRS Duration) 94 ms EKG Q-T Interval (test code = EKG Q-T Interval) 362 ms EKG QTC Calculation (test code = EKG QTC 427 ms Calculation) EKG Calculated P [place] (test code = EKG Calculated 87 degrees P [place]) EKG Calculated R [place] (test code = EKG Calculated 27 degrees R [place]) EKG Calculated T [place] (test code = EKG Calculated 48 degrees T [place]) QTC Fredericia (test code = QTC Fredericia) 404 ms COVID-19 PCR (05/06/2020 8:01 AM EDT)2020-05-06 08:01:00 Test Item Value Reference Range Comments SARS-CoV-2 PCR (test code = SARS-CoV-2 PCR) Negative Nega tive Comprehensive metabolic panel (05/06/2020 6:10 AM EDT)2020-05-06 06:10:00 Test Item Value Reference Range Comments Sodium (test code = Sodium) 139 mmol/L 136 - 145 mmol/L Potassium (test code = Potassium) 3.8 mmol/L 3.5 - 5.1 mmol /L Chloride (test code = Chloride) 106 mmol/L 98 - 107 mmol/L Anion Gap (test code = Anion Gap) 8 mmol/L 3 - 11 mmol/L CO2 (test code = CO2) 25.0 mmol/L 20.0 - 31.0 mmol/L BUN (test code = BUN) 19 mg/dL 9 - 23 mg/dL Creatinine (test code = Creatinine) 1.72 mg/dL 0.50 - 0.80 mg/dL BUN/Creatinine Ratio (test code = 11 BUN/Creatinine Ratio) EGFR CKD-EPI Non-, 27 mL/min/1.73m2 Female (test code = EGFR CKD-EPI Non-, Female) EGFR CKD-EPI , Female 32 mL/min/1.73m2 (test code = EGFR CKD-EPI , Female) Glucose (test code = Glucose) 81 mg/dL 70 - 179 mg/dL Calcium (test code = Calcium) 9.0 mg/dL 8.7 - 10.4 mg/dL Albumin (test code = Albumin) 3.2 g/dL 3.4 - 5.0 g/dL Total Protein (test code = Total 7.0 g/dL 5.7 - 8.2 g/dL Protein) Total Bilirubin (test code = Total 3.1 mg/dL 0.3 - 1.2 mg/ dL Bilirubin) AST (test code = AST) 305 U/L <34 U/L ALT (test code = ALT) 511 U/L 10 - 49 U/L Alkaline Phosphatase (test code = 224 U/L 46 - 116 U/L Alkaline Phosphatase) CBC (05/06/2020 6:10 AM EDT)2020-05-06 06:10:00 Test Item Value Reference Range Comments WBC (test code = WBC) 10.7 10*9/L 3.5 - 10.5 10*9/L RBC (test code = RBC) 3.88 10*12/L 3.90 - 5.03 10*12/L HGB (test code = HGB) 10.7 g/dL 12.0 - 15.5 g/dL HCT (test code = HCT) 32.7 % 35.0 - 44.0 % MCV (test code = MCV) 84.2 fL 82.0 - 98.0 fL MCH (test code = MCH) 27.5 pg 26.0 - 34.0 pg MCHC (test code = MCHC) 32.6 g/dL 30.0 - 36.0 g/dL RDW (test code = RDW) 16.4 % 12.0 - 15.0 % MPV (test code = MPV) 8.7 fL 7.0 - 10.0 fL Platelet (test code = Platelet) 221 10*9/L 150 - 450 10*9/L Troponin I (05/06/2020 6:10 AM EDT)2020-05-06 06:10:00 Test Item Value Reference Range Comments Troponin I (test code = Troponin I) 0.035 ng/mL 0.000 - 0.04 0 ng/mL Lipase Level (05/06/2020 6:10 AM EDT)2020-05-06 06:10:00 Test Item Value Reference Range Comments Lipase (test code = Lipase) 39 U/L 12 - 53 U/L SARS-CoV-2 RNA Resp Ql [id number] 00:00:00 Test Item Value Reference Range Comments SARS-CoV-2 RNA Resp Ql Negative [place] [facility] Case ID: [id number] (test code = COVID_103 [id number] [id number]) CBC (INCLUDES DIFF/PLT)2019-06-28 16:39:00 Test Item Value Reference Range Comments ABSOLUTE BASOPHILS (test code = 07660916) 97 cells/uL 0-200 HEMOGLOBIN (test code = 06123791) 13.0 g/dL 11.7-15.5 ABSOLUTE NEUTROPHILS (test code = 43361993) 5333 cells/uL 1500 -7800 RED BLOOD CELL COUNT (test code = 16000095) 5.02 Million/uL 3.80 -5.10 ABSOLUTE MONOCYTES (test code = 75477221) 484 cells/uL 200-95 0 MCHC (test code = 43860841) 30.9 g/dL 32.0-36.0 LYMPHOCYTES (test code = 68799120) 25.1 % RDW (test code = 37716784) 14.9 % 11.0-15.0 BASOPHILS (test code = 36291024) 1.1 % EOSINOPHILS (test code = 56362521) 7.7 % MCV (test code = 66383134) 83.9 fL 80.0-100.0 MONOCYTES (test code = 61592307) 5.5 % PLATELET COUNT (test code = 72501081) 309 Thousand/uL 140-400 HEMATOCRIT (test code = 26131182) 42.1 % 35.0-45.0 ABSOLUTE LYMPHOCYTES (test code = 75098365) 2209 cells/uL 850- 3900 MCH (test code = 69027989) 25.9 pg 27.0-33.0 ABSOLUTE EOSINOPHILS (test code = 71032296) 678 cells/uL 15-5 00 WHITE BLOOD CELL COUNT (test code = 8.8 Thousand/uL 3.8-10.8 73310153) NEUTROPHILS (test code = 40878846) 60.6 % MPV (test code = 70335937) 10.9 fL 7.5-12.5 LIPID PANEL, [id number] 16:39:00 Test Item Value Reference Range Comments CHOLESTEROL, TOTAL (test code = 94670278) 238 mg/dL <200 LDL-CHOLESTEROL (test code = 18892822) 150 mg/dL (calc) HDL CHOLESTEROL (test code = 24745995) 65 mg/dL >50 TRIGLYCERIDES (test code = 97807890) 111 mg/dL <150 CHOL/HDLC RATIO (test code = 91154501) 3.7 (calc) <5.0 NON HDL CHOLESTEROL (test code = 88931504) 173 mg/dL (calc) <130 COMPREHENSIVE METABOLIC [id number] 16:39:00 Test Item Value Reference Range Comments GLOBULIN (test code = 69940123) 3.6 g/dL (calc) 1.9-3.7 ALKALINE PHOSPHATASE (test code = 09153778) 71 U/L 33-1 30 ALT (test code = 43126200) 11 U/L 6-29 SODIUM (test code = 08900826) 138 mmol/L 135-146 PROTEIN, TOTAL (test code = 05092229) 7.4 g/dL 6.1-8.1 GLUCOSE (test code = 20035424) 96 mg/dL 65-139 POTASSIUM (test code = 59829443) 4.2 mmol/L 3.5-5.3 BUN/CREATININE RATIO (test code = 44556677) 14 (calc) 6-22 BILIRUBIN, TOTAL (test code = 97050181) 0.4 mg/dL 0.2-1.2 ALBUMIN (test code = 42855537) 3.8 g/dL 3.6-5.1 CREATININE (test code = 60903959) 1.65 mg/dL 0.60-0.88 CALCIUM (test code = 59878029) 9.1 mg/dL 8.6-10.4 ALBUMIN/GLOBULIN RATIO (test code = 1.1 (calc) 1.0-2.5 43717919) CHLORIDE (test code = 54082582) 105 mmol/L 98-110 AST (test code = 41780877) 16 U/L 10-35 eGFR (test code = 34 mL/min/1.73m2 > OR = 60 86782168) eGFR NON-AFR. ANGUILLAN (test code = 29 mL/min/1.73m2 > OR = 60 95150320) CARBON DIOXIDE (test code = 02683027) 23 mmol/L 20-32 UREA NITROGEN (BUN) (test code = 68168327) 23 mg/dL 7-25 [id number] 16:39:004.774.77LIPID [id number] 11:13:00 Test Item Value Reference Range Comments NON HDL CHOLESTEROL (test code = 49582119) 207 mg/dL (calc) <130 HDL CHOLESTEROL (test code = 11176573) 61 mg/dL >50 LDL-CHOLESTEROL (test code = 93143928) 180 mg/dL (calc) TRIGLYCERIDES (test code = 16364492) 135 mg/dL <150 CHOL/HDLC RATIO (test code = 89117702) 4.4 (calc) <5.0 CHOLESTEROL, TOTAL (test code = 65787089) 268 mg/dL <200 C-REACTIVE [id number] 11:13:004.0URIC [id number] 11:13:005.1CBC (INCLUDES DIFF/PLT)2018-02-19 11:13:00 Test Item Value Reference Range Comments NEUTROPHILS (test code = 02913804) 65.9 % MCHC (test code = 61366535) 31.2 g/dL 32.0-36.0 MPV (test code = 49722875) 10.9 fL 7.5-12.5 MCH (test code = 49283627) 26.2 pg 27.0-33.0 EOSINOPHILS (test code = 83761472) 7.2 % PLATELET COUNT (test code = 43703413) 333 Thousand/uL 140-400 WHITE BLOOD CELL COUNT (test code = 7.8 Thousand/uL 3.8-10.8 22143855) ABSOLUTE NEUTROPHILS (test code = 19417901) 5140 cells/uL 1500 -7800 ABSOLUTE LYMPHOCYTES (test code = 93219148) 1576 cells/uL 850- 3900 ABSOLUTE MONOCYTES (test code = 18230959) 452 cells/uL 200-95 0 MONOCYTES (test code = 24593037) 5.8 % HEMOGLOBIN (test code = 58373223) 11.9 g/dL 11.7-15.5 HEMATOCRIT (test code = 16628087) 38.2 % 35.0-45.0 BASOPHILS (test code = 07053016) 0.9 % RED BLOOD CELL COUNT (test code = 73826805) 4.55 Million/uL 3.80 -5.10 ABSOLUTE BASOPHILS (test code = 99840822) 70 cells/uL 0-200 RDW (test code = 14783034) 15.7 % 11.0-15.0 LYMPHOCYTES (test code = 77246117) 20.2 % MCV (test code = 76778412) 84.0 fL 80.0-100.0 ABSOLUTE EOSINOPHILS (test code = 18506999) 562 cells/uL 15-5 00 SED RATE BY MODIFIED [id number] 11:13:[id number] 11:13:000.91 COMPREHENSIVE METABOLIC [id number] 11:13:00 Test Item Value Reference Range Comments ALKALINE PHOSPHATASE (test code = 43030530) 80 U/L 33-1 30 CARBON DIOXIDE (test code = 61226399) 21 mmol/L 20-31 GLOBULIN (test code = 68224447) 3.5 g/dL (calc) 1.9-3.7 GLUCOSE (test code = 30776063) 121 mg/dL 65-99 CHLORIDE (test code = 85428553) 106 mmol/L 98-110 ALBUMIN/GLOBULIN RATIO (test code = 1.1 (calc) 1.0-2.5 55354841) CALCIUM (test code = 52828120) 8.7 mg/dL 8.6-10.4 CREATININE (test code = 00776076) 2.08 mg/dL 0.60-0.93 BILIRUBIN, TOTAL (test code = 06929622) 0.3 mg/dL 0.2-1.2 ALBUMIN (test code = 97089391) 3.9 g/dL 3.6-5.1 BUN/CREATININE RATIO (test code = 08674097) 12 (calc) 6-22 ALT (test code = 17027851) 8 U/L 6-29 eGFR (test code = 26 mL/min/1.73m2 > OR = 60 32529641) AST (test code = 58712124) 13 U/L 10-35 SODIUM (test code = 69405662) 139 mmol/L 135-146 POTASSIUM (test code = 47224318) 3.7 mmol/L 3.5-5.3 UREA NITROGEN (BUN) (test code = 73148041) 24 mg/dL 7-25 PROTEIN, TOTAL (test code = 54835343) 7.4 g/dL 6.1-8.1 eGFR NON-AFR. ANGUILLAN (test code = 22 mL/min/1.73m2 > OR = 60 27652386) CMP with Estimated [id number] 00:01:00 Test Item Value Reference Range Comments BUN (test code = 163449) 24 mg/dL 7-25 Calcium (test code = 272004) 8.8 mg/dL 8.6-10.4 Albumin (test code = 142355) 3.8 g/dL 3.6-5.1 Est GFR, NonAfrican [place] (test code = 557811) 25 mL/min >=60 Est GFR, (test code = 204337) 29 mL/min > =60 Creatinine (test code = 148992) 1.89 mg/dL 0.60-0.93 Sodium (test code = 405288) 143 mmol/L 135-146 CO2 (test code = 460950) 23 mmol/L 20-31 Bilirubin, Total (test code = 808361) 0.4 mg/dL 0.2-1.2 Chloride (test code = 008054) 107 mmol/L 98-110 Glucose (test code = 525676) 100 mg/dL 65-99 Potassium (test code = 431699) 4.3 mmol/L 3.5-5.3 Total Protein (test code = 393360) 7.4 g/dL 6.1-8.1 ALT/SGPT (test code = 572506) 11 U/L 6-29 AST/SGOT (test code = 694635) 16 U/L 10-35 Alkaline Phosphatase (test code = 590167) 99 U/L 33-130 Sed Rate (ESR)2017 00:01:00 Test Item Value Reference Range Comments Sed Rate (ESR) (test code = 571013) 60 mm/hr 0-30 Iron and [id number] 00:01:00 Test Item Value Reference Range Comments %SAT (test code = 815410) 25 % 11-50 UIBC (test code = 322389) 247 ug/dL 125-400 TIBC (test code = 742920) 328 ug/dL 250-450 Iron, Total (test code = 214302) 81 ug/dL 45-160 Lipid [id number] 00:01:00 Test Item Value Reference Range Comments Cholesterol (test code = 940813) 237 mg/dL 125-200 Total Chol/HDL Ratio (test code = 956220) 4.1 Ratio <=5.0 HDL Cholesterol (test code = 588763) 58 mg/dL >=46 Triglycerides (test code = 325358) 144 mg/dL <150 VLDL Cholesterol (Calc) (test code = 395752) 29 mg/dL <30 LDL Cholesterol (Calc) (test code = 510102) 150 mg/dL <130 C-Reactive Protein (CRP)2017 00:01:00 Test Item Value Reference Range Comments CRP (C-Reactive Protein) (test code = 944258) 0.8 mg/dL <0 .60 CBC NO Diff (Complete Blood Count)2017 00:01:00 Test Item Value Reference Range Comments MCHC (test code = 386514) 31.7 g/dL 32.0-36.0 Platelet Count (test code = 751978) 343 K/uL 140-400 RBC (test code = 138547) 4.07 MIL/uL 3.80-5.10 Hemoglobin (test code = 318143) 11.1 g/dL 11.7-15.5 RDW (test code = 944980) 17.6 % 11.0-15.0 MCH (test code = 314789) 27.3 pg 27.0-33.0 MPV (test code = 963847) 10.2 fL 7.5-12.5 MCV (test code = 654150) 86.0 fL 80.0-100.0 Hematocrit (test code = 071285) 35.0 % 35.0-45.0 WBC (test code = 705255) 9.0 K/uL 3.8-10.8 Creatine Kinase (CK), [id number] 00:01:00 Test Item Value Reference Range Comments CK, Total (test code = 190719) 45 U/L 7-177 [id number] 00:01:00 Test Item Value Reference Range Comments TSH (test code = 183467) 2.22 mIU/L [id number] 14:52:00 Test Item Value Reference Range Comments TSH (test code = 946074) 2.57 mIU/L CBC with [id number] 14:52:00 Test Item Value Reference Range Comments Baso % (test code = 018461) 1 % MPV (test code = 932387) 9.1 fL 7.5-12.5 Absolute [place] (test code = 510 cells/uL 200-950 392356) Smear Review (test code = Criteria for review not met 477329) Absolute Lymph (test code = 1870 cells/uL 850-3900 324402) Hematocrit (test code = 314776) 34.0 % 35.0-45.0 RBC (test code = 044823) 4.02 MIL/uL 3.80-5.10 Absolute Eos (test code = 340 cells/uL 15-500 897558) Eos % (test code = 173322) 4 % Absolute Baso (test code = 85 cells/uL 0-200 647389) WBC (test code = 760405) 8.5 K/uL 3.8-10.8 MCV (test code = 969728) 84.6 fL 80.0-100.0 Lymph % (test code = 636858) 22 % RDW (test code = 775404) 16.2 % 11.0-15.0 MCHC (test code = 866569) 31.2 g/dL 32.0-36.0 MCH (test code = 153024) 26.4 pg 27.0-33.0 Hemoglobin (test code = 629368) 10.6 g/dL 11.7-15.5 [place] % (test code = 644223) 6 % Platelet Count (test code = 417 K/uL 140-400 594565) Neutrophils % (test code = 67 % 133606) Absolute Neut (test code = 5695 cells/uL 5790-7650 420886) CMP with Estimated [id number] 14:52:00 Test Item Value Reference Range Comments Potassium (test code = 699585) 3.7 mmol/L 3.5-5.3 Sodium (test code = 168138) 139 mmol/L 135-146 BUN (test code = 157815) 17 mg/dL 7-25 Total Protein (test code = 778693) 6.7 g/dL 6.1-8.1 Chloride (test code = 088946) 106 mmol/L 98-110 Glucose (test code = 291727) 83 mg/dL 65-99 Est GFR, NonAfrican [place] (test code = 476692) 22 mL/min >=60 Alkaline Phosphatase (test code = 638401) 88 U/L 33-130 Calcium (test code = 102782) 8.4 mg/dL 8.6-10.4 AST/SGOT (test code = 629309) 14 U/L 10-35 CO2 (test code = 779153) 22 mmol/L 20-31 Bilirubin, Total (test code = 503438) 0.3 mg/dL 0.2-1.2 Est GFR, (test code = 595825) 25 mL/min > =60 Creatinine (test code = 975883) 2.12 mg/dL 0.60-0.93 Albumin (test code = 544916) 3.4 g/dL 3.6-5.1 ALT/SGPT (test code = 160993) 11 U/L 6-29 Culture, [id number] 14:49:00 Test Item Value Reference Range Comments COLONY COUNT: (test code = >=100,000 COLONIES/ML CCT) FINAL REPORT (test code = clinically indicated.predominant. FR) Suggest appropriate recollection ifMultiple bacterial morphotypes present, none CMP with Estimated [id number] 09:40:00 Test Item Value Reference Range Comments Bilirubin, Total (test code = 772517) 0.4 mg/dL 0.2-1.2 Sodium (test code = 134436) 140 mmol/L 135-146 Est GFR, NonAfrican [place] (test code = 251260) 34 mL/min >=60 Chloride (test code = 897897) 105 mmol/L 98-110 Glucose (test code = 568416) 79 mg/dL 65-99 CO2 (test code = 375832) 27 mmol/L 20-31 AST/SGOT (test code = 711409) 15 U/L 10-35 Calcium (test code = 529685) 8.8 mg/dL 8.6-10.4 Creatinine (test code = 605364) 1.48 mg/dL 0.60-0.93 Albumin (test code = 863417) 3.6 g/dL 3.6-5.1 Est GFR, (test code = 994518) 39 mL/min > =60 Total Protein (test code = 473398) 7.0 g/dL 6.1-8.1 ALT/SGPT (test code = 061683) 10 U/L 6-29 Alkaline Phosphatase (test code = 293539) 75 U/L 33-130 BUN (test code = 747356) 20 mg/dL 7-25 Potassium (test code = 877550) 4.2 mmol/L 3.5-5.3 Lipid [id number] 09:40:00 Test Item Value Reference Range Comments VLDL Cholesterol (Calc) (test code = 705684) 23 mg/dL <30 Cholesterol (test code = 763815) 240 mg/dL 125-200 Triglyceride (test code = 091681) 114 mg/dL <150 HDL Cholesterol (test code = 237307) 48 mg/dL >=46 Total Chol/HDL Ratio (test code = 200506) 5.0 Ratio <=5.0 LDL Cholesterol (Calc) (test code = 331928) 169 mg/dL <130 CBC NO Diff (Complete Blood Count)2016-09-02 09:40:00 Test Item Value Reference Range Comments Hemoglobin (test code = 358162) 11.4 g/dL 12.0-15.0 Hematocrit (test code = 449910) 35.0 % 36.0-46.0 MPV (test code = 455946) 9.9 fL 8.6-12.4 MCHC (test code = 808773) 32.6 g/dL 30.0-36.0 RBC (test code = 397939) 4.11 MIL/uL 3.87-5.11 MCV (test code = 970434) 85.2 fL 78.0-100.0 WBC (test code = 589984) 7.0 K/uL 4.0-10.5 MCH (test code = 163756) 27.7 pg 26.0-34.0 RDW (test code = 780382) 17.5 % 11.5-15.5 Platelet Count (test code = 263265) 312 K/uL 150-400 [id number] 09:40:00 Test Item Value Reference Range Comments TSH (test code = 177005) 3.613 uIU/mL 0.350-4.500 Assessments Condition Name Status Diagnosis Date Treating Clinici an Obstruction of bile duct Active Other specified abnormal findings of blood Active chemistry Chronic kidney disease, stage 4 (severe) Active 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 ang pctrs Encounter for immunization Active Non-prs chronic ulcer oth prt right foot w Active fat layer exposed Mucopurulent chronic bronchitis Active Essential (primary) hypertension Active Chronic obstructive pulmonary disease, Active unspecified 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 ang pctrs Gastro-esophageal reflux disease without Active esophagitis Essential (primary) hypertension Active 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 ang pctrs Gastro-esophageal reflux disease without Active esophagitis Essential (primary) hypertension Active Hypothyroidism, unspecified Active Chronic obstructive pulmonary disease w Active (acute) exacerbation Acute maxillary sinusitis, unspecified Active Essential (primary) hypertension Active 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 ang 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 ang pctrs Mucopurulent chronic bronchitis Active Gastro-esophageal reflux disease without Active esophagitis Hypertensive chronic kidney disease w stg Active 1-4/unsp chr kdny Unspecified abdominal pain Active Acute cystitis without hematuria Active Polyneuropathy, unspecified Active 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 disease Hypothyroidism, unspecified Active 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 ang pctrs Mucopurulent chronic bronchitis Active Gastro-esophageal reflux disease without Active esophagitis Encounters Start End Encounter Admission Attending Care Care Encounter Date/Time Date/Time Type Type Clinicians Facility Department ID 2020-05-07 Inpatient ER [facility] TASIA [id number]_ 00:00:00 AMITHA [id number] 2020-05-06 Inpatient ER JATIN [facility] T[facility] [id number]_ 00:00:00 AMILVA [id number] 2020-05-05 Inpatient ER MARGARETTE CARRASCO [facility] [id number]_ 00:00:00 [id number] 2020-08-22 S EDDIE BUSTAMANTE [facility] [id number]_ 12:24:00 17:00:00 SHANNON [id number] 2020-08-22 2020-08-22 Outpatient [facility] [id number] 12:24:00 17:00:00 2020-08-22 2020-08-22 Mark BUSTAMANTE [facility] [id number] 535_ 16:06:27 16:06:27 SHANNON [id number] 2020-08-22 2020-08-22 S TRACEY [facility] [id number] _ 00:00:00 00:00:00 SILVANA [id number] 2020-08-01 2020-08-01 S EDDIE BUSTAMANTE [facility] [id number]_ 00:00:00 00:00:00 SHANNON [id number] 2020-07-27 2020-07-27 Outpatient R LENO [facility] 8 [id number] 09:53:18 09:53:18 SHANNON 2020-05-25 2020-05-25 Outpatient Bundle, [facility] 3B [id number] 14:45:00 14:45:00 Marycarmen Tejeda [id number] s [id number] and 8EF Multispecialt y Clinic, 2020-05-10 2020-05-10 [facility]patient [facility] [id number] 00:00:00 00:00:00 2020-05-09 2020-05-09 [facility]patient [facility] [id number] 00:00:00 00:00:00 2020-05-08 2020-05-08 Inpatient ER JATIN [facility] [id number] 06:40:16 23:59:00 AMITHA [id number] 2020-05-06 2020-05-08 [facility]patient [facility] [id number] 01:10:00 13:29:00 2020-05-06 2020-05-08 Inpatient ER JATIN [facility] [id number] 01:10:00 13:29:00 AMILVA [id number] 2020-05-06 2020-05-06 Inpatient ER JATIN, [facility] [id number] 14:03:34 23:59:00 AMITHA [id number] 2020-05-06 2020-05-06 Inpatient ER JATIN, [facility] [id number] 09:19:31 23:59:00 AMITHA [id number] 2020-05-06 2020-05-06 Inpatient ER PROVIDER, [facility] [id number]_ 07:27:30 23:59:00 EXTERNAL [id number] 2020-05-06 2020-05-06 Inpatient ER PROVIDER, [facility] [id number]_ 07:23:24 23:59:00 EXTERNAL [id number] 2019-06-28 2019-06-28 Outpatient Bundle, [facility] A3 [id number] 15:30:00 15:30:00 Marycarmen Children???s [id number] 7A and [id number] Multispecialt BDF y Clini 2018-10-01 2018-10-01 Outpatient Bundle, [facility] C0 [id number] 14:45:00 14:45:00 Marycarmen Children [id number] s [id number] and D06 [place] 2018-02-19 2018-02-19 Outpatient Bundle, [facility] 73 [id number] 10:15:00 10:15:00 Marycarmen Children [id number] s [id number] and F5E [place] 2017-08-11 2017-08-11 Outpatient Bundle, [facility] 47 [id number] 15:00:00 15:00:00 Marycarmen Children [id number] s [id number] and 63A [facility] 2017 2017 Outpatient Bundle, [facility] DF [id number] 13:00:00 13:00:00 Marycarmen Children [id number] s [id number] and 01C [facility] 2017-02-03 2017-02-03 Outpatient Bundle, [facility] 89 [id number] 13:30:00 13:30:00 Marycarmen Tejeda [id number] s [id number] and F[facility] [place] Zun[facility] 2016-08-28 2016-08-28 Outpatient Bundle, [facility] D7 [id number] 16:15:00 16:15:00 Marycarmen Tejeda [id number] s [id number] and 131 [facility] [place]ST[place] Junior Payers Payer Name Policy Type Policy Number Effective Date Expiration D ate [facility] [id number] 2019 00:00:00 MEDICARE ADV [facility] SHP [id number] 2019 00:00:00 MEDICARE ADV [facility] MAP [id number] 2019 00:00:00 Plan of Treatment Planned Activity Planned Date Details Comments Future Scheduled Test [code = ] Future Scheduled Test [code = ] Future Scheduled Test [code = ] Future Scheduled Test [code = ] Future Scheduled Test [code = ] Future Scheduled Test [code = ] Future Scheduled Test [code = ] Future Scheduled Test [code = ] Future Scheduled Test [code = ] Future Scheduled Test [code = ] Future Scheduled Test [code = ] Future Scheduled Test [code = ] Future Scheduled Test [code = ] Future Scheduled Test [code = ] Future Scheduled Test [code = ] Future Scheduled Test [code = ] Future Scheduled Test [code = ] Future Scheduled Test [code = ] Future Scheduled Test [code = ] Future Scheduled Test [code = ] Future Scheduled Test [code = ] Social History Social Habit Start Date Stop Date Comments History SDOH Alcohol Std Drinks History SDOH Alcohol Binge Tobacco smoking status NHIS 2020-08-22 00:00:00 2020-08-22 00:00 :00 Tobacco use and exposure 2020-08-22 00:00:00 2020-08-22 00:00:00 Alcohol intake 2020-08-22 00:00:00 2020-08-22 00:00:00 History SDOH Alcohol Frequency 2020-05-06 00:00:00 2020-05-06 00 :00:00 Vital Signs Vital Name Observation Time Observation Value Comments Systolic blood pressure 2020-08-22 16:45:00 149 mm[Hg] Diastolic blood pressure 2020-08-22 16:45:00 87 mm[Hg] Heart rate 2020-08-22 16:45:00 66 /min Body temperature 2020-08-22 16:45:00 36.89 Becky Respiratory rate 2020-08-22 16:45:00 18 /min Oxygen saturation in Arterial blood by 2020-08-22 16:45:00 95 % Pulse oximetry Body height 2020-08-22 13:21:00 170.2 cm Body weight 2020-08-22 13:21:00 110 kg Systolic blood pressure 2020-05-08 09:01:00 136 mm[Hg] Diastolic blood pressure 2020-05-08 09:01:00 66 mm[Hg] Heart rate 2020-05-08 09:01:00 68 /min Body temperature 2020-05-08 09:01:00 36.39 Becky Respiratory rate 2020-05-08 09:01:00 18 /min Body weight 2020-05-08 09:01:00 119.8 kg Oxygen saturation in Arterial blood by 2020-05-08 09:01:00 94 % Pulse oximetry
--- NOTE | 2020-10-04 23:04 | ER Document Report ---
ED General - General Chief Complaint: Back Pain Stated Complaint: BACKPAIN Time Seen by Provider: 10/04/20 23:01 Primary Care Provider: HAZEL RAE MD [Primary Care Provider] - Follow up as needed TRAVEL OUTSIDE OF THE [place] IN LAST 30 DAYS: No - HPI Notes: 80-year-old female presents with cough. Patient states that she was admitted to the hospital recently, she was discharged 9 days ago. States that she had a urinary tract infection and possibly a back infection, she is currently on vancomycin for 6 weeks, this is done through a catheter in her chest. Patient states that for the past few days she has been feeling bad. She reports that she has been coughing a lot, it is occasionally productive. She reports that the coughing causes her to have pain in her lungs which radiates to her back. She reports that she has had low-grade fevers, 100.8F today at home, she did receive Tylenol with EMS. She reports she does not have an appetite, though she can still taste food, reports she has "a very sturdy appetite" normally. States overall she feels like crap. She states that a "bunch of junk" comes out with nebs. Patient also mentions that she was told she had some pneumonia a few days before she was discharged, she completed a course of Levaquin. - Related Data Allergies/Adverse Reactions: cephalexin monohydrate [From Keflex] Allergy (Severe, Verified 09/14/20 10:03) Anaphylaxis Penicillins Allergy (Intermediate, Verified 09/14/20 10:03) Generalized rash Beef Containing Products Allergy (Verified 01/26/17 04:59) latex [Latex] Allergy (Verified 01/26/17 04:59) Atomuvr-Jew-Wnv Reductase Inhibitor Adverse Reaction (Intermediate, Verified 01/26/17 04:59) Unknown reaction Home Medications: lasix Past Medical History - General Information source: Patient - Social History Smoking Status: Former Smoker Chew tobacco use (# tins/day): No Frequency of alcohol use: None Drug Abuse: None Family History: Hypertension - Past Medical History Cardiac Medical History: Reports: Hx Congestive Heart Failure, Hx Coronary Artery Disease, Hx Heart Attack, Hx Hypercholesterolemia, Hx Hypertension, Hx Peripheral Vascular Disease Pulmonary Medical History: Reports: Hx Asthma, Hx Bronchitis, Hx COPD, Hx Pneumonia Denies: Hx Tuberculosis Neurological Medical History: Denies: Hx Seizures, Hx Parkinson's Disease Endocrine Medical History: Reports: Hx Hypothyroidism Renal/ Medical History: Denies: Hx End Stage Renal Disease, Hx Kidney Stones, Hx Peritoneal Dialysis GI Medical History: Reports: Hx Gastroesophageal Reflux Disease, Hx Ulcer. Denies: Hx Cirrhosis Musculoskeletal Medical History: Reports Hx Arthritis, Denies Hx Multiple Sclerosis Psychiatric Medical History: Denies: Hx Bipolar Disorder, Hx Depression, Hx Schizophrenia Past Surgical History: Reports: Hx Cardiac Catheterization - x2, Hx Cholecystectomy, Hx Coronary Stent - On ICA in 2010, Hx Hysterectomy, Hx Tonsillectomy, Other - ERCP with stent placement due to obstructive biliary calculus; laminectomy - Immunizations Immunizations up to date: Yes Hx Diphtheria, Pertussis, Tetanus Vaccination: Yes Hx Pneumococcal Vaccination: 09/15/03 Review of Systems - Review of Systems Constitutional: Fever EENT: No symptoms reported Cardiovascular: denies: Chest pain Respiratory: Cough Gastrointestinal: denies: Abdominal pain, Diarrhea, Vomiting Genitourinary: No symptoms reported Female Genitourinary: No symptoms reported Musculoskeletal: Back pain Skin: No symptoms reported Hematologic/Lymphatic: No symptoms reported Neurological/Psychological: No symptoms reported Physical Exam - Vital signs Vitals: Resp Pulse Ox 18 94 10/04/20 21:35 10/04/20 21:35 - General General appearance: Appears well, Alert In distress: None - HEENT Head: Normocephalic, Atraumatic Extraocular movements intact: Yes Pupils: PERRL - Respiratory Respiratory status: No: Respiratory distress, Tachypnea Breath sounds: Nonproductive cough, Rhonchi - At bases - Cardiovascular Rhythm: Regular Heart sounds: Normal auscultation Normal capillary refill: Yes - Abdominal Tenderness: Nontender - Back Back: Nontender - Extremities General lower extremity: No: Edema - Neurological Neuro grossly intact: Yes Cognition: Normal Orientation: AAOx4 Speech: Normal Cranial nerves: Normal Motor strength normal: LUE, RUE, LLE, RLE - Psychological Associated symptoms: Normal affect - Skin Skin Temperature: Warm Course - Re-evaluation Re-evalutation: 80-year-old female presents with fever, cough, feeling poorly for the past 2 days. Patient did have a recent prolonged admission, she had a Klebsiella UTI and multiple blood cultures growing a staphylococcal variant, had an MRI which showed some possible endplate abnormality, therefore it was determined she potentially might have discitis and is on a course of vancomycin. On exam patient is currently afebrile, currently no hypoxia on room air, she does have rhonchi at bases. I discussed with patient that given her recent admission, concerned she potentially may have contracted Covid, pneumonia is a possibility as well. Lower suspicion for PE at this time. Ordered a CT of her chest to further evaluate. Will check basic labs and respiratory panel. 10/05/20 03:15 +COVID 10/05/20 03:24 Given patient's elevated creatinine/history of CKD, have canceled CTA and will perform CT chest without to further evaluate lung bowman 10/05/20 03:30 Patient was updated on positive Covid. So far she has not had any desaturations while on room air. Have ordered decadron given hx of COPD 10/05/20 03:52 No leukocytosis or left shift. Hemoglobin similar to previous. Very slight hyponatremia 130. Electrolytes otherwise okay. Creatinine at baseline. 10/05/20 04:42 CT chest has resulted, per radiology of states she has a left-sided pneumonia, though I do believe this is from her Covid infection, given her comorbidities will also cover for potential secondary bacterial infection as well. 10/05/20 04:49 Patient updated on all of her work-up today. She remains without hypoxia on room air. I stressed with her strict return precautions, have prescribed Decadron and doxycycline. Stable at time of discharge. - Vital Signs Vital signs: Temp Pulse Resp BP Pulse Ox 98.5 F 14 117/50 L 94 10/04/20 21:44 10/05/20 03:01 10/05/20 03:01 10/05/20 03:01 - Laboratory Results Result Diagrams: 10/05/20 01:15 10/05/20 01:15 Laboratory Results Interpreted: 10/05/20 10/05/20 10/05/20 01:15 01:15 01:15 RBC 3.70 L Hgb 9.2 L Hct 28.2 L MCV 76 L MCH 24.8 L RDW 18.1 H Lymph % (Auto) 12.0 L Eos % (Auto) 11.3 H Absolute Eos (auto) 0.9 H Sodium 130.1 L Carbon Dioxide 21 L Creatinine 2.22 H Est GFR ( Amer) 26 L Est GFR (MDRD) Non-Af 21 L Calcium 8.0 L SARS-CoV-2 (PCR) DETECTED H Critical Laboratory Results Reviewed: No Critical Results - Radiology Results Critical Radiology Results Reviewed: No Critical Results Discharge - Discharge Clinical Impression: COVID-19 virus infection Disposition: HOME, SELF-CARE Additional Instructions: As discussed, you were found to be Covid positive today. You will be prescribed a course of steroids and doxycycline given your history of COPD. Please monitor your symptoms very closely, return to the ED for any increasing shortness of breath or difficulty breathing, or any other concerning symptoms. You may begin supplementation with vitamin C, vitamin D and zinc, these can be found [id number] in product such as Zicam or Emergen-C Prescriptions: Dexamethasone [Decadron] 6 mg PO DAILY 5 Days #5 tablet Doxycycline Monohydrate 100 mg PO BID 7 Days #14 capsule Referrals: HAZEL RAE MD [Primary Care Provider] - Follow up as needed
[2020-10-04] MEDS ORDERED: GUAIFENESIN 600 MG TABLET.SA PO ONE (23:23)
[2020-10-05] MEDS ORDERED: ACETAMINOPHEN 325 MG TABLET PO ONE (01:49)
[2020-10-05] MEDS ORDERED: GUAIFENESIN 600 MG TABLET.SA PO ONE (02:00)
[2020-10-05 02:12] LABS: ABSOLUTE BASOPHILS # (AUTO) 0.1 10^3/uL (0.0-0.2); ABSOLUTE EOSINOPHILS # (AUTO) 0.9 10^3/uL (0.0-0.6); ABSOLUTE LYMPHOCYTES (AUTO) 0.9 10^3/uL (0.5-4.7); ABSOLUTE MONOCYTES (AUTO) 0.5 10^3/uL (0.1-1.4); ABSOLUTE NEUT (AUTO) 5.5 10^3/uL (1.7-8.2); BASOPHILS % (AUTO) 0.7 % (0-2); EOSINOPHILS % (AUTO) 11.3 % (0-6); HEMATOCRIT 28.2 % (36.0-47.0); HEMOGLOBIN 9.2 g/dL (12.0-15.5); MEAN CORPUSCULAR HEMOGLOBIN 24.8 pg (27.0-33.4); MEAN CORPUSCULAR HGB CONC 32.5 g/dL (32.0-36.0); MEAN CORPUSCULAR VOLUME 76 fl (80-97); MONOCYTES % (AUTO) 6.9 % (3-13); PLATELET COUNT 263 10^3/uL (150-450); RED CELL DISTRIBUTION WIDTH 18.1 % (11.5-14.0); SEGMENTED NEUTROPHILS % (AUTO) 69.1 % (42-78); TOTAL CELLS COUNTED % (AUTO) 100 %; WHITE BLOOD COUNT 7.9 10^3/uL (4.0-10.5)
[2020-10-05] MEDS ORDERED: DEXAMETHASONE SOD PHOSPHATE INJ 4 MG/1 ML VIAL IV ONE (03:16)
[2020-10-05 03:17] LABS: ANION GAP 8 (5-19); BLOOD UREA NITROGEN 19 mg/dL (7-20); CARBON DIOXIDE 21 mmol/L (22-30); CHLORIDE 101 mmol/L (98-107); GLUCOSE 93 mg/dL (75-110); POTASSIUM 3.9 mmol/L (3.6-5.0)
--- NOTE | 2020-10-05 04:40 | RADIOLOGY REPORT (SQ) ---
CLINICAL HISTORY: COVID +, PAIN WITH BREATHING COMPARISON: 09/12/2020. TECHNIQUE: CT CHEST WITHOUT IV CONTRAST on 10/05/2020 3:22 AM [employer] This exam was performed according to our departmental dose-optimization program, which includes automated exposure control, adjustment of the mA and/or kV according to patient size and/or use of iterative reconstruction technique. FINDINGS: The heart is normal in size. There is no pericardial effusion. There are multiple borderline bilateral axillary as well as mediastinal lymph nodes. Right IJ central line tip is in the mid SVC. There is no pleural effusion, pleural thickening or pneumothorax. Central airways are patent. There is bibasilar atelectasis. There are minimal tree-in-bud opacities in the left lower lobe as well. There are no acute abnormalities within the limited images of the upper abdomen. There are no acute osseous findings. No suspicious bony lesions. IMPRESSION: Bibasilar atelectasis with left basilar pneumonia.
[2020-10-05 05:00] LABS: APPEARANCE,URINE CLEAR; BILIRUBIN,URINE NEGATIVE (NEGATIVE); COLOR,URINE YELLOW; GLUCOSE, URINE NEGATIVE (NEGATIVE); KETONES,URINE NEGATIVE (NEGATIVE); LEUKOCYTE ESTERASE,URINE TRACE (NEGATIVE); NITRITE,URINE NEGATIVE (NEGATIVE); PROTEIN,URINE 30 mg/dL (NEGATIVE); URINE SPECIFIC GRAVITY 1.012; UROBILINOGEN,URINE NEGATIVE mg/dL (<2.0)
[2020-10-05 05:28] VITALS: BP 129/62
== END 2020-10-05 05:50 | disposition home or self-care (01) ==
LOC: ER 21:22
DX: U07.1 COVID-19 (principal); J44.0 Chronic obstructive pulmonary disease with (acute) lower respiratory infection; J18.9 Pneumonia, unspecified organism; E87.1 Hypo-osmolality and hyponatremia; N39.0 Urinary tract infection, site not specified; B96.89 Other specified bacterial agents as the cause of diseases classified elsewhere; I11.0 Hypertensive heart disease with heart failure; I50.9 Heart failure, unspecified; M54.9 Dorsalgia, unspecified; I25.10 Atherosclerotic heart disease of native coronary artery without angina pectoris; Z87.891 Personal history of nicotine dependence; Z87.892 Personal history of anaphylaxis; Z88.1 Allergy status to other antibiotic agents; Z88.0 Allergy status to penicillin; Z91.018 Allergy to other foods; Z91.040 Latex allergy status
CPT/HCPCS: 99285; 96374; 36415; 85025; 0202U; 80048; 81001; 71250; A9270 ×2; J1100; C9803